=== PATIENT | female | born 1985 | race Caucasian/White ===

== ENCOUNTER 2016-09-19 10:51 | Observation (INO) ==
[2016-09-19] MEDS ORDERED: Naloxone 0.4 MG/ML INJ IM ONE ×2 (11:30→13:06)
--- NOTE | 2016-09-19 11:39 | Emergency Department Note ---
START Narrative - START START: I examined this patient and my medical decision-making was reviewed with the MANAGER UNIT/PA/Advanced Practice Nurse/Resident Physician. I agree with the documented findings, disposition and treatment plan as described except to the extent set forth below. The patient is somnolent but wakes easily and is breathing comfortably. Does know her name but does not answer other questions. I did speak with her boyfriend. The patient has no focal neurologic deficits on gross exam, no facial asymmetry, she is breathing comfortably, skin color is good and there is no diaphoresis. Test results are pending. Narcan 0.1 mg will be given. 1139 I did review the patient's EKG showed normal sinus rhythm with rate of 80 without acute ischemic changes, arrhythmia, QT prolongation or other significant abnormalities 1149 Chest x-ray is negative. I did reassess the patient again. She is infiltrated with assistance, she is much more done before. Will continue to be observed and likely discharged. Her altered consciousness is likely due to medications. Her prescription report will be checked 1219
--- NOTE | 2016-09-19 11:51 | Emergency Department Note ---
Disposition Clinical Impression: Hallucination Altered mental status Qualifiers: Altered mental status type: unspecified Qualified Code(s): R41.82 - Altered mental status, unspecified Disposition: Admitted As Inpatient Condition: Fair Referrals: Azar Lynch DO [Primary Care Provider] - Forms: ED Satisfaction Letter Time of Disposition: 15:49 Altered Mental Status HPI - General Chief Complaint: ED Altered Mental Status Stated Complaint: AMS x4 days Time Seen by Provider: 09/19/16 11:08 Source: patient, family Limitations: altered mental status - History of Present Illness HPI Narrative: Valeri is a 31-year-old female who presents with altered mental status for 4 days. Patient is brought in by her partner of 5 years. The partner states that today she drove his truck to his sister's house. He states that the patient does not have a license nor does she drive. Partner states that the patient has been "out of it" for the last 4 days. She is not know where she is. Patient is a former IV drug user who is currently using Suboxone 28 mg strips per day. She also reportedly uses Adderall which she obtains illegally. The patient takes gabapentin, ibuprofen, and Suboxone daily. The patient denies recently using IV drugs, methamphetamine, benzodiazepines, marijuana, alcohol. The patient and her partner recently moved into a new house about a month ago. Formerly, they lived with the partner's sister and brother. In the past month the patient has been cleaning their new house daily from approximately noon to 1 or 2 AM. However, for the last 4 days as become lethargic and disoriented. Today, the patient who does not drive to occur partner's truck and drove to her former house. She was found sitting in the yard by a resident of the house. Patient does admit that she has bipolar disorder. She admits to previous suicide attempt of cutting wrists. She denies suicidal thoughts at this time. She states that the voices she is hearing are not telling her to kill herself. - Related Data Allergies Allergy/AdvReac Type Severity Reaction Status Date / Time No Known Allergies Allergy Verified 09/19/16 11:34 Limitations: ROS unobtainable due to patients medical condition (ROS unobtainable due to patient's altered level of consciousness) Past Medical History - Past Medical History Medical history: Reports: other Psychiatric history: Reports: bipolar, prior suicide attempt - Social History Smoking Status: Unknown if ever smoked Alcohol use: Reports: unknown Drug use: Reports: unknown, opiates Physical Exam - General Limitations: altered mental status General appearance: alert, in no apparent distress - Head Head exam: atraumatic, normocephalic - Eye Eye exam: Present: normal appearance, PERRL, EOMI. Absent: scleral icterus, conjunctival injection - ENT ENT exam: normal exam - Neck Neck exam: Present: normal inspection, full ROM, trachea midline - Chest Chest inspection: Present: normal inspection, symmetric chest wall rise. Absent : tenderness - Respiratory Respiratory exam: Present: normal lung sounds bilaterally. Absent: respiratory distress, wheezes - Cardiovascular Cardiovascular exam: Present: regular rate, normal rhythm, +S1, +S2. Absent: systolic murmur, diastolic murmur - Abdominal Exam Abdominal exam: Present: soft, Non-Tender, normal bowel sounds. Absent: distention, guarding, rebound, rigidity - Expanded Lower Extremity Exam Hip/Pelvis exam: Present: normal inspection, full ROM - Back Exam Back exam: Present: normal inspection, full ROM - Neurological Exam Neurological exam: Present: alert, CN II-XII intact. Absent: oriented X3 ( Oriented to person only) - Psychiatric Psychiatric exam: Absent: homicidal ideation, suicidal ideation Course - Reevaluation(s) Reevaluation #1: Patient keeps repeating statements such as "I have had this gift for a long time ", "they are all trying to manipulate me". She does admit to auditory hallucinations. Patient states that she is hearing the voice of Claudia at this time (Claudia is her brother's boyfriend). Results of urine toxin screen, ethanol, salicylates, and acetaminophen levels. Given these findings, we will consult psychiatry. Patient denies suicidal ideations. Denies that voices are telling her to kill herself. Time: 13:34 Reevaluation #2: Patient's CT head is negative for any acute intracranial. I called [facility] and spoke to, who agreed to evaluate the patient in the ED. Patient will be admitted to [facility] for altered mental status. Time: 15:37 Vital Signs Temperature 98.3 F 09/19/16 10:55 Pulse Rate 78 09/19/16 10:55 Respiratory Rate 18 09/19/16 10:55 Blood Pressure 113/72 09/19/16 10:55 O2 Sat by Pulse Oximetry 97 09/19/16 10:55 Temperature 98.3 F 09/19/16 10:55 Pulse Rate 117 09/19/16 12:37 Respiratory Rate 16 09/19/16 12:37 Blood Pressure 140/94 09/19/16 12:37 O2 Sat by Pulse Oximetry 99 09/19/16 12:37 Oxygen Delivery Oxygen Delivery Room Air Altered Mental Status - [facility] Narrative Medical decision making narrative: Patient is a 31-year-old female who presented with 4 day history of altered mental status. Patient is awake alert and oriented to herself only. Patient is responding to questions with nonsensical answers. We have ordered Urine toxin screen, ethanol level, salicylates, and acetaminophen levels. These are pending at this time. - Differential Diagnosis Likely: altered mental status - Lab Data Lab results reviewed: Yes I reviewed the patient's lab results. Result diagrams: 09/19/16 11:32 Lab Results 09/19/16 09/19/16 09/19/16 Range/Units 11:32 11:32 11:55 Sodium 140 (136-145) mEq/L Potassium 3.5 (3.5-4.5) mEq/L Chloride 110 H (98-109) mEq/L Carbon Dioxide 23 (19-29) mEq/L BUN 10 (7-20) mg/dL Creatinine 0.71 (0.57-1.11) mg/dL Est GFR ( Amer) > 60 (> 60) Est GFR (Non-Af Amer) > 60 (> 60) BUN/Creatinine Ratio 14 (6-26) Glucose 101 H (70-99) mg/dL Calculated Osmolality 289 (280-300) Calcium 8.7 (8.6-10.8) mg/dL Total Bilirubin 0.7 (0.2-1.2) mg/dL Direct Bilirubin 0.3 (0.0-0.5) mg/dL Indirect Bilirubin 0.4 (0.0-1.2) mg/dL AST 15 (5-34) Units/L ALT 12 (0-55) Units/L Alkaline Phosphatase 45 (38-126) Units/L Serum Total Protein 7.0 (6.0-8.3) g/dL Albumin 4.1 (3.5-5.0) g/dL Globulin 2.9 (2.4-3.5) g/dL Albumin/Globulin Ratio 1.4 (1.1-2.2) TSH 0.275 L (0.350-4.840) mcIU/mL Free T4 0.80 (0.70-1.48) ng/dl Free T3 2.27 (1.71-3.71) pg/mL Urine Color Yellow (Yellow) Urine Clarity Cloudy A (Clear) Urine pH 6.0 (5.0-8.0) pH Units Ur Specific [place] 1.026 H (1.010-1.025) Urine Protein Negative (Neg-Trace) mg/dL Urine Glucose (UA) Normal (Normal) mg/dL Urine Ketones Negative (Negative) mg/dL Urine Blood Large H (Negative) Urine Nitrite Negative (Negative) Urine Bilirubin Negative (Negative) Urine Urobilinogen Normal (Normal) mg/dL Ur Leukocyte Esterase Negative (Negative) Urine Microscopic RBC 5-15 H (0-3) per hpf Urine Microscopic WBC 3-5 H (0-3) per hpf Ur Squamous Epith Cells Many H (None-Few) per lpf Urine Bacteria Few (None-Few) per hpf Hyaline Casts None Seen (None-Few) per lpf Ur Culture Indicated? NO (NO) Salicylates < 5.0 L (15-30) mg/dL Urine Opiates Screen (Rxpade=477) ng/mL Acetaminophen < 1.0 L (10-30) mcg/mL Ur Barbiturates Screen (Rwjttq=269) ng/mL Ur Phencyclidine Scrn (Cutoff=25) ng/mL Ur Amphetamines Screen (Mkutrc=1353) ng/mL U Benzodiazepines Scrn (Fnlaln=068) ng/mL Urine Cocaine Screen (Cutoff= 300) ng/mL U Marijuana (THC) Screen (Cutoff = 50) ng/mL Ethyl Alcohol < 10 (0-10) mg/dL 09/19/16 Range/Units 11:55 Sodium (136-145) mEq/L Potassium (3.5-4.5) mEq/L Chloride (98-109) mEq/L Carbon Dioxide (19-29) mEq/L BUN (7-20) mg/dL Creatinine (0.57-1.11) mg/dL Est GFR ( Amer) (> 60) Est GFR (Non-Af Amer) (> 60) BUN/Creatinine Ratio (6-26) Glucose (70-99) mg/dL Calculated Osmolality (280-300) Calcium (8.6-10.8) mg/dL Total Bilirubin (0.2-1.2) mg/dL Direct Bilirubin (0.0-0.5) mg/dL Indirect Bilirubin (0.0-1.2) mg/dL AST (5-34) Units/L ALT (0-55) Units/L Alkaline Phosphatase (38-126) Units/L Serum Total Protein (6.0-8.3) g/dL Albumin (3.5-5.0) g/dL Globulin (2.4-3.5) g/dL Albumin/Globulin Ratio (1.1-2.2) TSH (0.350-4.840) mcIU/mL Free T4 (0.70-1.48) ng/dl Free T3 (1.71-3.71) pg/mL Urine Color (Yellow) Urine Clarity (Clear) Urine pH (5.0-8.0) pH Units Ur Specific [place] (1.010-1.025) Urine Protein (Neg-Trace) mg/dL Urine Glucose (UA) (Normal) mg/dL Urine Ketones (Negative) mg/dL Urine Blood (Negative) Urine Nitrite (Negative) Urine Bilirubin (Negative) Urine Urobilinogen (Normal) mg/dL Ur Leukocyte Esterase (Negative) Urine Microscopic RBC (0-3) per hpf Urine Microscopic WBC (0-3) per hpf Ur Squamous Epith Cells (None-Few) per lpf Urine Bacteria (None-Few) per hpf Hyaline Casts (None-Few) per lpf Ur Culture Indicated? (NO) Salicylates (15-30) mg/dL Urine Opiates Screen Negative (Ncjmih=668) ng/mL Acetaminophen (10-30) mcg/mL Ur Barbiturates Screen Negative (Kdxbtm=231) ng/mL Ur Phencyclidine Scrn Negative (Cutoff=25) ng/mL Ur Amphetamines Screen Negative (Pdndmq=1088) ng/mL U Benzodiazepines Scrn Negative (Mymtxr=591) ng/mL Urine Cocaine Screen Negative (Cutoff= 300) ng/mL U Marijuana (THC) Screen Negative (Cutoff = 50) ng/mL Ethyl Alcohol (0-10) mg/dL - Radiology Data Radiology results reviewed: Yes I reviewed the patient's radiology results. Chest X-Ray 09/19/16 11:13 IMPRESSION: No acute cardiopulmonary disease D/ / Gabriel Krause MD / Gabriel Krause MD Interpreting Provider: Gabriel Krause MD Head CT 09/19/16 13:24 IMPRESSION: No acute intracranial abnormality. D/ / Sawyer Lewis MD / Sawyer Lewis MD Interpreting Provider: Sawyer Lewis MD - EKG Data EKG attestation: Yes I reviewed and interpreted this EKG. EKG results narrative: EKG NSR with rate at 80bpm. No ST segment changes. TPA Checklist - LKW: 3-4.5 hrs Add. Contraindications Patient/family understanding: The patient/family members have been counseled and understood the risk, benefit , and alternatives of treatment.
[2016-09-19 11:55] LABS: Acetaminophen < 1.0 mcg/mL (10-30); Alanine Aminotransferase 12 Units/L (0-55); Albumin 4.1 g/dL (3.5-5.0); Albumin/Globulin Ratio 1.4 (1.1-2.2); Alkaline Phosphatase 45 Units/L (38-126); Aspartate Amino Transferase 15 Units/L (5-34); BUN/Creatinine Ratio 14 (6-26); Bilirubin,Direct 0.3 mg/dL (0.0-0.5); Bilirubin,Indirect 0.4 mg/dL (0.0-1.2); Bilirubin,Total 0.7 mg/dL (0.2-1.2); Blood Urea Nitrogen 10 mg/dL (7-20); Calcium 8.7 mg/dL (8.6-10.8); Carbon Dioxide 23 mEq/L (19-29); Chloride 110 mEq/L (98-109); Globulin 2.9 g/dL (2.4-3.5); Glucose 101 mg/dL (70-99); Osmolality,Calculated 289 (280-300); Potassium 3.5 mEq/L (3.5-4.5); Sodium 140 mEq/L (136-145); eGFR For African Americans > 60 (> 60); eGFR For Non-African Americans > 60 (> 60)
[2016-09-19 11:56] LABS: Ethanol < 10 mg/dL (0-10); Salicylate < 5.0 mg/dL (15-30)
[2016-09-19 12:09] LABS: Bilirubin,Urine Negative (Negative); Blood,Urine Large (Negative); Clarity,Urine Cloudy (Clear); Color,Urine Yellow (Yellow); Glucose,Urine (UA) Normal (Normal); Ketones,Urine Negative (Negative); Leukocyte Esterase,Urine Negative (Negative); Nitrite,Urine Negative (Negative); Protein,Urine Negative (Neg-Trace); Specific Gravity,Urine 1.026 (1.010-1.025); Urobilinogen,Urine Normal (Normal)
[2016-09-19 12:11] LABS: Bacteria,Urine Few per hpf (None-Few); Hyaline Casts,Urine None Seen per lpf (None-Few); Squamous Epithelial Cell,Urine Many per lpf (None-Few)
[2016-09-19 12:15] LABS: Amphetamine Screen,Urine Negative ng/mL (Cutoff=1000); Barbiturate Screen,Urine Negative ng/mL (Cutoff=200); Benzodiazepines Screen,Urine Negative ng/mL (Cutoff=200); Cannabinoid Screen,Urine Negative ng/mL (Cutoff = 50); Cocaine Screen,Urine Negative ng/mL (Cutoff= 300); Opiate Screen,Urine Negative ng/mL (Cutoff=300); Phencyclidine Screen,Urine Negative ng/mL (Cutoff=25)
[2016-09-19 14:05] LABS: Thyroid Stimulating Hormone 0.275 mcIU/mL (0.350-4.840)
[2016-09-19 15:41] LABS: Triiodothyronine (T3) Free 2.27 pg/mL (1.71-3.71)
[2016-09-19 19:44] LABS: Basophils # 0.1 K/mcL (0.0-0.2); Basophils % 0.6 %; Eosinophils # 0.2 K/mcL (0.0-0.6); Eosinophils % 1.9 %; Hematocrit 40.4 % (35.3-44.9); Hemoglobin 13.4 g/dL (11.5-15.4); Immature Granulocytes % 0.1 % (0-4); Lymphocytes # 2.3 K/mcL (0.6-4.6); Mean Corpuscular HGB Conc 33.2 g/dL (31.6-35.5); Mean Corpuscular Hemoglobin 30.3 pg (28.0-33.3); Mean Corpuscular Volume 91.4 fL (83.0-100.0); Mean Platelet Volume 13.2 fL (9.4-12.4); Monocytes # 0.6 K/mcL (0.0-1.3); Neutrophils # 6.2 K/mcL (1.6-8.9); Platelet Count 193 K/mcL (140-400); Red Blood Count 4.42 M/mcL (3.82-4.97); Red Cell Distribution Width 12.6 % (11.5-14.5); Segmented Neutrophils % 66.4 %
[2016-09-19] MEDS ORDERED: Naloxone 0.4 MG/ML INJ IVP PRN (20:38)
[2016-09-19] MEDS ORDERED: *HR* Morphine 2 MG/ML SYRINGE IVP PRN (20:38)
[2016-09-19] MEDS ORDERED: Acetaminophen 325 MG TABLET PO PRN (20:38)
[2016-09-19] MEDS ORDERED: Ibuprofen 400 MG TABLET PO PRN (20:38)
[2016-09-19] MEDS ORDERED: Ibuprofen 800 MG TABLET PO PRN (20:42)
[2016-09-19] MEDS ORDERED: 0.9 % Sodium Chloride 1,000 ML IVC SCH (20:45)
[2016-09-19] MEDS ORDERED: diazePAM 10 MG TABLET PO SCH (21:00)
--- NOTE | 2016-09-19 21:25 | Electrocardiograph Report ---
[facility] Test Date: 2016-09-19 Pat Name: Sarah Garcia Department: 105 Room: 3B31 Gender: F Wing Commander: AM : 1985 Requested By: Silvio Guerra Order Number: [id number] Reading MD: Martin Estrada MD Measurements Intervals [place] Rate: 80 P: 61 IL: 155 QRS: 57 QRSD: 72 T: 33 QT: 393 QTc: 429 Interpretive Statements SINUS RHYTHM Electronically Signed On 09-19-2016 21:23:25 EDT by Martin Estrada MD
[2016-09-19] MEDS: Gabapentin 400 MG CAPSULE PO SCH (21:35)
[2016-09-20] MEDS ORDERED: Melatonin 3 MG TABLET PO ONE (00:31)
--- NOTE | 2016-09-20 00:58 | Internal Med History&Physical ---
Date of Encounter: 09/20/16 Time of Encounter: 21:00 Assessment and Plan (1) DVT prophylaxis Current visit: Yes Status: Acute Lovenox subcutaneously (2) Altered mental status Current visit: Yes Status: Acute Patient has multiple psych issue. Drug screen in emergency room negative. Consider psychiatry etiology. Mental status has improved when I see her. - She has anxiety, will give diazepam 10mg po bid. - Continue her home medication for pain. - Closely monitor patient. Place sitter. - May reconsult psychiatry in AM. Qualifiers: Altered mental status type: delirium Qualified Code(s): R41.0 - Disorientation, unspecified (3) Hallucination Current visit: Yes Status: Acute We will closely monitor patient and consult psychiatry in a.m. Internal Medicine - H&P: HPI Chief complaint: Confusion Admitted From: Home Plans for Post Hospital Care: Home History of present illness: Ms. Garcia is a 31 year old female with history of IV drug use, bipolar disorder , PTSD, present to ER for strange behavior and confusion. When I saw patient in the emergency room, she is awake alert, oriented 3. However, patient does not want to talk much, and keep complaining pain. Some history obtained from her partner, who is in the room at that time. Patient was found confused and strange behavior for 4-5 days. Patient complains of hearing some sound and see colorful lights. 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 Patient denies fever, has mild nausea, but no vomiting. She has abdominal pain but it is chronic for many years. She has no urinary symptoms. Patient denies suicide or homicide idea. In emergency room, psychiatry consult was called by ER physician and saw patient, but no note left. Patient will admitted to medical floor for further observation. Past Med Surg Social Fam HX - Past Medical History Medical history: other Psychiatric history: bipolar, prior suicide attempt - Social History Smoking Status: Unknown if ever smoked Packs per day: 1 Smokeless Tobacco Status: No Alcohol use: unknown Drug use: unknown, opiates - Family History Paternal Grandmother Hx Family Cardiac Disorders: Yes ([place]) Hx Family Respiratory Disorders: No Hx Family Cancer: No Hx Family GI Disorders: No Hx Family Genitourinary Disorders: No Hx Family Endocrine Disorder: No Hx Family Musculoskeletal Disorders: No Hx Family Neuromuscular Disorders: No Hx Family Neurologic Disorders: No Hx Family HEENT Disorders: No Hx Family Autoimmune Disorders: No Hx Family Reproductive Disorders: No Hx Family Psychosocial Disorders: No Hx Family Medical Disorders: No Internal Medicine - H&P: Meds Buprenorphine HCl/Naloxone HCl [Suboxone 8 mg-2 mg Sl Film] 1 each SL BID [History] Gabapentin [Neurontin] 800 mg PO TID 09/19/16 [History] Ibuprofen [Ibuprofen] 800 mg PO TID PRN 09/19/16 [History] Allergies No Known Allergies Allergy (Verified 09/19/16 11:34) All Systems PM: A 10-system review of systems was performed and is negative for pertinent findings except as documented above in the HPI. - Constitutional Vitals: Temp Pulse Resp BP Pulse Ox 97.5 F L 70 16 94/59 98 09/19/16 22:26 09/19/16 22:26 09/19/16 22:26 09/19/16 22:26 09/19/16 22:26 General appearance: Present: mild distress, A&O X 3, answers questions appropriately - Head Head exam: Present: atraumatic, normocephalic - Eye Eye exam: Present: PERRL, conjuntiva pink, sclera anicteric Pupils: Present: PERRL - Neck Neck exam general surgery: Present: supple, trachea midline. Absent: lymphadenopathy - Respiratory Respiratory exam: Present: CTAB. Absent: accessory muscle use, rales, rhonchi, wheezes - Cardiovascular Cardiovascular exam: Present: RRR, +S1, +S2. Absent: diastolic murmur, gallop, rubs, systolic murmur - GI/Abdominal GI/Abdominal exam: Present: normal bowel sounds, soft, tenderness (Tenderness all around the belly, without rebound or guarding.), no peritoneal signs. Absent: distended - Extremities Exam Extremities exam: Present: warm, radial pulses palpable and symetrical. Absent : calf tenderness, cyanotic, pedal edema - Neurological Exam Neurological exam: Present: CN II-XII intact, oriented X3, no focal deficits. Absent: pronater drift, facial droop, speech deficit - Skin Skin exam: Present: dry, intact Internal Med - H&P Results - Labs CBC & Chem 7: 09/19/16 11:32 09/19/16 11:32
[2016-09-20 05:21] LABS: Basophils # 0.1 K/mcL (0.0-0.2); Basophils % 0.7 %; Eosinophils # 0.1 K/mcL (0.0-0.6); Eosinophils % 1.5 %; Hematocrit 41.3 % (35.3-44.9); Hemoglobin 13.7 g/dL (11.5-15.4); Immature Granulocytes % 0.2 % (0-4); Lymphocytes % 34.4 %; Mean Corpuscular HGB Conc 33.2 g/dL (31.6-35.5); Mean Corpuscular Hemoglobin 29.8 pg (28.0-33.3); Mean Platelet Volume 12.3 fL (9.4-12.4); Monocytes # 0.8 K/mcL (0.0-1.3); Monocytes % 9.3 %; Neutrophils # 4.7 K/mcL (1.6-8.9); Platelet Count 181 K/mcL (140-400); Red Blood Count 4.59 M/mcL (3.82-4.97); Red Cell Distribution Width 12.2 % (11.5-14.5); Segmented Neutrophils % 53.9 %
[2016-09-20 05:31] LABS: BUN/Creatinine Ratio 17 (6-26); Blood Urea Nitrogen 13 mg/dL (7-20); Carbon Dioxide 24 mEq/L (19-29); Chloride 108 mEq/L (98-109); Glucose 93 mg/dL (70-99); Osmolality,Calculated 288 (280-300); Sodium 139 mEq/L (136-145); eGFR For African Americans > 60 (> 60); eGFR For Non-African Americans > 60 (> 60)
[2016-09-20 05:32] LABS: Magnesium 2.5 mg/dL (1.6-2.6)
[2016-09-20 05:33] LABS: Potassium 4.8 mEq/L (3.5-4.5)
[2016-09-20] MEDS ORDERED: *HR* Enoxaparin 40 MG/0.4 ML SYRINGE SQ SCH (06:00)
[2016-09-20] MEDS: Gabapentin 400 MG CAPSULE PO SCH (07:59)
[2016-09-20] MEDS ORDERED: Ondansetron 4 MG/2 ML VIAL ONE (08:40)
[2016-09-20] MEDS ORDERED: Ondansetron 4 MG/2 ML VIAL IVP PRN (08:43)
[2016-09-20 11:29] VITALS: BP 103/63
--- NOTE | 2016-09-20 14:44 | Discharge Summary ---
Date of Encounter: 09/20/16 Time of Encounter: 13:00 - Discharge Diagnosis (1) Altered mental status Priority: Primary Status: Resolved (2) Hallucination Priority: Primary Status: Resolved (3) DVT prophylaxis Priority: Primary Status: Acute Comments: Subcutaneous Lovenox while admitted (4) Other social stressor Priority: Primary Status: Acute - Discharge Medications Prescriptions: Ondansetron HCl 4 mg PO Q8H PRN #12 tablet PRN Reason: Nausea And Vomiting Home Medications: Buprenorphine HCl/Naloxone HCl [Suboxone 8 mg-2 mg Sl Film] 1 each SL BID [History] Gabapentin [Neurontin] 800 mg PO TID 09/19/16 [History] Ibuprofen 800 mg PO TID PRN 09/19/16 [History] Ondansetron HCl 4 mg PO Q8H PRN #12 tablet 09/20/16 [Rx] Allergies/Adverse Reactions: Allergies No Known Allergies Allergy (Verified 09/19/16 11:34) Date of admission: 09/19/16 20:09 Primary care physician: Azar Lynch Consults: 09/19/16 20:41 Consult to [facility] Director [CONS] Routine Reason for SW Consult: Complicated social issue, Hx of IVDU Discharging clinician: Briseida Gasca Anticipated date of discharge: 09/20/16 - Patient Status Disposition: Home, Self-Care Condition: Fair Functional capacity at discharge: independent ambulation Overall status at discharge: patient is back to baseline - Discharge Instructions Follow Up With: Azar Lynch DO [Primary Care Provider] - Additional Instructions: Follow-up with primary care provider within one to 2 weeks - Diet and Activity Activity: increase activity as tolerated Diet: regular diet Hospital course: Ms. Garcia is a 31 year old female with past medical history of IV drug abuse, bipolar disorder, PTSD, prior suicide attempt, tobacco abuse. Patient presented to the emergency room for chief complaint of altered mental status. Her live-in partner stated that the patient was more confused and had been exhibiting strange behavior for the past 4-5 days prior to presentation. Patient complained of hearing a sound in seeing colorful lights. She denied fever, vomiting. She did endorse mild nausea. Patient endorsed her chronic abdominal pain but denied any change. She denied urinary symptoms. She denied suicidal or homicidal ideation. Psychiatry was brought on board while in the emergency department and they did not recommend inpatient psychiatric care at that time. Patient was subsequently admitted to the hospitalist service for further evaluation and management. Chest x-ray negative. Head CT negative. Urinalysis negative. Tox screen negative. Patient was observed overnight and she was alert and oriented 3 and no longer had visual or auditory hallucinations. It appears as if the patient had experienced an acute psychotic break. She states that her children are in the custody of their father and she states that their father was incarcerated on drug charges last week. She states that she is "worrying herself sick" trying to find where her children are in trying to get custody of them. She has not been sleeping or eating very much. Again, her tox screen was negative and she denied any illicit drug use. She tolerated a regular diet while admitted. She denied suicidal or homicidal ideations. We are always report checked out. She states that she sees [facility] clinic regularly and regularly get psychiatric care there. She was also seen by pastoral care at her request. She states she felt safe in her current living arrangement. She was discharged home in stable condition with close outpatient follow-up recommended. She was also seen by manager social work to give her more resources and obtaining the location of her children. ITS Impressions Chest X-Ray 09/19/16 11:13 IMPRESSION: No acute cardiopulmonary disease D/ / Gabriel Krause MD / Gabriel Krause MD Interpreting Provider: Gabriel Krause MD Head CT 09/19/16 13:24 IMPRESSION: No acute intracranial abnormality. D/ / Sawyer Lewis MD / Sawyer Lewis MD Interpreting Provider: Sawyer Lewis MD - Time Spent with Patient Total time spent providing and/or coordinating discharge services: - Constitutional Vitals: Temp Pulse Resp BP Pulse Ox 98.4 F 80 18 103/63 98 09/20/16 11:25 09/20/16 11:25 09/20/16 11:25 09/20/16 11:25 09/20/16 11:25 General appearance: Present: cachectic, A&O X 3, pleasant, no acute distress, answers questions appropriately - Head Head exam: Present: atraumatic, normocephalic - Eye Eye exam: Present: PERRL, conjuntiva pink, sclera anicteric Pupils: Present: PERRL - Neck Neck exam general surgery: Present: supple, trachea midline. Absent: lymphadenopathy - Respiratory Respiratory exam: Present: CTAB. Absent: accessory muscle use, rales, respiratory distress, rhonchi, wheezes - Cardiovascular Cardiovascular exam: Present: RRR, +S1, +S2. Absent: diastolic murmur, gallop, rubs, systolic murmur - GI/Abdominal GI/Abdominal exam: Present: normal bowel sounds, soft, no peritoneal signs. Absent: distended, tenderness - Extremities Exam Extremities exam: Present: warm, radial pulses palpable and symetrical. Absent : calf tenderness, cyanotic, pedal edema - Neurological Exam Neurological exam: Present: alert, CN II-XII intact, normal gait, oriented X3, no focal deficits, strengths equal and symetr throughout. Absent: pronater drift, facial droop, speech deficit - Psychiatric Psychiatric exam: Present: anxious. Absent: suicidal ideation - Expanded Psychiatric Exam Focused psych exam: Present: psychomotor agitation, restlessness - Skin Skin exam: Present: dry, intact, pallor, warm
== END 2016-09-20 15:12 | disposition home or self-care (01) ==
LOC: EMEROO 10:51 → 3BNU 10:51
PROVIDERS: ADMIT Nurse Practitioner Family; ATTEND Nurse Practitioner Family

== ENCOUNTER 2016-10-03 16:12 | Inpatient (IN) ==
[2016-10-03] MEDS ORDERED: *HR* LORazepam 2 MG/ML VIAL IM PRN (18:41)
[2016-10-03] MEDS ORDERED: *HR* LORazepam 1 MG TABLET PO PRN (18:41)
[2016-10-03] MEDS ORDERED: Haloperidol Lactate 5 MG/ML VIAL IM PRN (18:41)
[2016-10-03] MEDS: OLANZapine 10 MG TAB.RAPDIS PO SCH (21:14)
[2016-10-03] MEDS: Gabapentin 400 MG CAPSULE PO SCH (21:14)
[2016-10-03] MEDS: traZODone 50 MG TABLET PO PRN (21:15)
[2016-10-03] MEDS: hydrOXYzine pamoate 25 MG CAPSULE PO PRN (21:15)
[2016-10-04] MEDS: Thiamine (B-1) 100 MG TABLET PO SCH (09:34)
[2016-10-04] MEDS: Gabapentin 400 MG CAPSULE PO SCH ×3 (09:34→21:54)
--- NOTE | 2016-10-04 11:15 | Psychiatry History & Physical ---
Date of Encounter: 10/04/16 Time of Encounter: 09:00 History of Present Illness Patient Stated Chief Complaint: Acute psychosis Medicare Admission Attestation: For traditional Medicare patients the provided hospital inpatient services are reasonable and necessary and in the case of services not specified as inpatient -only under 42 CFR 419.22 (n), that they are appropriately provided as inpatient services in accordance 42 CFR 412.3. For Critical Access Hospital the patient may reasonably be expected to be discharged or transferred to a hospital within 96 hours after admission to the Critical Access Hospital. Admitted From: Hospital to Hospital Transfer ([facility]) History of Present Illness: Ms. Garcia is a 31 year old female admitted from [facility] for evaluation of altered mental status, patient was reported to be wandering in the neighborhood and experiencing hallucinations and confused. Patient had no previous psychiatric admission to this unit but she was admitted to the hospital on 09/19/2008. She presented with history of IV drug abuse with bipolar disorder PTSD and history of suicide attempts. Patient was presenting with altered mental status workup was done and patient was discharged in a stable condition at that time. Patient was unable to give any history information answer questions and most of information were obtained from records sent in by the [facility] and [facility] records. Patient is known to have Suboxone treatment in addition to other medication but overall she is noncompliant with treatment or follow-up. Past Med Surg Social Fam HX - Past Psychiatric History Psychiatric history: Reports: no psych history Past psychiatric history details: No psychiatric records to review. Medications & Allergies Buprenorphine HCl/Naloxone HCl [Suboxone 8 mg-2 mg Sl Film] 1 film SL BID [History] Gabapentin [Neurontin] 800 mg PO TID 10/04/16 [History] Ibuprofen [Motrin] 800 mg PO Q8HR PRN 10/04/16 [History] Ondansetron HCl [Zofran] 4 mg PO Q8H PRN 10/04/16 [History] Allergies No Known Allergies Allergy (Verified 10/04/16 07:11) Review of Systems Psychiatric: Reports: auditory hallucinations, visual hallucinations, confusion Mental Status Exam Patient orientation: Yes Person, Yes Place Level of alertness: Sedated Patient appearance: Appropriate, Unkempt, Disheveled, Bizarre, Thin Behavior: cooperative, tearful, restless, uncooperative, fearful Psychomotor activity: Increased Eye contact: Diverts Contact Mood description: Anxious, Labile, Irritable Affect description: labile, dysphoric, inappropriate to situation, anxious Speech pattern: Slowed, Delayed, Disorganized, Limited, Garbled, Impoverished, Mumbled Speech volume: Normal Thought process: Loose Associations, Flight of Ideas, Thought Blocking, Disorganized Thought content: No Suicidal ideation, No Homicidal ideation, No Overt delusions Perceptual disturbances: Yes Reacting to internal stimuli, No Auditory hallucinations, No Visual hallucinations Attention span: Unable to Focus Memory description: Immediate Impaired, Recent Impaired, Remote Impaired Patient reliability: Not Reliable Historian Intelligence estimate: Average Judgment: Limited Insight: Partial Results - Vital Signs Vital signs: Temp Pulse Resp BP 97.6 F 78 16 98/63 10/04/16 09:00 10/04/16 09:00 10/04/16 09:00 10/04/16 09:00 Assessment and Plan (1) Acute psychosis Current visit: Yes Status: Acute Plan: Admit inpatient for safety and stabilization, Close observation, Suicide Precautions per unit protocol, Encourage participation in unit milieu, Group Therapy, Monitor sleep, Monitor appetite Additional Plan: We will observe the patient's and evaluate mental status, she will be kept on minimal medication.
[2016-10-04] MEDS: Nicotine 21 MG PATCH.TD24 TD SCH (17:54)
[2016-10-04] MEDS: Acetaminophen 325 MG TABLET PO PRN ×2 (18:09→22:56)
[2016-10-04] MEDS: OLANZapine 10 MG TAB.RAPDIS PO SCH (21:54)
[2016-10-04] MEDS: traZODone 50 MG TABLET PO PRN (21:54)
[2016-10-04] MEDS: hydrOXYzine pamoate 25 MG CAPSULE PO PRN (22:55)
[2016-10-05] MEDS: (Buprenorphine Hcl/Naloxone Hcl [Suboxone 8 Mg-2 Mg S) SL SCH ×3 (00:13→20:52)
[2016-10-05] MEDS: Nicotine 21 MG PATCH.TD24 TD SCH (08:58)
[2016-10-05] MEDS: Gabapentin 400 MG CAPSULE PO SCH ×3 (08:59→20:51)
[2016-10-05] MEDS: Thiamine (B-1) 100 MG TABLET PO SCH (08:59)
--- NOTE | 2016-10-05 12:44 | Psychiatry Progress Note ---
Date of Encounter: 10/05/16 Time of Encounter: 12:37 Subjective Interval history: Client seems to be doing better but she is still confused. Doesn't know what happened prior to her admission. Denies drug use. Tox screen not visible to this policy writer sales but client reports she was told it was negative. Denies AH at this time but reports she is afraid others want to take her life and she "hears" this. Thoughts are generally organized but she becomes digressive at times. Denies active SI at this time but feels like giving up. Reports she has a history of accidental and intentional drug overdoses. Feels used by men. Living with boyfriend and brother and reports this is not a safe housing situation. Claims there are drugs and guns in the home. Missing children. Does not know where they are and cannot contact them. Claims she signed a temporary custody order for their father's mother but not sure if her boys are still with this person or not. Labile. Easily brought to tears. Feels like she doesn't know what is going on. Prescribed Zyprexa at time of admission. Took this last night. Likely reason she is thinking clearer but client reports she did not like the medication. Endorses EPS type symptoms. Describes sensations that sound like akathesia. Will continue Zyprexa tonight but reduce dose. Will need social work involvement. Review of Systems Constitutional: Denies: fever, chills, weakness, weight change Eyes: Denies: eye pain, vision change Ears, Nose, Throat: Denies: ear pain, throat pain, dental pain, hearing loss, congestion Cardiovascular: Denies: chest pain, palpitations, dyspnea on exertion Respiratory: Denies: cough, dyspnea, wheezes Gastrointestinal: Reports: abdominal pain. Denies: nausea, vomiting, diarrhea, constipation Musculoskeletal: Denies: joint swelling, joint pain Neurological: Reports: confusion, memory loss. Denies: headache, weakness, numbness Psychiatric: Reports: auditory hallucinations, visual hallucinations, confusion Objective: Exam Patient orientation: Yes Person, Yes Time, Yes Place Level of alertness: Alert Patient appearance: Appropriate, Well Groomed Behavior: anxious, tearful, fearful Psychomotor activity: Normal Eye contact: Maintains Eye Contact Mood description: Depressed, Anxious Affect description: congruent with mood Speech pattern: Normal rate, Normal rhythm, Normal tone Speech volume: Normal Thought process: Tangential Thought content: No Suicidal ideation, No Homicidal ideation, Yes Paranoid delusion Perceptual disturbances: No Auditory hallucinations, No Visual hallucinations Judgment: Limited Insight: Minimal Results - Vital Signs Vital Signs: Temp Pulse Resp BP 98.2 F 98 16 93/57 10/05/16 09:00 10/05/16 09:00 10/05/16 09:00 10/05/16 09:00 Assessment and Plan (1) Acute psychosis Current visit: Yes Status: Acute Plan: Continue hospitalization, Close observation, Suicide Precautions per unit protocol, Encourage participation in unit milieu, Group Therapy, Monitor sleep, Monitor appetite Risks, benefits, side effects, alternatives discussed w/pt: Yes Patient agreeable to treatment: Yes Consult Discharge Plan - Plan Referrals: NO,PCP [Primary Care Provider] -
[2016-10-05] MEDS: hydrOXYzine pamoate 25 MG CAPSULE PO PRN (19:50)
[2016-10-05] MEDS: Acetaminophen 325 MG TABLET PO PRN (19:51)
[2016-10-05] MEDS ORDERED: OLANZapine 5 MG TAB.RAPDIS PO SCH (21:00)
[2016-10-05] MEDS: traZODone 50 MG TABLET PO PRN (22:54)
[2016-10-06] MEDS: Nicotine 21 MG PATCH.TD24 TD SCH (09:13)
[2016-10-06] MEDS: Thiamine (B-1) 100 MG TABLET PO SCH (09:15)
[2016-10-06] MEDS: (Buprenorphine Hcl/Naloxone Hcl [Suboxone 8 Mg-2 Mg S) SL SCH ×2 (09:17→21:02)
[2016-10-06] MEDS: Gabapentin 400 MG CAPSULE PO SCH ×3 (09:17→20:23)
[2016-10-06] MEDS ORDERED: Ondansetron ODT 4 MG TAB.RAPDIS SL PRN (09:27)
--- NOTE | 2016-10-06 09:48 | Psychiatry Progress Note ---
Date of Encounter: 10/06/16 Time of Encounter: 09:44 Subjective Interval history: Client remains tearful with some altered thought process. Will present well ( brighter mood, organized thoughts) but then she will say something bizarre. She seems to understand that what she is saying and thinking is not accurate and this upsets her. Definitely still having periods of confusion. Slightly less tearful and confused today but still needs more time. Denies SI but admits she is depressed. Suspect she is going through a psychotic depression. Does not want to take meds but agreed to try an antidepressant today. Will start Zoloft and increase Zyprexa. Did not sleep well last night. Has prns available. Review of Systems Constitutional: Reports: weakness Eyes: Denies: eye pain, vision change Ears, Nose, Throat: Denies: ear pain, throat pain, dental pain, hearing loss, congestion Cardiovascular: Denies: chest pain, palpitations, dyspnea on exertion Respiratory: Denies: cough, dyspnea, wheezes Gastrointestinal: Reports: nausea Musculoskeletal: Reports: myalgia Neurological: Reports: confusion, memory loss. Denies: headache, numbness Psychiatric: Reports: auditory hallucinations, visual hallucinations, confusion Objective: Exam Patient orientation: Yes Person, Yes Time, Yes Place Level of alertness: Alert Patient appearance: Appropriate, Well Groomed Behavior: tearful, fearful Psychomotor activity: Slowed Eye contact: Maintains Eye Contact Mood description: Depressed Affect description: tearful Speech pattern: Normal rate, Normal rhythm, Normal tone Speech volume: Normal Thought process: Thought Blocking Thought content: Yes Guilt Perceptual disturbances: Yes Auditory hallucinations Judgment: Limited Insight: Minimal Results - Vital Signs Vital Signs: Temp Pulse Resp BP 97.6 F 67 16 94/57 10/06/16 08:34 10/06/16 08:34 10/06/16 08:34 10/06/16 08:34 Assessment and Plan (1) Acute psychosis Current visit: Yes Status: Acute Plan: Continue hospitalization, Close observation, Suicide Precautions per unit protocol, Encourage participation in unit milieu, Group Therapy, Monitor sleep, Monitor appetite Risks, benefits, side effects, alternatives discussed w/pt: Yes Patient agreeable to treatment: Yes Consult Discharge Plan - Plan Referrals: NO,PCP [Primary Care Provider] -
[2016-10-06] MEDS: Mag Hydrox/Al Hydrox/Simeth 30 ML UDC PO PRN (15:57)
[2016-10-06] MEDS: OLANZapine 5 MG TAB.RAPDIS PO SCH (20:22)
[2016-10-06] MEDS: traZODone 50 MG TABLET PO PRN (23:57)
[2016-10-07] MEDS: Mag Hydrox/Al Hydrox/Simeth 30 ML UDC PO PRN ×2 (06:36→16:26)
[2016-10-07] MEDS: Thiamine (B-1) 100 MG TABLET PO SCH (10:08)
[2016-10-07] MEDS: Gabapentin 400 MG CAPSULE PO SCH ×3 (10:08→20:35)
[2016-10-07] MEDS: (Buprenorphine Hcl/Naloxone Hcl [Suboxone 8 Mg-2 Mg S) SL SCH ×2 (10:10→21:37)
[2016-10-07] MEDS: Nicotine 21 MG PATCH.TD24 TD SCH ×2 (10:14→12:24)
--- NOTE | 2016-10-07 12:57 | Psychiatry Progress Note ---
Date of Encounter: 10/07/16 Time of Encounter: 12:46 Subjective Interval history: Client looks a little better today. Still has periods of being confused but thoughts are becoming more organized. Still emotional but not nearly as tearful as yesterday. Improving but still may need some more time to clear. Will have a normal conversation and then start talking about something that does not make sense/is not reality based. Client seems to realize this as she will trail off and get a quizzical expression. Denies SI and has been consistent in denying SI. Insight developing but doesn't realize how bizarre her initial presentation was. Home life seems unsafe but she reports having friends she can stay with. Many watermelon inspector goals...future oriented. Psychosis still resolving. Review of Systems Constitutional: Denies: fever, chills, weakness, weight change Eyes: Denies: eye pain, vision change Ears, Nose, Throat: Denies: ear pain, throat pain, dental pain, hearing loss, congestion Cardiovascular: Denies: chest pain, palpitations, dyspnea on exertion Respiratory: Denies: cough, dyspnea, wheezes Gastrointestinal: Denies: abdominal pain, nausea, vomiting, diarrhea, constipation Musculoskeletal: Denies: joint swelling, joint pain Neurological: Denies: headache, weakness, numbness, memory loss Psychiatric: Reports: auditory hallucinations, visual hallucinations, confusion Objective: Exam Patient orientation: Yes Person, Yes Time, Yes Place Level of alertness: Alert Patient appearance: Appropriate, Well Groomed Behavior: calm, cooperative Psychomotor activity: Slowed Eye contact: Maintains Eye Contact Mood description: Depressed Affect description: full range Speech pattern: Normal rate, Normal rhythm, Normal tone Speech volume: Normal Thought process: Goal Oriented, Tangential Thought content: No Suicidal ideation, No Homicidal ideation, Yes Guilt Perceptual disturbances: Yes Auditory hallucinations Judgment: Fair Insight: Partial Results - Vital Signs Vital Signs: Temp Pulse Resp BP 97.6 F 84 16 99/59 10/07/16 08:33 10/07/16 08:33 10/07/16 08:33 10/07/16 08:33 Assessment and Plan (1) Acute psychosis Current visit: Yes Status: Acute Plan: Continue hospitalization, Close observation, Suicide Precautions per unit protocol, Encourage participation in unit milieu, Group Therapy, Monitor sleep, Monitor appetite Risks, benefits, side effects, alternatives discussed w/pt: Yes Patient agreeable to treatment: Yes Consult Discharge Plan - Plan Referrals: NO,PCP [Primary Care Provider] -
[2016-10-07] MEDS: hydrOXYzine pamoate 25 MG CAPSULE PO PRN (20:35)
[2016-10-07] MEDS: OLANZapine 5 MG TAB.RAPDIS PO SCH (20:35)
[2016-10-08] MEDS: Gabapentin 400 MG CAPSULE PO SCH ×3 (08:51→20:16)
[2016-10-08] MEDS: Thiamine (B-1) 100 MG TABLET PO SCH (08:51)
[2016-10-08] MEDS: (Buprenorphine Hcl/Naloxone Hcl [Suboxone 8 Mg-2 Mg S) SL SCH ×2 (08:52→20:15)
[2016-10-08] MEDS: Nicotine 21 MG PATCH.TD24 TD SCH (08:53)
--- NOTE | 2016-10-08 12:47 | Psychiatry Progress Note ---
Date of Encounter: 10/08/16 Time of Encounter: 12:41 Subjective Interval history: Not ready to go yet. Still psychotic. Paranoid and guarded with social worker health services. Unable to adequately discharge plan with her. viscose cellar worker spoke with boyfriend who reported prior to admission client was crawling down the street and approaching neighbors claiming she owed them money when she didn't. He reported client has been depressed before but never like this. He also confided that her biological father was bringing her crack cocaine and that the client was obtaining Adderall on top of it. Client reports she is taking the medication here. Some question of cheeking since she is not improving as quickly as one would think. Given Zydis but staff say it is not particularly quick to dissolve. Will monitor her closely and increase dose. According to staff last night client was confused, irritable, and appeared to be responding to IS. However, she did sleep. This morning she is less irritable but she is still confused and staff indicated she struggled to even fill out her menu card. Will need to probate if she does not sign in voluntarily as she is not well enough to leave. Review of Systems Constitutional: Denies: fever, chills, weakness, weight change Eyes: Denies: eye pain, vision change Ears, Nose, Throat: Denies: ear pain, throat pain, dental pain, hearing loss, congestion Cardiovascular: Denies: chest pain, palpitations, dyspnea on exertion Respiratory: Denies: cough, dyspnea, wheezes Gastrointestinal: Denies: abdominal pain, nausea, vomiting, diarrhea, constipation Musculoskeletal: Denies: joint swelling, joint pain Neurological: Reports: confusion, memory loss Psychiatric: Reports: auditory hallucinations, visual hallucinations, confusion Objective: Exam Patient orientation: Yes Person, Yes Time, Yes Place Level of alertness: Alert Patient appearance: Appropriate Behavior: calm, cooperative Psychomotor activity: Slowed Eye contact: Maintains Eye Contact Mood description: Depressed, Irritable Affect description: congruent with mood, tearful Speech pattern: Normal rate, Normal rhythm, Normal tone Speech volume: Normal Thought process: Tangential Thought content: No Suicidal ideation, No Homicidal ideation, Yes Paranoid delusion Perceptual disturbances: Yes Reacting to internal stimuli Judgment: Limited Insight: Minimal Results - Vital Signs Vital Signs: Temp Pulse Resp BP 98.6 F 78 16 94/60 10/08/16 08:51 10/08/16 08:51 10/08/16 08:51 10/08/16 08:51 Assessment and Plan (1) Acute psychosis Current visit: Yes Status: Acute Plan: Continue hospitalization, Close observation, Suicide Precautions per unit protocol, Encourage participation in unit milieu, Group Therapy, Monitor sleep, Monitor appetite Risks, benefits, side effects, alternatives discussed w/pt: Yes Patient agreeable to treatment: Yes Consult Discharge Plan - Plan Referrals: NO,PCP [Primary Care Provider] -
[2016-10-08] MEDS: Mag Hydrox/Al Hydrox/Simeth 30 ML UDC PO PRN (15:13)
[2016-10-08] MEDS: OLANZapine 10 MG TAB.RAPDIS PO SCH (20:16)
[2016-10-08] MEDS: hydrOXYzine pamoate 25 MG CAPSULE PO PRN (20:16)
[2016-10-09] MEDS: Thiamine (B-1) 100 MG TABLET PO SCH (08:58)
[2016-10-09] MEDS: Gabapentin 400 MG CAPSULE PO SCH ×3 (08:58→21:10)
[2016-10-09] MEDS: Nicotine 21 MG PATCH.TD24 TD SCH (08:58)
[2016-10-09] MEDS: (Buprenorphine Hcl/Naloxone Hcl [Suboxone 8 Mg-2 Mg S) SL SCH ×2 (09:34→21:11)
[2016-10-09] MEDS: MOM Conc 10 ML UD.LIQ PO PRN ×2 (11:10→21:10)
--- NOTE | 2016-10-09 12:21 | Psychiatry Progress Note ---
Date of Encounter: 10/09/16 Time of Encounter: 12:14 Subjective Interval history: Still disorganzied and psychotic. Unable to fill out menu request this morning. Staff had to do it for her. Mood seems brighter but her thoughts are still jumbled. Appears to respond to IS at times. No SI but she is definitely at risk given her degree of impairment. Unclear why she is not responding quicker to meds. Taking decent doses given her size and she does not have medication tolerances that staff are aware of. Some concern that she may have taken too many stimulating drugs and actually caused some brain damage. Tox screen prior to admission was negative but boyfriend confirmed that she was smoking crack and abusing Adderall. Still needs more time. Review of Systems Constitutional: Denies: fever, chills, weakness, weight change Eyes: Denies: eye pain, vision change Ears, Nose, Throat: Denies: ear pain, throat pain, dental pain, hearing loss, congestion Cardiovascular: Denies: chest pain, palpitations, dyspnea on exertion Respiratory: Denies: cough, dyspnea, wheezes Gastrointestinal: Denies: abdominal pain, nausea, vomiting, diarrhea, constipation Musculoskeletal: Denies: joint swelling, joint pain Neurological: Denies: headache, weakness, numbness, memory loss Psychiatric: Reports: auditory hallucinations, visual hallucinations, confusion Objective: Exam Patient orientation: Yes Person, Yes Time, Yes Place Level of alertness: Alert Patient appearance: Appropriate, Well Groomed Behavior: calm, cooperative Psychomotor activity: Slowed Eye contact: Maintains Eye Contact Mood description: Depressed Affect description: full range Speech pattern: Normal rate, Normal rhythm, Normal tone Speech volume: Soft/Quiet Thought process: Tangential Thought content: Yes Paranoid delusion Perceptual disturbances: Yes Reacting to internal stimuli Judgment: Limited Insight: Minimal Results - Vital Signs Vital Signs: Temp Pulse Resp BP 97.2 F L 74 16 103/65 10/09/16 08:59 10/09/16 08:59 10/09/16 08:59 10/09/16 08:59 Assessment and Plan (1) Acute psychosis Current visit: Yes Status: Acute Plan: Continue hospitalization, Close observation, Suicide Precautions per unit protocol, Encourage participation in unit milieu, Group Therapy, Monitor sleep, Monitor appetite Risks, benefits, side effects, alternatives discussed w/pt: Yes Patient agreeable to treatment: Yes Consult Discharge Plan - Plan Referrals: NO,PCP [Primary Care Provider] -
[2016-10-09] MEDS: traZODone 50 MG TABLET PO PRN (21:10)
[2016-10-09] MEDS: OLANZapine 10 MG TAB.RAPDIS PO SCH (21:10)
[2016-10-10] MEDS: Nicotine 21 MG PATCH.TD24 TD SCH (08:43)
[2016-10-10] MEDS: Gabapentin 400 MG CAPSULE PO SCH ×3 (08:44→20:44)
[2016-10-10] MEDS: Thiamine (B-1) 100 MG TABLET PO SCH (08:44)
[2016-10-10] MEDS: (Buprenorphine Hcl/Naloxone Hcl [Suboxone 8 Mg-2 Mg S) SL SCH ×2 (08:47→20:44)
[2016-10-10] MEDS: Acetaminophen 325 MG TABLET PO PRN (10:58)
--- NOTE | 2016-10-10 14:37 | Psychiatry Progress Note ---
Date of Encounter: 10/10/16 Time of Encounter: 14:29 Subjective Interval history: Looking better today. Still confused according to staff but she presented better to this sign writer hand. More affect. More animated. Speech was more fluid. Better able to participate in the back and forth of a conversation. No obvious responding to internal stimuli during interaction which is also an improvement. Sill hearing voices and sensing that someone is trying to take her identity. However, she seems less convinced about things that aren't real. Paranoid about the social worker psychiatric yesterday but able to talk to her today about discharge planning. Boyfriend visited last night and also reported he felt she looked much better. That's helpful information as client has been waxing and waning ( looking good one minute but completely confused the next). However, if improvement is being noted by multiple people at different times of the day she is making progress. She has consistently denied SI/HI. Since psychosis seems to finally be resolving can possibly look at discharge tomorrow or at least sometime over the weekend. Review of Systems Constitutional: Denies: fever, chills, weakness, weight change Eyes: Denies: eye pain, vision change Ears, Nose, Throat: Denies: ear pain, throat pain, dental pain, hearing loss, congestion Cardiovascular: Denies: chest pain, palpitations, dyspnea on exertion Respiratory: Denies: cough, dyspnea, wheezes Gastrointestinal: Denies: abdominal pain, nausea, vomiting, diarrhea, constipation Musculoskeletal: Denies: joint swelling, joint pain Neurological: Denies: headache, weakness, numbness, memory loss Psychiatric: Reports: auditory hallucinations, visual hallucinations, confusion Objective: Exam Patient orientation: Yes Person, Yes Time, Yes Place Level of alertness: Alert Patient appearance: Appropriate, Well Groomed Behavior: calm, cooperative Psychomotor activity: Normal Eye contact: Maintains Eye Contact Mood description: Euthymic/stable Affect description: full range Speech pattern: Normal rate, Normal rhythm, Normal tone Speech volume: Normal Thought process: Tangential Thought content: No Suicidal ideation, No Homicidal ideation, Yes Paranoid delusion Perceptual disturbances: No Reacting to internal stimuli, Yes Auditory hallucinations Judgment: Fair Insight: Partial Results - Vital Signs Vital Signs: Temp Pulse Resp BP 98.3 F 67 16 96/62 10/10/16 08:31 10/10/16 08:31 10/10/16 08:31 10/10/16 08:31 Assessment and Plan (1) Acute psychosis Current visit: Yes Status: Acute Plan: Continue hospitalization, Close observation, Suicide Precautions per unit protocol, Encourage participation in unit milieu, Group Therapy, Monitor sleep, Monitor appetite Risks, benefits, side effects, alternatives discussed w/pt: Yes Patient agreeable to treatment: Yes Consult Discharge Plan - Plan Referrals: NO,PCP [Primary Care Provider] -
[2016-10-10] MEDS: traZODone 50 MG TABLET PO PRN (20:44)
[2016-10-10] MEDS: OLANZapine 10 MG TAB.RAPDIS PO SCH (20:44)
[2016-10-11 08:45] VITALS: BP 103/62
[2016-10-11] MEDS: Nicotine 21 MG PATCH.TD24 TD SCH (09:00)
[2016-10-11] MEDS: Thiamine (B-1) 100 MG TABLET PO SCH (09:01)
[2016-10-11] MEDS: (Buprenorphine Hcl/Naloxone Hcl [Suboxone 8 Mg-2 Mg S) SL SCH (09:02)
[2016-10-11] MEDS: Gabapentin 400 MG CAPSULE PO SCH (09:02)
--- NOTE | 2016-10-11 10:20 | Discharge Summary ---
Date of Encounter: 10/11/16 Time of Encounter: 10:17 Diagnosis - Discharge Diagnosis (1) Acute psychosis Status: Acute Medications - Discharge Medications Prescriptions: OLANZapine [Zyprexa Zydis] 10 mg PO HS #30 tab.rapdis Sertraline [Zoloft] 100 mg PO DAILY #30 tablet Buprenorphine HCl/Naloxone HCl [Suboxone 8 mg-2 mg Sl Film] 1 film SL BID [History] Gabapentin [Neurontin] 800 mg PO TID 10/04/16 [History] Ibuprofen [Motrin] 800 mg PO Q8HR PRN 10/04/16 [History] Gabapentin [Neurontin] 400 mg PO TID capsule 10/11/16 [Rx] OLANZapine [Zyprexa Zydis] 10 mg PO HS #30 tab.rapdis 10/11/16 [Rx] Sertraline [Zoloft] 100 mg PO DAILY #30 tablet 10/11/16 [Rx] Allergies No Known Allergies Allergy (Verified 09/19/16 11:34) Provider Date of admission: 10/03/16 16:12 Primary care physician: PCP NO Consults: 10/05/16 10:11 Consult to Pastoral Services [CONS] Routine Comment: 10/07/16 23:57 Consult to Pastoral Services [CONS] Routine Comment: Discharging clinician: Geni Reynoso Assessment and Plan - Patient/Caregiver Discharge Instructions Activity: resume usual activities as tolerated Diet: regular diet - Follow up Plan Follow up with: Fred WHITT [place] [facility] [Outside] - 11/05/16 3:00 pm (The above appointment is with Dr. Santiago, psychiatrist, for outpatient psychiatric assessment and medication management services. This appointment is in the [place], [place] office, located at [address] Your case folder can arrange transportation to this appointment for you. Please arrive 30 minutes early for this appointment with Dr. Santiago to complete paperwork. Also, your case folder will contact you directly to schedule your intake appointment for counseling/case management services in the [place] office. ) Overall status at discharge: Stable Disposition: Home, Self-Care Hospital Course Hospital course: Ms. Garcia is a 31 year old female who was admitted secondary to an altered mental status. Diagnosed with a psychotic depression. Started on Zoloft and Zyprexa and these medications were titrated for clinical effect. It took a while for her symptoms to improve. Collateral information suggested she had been abusing crack cocaine and prescription stimulants prior to admission. Excessive drug use may have been a factor in her slower recovery. She never endorsed lethality and she was always cooperative on the unit. Most of the time she was just really confused. Had trouble doing simple tasks like filling out menus. Appeared to respond to internal stimuli at times. Guarded and vague with providers. Over time her psychosis improved. Likely not back to premorbid baseline at time of discharge but she was looking much better. No longer responding to IS. Brighter affect. More fluid conversation. Denying SI /HI. Returning to live with boyfriend. He was supportive through the process and reported he thought she was much improved at the time of discharge. - Time Spent with Patient Total time spent providing and/or coordinating discharge services: Quality - Multiple Antipsychotics Patient discharged on 2 or more antipsychotic medications: No Procedures - Procedures Procedures: Medication Management, Crisis Stabilization, Supportive Therapy, Group Therapy Mental Status Exam - Mental Status Exam Patient orientation: Yes Person, Yes Time, Yes Place Level of alertness: Alert Patient appearance: Appropriate, Well Groomed Behavior: calm, cooperative Psychomotor activity: Slowed Eye contact: Maintains Eye Contact Mood description: Euthymic/stable Affect description: full range Speech pattern: Normal rate, Normal rhythm, Normal tone Speech Volume: Normal Thought process: Goal Oriented Thought Content: No Suicidal ideation, No Homicidal ideation, No Overt delusions Perceptual Disturbances: Yes Auditory hallucinations, No Visual hallucinations Judgment: Fair Insight: Partial
== END 2016-10-11 12:37 | disposition home or self-care (01) | DRG 751 ==
LOC: SUATTDRO 16:12 → 1ANU 16:12 → MERGE 16:12
PROVIDERS: ADMIT Psychiatry & Neurology Psychiatry; ATTEND Psychiatry & Neurology Psychiatry

== ENCOUNTER 2016-11-06 10:42 | Inpatient (IN) ==
[2016-11-06] MEDS ORDERED: Ibuprofen 800 MG TABLET PO ONE (11:00)
--- NOTE | 2016-11-06 11:04 | Emergency Department Note ---
Disposition Clinical Impression: Auditory hallucinations, Hallucinations, visual Laceration of right foot Qualifiers: Encounter type: initial encounter Qualified Code(s): S91.311A - Laceration without foreign body, right foot, initial encounter Disposition: Admitted As Inpatient Condition: Undetermined Time of Disposition: 16:06 Lower Extremity Injury HPI - General Chief Complaint: ED Extremity Injury, Lower Stated Complaint: "infection in right foot" Time Seen by Provider: 11/06/16 10:56 Source: patient Mode of arrival: ambulatory Limitations: no limitations Nursing Notes Reviewed: Yes Vital Signs Reviewed: Yes - History of Present Illness HPI Narrative: 31-year-old female with history of previous substance abuse on Suboxone currently arrives [facility] emergency department after the patient stepped on a piece of glass or houseful sweeping roughly 24 hours ago. The patient states she has small laceration to her plantar aspect of her right foot. The patient states she is having difficulty in regulating due to pain. The patient is not taking any medication for this. She states that she has been walking barefoot around her house and discomfort and dirt. Her foot is visibly soiled with dirt. No active bleeding at this time. Laceration is superficial and is roughly 2.5 cm in length. Patient has no visible foreign body or palpable foreign body noted. Patient is full range of motion in her foot. Neurovascularly intact. Injury location: Right foot Onset (ago): day(s) Pain Severity: moderate Pain Scale: 3 Improves with: nothing Worsens with: nothing Associated symptoms: Reports: able to partially bear weight - Related Data Home Medications Medication Instructions Recorded Confirmed Buprenorphine HCl/Naloxone HCl 1 film SL BID 10/04/16 11/06/16 [Suboxone 8 mg-2 mg Sl Film] Thiamine (B-1) [Vitamin B-1] 100 mg PO DAILY 11/06/16 11/06/16 Previous Rx's Medication Instructions Recorded Gabapentin [Neurontin] 400 mg PO TID capsule 10/11/16 OLANZapine [Zyprexa Zydis] 10 mg PO HS #30 tab.rapdis 10/11/16 Sertraline [Zoloft] 100 mg PO DAILY #30 tablet 10/11/16 Allergies Allergy/AdvReac Type Severity Reaction Status Date / Time No Known Allergies Allergy Verified 11/06/16 10:52 All systems ED: reviewed and negative except as stated. Constitutional: Denies: fever, chills, weakness, weight change Cardiovascular: Denies: chest pain, palpitations, dyspnea on exertion, edema, syncope Respiratory: Denies: cough, dyspnea, wheezes, hemoptysis, stridor Gastrointestinal: Denies: abdominal pain, nausea, vomiting, diarrhea, constipation, hematemesis, melena, hematochezia Integumentary: Reports: other (laceration) Past Medical History - Past Medical History Attestation: Yes The following information was validated with the patient. 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 - Social History Smoking Status: Current every day smoker Smokeless Tobacco Status: No Alcohol use: Reports: unknown Drug use: Reports: opiates (On Suboxone therapy currently) Physical Exam - General Limitations: no limitations General appearance: alert, in no apparent distress - Head Head exam: atraumatic, normocephalic, normal inspection - Neck Neck exam: Present: normal inspection, full ROM, trachea midline - Chest Chest inspection: Present: normal inspection - Respiratory Respiratory exam: Absent: respiratory distress - Cardiovascular Cardiovascular exam: Present: regular rate - Extremities Exam Extremities exam: Present: normal inspection, full ROM. Absent: tenderness, pedal edema - Skin Skin exam: Present: other (Patient has a 2.5 cm superficial laceration to right plantar aspect of foot with bleeding controlled. Foot is visibly soiled with dirt. No surrounding erythema or streaking noted.) Course - Reevaluation(s) Reevaluation #1: While the patient was being discharged, the nurse began to notice that the patient was stating that she was experiencing auditory and visual hallucinations. When I went back into the patient's room she began stating that she has been expressing hallucinations over the past 2 weeks. She states that she is seeing cabins full of milka bears. She states that she is hearing voices that are telling her to do things. She denies any homicidal ideations but does admit that she is afraid that she will hurt herself to myself. She does not verbalize this to the nurse. The patient denies any previous history of this. She denies any alcohol use or drug abuse. The patient does state that she takes Suboxone for previous opiate abuse. She states she has been taking this for 5 years now. Patient denies any recent fevers, chills, difficulty breathing, chest pain, abdominal pain. The patient is otherwise resting comfortably in the room with stable and benign vital signs at this time. We will perform a workup for psychiatric clearance and then a psychiatry consult will be placed. Time: 12:33 Vital Signs Temperature 98.1 F 11/06/16 10:44 Pulse Rate 90 11/06/16 10:44 Respiratory Rate 18 11/06/16 10:44 Blood Pressure 100/65 11/06/16 10:44 O2 Sat by Pulse Oximetry 97 11/06/16 10:44 Temperature 98.1 F 11/06/16 10:44 Pulse Rate 67 11/06/16 15:44 Respiratory Rate 16 11/06/16 16:59 Blood Pressure 0/0 11/06/16 16:59 O2 Sat by Pulse Oximetry 98 11/06/16 15:44 Oxygen Delivery Oxygen Delivery Room Air Extremity Injury, Lower - MDM Narrative Medical decision making narrative: X-ray demonstrates no acute fracture or foreign body. We will cleanse the wound and discharge the patient at this time with strict instructions to utilize anabolic ointment and dressing changes. Instructions to keep wound dry as well. Patient to follow-up with primary care physician. Patient agrees to plan. Patient was evaluated by nurse prior to discharge and she began exhibiting auditory and visual hallucinations. At that time and the patient was evaluated by me and was determined that she was again experiencing hallucinations. The patient was evaluated for medical clearance with regards to psychiatric clearance. After the patient became medically clear, [facility] was consulted and evaluated the patient. The patient received a pink slip. The patient will be admitted to the psychiatric inpatient facility, [facility]. - Lab Data Lab results reviewed: Yes I reviewed the patient's lab results. Result diagrams: 11/06/16 12:52 11/06/16 12:52 Lab Results 11/06/16 11/06/16 11/06/16 Range/Units 12:23 12:23 12:52 WBC 6.0 (4.3-11.1) K/mcL RBC 4.49 (3.82-4.97) M/mcL Hgb 13.9 (11.5-15.4) g/dL Hct 39.8 (35.3-44.9) % MCV 88.6 (83.0-100.0) fL MCH 31.0 (28.0-33.3) pg MCHC 34.9 (31.6-35.5) g/dL RDW 12.8 (11.5-14.5) % Plt Count 190 (140-400) K/mcL MPV 11.1 (9.4-12.4) fL Immature Gran % 0.2 (0-4) % Seg Neutrophils % 63.7 % Lymphocytes % 25.5 % Monocytes % 8.3 % Eosinophils % 1.5 % Basophils % 0.8 % Neutrophils # 3.9 (1.6-8.9) K/mcL Lymphocytes # 1.5 (0.6-4.6) K/mcL Monocytes # 0.5 (0.0-1.3) K/mcL Eosinophils # 0.1 (0.0-0.6) K/mcL Basophils # 0.1 (0.0-0.2) K/mcL Sodium (136-145) mEq/L Potassium (3.5-4.5) mEq/L Chloride (98-109) mEq/L Carbon Dioxide (19-29) mEq/L BUN (7-20) mg/dL Creatinine (0.57-1.11) mg/dL Est GFR ( Amer) (> 60) Est GFR (Non-Af Amer) (> 60) BUN/Creatinine Ratio (6-26) Glucose (70-99) mg/dL Calculated Osmolality (280-300) Calcium (8.6-10.8) mg/dL TSH (0.350-4.840) mcIU/mL Serum , Qual (Negative) Urine Color Dark Yellow (Yellow) Urine Clarity Clear (Clear) Urine pH 6.0 (5.0-8.0) pH Units Ur Specific [place] > 1.030 H (1.010-1.025) Urine Protein 30 H (Neg-Trace) mg/dL Urine Glucose (UA) Normal (Normal) mg/dL Urine Ketones Trace H (Negative) mg/dL Urine Blood Large H (Negative) Urine Nitrite Negative (Negative) Urine Bilirubin Negative (Negative) Urine Urobilinogen Normal (Normal) mg/dL Ur Leukocyte Esterase Small H (Negative) Urine Microscopic RBC 5-15 H (0-3) per hpf Urine Microscopic WBC 5-15 H (0-3) per hpf Ur Squamous Epith Cells Many H (None-Few) per lpf Urine Bacteria None Seen (None-Few) per hpf Hyaline Casts None Seen (None-Few) per lpf Salicylates (15-30) mg/dL Urine Opiates Screen Negative (Ogubkl=818) ng/mL Acetaminophen (10-30) mcg/mL Ur Barbiturates Screen Negative (Ulqmos=702) ng/mL Ur Phencyclidine Scrn Negative (Cutoff=25) ng/mL Ur Amphetamines Screen Negative (Osseib=7806) ng/mL U Benzodiazepines Scrn Negative (Onvpmm=479) ng/mL Urine Cocaine Screen Positive H (Cutoff= 300) ng/mL U Marijuana (THC) Screen Negative (Cutoff = 50) ng/mL Ethyl Alcohol (0-10) mg/dL 11/06/16 11/06/16 Range/Units 12:52 12:52 WBC (4.3-11.1) K/mcL RBC (3.82-4.97) M/mcL Hgb (11.5-15.4) g/dL Hct (35.3-44.9) % MCV (83.0-100.0) fL MCH (28.0-33.3) pg MCHC (31.6-35.5) g/dL RDW (11.5-14.5) % Plt Count (140-400) K/mcL MPV (9.4-12.4) fL Immature Gran % (0-4) % Seg Neutrophils % % Lymphocytes % % Monocytes % % Eosinophils % % Basophils % % Neutrophils # (1.6-8.9) K/mcL Lymphocytes # (0.6-4.6) K/mcL Monocytes # (0.0-1.3) K/mcL Eosinophils # (0.0-0.6) K/mcL Basophils # (0.0-0.2) K/mcL Sodium 138 (136-145) mEq/L Potassium 4.1 (3.5-4.5) mEq/L Chloride 103 (98-109) mEq/L Carbon Dioxide 29 (19-29) mEq/L BUN 9 (7-20) mg/dL Creatinine 0.78 (0.57-1.11) mg/dL Est GFR ( Amer) > 60 (> 60) Est GFR (Non-Af Amer) > 60 (> 60) BUN/Creatinine Ratio 12 (6-26) Glucose 100 H (70-99) mg/dL Calculated Osmolality 285 (280-300) Calcium 10.0 (8.6-10.8) mg/dL TSH 0.524 (0.350-4.840) mcIU/mL Serum , Qual Negative (Negative) Urine Color (Yellow) Urine Clarity (Clear) Urine pH (5.0-8.0) pH Units Ur Specific [place] (1.010-1.025) Urine Protein (Neg-Trace) mg/dL Urine Glucose (UA) (Normal) mg/dL Urine Ketones (Negative) mg/dL Urine Blood (Negative) Urine Nitrite (Negative) Urine Bilirubin (Negative) Urine Urobilinogen (Normal) mg/dL Ur Leukocyte Esterase (Negative) Urine Microscopic RBC (0-3) per hpf Urine Microscopic WBC (0-3) per hpf Ur Squamous Epith Cells (None-Few) per lpf Urine Bacteria (None-Few) per hpf Hyaline Casts (None-Few) per lpf Salicylates < 5.0 L (15-30) mg/dL Urine Opiates Screen (Qjsgyd=875) ng/mL Acetaminophen < 1.0 L (10-30) mcg/mL Ur Barbiturates Screen (Uwxjot=220) ng/mL Ur Phencyclidine Scrn (Cutoff=25) ng/mL Ur Amphetamines Screen (Vogyqw=0503) ng/mL U Benzodiazepines Scrn (Aanqee=588) ng/mL Urine Cocaine Screen (Cutoff= 300) ng/mL U Marijuana (THC) Screen (Cutoff = 50) ng/mL Ethyl Alcohol < 10 (0-10) mg/dL - Radiology Data Radiology results reviewed: Yes I reviewed the patient's radiology results. Attestation Statement - Attestation Attestation: I examined this patient and my medical decision-making was reviewed with the Resident Physician. I agree with the documented findings, disposition and treatment plan as described except to the extent set forth below. 31-year-old female presents ED because of the wound to the bottom of her foot. 2 days ago she stepped on a piece of broken glass that came from a broken pitcher. Complains of a mild foreign body sensation in the right forefoot. No other injuries. She also mentions 2 weeks of auditory and visual hallucinations with intermittent suicidal ideations. She has a history of substance abuse and currently is being treated on Suboxone. No recent attempts are resolved. No fevers or chills. Female patient in no apparent distress. A little bit fidgety in the bed. Sensorium is otherwise normal. Cognition appears to be clear. Chest clear bilaterally. Abdomen soft and nontender. Plantar surface of her foot with superficial abrasion on the medial aspect of the foot with another small scratch on the plantar forefoot where she reports foreign body sensation. There was a very small sub-millimeter sliver of glass was removed with resolution of the foreign body feeling. She will further evaluation for her psychiatric complaints. 15:50 patient was evaluated by [facility] and they have decided to admit her for further monitoring and treatment.
[2016-11-06] MEDS ORDERED: Bacitracin OINT PKT TP STA (11:41)
[2016-11-06] MEDS ORDERED: Tdap (Boostrix) Vaccine 0.5 ML SYRINGE IM ONE (11:46)
[2016-11-06 13:08] LABS: Basophils # 0.1 K/mcL (0.0-0.2); Basophils % 0.8 %; Eosinophils # 0.1 K/mcL (0.0-0.6); Eosinophils % 1.5 %; Hematocrit 39.8 % (35.3-44.9); Hemoglobin 13.9 g/dL (11.5-15.4); Immature Granulocytes % 0.2 % (0-4); Lymphocytes # 1.5 K/mcL (0.6-4.6); Lymphocytes % 25.5 %; Mean Corpuscular HGB Conc 34.9 g/dL (31.6-35.5); Mean Corpuscular Volume 88.6 fL (83.0-100.0); Mean Platelet Volume 11.1 fL (9.4-12.4); Monocytes # 0.5 K/mcL (0.0-1.3); Monocytes % 8.3 %; Neutrophils # 3.9 K/mcL (1.6-8.9); Platelet Count 190 K/mcL (140-400); Red Blood Count 4.49 M/mcL (3.82-4.97); Red Cell Distribution Width 12.8 % (11.5-14.5); Segmented Neutrophils % 63.7 %
[2016-11-06 13:24] LABS: Bilirubin,Urine Negative (Negative); Blood,Urine Large (Negative); Color,Urine Dark Yellow (Yellow); Glucose,Urine (UA) Normal (Normal); Ketones,Urine Trace mg/dL (Negative); Leukocyte Esterase,Urine Small (Negative); Nitrite,Urine Negative (Negative); Protein,Urine 30 mg/dL (Neg-Trace); Specific Gravity,Urine > 1.030 (1.010-1.025); Urobilinogen,Urine Normal (Normal)
[2016-11-06 13:24] LABS: BUN/Creatinine Ratio 12 (6-26); Blood Urea Nitrogen 9 mg/dL (7-20); Carbon Dioxide 29 mEq/L (19-29); Chloride 103 mEq/L (98-109); Glucose 100 mg/dL (70-99); Osmolality,Calculated 285 (280-300); Potassium 4.1 mEq/L (3.5-4.5); Sodium 138 mEq/L (136-145); eGFR For African Americans > 60 (> 60); eGFR For Non-African Americans > 60 (> 60)
[2016-11-06 13:25] LABS: Acetaminophen < 1.0 mcg/mL (10-30); Ethanol < 10 mg/dL (0-10); Salicylate < 5.0 mg/dL (15-30)
[2016-11-06 13:26] LABS: Bacteria,Urine None Seen per hpf (None-Few); Clarity,Urine Clear (Clear); Hyaline Casts,Urine None Seen per lpf (None-Few); Squamous Epithelial Cell,Urine Many per lpf (None-Few)
[2016-11-06 13:31] LABS: Amphetamine Screen,Urine Negative ng/mL (Cutoff=1000); Barbiturate Screen,Urine Negative ng/mL (Cutoff=200); Benzodiazepines Screen,Urine Negative ng/mL (Cutoff=200); Cannabinoid Screen,Urine Negative ng/mL (Cutoff = 50); Cocaine Screen,Urine Positive ng/mL (Cutoff= 300); Opiate Screen,Urine Negative ng/mL (Cutoff=300); Phencyclidine Screen,Urine Negative ng/mL (Cutoff=25)
[2016-11-06 13:44] LABS: Thyroid Stimulating Hormone 0.524 mcIU/mL (0.350-4.840)
[2016-11-06] MEDS ORDERED: MOM Conc 10 ML UD.LIQ PO PRN (18:36)
[2016-11-06] MEDS ORDERED: *HR* LORazepam 1 MG TABLET PO PRN (18:36)
[2016-11-06] MEDS ORDERED: Haloperidol Lactate 5 MG/ML VIAL IM PRN (18:36)
[2016-11-06] MEDS ORDERED: *HR* LORazepam 2 MG/ML VIAL IM PRN (18:36)
[2016-11-06] MEDS ORDERED: Gabapentin 300 MG CAPSULE PO ONE (21:00)
[2016-11-06] MEDS: OLANZapine 10 MG TAB.RAPDIS PO SCH (21:53)
--- NOTE | 2016-11-07 11:43 | Psychiatry History & Physical ---
Date of Encounter: 11/07/16 Time of Encounter: 11:00 History of Present Illness Medicare Admission Attestation: For traditional Medicare patients the provided hospital inpatient services are reasonable and necessary and in the case of services not specified as inpatient -only under 42 CFR 419.22 (n), that they are appropriately provided as inpatient services in accordance 42 CFR 412.3. For [facility] the patient may reasonably be expected to be discharged or transferred to a hospital within 96 hours after admission to the Critical [facility]. Admitted From: Hospital to Hospital Transfer History of Present Illness: Ms. Garcia is a 31 year old female, single, unemployed, previously known to service discharged from the unit lass than 30day ago, with a h/o unspecified psychosis, Bipolar disorder, PTSD, multiple suicide attempts, IV drug use disorder, suboxone out patient treatment for opiate dependence, presented to the ER cc of patient stepped on a piece of glass or houseful sweeping roughly 24 hours ago. Patient endorsed AH and VH during assessment in the ED. She was transferred to the unit for stabilization. Patient appears extremely disorganized on the unit and reportedly defecated on the floor in the bathroom this morning. She was also noted multiple times responding to internal stimuli. Patient seen this morning. She endorsed intermittent non command AH and VH, appeared disorganized, intermittently laughing inappropriate to self and pre occupied with her inability to see her children. She admitted to not taking her medications for after her d/c and relapse and started using crack cocaine because "everyone wants to fail and do stuff to bring me down", Patient became tearful in the middle of her eval and mentioned she feels like something bad is going to happen to her. Patient responding well to Zyprexa at previous visit and denied any side effect with it. Past Med Surg Social Fam HX - Past Medical History Medical history: hepatitis, other - Past Psychiatric History Psychiatric history: Reports: bipolar, prior suicide attempt, previous psychiatric hospitalization, other - Past Surgical History Surgical History: non-contributory, - Social History Smoking Status: Current every day smoker Smokeless Tobacco Status: No Alcohol use: unknown Drug use: opiates - Family History Paternal Grandmother Hx Family Cardiac Disorders: Yes ([place]) Hx Family Respiratory Disorders: No Hx Family Cancer: No Hx Family GI Disorders: No Hx Family Endocrine Disorder: No Hx Family Neuromuscular Disorders: No Hx Family Neurologic Disorders: No Hx Family HEENT Disorders: No Hx Family Autoimmune Disorders: No Medications & Allergies Buprenorphine HCl/Naloxone HCl [Suboxone 8 mg-2 mg Sl Film] 1 film SL BID [History] Gabapentin [Neurontin] 400 mg PO TID capsule 10/11/16 [Rx] OLANZapine [Zyprexa Zydis] 10 mg PO HS #30 tab.rapdis 10/11/16 [Rx] Sertraline [Zoloft] 100 mg PO DAILY #30 tablet 10/11/16 [Rx] Thiamine (B-1) [Vitamin B-1] 100 mg PO DAILY 11/06/16 [History] Allergies No Known Allergies Allergy (Verified 11/06/16 10:52) Review of Systems Constitutional: Denies: fever, chills, weakness, weight change Eyes: Denies: eye pain, vision change Ears, Nose, Throat: Denies: ear pain, throat pain, dental pain, hearing loss, congestion Cardiovascular: Denies: chest pain, palpitations, dyspnea on exertion Respiratory: Denies: cough, dyspnea, wheezes Gastrointestinal: Denies: abdominal pain, nausea, vomiting, diarrhea, constipation Genitourinary male: Denies: urgency, dysuria, frequency, genital lesions Genitourinary female: Denies: urgency, dysuria, frequency, abnormal menses, dyspareunia Musculoskeletal: Denies: joint swelling, joint pain Integumentary: Denies: rash, lesions, pruritus Neurological: Denies: headache, weakness, numbness, memory loss Endocrine: Denies: fatigue, heat or cold intolerance Hematologic/Lymphatic: Denies: easy bruising, lymphadenopathy Allergic/Immunologic: Denies: urticaria, itchy eyes Mental Status Exam Patient orientation: Yes Person, Yes Place Level of alertness: Alert Patient appearance: Unkempt, Disheveled Behavior: calm, cooperative Psychomotor activity: Normal Eye contact: Maintains Eye Contact Mood description: Anxious, Labile Speech pattern: Normal rate, Normal rhythm, Normal tone Speech volume: Normal Thought process: Linear, Goal Oriented Thought content: No Suicidal ideation, No Homicidal ideation, No Overt delusions Perceptual disturbances: Yes Auditory hallucinations, Yes Visual hallucinations Attention span: Capable of Focused Attention Memory description: Grossly Intact Patient reliability: Reliable Historian Intelligence estimate: Average Judgment: Limited Insight: Partial Results - Vital Signs Vital signs: Temp Pulse Resp BP Pulse Ox 97.3 F L 73 16 87/51 98 11/07/16 09:00 11/07/16 09:00 11/07/16 09:00 11/07/16 09:00 11/06/16 15:44 - Labs Labs: Laboratory Last Values WBC 6.0 K/mcL (4.3-11.1) 11/06/16 12:52 RBC 4.49 M/mcL (3.82-4.97) 11/06/16 12:52 Hgb 13.9 g/dL (11.5-15.4) 11/06/16 12:52 Hct 39.8 % (35.3-44.9) 11/06/16 12:52 MCV 88.6 fL (83.0-100.0) 11/06/16 12:52 MCH 31.0 pg (28.0-33.3) 11/06/16 12:52 MCHC 34.9 g/dL (31.6-35.5) 11/06/16 12:52 RDW 12.8 % (11.5-14.5) 11/06/16 12:52 Plt Count 190 K/mcL (140-400) 11/06/16 12:52 MPV 11.1 fL (9.4-12.4) 11/06/16 12:52 Immature Gran % 0.2 % (0-4) 11/06/16 12:52 Seg Neutrophils % 63.7 % 11/06/16 12:52 Lymphocytes % 25.5 % 11/06/16 12:52 Monocytes % 8.3 % 11/06/16 12:52 Eosinophils % 1.5 % 11/06/16 12:52 Basophils % 0.8 % 11/06/16 12:52 Neutrophils # 3.9 K/mcL (1.6-8.9) 11/06/16 12:52 Lymphocytes # 1.5 K/mcL (0.6-4.6) 11/06/16 12:52 Monocytes # 0.5 K/mcL (0.0-1.3) 11/06/16 12:52 Eosinophils # 0.1 K/mcL (0.0-0.6) 11/06/16 12:52 Basophils # 0.1 K/mcL (0.0-0.2) 11/06/16 12:52 Sodium 138 mEq/L (136-145) 11/06/16 12:52 Potassium 4.1 mEq/L (3.5-4.5) 11/06/16 12:52 Chloride 103 mEq/L (98-109) 11/06/16 12:52 Carbon Dioxide 29 mEq/L (19-29) 11/06/16 12:52 BUN 9 mg/dL (7-20) 11/06/16 12:52 Creatinine 0.78 mg/dL (0.57-1.11) 11/06/16 12:52 Est GFR ( Amer) > 60 (> 60) 11/06/16 12:52 Est GFR (Non-Af Amer) > 60 (> 60) 11/06/16 12:52 BUN/Creatinine Ratio 12 (6-26) 11/06/16 12:52 Glucose 100 mg/dL (70-99) H 11/06/16 12:52 Calculated Osmolality 285 (280-300) 11/06/16 12:52 Calcium 10.0 mg/dL (8.6-10.8) 11/06/16 12:52 TSH 0.524 mcIU/mL (0.350-4.840) 11/06/16 12:52 Serum , Qual Negative (Negative) 11/06/16 12:52 Urine Color Dark Yellow (Yellow) 11/06/16 12:23 Urine Clarity Clear (Clear) 11/06/16 12:23 Urine pH 6.0 pH Units (5.0-8.0) 11/06/16 12:23 Ur Specific [place] > 1.030 (1.010-1.025) H 11/06/16 12:23 Urine Protein 30 mg/dL (Neg-Trace) H 11/06/16 12:23 Urine Glucose (UA) Normal mg/dL (Normal) 11/06/16 12:23 Urine Ketones Trace mg/dL (Negative) H 11/06/16 12:23 Urine Blood Large (Negative) H 11/06/16 12:23 Urine Nitrite Negative (Negative) 11/06/16 12:23 Urine Bilirubin Negative (Negative) 11/06/16 12:23 Urine Urobilinogen Normal mg/dL (Normal) 11/06/16 12:23 Ur Leukocyte Esterase Small (Negative) H 11/06/16 12:23 Urine Microscopic RBC 5-15 per hpf (0-3) H 11/06/16 12:23 Urine Microscopic WBC 5-15 per hpf (0-3) H 11/06/16 12:23 Ur Squamous Epith Cells Many per lpf (None-Few) H 11/06/16 12:23 Urine Bacteria None Seen per hpf (None-Few) 11/06/16 12:23 Hyaline Casts None Seen per lpf (None-Few) 11/06/16 12:23 Salicylates < 5.0 mg/dL (15-30) L 11/06/16 12:52 Urine Opiates Screen Negative ng/mL (Tqvlzc=554) 11/06/16 12:23 Acetaminophen < 1.0 mcg/mL (10-30) L 11/06/16 12:52 Ur Barbiturates Screen Negative ng/mL (Hyusuj=446) 11/06/16 12:23 Ur Phencyclidine Scrn Negative ng/mL (Cutoff=25) 11/06/16 12:23 Ur Amphetamines Screen Negative ng/mL (Iqnoke=5218) 11/06/16 12:23 U Benzodiazepines Scrn Negative ng/mL (Eskfqw=893) 11/06/16 12:23 Urine Cocaine Screen Positive ng/mL (Cutoff= 300) H 11/06/16 12:23 U Marijuana (THC) Screen Negative ng/mL (Cutoff = 50) 11/06/16 12:23 Ethyl Alcohol < 10 mg/dL (0-10) 11/06/16 12:52 Assessment and Plan (1) Unspecified psychosis Current visit: Yes Status: Acute Qualifiers: Qualified Code(s): F29 - Unspecified psychosis not due to a substance or known physiological condition (2) Auditory hallucinations Current visit: Yes Status: Acute (3) Acute psychosis Current visit: No Status: Acute (4) Substance abuse Current visit: Yes Status: Acute
[2016-11-07] MEDS: Ibuprofen 800 MG TABLET PO PRN (15:20)
[2016-11-07] MEDS: hydrOXYzine pamoate 25 MG CAPSULE PO PRN (15:21)
[2016-11-07] MEDS: OLANZapine 10 MG TAB.RAPDIS PO SCH (20:27)
--- NOTE | 2016-11-08 10:50 | Psychiatry Progress Note ---
Date of Encounter: 11/08/16 Time of Encounter: 10:45 Subjective Interval history: Patient seen this morning and evaluated on rounds by a multidisciplinary treatment team. She is showing minimal improvement in her symptoms. She remains confused, disorganized and unable to engage in a goal directed conversation. Patient denied auditory or visual hallucinations but observed to smile inappropriately to self most like responding to internal stimuli. She reportedly was seen by staff early this morning talking and petting her dresser. She slept through most of the night. Compliant with her medications and denied any noted side effects. Results - Vital Signs Vital Signs: Temp Pulse Resp BP Pulse Ox 97.8 F 84 14 94/62 98 11/08/16 09:00 11/08/16 09:00 11/08/16 09:00 11/08/16 09:00 11/06/16 15:44 Assessment and Plan (1) Unspecified psychosis Current visit: Yes Status: Acute Qualifiers: Qualified Code(s): F29 - Unspecified psychosis not due to a substance or known physiological condition (2) Auditory hallucinations Current visit: Yes Status: Acute (3) Acute psychosis Current visit: No Status: Acute (4) Substance abuse Current visit: Yes Status: Acute Consult Discharge Plan - Plan Referrals: NO,PCP [Primary Care Provider] -
[2016-11-08] MEDS: OLANZapine 10 MG TAB.RAPDIS PO SCH (21:19)
[2016-11-09] MEDS ORDERED: OLANZapine 10 MG TAB.RAPDIS PO SCH (12:06)
--- NOTE | 2016-11-09 12:10 | Psychiatry Progress Note ---
Date of Encounter: 11/09/16 Time of Encounter: 11:29 Subjective Interval history: Seen and interviewed. History and physical examination reviewed. Patient continued to remain disorganized little circumstantial and delusional. Patient reported that she believes people are giving her bad looks and angry and upset at her. She gets confused and could not recall and explain the circumstances leading to her hospitalization. She is still endorsing auditory hallucinations. Overall patient appears anxious nervous and fearful. I reassured the patient and encourage her to attend groups and participate in activities. Patient was also counseled regarding her drug use and his psychological and physiological impact and was encouraged to start working on a relapse prevention plan. Review of Systems Psychiatric: Reports: anxiety, auditory hallucinations, confusion Objective: Exam Patient orientation: Yes Person, Yes Time, Yes Place Level of alertness: Alert Patient appearance: Disheveled, Malodorous, Thin Behavior: anxious, suspicious, withdrawn Psychomotor activity: Slowed Eye contact: Maintains Eye Contact Mood description: Anxious Affect description: blunted, dysphoric Speech pattern: Normal rate, Normal rhythm, Normal tone Speech volume: Soft/Quiet Thought process: Circumstantial, Loose Associations, Thought Blocking, Slowed Thinking Thought content: Yes Paranoid delusion Perceptual disturbances: Yes Auditory hallucinations Judgment: Limited Insight: Minimal Results - Vital Signs Vital Signs: Temp Pulse Resp BP Pulse Ox 98.4 F 67 16 92/54 98 11/09/16 08:30 11/09/16 08:30 11/09/16 08:30 11/09/16 08:30 11/06/16 15:44 Assessment and Plan (1) Unspecified psychosis Current visit: Yes Status: Acute Plan: Continue hospitalization, Close observation, Suicide Precautions per unit protocol, Encourage participation in unit milieu, Group Therapy, Monitor sleep, Monitor appetite Additional Plan: We will increase Zyprexa to 15 mg at bedtime for her psychotic symptoms Qualifiers: Psychosis type: unspecified psychosis type Qualified Code(s): F29 - Unspecified psychosis not due to a substance or known physiological condition (2) Substance abuse Current visit: Yes Status: Acute Plan: Continue hospitalization, Close observation, Suicide Precautions per unit protocol, Encourage participation in unit milieu, Group Therapy, Monitor sleep Additional Plan: Counseling center regarding her drug use and his psychological and physiological impact and also discussed how to identify triggers and encouraged to work on relapse prevention plan Risks, benefits, side effects, alternatives discussed w/pt: Yes Patient agreeable to treatment: Yes Consult Discharge Plan - Plan Referrals: NO,PCP [Primary Care Provider] -
[2016-11-10] MEDS: Ibuprofen 800 MG TABLET PO PRN ×2 (02:48→21:46)
--- NOTE | 2016-11-10 13:05 | Psychiatry Progress Note ---
Date of Encounter: 11/10/16 Time of Encounter: 12:37 Subjective Interval history: Patient seen and interviewed. The patient continued to remain confused and bizarre. She is struggling to figure out what is real versus what is not real. Talking about reincarnation and believes that she is and is reincarnated Gets a little frustrated because of these confusing and scattered thoughts. At times smiles inappropriately. Withdrawn and isolated. Encouraged to attend groups and participate in activities.. Review of Systems Psychiatric: Reports: anxiety, auditory hallucinations, confusion Objective: Exam Patient orientation: Yes Person, Yes Time, Yes Place Level of alertness: Alert Patient appearance: Unkempt, Thin Behavior: anxious, guarded, suspicious, withdrawn Psychomotor activity: Slowed Eye contact: Maintains Eye Contact Mood description: Anxious Affect description: blunted, flat, dysphoric Speech pattern: Normal rate, Normal rhythm, Normal tone Speech volume: Soft/Quiet Thought process: Circumstantial, Loose Associations, Thought Blocking Thought content: Yes Overt delusions, Yes Ideas of reference, Yes Preoccupation Perceptual disturbances: Yes Reacting to internal stimuli Judgment: Limited Insight: Minimal Results - Vital Signs Vital Signs: Temp Pulse Resp BP Pulse Ox 97.5 F L 72 14 99/57 98 11/10/16 09:00 11/10/16 09:00 11/10/16 09:00 11/10/16 09:00 11/06/16 15:44 Assessment and Plan (1) Unspecified psychosis Current visit: Yes Status: Acute Plan: Continue hospitalization, Close observation, Suicide Precautions per unit protocol, Encourage participation in unit milieu, Group Therapy, Monitor sleep, Monitor appetite Additional Plan: We will increase Zyprexa to 20 mg at bedtime for her psychotic symptoms Qualifiers: Psychosis type: unspecified psychosis type Qualified Code(s): F29 - Unspecified psychosis not due to a substance or known physiological condition (2) Substance abuse Current visit: Yes Status: Acute Plan: Continue hospitalization, Close observation, Suicide Precautions per unit protocol, Encourage participation in unit milieu, Group Therapy, Monitor sleep, Monitor appetite Risks, benefits, side effects, alternatives discussed w/pt: Yes Patient agreeable to treatment: Yes Consult Discharge Plan - Plan Referrals: NO,PCP [Primary Care Provider] -
[2016-11-10] MEDS: hydrOXYzine pamoate 25 MG CAPSULE PO PRN (13:08)
[2016-11-10] MEDS: OLANZapine 10 MG TAB.RAPDIS PO SCH (21:43)
[2016-11-11] MEDS: hydrOXYzine pamoate 25 MG CAPSULE PO PRN (00:11)
--- NOTE | 2016-11-11 14:19 | Psychiatry Progress Note ---
Date of Encounter: 11/12/16 Time of Encounter: 14:00 Subjective Interval history: patient seen today and case discussed with multidisciplinary team . CC : i am not comfortable here i want to go , i love nature , there is too much history here.i still have infection on my foot. Subjective : She is white female who is still having psychosis, internal preoccupation , disorganized thought process and unable to keep conversation as she gets derailed, she has labile affect , tearful at times and then is smiling , patient is compliant with medications and denies any side effects. Review of Systems Psychiatric: Reports: anxiety, auditory hallucinations, confusion Objective: Exam Patient orientation: Yes Place Level of alertness: Alert Patient appearance: Average Behavior: cooperative, anxious Psychomotor activity: Increased Eye contact: Minimal Contact Mood description: Anxious, Labile Affect description: labile, tearful Speech pattern: Normal rate, Disorganized Speech volume: Soft/Quiet Thought process: Tangential, Disorganized Thought content: Yes Preoccupation, Yes Paranoid delusion Perceptual disturbances: Yes Auditory hallucinations, Yes Visual hallucinations Judgment: Poor Insight: None Results - Vital Signs Vital Signs: Temp Pulse Resp BP Pulse Ox 98 F 69 18 108/60 98 11/11/16 08:51 11/11/16 08:51 11/11/16 08:51 11/11/16 08:51 11/06/16 15:44 Assessment and Plan (1) Bipolar 1 disorder Current visit: Yes Status: Acute Risks, benefits, side effects, alternatives discussed w/pt: Yes Patient agreeable to treatment: Yes Consult Discharge Plan - Plan Referrals: NO,PCP [Primary Care Provider] -
[2016-11-11] MEDS: Ibuprofen 400 MG TABLET PO PRN (16:24)
[2016-11-11] MEDS: OLANZapine 10 MG TAB.RAPDIS PO SCH (21:23)
--- NOTE | 2016-11-12 10:23 | Psychiatry Progress Note ---
Date of Encounter: 11/12/16 Time of Encounter: 10:15 Subjective Interval history: Patient seen today , case discussed with team and as per staff last night very preoccupied not interacting. In session today states feels little better, slept little better, but still has some disorganization , and circumstantial tought process, positive aud. hallucinations. no si/hi. she stated praying will help me heal , talked about compliance that needs to also take medicine, has poor insight. she is agreeing to go to outpatient for rehab. denies side effects, her foot is healed and patient still needs close monitoring for her psychosis. Review of Systems Psychiatric: Reports: anxiety, auditory hallucinations, confusion Results - Vital Signs Vital Signs: Temp Pulse Resp BP Pulse Ox 97.8 F 114 16 109/66 98 11/12/16 09:00 11/12/16 09:00 11/12/16 09:00 11/12/16 09:00 11/06/16 15:44 Assessment and Plan (1) Bipolar 1 disorder Current visit: Yes Status: Acute Plan: Continue hospitalization Risks, benefits, side effects, alternatives discussed w/pt: Yes Patient agreeable to treatment: Yes (2) Unspecified psychosis Current visit: Yes Status: Acute Risks, benefits, side effects, alternatives discussed w/pt: Yes Patient agreeable to treatment: Yes Qualifiers: Psychosis type: unspecified psychosis type Qualified Code(s): F29 - Unspecified psychosis not due to a substance or known physiological condition (3) Post traumatic stress disorder (PTSD) Current visit: Yes Status: Chronic Plan: Continue hospitalization Risks, benefits, side effects, alternatives discussed w/pt: Yes Patient agreeable to treatment: Yes (4) Opiate dependence Current visit: Yes Status: Chronic Plan: Encourage participation in unit milieu Risks, benefits, side effects, alternatives discussed w/pt: Yes Patient agreeable to treatment: Yes Qualifiers: Substance use status: in remission Qualified Code(s): F11.21 - Opioid dependence, in remission (5) Cocaine abuse Current visit: Yes Status: Acute Plan: Encourage participation in unit milieu Risks, benefits, side effects, alternatives discussed w/pt: Yes Patient agreeable to treatment: Yes Consult Discharge Plan - Plan Referrals: NO,PCP [Primary Care Provider] -
[2016-11-12] MEDS: Ibuprofen 800 MG TABLET PO PRN (18:43)
[2016-11-12] MEDS: OLANZapine 10 MG TAB.RAPDIS PO SCH (20:27)
[2016-11-12] MEDS: hydrOXYzine pamoate 25 MG CAPSULE PO PRN (22:40)
[2016-11-13] MEDS: Ibuprofen 800 MG TABLET PO PRN ×2 (09:13→16:57)
--- NOTE | 2016-11-13 10:01 | Psychiatry Progress Note ---
Date of Encounter: 11/13/16 Time of Encounter: 10:00 Subjective Interval history: Patient seen today states doing better day by day , still has difficulty focusing and is easily distracted, mind racing and at times disorganized, i like to enjoy life , go camping with my kids , [her kids are not with her , the paternal grand parents have custody ] i think i am still withdrawing , i have lost track of everything , still paranoid and some auditory hallucination they are trying to teach me, will not let me know what , i want to go and pay child support. her thoughts are still disorganized. will add depakote 250 mg bid as still has racing thoughts and psychosis. r/o Schizoaffective disorder , as having thought insertion and ideas of reference. Review of Systems Psychiatric: Reports: depression, anxiety, auditory hallucinations, confusion Objective: Exam Patient orientation: Yes Time, Yes Place Level of alertness: Alert Patient appearance: Appropriate Behavior: cooperative, talkative, withdrawn Psychomotor activity: Normal Eye contact: Maintains Eye Contact Mood description: Anxious Affect description: constricted Speech pattern: Disorganized Speech volume: Normal Thought process: Circumstantial, Disorganized Thought content: Yes Paranoid delusion, Yes Thought insertion Perceptual disturbances: Yes Auditory hallucinations Judgment: Limited Insight: Minimal Results - Vital Signs Vital Signs: Temp Pulse Resp BP Pulse Ox 98 F 87 16 96/59 98 11/13/16 09:00 11/13/16 09:00 11/13/16 09:00 11/13/16 09:00 11/06/16 15:44 Assessment and Plan (1) Bipolar 1 disorder Current visit: Yes Status: Acute Risks, benefits, side effects, alternatives discussed w/pt: Yes Patient agreeable to treatment: Yes Consult Discharge Plan - Plan Referrals: NO,PCP [Primary Care Provider] -
[2016-11-13] MEDS: hydrOXYzine pamoate 25 MG CAPSULE PO PRN ×2 (16:56→22:50)
[2016-11-13] MEDS: Divalproex (12 HR) 250 MG TABLET PO SCH (20:19)
[2016-11-13] MEDS: OLANZapine 10 MG TAB.RAPDIS PO SCH (20:19)
[2016-11-13] MEDS: traZODone 50 MG TABLET PO PRN (23:43)
[2016-11-14] MEDS: Ibuprofen 800 MG TABLET PO PRN ×2 (01:02→11:10)
[2016-11-14] MEDS: Mag Hydrox/Al Hydrox/Simeth 30 ML UDC PO PRN (03:01)
[2016-11-14] MEDS: Divalproex (12 HR) 250 MG TABLET PO SCH (08:56)
--- NOTE | 2016-11-14 10:57 | Psychiatry Progress Note ---
Date of Encounter: 11/14/16 Time of Encounter: 10:35 Subjective Interval history: Patient seen today states i am not so well, i feel like going thru withdrawl from suboxone. c/o body ache, muscle cramps and has been on suboxone for 4 yrs off and on. feels people pointing at her and making fun of her. she is still paranoid but denies aud. hallucination today. no stomach cramps and no diarrhea , her vitals are stable. i am not accomplishing anything here, i need to go out and see my kids. i was here for my foot she is feeling like conspiracy going on,people pointing at her and making fun of her. no insight . will dc depakote as feels new medicine causing it . she is restless at present. start neurontin 100 mg tid Review of Systems Psychiatric: Reports: depression, anxiety, abnormal sleep pattern, confusion, difficulty concentrating Objective: Exam Patient orientation: Yes Time Level of alertness: Alert Patient appearance: Appropriate Behavior: nervous, anxious, distractible Psychomotor activity: Increased Eye contact: Minimal Contact Mood description: Anxious Affect description: congruent with mood Speech pattern: Slowed Speech volume: Soft/Quiet Thought process: Loose Associations Thought content: Yes Preoccupation, Yes Paranoid delusion Judgment: Poor Insight: Minimal Results - Vital Signs Vital Signs: Temp Pulse Resp BP Pulse Ox 97.6 F 83 16 93/63 98 11/14/16 08:44 11/14/16 08:44 11/14/16 08:44 11/14/16 08:44 11/06/16 15:44 Assessment and Plan (1) Bipolar 1 disorder Current visit: Yes Status: Acute Risks, benefits, side effects, alternatives discussed w/pt: Yes Patient agreeable to treatment: Yes Consult Discharge Plan - Plan Referrals: NO,PCP [Primary Care Provider] -
[2016-11-14] MEDS ORDERED: *HR* LORazepam 1 MG TABLET PO ONE (11:03)
[2016-11-14] MEDS: Gabapentin 100 MG CAPSULE PO SCH ×2 (15:02→20:26)
[2016-11-14] MEDS: OLANZapine 10 MG TAB.RAPDIS PO SCH (20:26)
[2016-11-15] MEDS: Ibuprofen 800 MG TABLET PO PRN ×2 (08:47→20:43)
[2016-11-15] MEDS: Gabapentin 100 MG CAPSULE PO SCH ×3 (08:48→20:44)
--- NOTE | 2016-11-15 09:21 | Psychiatry Progress Note ---
Date of Encounter: 11/15/16 Time of Encounter: 08:35 Subjective Interval history: Pt. seen today , had probate yesterday , case d/w treatment team, patient refused to take olanzapine feels it is causing her pain , even though on it for long time, educated that depakote is stopped that could have caused stomach cramps and now on Gabapentin patient still no insight and poor judgement. she is having disorganized thought process. she is sleeping better, she is pleasant , soft spoken but derails after few minutes and talking about having her roots set in. Review of Systems Psychiatric: Reports: anxiety, abnormal sleep pattern, confusion, difficulty concentrating Objective: Exam Patient orientation: Yes Place Level of alertness: Alert Patient appearance: Appropriate Behavior: guarded Psychomotor activity: Slowed Eye contact: Minimal Contact Mood description: Labile Affect description: incongruent with mood Speech pattern: Slowed Speech volume: Soft/Quiet Thought process: Loose Associations, Disorganized Thought content: Yes Preoccupation, Yes Paranoid delusion Judgment: Poor Insight: None Results - Vital Signs Vital Signs: Temp Pulse Resp BP Pulse Ox 98.1 F 90 18 103/65 98 11/15/16 08:05 11/15/16 08:05 11/15/16 08:05 11/15/16 08:05 11/06/16 15:44 Assessment and Plan (1) Bipolar 1 disorder Current visit: Yes Status: Acute Risks, benefits, side effects, alternatives discussed w/pt: Yes Patient agreeable to treatment: Yes (2) Unspecified psychosis Current visit: Yes Status: Acute Risks, benefits, side effects, alternatives discussed w/pt: Yes Patient agreeable to treatment: Yes Qualifiers: Psychosis type: unspecified psychosis type Qualified Code(s): F29 - Unspecified psychosis not due to a substance or known physiological condition (3) Substance abuse Current visit: Yes Status: Acute Risks, benefits, side effects, alternatives discussed w/pt: Yes Patient agreeable to treatment: Yes Consult Discharge Plan - Plan Referrals: NO,PCP [Primary Care Provider] -
[2016-11-15] MEDS: Mag Hydrox/Al Hydrox/Simeth 30 ML UDC PO PRN ×2 (10:01→22:16)
[2016-11-15] MEDS: traZODone 50 MG TABLET PO PRN (20:44)
[2016-11-15] MEDS: OLANZapine 10 MG TAB.RAPDIS PO SCH (20:44)
[2016-11-15] MEDS: hydrOXYzine pamoate 25 MG CAPSULE PO PRN (22:16)
[2016-11-16] MEDS: hydrOXYzine pamoate 25 MG CAPSULE PO PRN (01:38)
[2016-11-16] MEDS: Ibuprofen 800 MG TABLET PO PRN ×2 (04:43→18:45)
[2016-11-16] MEDS: Gabapentin 100 MG CAPSULE PO SCH (09:03)
--- NOTE | 2016-11-16 10:56 | Psychiatry Progress Note ---
Date of Encounter: 11/16/16 Time of Encounter: 10:30 Subjective Interval history: Patient seen today , case d/w staff , she has been refusing zydis as she feels it is causing her pain all over her body and cramps in legs and needs prn and was given multiple prn last night and didnot sleep well. she is c/o acid reflux and showed me her right foot it is painful to walk , will have it evaluated , she is still preocupied with her roots and going out and trying to be good just to be out. her thought process remains same, minimal change in her insight. admits to psychosis. she wants to have her neurontin increased as it helped her in past. will dc olanzapine as refusing sec. to side effects. will add invega 3 mg with cogentin and plan to change to invega sustenna for compliance and stability. pt agreed with plan. Review of Systems Psychiatric: Reports: anxiety, abnormal sleep pattern, confusion, difficulty concentrating Objective: Exam Patient orientation: Yes Time Level of alertness: Alert Patient appearance: Appropriate Behavior: anxious Psychomotor activity: Normal Eye contact: Maintains Eye Contact Mood description: Anxious Affect description: congruent with mood Speech pattern: Inappropriate to situation Speech volume: Normal Thought process: Loose Associations, Tangential Thought content: Yes Paranoid delusion Judgment: Limited Insight: Minimal Results - Vital Signs Vital Signs: Temp Pulse Resp BP Pulse Ox 97.8 F 83 16 97/60 98 11/16/16 09:00 11/16/16 09:00 11/16/16 09:00 11/16/16 09:00 11/06/16 15:44 Assessment and Plan (1) Bipolar 1 disorder Current visit: Yes Status: Acute Risks, benefits, side effects, alternatives discussed w/pt: Yes Patient agreeable to treatment: Yes (2) Unspecified psychosis Current visit: Yes Status: Acute Risks, benefits, side effects, alternatives discussed w/pt: Yes Patient agreeable to treatment: Yes Qualifiers: Psychosis type: unspecified psychosis type Qualified Code(s): F29 - Unspecified psychosis not due to a substance or known physiological condition (3) Substance abuse Current visit: Yes Status: Acute Risks, benefits, side effects, alternatives discussed w/pt: Yes Patient agreeable to treatment: Yes Consult Discharge Plan - Plan Referrals: NONE,PCP [Primary Care Provider] -
[2016-11-16] MEDS: Ibuprofen 400 MG TABLET PO PRN (12:17)
[2016-11-16] MEDS: Mag Hydrox/Al Hydrox/Simeth 30 ML UDC PO PRN (12:44)
[2016-11-16] MEDS: Gabapentin 300 MG CAPSULE PO SCH (20:30)
[2016-11-16] MEDS: traZODone 50 MG TABLET PO PRN (22:08)
[2016-11-17] MEDS: Ibuprofen 400 MG TABLET PO PRN ×3 (00:01→23:57)
[2016-11-17] MEDS: Mag Hydrox/Al Hydrox/Simeth 30 ML UDC PO PRN (03:31)
[2016-11-17] MEDS: Ibuprofen 800 MG TABLET PO PRN ×2 (09:00→18:09)
--- NOTE | 2016-11-17 11:00 | Psychiatry Progress Note ---
Date of Encounter: 11/17/16 Time of Encounter: 10:30 Subjective Interval history: Patient seen today , case d/w staff . c/o pain of her Right foot , i examined and have consulted . she states i am getting better and i am doing for myself and my kids, she didnot c/o of any cramps or side effects since olanzapine dc. she denies any side effects from invega , she has been distracted easily, she has been compliant with meds. she wants to be started on ADD meds as she has been on them before and has helped in past. she was educated about her illness. she doesnot feel needs suboxone as has been without it and is denying cravings, she denies suicidal ideation, she is excited as her children will be here to visit her. Review of Systems Psychiatric: Reports: anxiety, abnormal sleep pattern, difficulty concentrating Objective: Exam Patient orientation: Yes Person, Yes Time, Yes Place Level of alertness: Alert Patient appearance: Appropriate, Well Groomed Behavior: cooperative, talkative Psychomotor activity: Normal Eye contact: Maintains Eye Contact Mood description: Anxious Affect description: congruent with mood Speech pattern: Excessive Speech volume: Normal Thought process: Circumstantial Thought content: Yes Paranoid delusion Judgment: Limited Insight: None Results - Vital Signs Vital Signs: Temp Pulse Resp BP Pulse Ox 98.0 F 74 16 100/64 98 11/17/16 09:00 11/17/16 09:00 11/17/16 09:00 11/17/16 09:00 11/06/16 15:44 Assessment and Plan (1) Bipolar 1 disorder Current visit: Yes Status: Acute Risks, benefits, side effects, alternatives discussed w/pt: Yes Patient agreeable to treatment: Yes (2) Unspecified psychosis Current visit: Yes Status: Acute Risks, benefits, side effects, alternatives discussed w/pt: Yes Patient agreeable to treatment: Yes Qualifiers: Psychosis type: unspecified psychosis type Qualified Code(s): F29 - Unspecified psychosis not due to a substance or known physiological condition (3) Substance abuse Current visit: Yes Status: Acute Risks, benefits, side effects, alternatives discussed w/pt: Yes Patient agreeable to treatment: Yes Consult Discharge Plan - Plan Referrals: NONE,PCP [Primary Care Provider] -
--- NOTE | 2016-11-17 16:07 | Internal Medicine Consult Note ---
<Paulette Johnston - Last Filed: 11/17/16 16:17> Date of Encounter: 11/17/16 Time of Encounter: 16:01 - Assessment and Plan (1) Foot abscess, right Current Visit: Yes Status: Acute Assessment and plan: 1 patient initially presented with a laceration to her right foot at that time x -ray was obtained which showed no foreign body. She was admitted to [facility] due to auditory and visual hallucinations. During her stay she complaining of pain in right foot appear she has a possible abscess questionable foreign body on the inner base of her right foot. We will obtain a x-ray rule out possible foreign body 2 we will initiate on Keflex 3 we will obtain CBC monitor white count 4 we will consult podiatry for I&D of wound (2) Bipolar 1 disorder Current Visit: No Status: Chronic Assessment and plan: 1 patient has history of bipolar disorder presently inpatient [facility].- Continue current treatment plan per psychiatry (3) Post traumatic stress disorder (PTSD) Current Visit: No Status: Chronic Assessment and plan: 1 patient's inpatient [facility] -continue current treatment plan per psychiatry (4) Opiate dependence Current Visit: No Status: Chronic Assessment and plan: 1 patient has a history of opiate abuse. We will avoid prescribing opiates- continue with current treatment plan per psychiatry Qualifiers: Substance use status: in remission Qualified Code(s): F11.21 - Opioid dependence, in remission Internal Medicine - CN: HPI - Data of Consult Patient: new to practice Consult date: 11/17/16 Requesting Physician: Cordell Gonzalez MD - Consult Narrative Reason for consult: abcess to R foot History of present illness: Ms. Garcia is a 31 year old female past medical history of bipolar PTSD IV drug abuse psychoses. Information obtained from medical records due to patient's mental state. According medical records patient presented to the ER on the of this month after stepping on a piece of glass and cutting her right foot. Apparently during evaluation patient was experiencing visual and auditory hallucinations. X-ray of foot was obtained which did not show any foreign body at that time. She was evaluated by psychiatry and was admitted to [facility] unit for further treatment and evaluation. It appears that since admission patient has been experiencing pain in her right foot and is having difficulty ambulating. It has become red and swollen tenderness touch there appears to be a small abscess approximate size of a pea on the inner base of her right foot. Hospitalist services-consulted concerning foot abscess. Presently the patient appears to be in no respiratory distress she does complain of right foot pain and anxiety at this time. Right foot is red and swollen abscess to right inner base of foot appears to have some possible pus. It is tender to touch. Pulses are present extremities pink and warm. Lung sounds are clear heart sounds are regular S1 and S2 with no rubs, gallops murmurs noted. She is hemodynamically stable at this time. Dr. Zaldivar was present during evaluation. Past Med Surg Social Fam HX - Past Medical History Medical history: hepatitis, other Psychiatric history: bipolar, prior suicide attempt, previous psychiatric hospitalization, other - Past Surgical History Surgical History: non-contributory, - Social History Smoking Status: Current every day smoker Smokeless Tobacco Status: No Alcohol use: unknown Drug use: opiates - Family History Paternal Grandmother Hx Family Cardiac Disorders: Yes ([place]) Hx Family Respiratory Disorders: No Hx Family Cancer: No Hx Family GI Disorders: No Hx Family Endocrine Disorder: No Hx Family Neuromuscular Disorders: No Hx Family Neurologic Disorders: No Hx Family HEENT Disorders: No Hx Family Autoimmune Disorders: No ROS unobtainable: due to mental status Internal Medicine - CN: Meds Buprenorphine HCl/Naloxone HCl [Suboxone 8 mg-2 mg Sl Film] 1 film SL BID [History] Gabapentin [Neurontin] 400 mg PO TID capsule 10/11/16 [Rx] OLANZapine [Zyprexa Zydis] 10 mg PO HS #30 tab.rapdis 10/11/16 [Rx] Sertraline [Zoloft] 100 mg PO DAILY #30 tablet 10/11/16 [Rx] Thiamine (B-1) [Vitamin B-1] 100 mg PO DAILY 11/06/16 [History] Allergies No Known Allergies Allergy (Verified 11/06/16 10:52) Internal Medicine - CN: Exam - Constitutional Vitals: Temp Pulse Resp BP Pulse Ox 98.0 F 74 16 100/64 98 11/17/16 09:00 11/17/16 09:00 11/17/16 09:00 11/17/16 09:00 11/06/16 15:44 General appearance IM: Present: A&O X 3 - Head Head exam: Present: atraumatic, normocephalic - Eye Eye exam: Present: EOMI, PERRL - Respiratory Respiratory exam: Present: CTAB - Cardiovascular Cardiovascular exam IM: Present: RRR, +S1, +S2 - GI/Abdominal GI/Abdominal exam IM: Present: normal bowel sounds, soft - Expanded Lower Extremities Exam Foot/Toe exam: Present: abrasion, erythema, swelling, tenderness - Neurological Exam Neurological exam: Present: oriented X3 - Expanded Neurological Exam Coma Scale Eye Opening: Spontaneous Coma Scale Motor Response: Obeys Commands Coma Scale Verbal Response: Oriented Coma Scale Total: 15 - Psychiatric Psychiatric exam: Present: anxious - Expanded Skin Exam Type of lesion: Present: abscess - Other Additional findings: Abscess noted to enter base of right foot Internal Medicine - CN: Reslt - Labs CBC & Chem 7: 11/06/16 12:52 11/06/16 12:52 Consult Discharge Plan - Plan Referrals: NONE,PCP [Primary Care Provider] - <Naldo Zaldivar - Last Filed: 11/17/16 17:23> Date of Encounter: 11/17/16 Internal Medicine - CN: HPI - Data of Consult Requesting Physician: Cordell Gonzalez MD Internal Medicine - CN: Exam - Constitutional Vitals: Temp Pulse Resp BP Pulse Ox 98.0 F 74 16 100/64 98 11/17/16 09:00 11/17/16 09:00 11/17/16 09:00 11/17/16 09:00 11/06/16 15:44 Internal Medicine - CN: Reslt - Labs CBC & Chem 7: 11/17/16 16:28 11/06/16 12:52 Labs: Short CBC 11/17/16 Range/Units 16:28 WBC 7.3 (4.3-11.1) K/mcL Hgb 12.8 (11.5-15.4) g/dL Hct 38.4 (35.3-44.9) % Plt Count 209 (140-400) K/mcL Neutrophils # 4.1 (1.6-8.9) K/mcL - Attending Attestation I have personally performed a face to face evaluation on this patient and I discussed the assessment and plan with the nurse practitioner. I have reviewed and agree with the documented care plan. History and Exam by me shows: Ms. Garcia is a 31 year old female past medical history of bipolar PTSD IV drug abuse psychoses. Information obtained from medical records due to patient's mental state. According medical records patient presented to the ER on the of this month after stepping on a piece of glass and cutting her right foot. Initial X-ray of foot was obtained which did not show any foreign body at that time. She was admitted to [facility]A unit for further treatment for her acute psychosis. It appears that since admission patient has been experiencing pain in her right foot and is having difficulty ambulating. It has become red and swollen tenderness touch there appears to be a small abscess approximate size of a pea on the inner base of her right foot. Hospitalist services-consulted concerning foot abscess. Gen: A, A, O x 3 Heart: S1 S2 +, RRR No murmurs Ext: a small 0.5 cm size loculated pus filled cyst noticed over Rt foot plantar region medially. a/p 1. Foreign body insertion 2. Rt foot abscess Does need I & D for this small abscess will repeat another X ray Will check CBC Will consult Central Supply Technician Supervisor for possible I & D Will start her on empirical abx Keflex 500mg PO TID
[2016-11-17 16:47] LABS: Basophils # 0.1 K/mcL (0.0-0.2); Basophils % 0.7 %; Eosinophils # 0.1 K/mcL (0.0-0.6); Eosinophils % 1.9 %; Hematocrit 38.4 % (35.3-44.9); Hemoglobin 12.8 g/dL (11.5-15.4); Immature Granulocytes % 0.7 % (0-4); Lymphocytes # 2.4 K/mcL (0.6-4.6); Lymphocytes % 32.6 %; Mean Corpuscular HGB Conc 33.3 g/dL (31.6-35.5); Mean Corpuscular Hemoglobin 29.8 pg (28.0-33.3); Mean Corpuscular Volume 89.5 fL (83.0-100.0); Mean Platelet Volume 10.8 fL (9.4-12.4); Monocytes # 0.6 K/mcL (0.0-1.3); Monocytes % 8.1 %; Neutrophils # 4.1 K/mcL (1.6-8.9); Platelet Count 209 K/mcL (140-400); Red Blood Count 4.29 M/mcL (3.82-4.97); Red Cell Distribution Width 12.5 % (11.5-14.5)
[2016-11-17] MEDS: Gabapentin 300 MG CAPSULE PO SCH (20:30)
[2016-11-17] MEDS: cephALEXin 500 MG CAPSULE PO SCH (20:30)
[2016-11-17] MEDS: traZODone 50 MG TABLET PO PRN (20:31)
[2016-11-17] MEDS: hydrOXYzine pamoate 25 MG CAPSULE PO PRN (20:31)
--- NOTE | 2016-11-17 21:13 | Podiatry Consult Note ---
Date of Encounter: 11/17/16 Time of Encounter: 21:10 Assessment and Plan (1) Foreign body in foot Current visit: Yes Status: Acute The patient gave verbal consent and at this time the decision was made to drain the side as it was filled with purulence. The 15 blade scalpel was utilized to shave the superficial skin off the lesion on the plantar aspect of the right foot. After the superficial skin was shaved off some purulent drainage was expressed out of the site. A small piece of glass was noted to be removed from the site. Additional purulence was expressed and the site was left open and then dressed with a dry sterile dressing. The patient will minimize weightbearing and we may consider deeper exploration utilizing lidocaine depending on how the site looks tomorrow. The patient relates that she would like it inspected more thoroughly and is concerned that there is additional glass. As with any foreign body the patient was instructed that there may be other foreign bodies besides the ones removed. Without confirmation of removal on x-ray due to the inability to visualize it and the fact that it is not radiopaque we cannot confirm that all of the fragments were removed today. We will further explore the wound tomorrow depending on how it looks. The patient will be started on prophylactic antibiotics although it seems as though this is a well localized abscess and relatively walled off not resulting in significant cellulitis. Qualifiers: Encounter type: initial encounter Laterality: right Qualified Code(s): S90.851A - Superficial foreign body, right foot, initial encounter History of Present Illness Chief complaint: Right foot foreign body HPI: Ms. Garcia is a 31 year old female who relates that she stepped on glass recently and after a few days noticed significant pain and swelling in her foot. The patient is concerned that there may still be glass in her foot. Patient relates that she cannot walk on it due to pain. Past Med Surg Social Fam HX - Past Medical History Medical history: hepatitis, other Psychiatric history: bipolar, prior suicide attempt, previous psychiatric hospitalization, other - Past Surgical History Surgical History: non-contributory, - Social History Smoking Status: Current every day smoker Smokeless Tobacco Status: No Alcohol use: unknown Drug use: opiates - Family History Paternal Grandmother Hx Family Cardiac Disorders: Yes ([place]) Hx Family Respiratory Disorders: No Hx Family Cancer: No Hx Family GI Disorders: No Hx Family Endocrine Disorder: No Hx Family Neuromuscular Disorders: No Hx Family Neurologic Disorders: No Hx Family HEENT Disorders: No Hx Family Autoimmune Disorders: No Medications and Allergies Buprenorphine HCl/Naloxone HCl [Suboxone 8 mg-2 mg Sl Film] 1 film SL BID [History] Gabapentin [Neurontin] 400 mg PO TID capsule 10/11/16 [Rx] OLANZapine [Zyprexa Zydis] 10 mg PO HS #30 tab.rapdis 10/11/16 [Rx] Sertraline [Zoloft] 100 mg PO DAILY #30 tablet 10/11/16 [Rx] Thiamine (B-1) [Vitamin B-1] 100 mg PO DAILY 11/06/16 [History] Allergies No Known Allergies Allergy (Verified 11/06/16 10:52) All Systems Reviewed: A 10-system review of systems was performed and is negative for pertinent findings except as documented above in the HPI. Physical Exam - Constitutional Vitals: Temp Pulse Resp BP Pulse Ox 97.6 F 99 16 97/63 98 11/17/16 19:58 11/17/16 19:58 11/17/16 19:58 11/17/16 19:58 11/06/16 15:44 Exam: Pedal pulses palpable. Capillary fill time intact to digits 1 through 5 bilaterally. There are no open lesions, abrasions, or ulcerations. There is a small raised lesion which appears to be filled with purulence. Its on the plantar aspect of the foot near the fourth metatarsal head and measures approximately 1 cm in diameter. After sharp debridement of the surface skin there is noted to be purulent drainage and a small piece of glass was palpable with the small scalpel used to debride the site. Sensation is grossly intact to bilateral lower extremities with no deficits. Patient is able to dorsiflex and plantarflex foot without pain. Has pain with palpation to the raised lesion on the plantar aspect of the right foot. Results - Labs Result Diagrams: 11/17/16 16:28 11/06/16 12:52 Labs: Abnormal lab results Glucose 100 mg/dL (70-99) H 11/06/16 12:52 Ur Specific [place] > 1.030 (1.010-1.025) H 11/06/16 12:23 Urine Protein 30 mg/dL (Neg-Trace) H 11/06/16 12:23 Urine Ketones Trace mg/dL (Negative) H 11/06/16 12:23 Urine Blood Large (Negative) H 11/06/16 12:23 Ur Leukocyte Esterase Small (Negative) H 11/06/16 12:23 Urine Microscopic RBC 5-15 per hpf (0-3) H 11/06/16 12:23 Urine Microscopic WBC 5-15 per hpf (0-3) H 11/06/16 12:23 Ur Squamous Epith Cells Many per lpf (None-Few) H 11/06/16 12:23 Salicylates < 5.0 mg/dL (15-30) L 11/06/16 12:52 Acetaminophen < 1.0 mcg/mL (10-30) L 11/06/16 12:52 Urine Cocaine Screen Positive ng/mL (Cutoff= 300) H 11/06/16 12:23 H & H 11/17/16 Range/Units 16:28 Hgb 12.8 (11.5-15.4) g/dL Hct 38.4 (35.3-44.9) % All other labs normal. Consult Discharge Plan - Plan Referrals: NONE,PCP [Primary Care Provider] -
[2016-11-18] MEDS: cephALEXin 500 MG CAPSULE PO SCH (08:12)
[2016-11-18] MEDS: Ibuprofen 400 MG TABLET PO PRN (08:12)
[2016-11-18 10:32] VITALS: BP 103/64
--- NOTE | 2016-11-18 13:13 | Discharge Summary ---
Date of Encounter: 11/18/16 Time of Encounter: 09:40 Diagnosis - Discharge Diagnosis (1) Bipolar 1 disorder Priority: Primary Status: Chronic (2) Opiate dependence Priority: Secondary Status: Chronic Qualifiers: Substance use status: uncomplicated Qualified Code(s): F11.20 - Opioid dependence, uncomplicated Medications - Discharge Medications Prescriptions: cephALEXin [Keflex] 500 mg PO BID #18 Gabapentin [Neurontin] 600 mg PO HS #60 hydrOXYzine pamoate [HydrOXYzine Pamoate] 25 mg PO TID PRN #90 PRN Reason: Anxiety Paliperidone [Invega] 3 mg PO HS #30 Sertraline [Zoloft] 100 mg PO DAILY #30 tab traZODone [TraZODone] 50 mg PO HS PRN #30 tab PRN Reason: Insomnia Buprenorphine HCl/Naloxone HCl [Suboxone 8 mg-2 mg Sl Film] 1 film SL BID [History] Thiamine (B-1) [Vitamin B-1] 100 mg PO DAILY 11/06/16 [History] Gabapentin [Neurontin] 600 mg PO HS #60 11/18/16 [Rx] Paliperidone [Invega] 3 mg PO HS #30 11/18/16 [Rx] Sertraline [Zoloft] 100 mg PO DAILY #30 tab 11/18/16 [Rx] cephALEXin [Keflex] 500 mg PO BID #18 11/18/16 [Rx] hydrOXYzine pamoate [HydrOXYzine Pamoate] 25 mg PO TID PRN #90 11/18/16 [Rx] traZODone [TraZODone] 50 mg PO HS PRN #30 tab 11/18/16 [Rx] Allergies No Known Allergies Allergy (Verified 11/06/16 10:52) Results Procedures and tests throughout hospitalization: Completed Lab Orders Category Date Time Status CBC [Complete Blood Count] [HEME] Routine Lab 11/17/16 16:28 Completed Completed Imaging Orders Category Date Time Status XR foot 3V RT [XR] Routine Exams 11/17/16 15:50 Completed - Impressions Impressions Foot X-Ray 11/17/16 15:50 IMPRESSION: No acute findings. D/ / Lea Devlin MD / Lea Devlin MD Interpreting Provider: Lea Devlin MD Provider Date of admission: 11/06/16 16:28 Primary care physician: PCP NONE Consults: 11/16/16 14:44 Consult to Hospitalist [CONS] Stat Consulting Provider: Hospitalist Mary Ann Reason for Consult: Lump on bottom of right foot. Painful to walk Call Completed: No 11/17/16 08:27 Consult to Pastoral Services [CONS] Routine Comment: 11/17/16 16:00 Consult to Podiatry [CONS] Routine Consulting Provider: [facility] Reason for Consult: abcess to R foot Time Notified: 16:00 Call Completed: Yes Discharging clinician: Morena Colvin Assessment and Plan - Patient/Caregiver Discharge Instructions Activity: resume usual activities as tolerated Diet: regular diet - Follow up Plan Follow up with: Joanne Dorsey [Other] - 11/19/16 10:30 am (Patient is scheduled to see Dr. Dutton on 11/19/2016 at 10:30am.) [facility] [Outside] (The above appointment is with for a Vivitrol assessment. Please arrive 15 minutes early for your new patient appointment, and bring the following items with you: insurance card (if you do not have insurance bring proof of income to apply for the sliding fee scale), photo ID, and any medication you take in the original bottles. If you are unable to bring these items, your appointment will be rescheduled. If you are unable to keep this appointment, 24 hour business notice of cancellation is expected. If you miss your new patient appointment, you cannot be re-scheduled in this practice for 3 months. This practice does not prescribe narcotics or see [facility] benefit recipients. ) [facility] [place] [facility] [Outside] (The above appointment is with Farzana Galindo for counseling. You will see Dr. Santiago, for outpatient psychiatric assessment and medication management services, on 11/28/2016 at 10:00am. This appointment is in the [place], [place] office, located at [address]. Your business case analyst can arrange transportation to this appointment for you if needed. Please arrive 30 minutes early to complete paperwork. Please bring your photo ID and medication list. This is the first available appointment. You may contact the office regularly to check for cancellations that may allow you to be seen sooner. ) Overall status at discharge: Stable Disposition: Home, Self-Care Hospital Course Hospital course: Ms. Garcia is a 31 year old female with a history of chronic pain, bipolar disorder, opiate dependence. She presented to the hospital with unspecified psychosis and a history of IV drug abuse. She also appeared to be responding to internal stimuli and was very disorganized on arrival to the hospital. Patient was admitted to [facility] for psychiatric utilization. She was incorporated into the therapeutic milieu and offered group and individual as well as recreational therapy. She was placed on suicide precautions and close observation. She was started in Invega and zoloft and tolerated this medications well. Throughout the course of the hospital stay the patient's thought process became more organized. Patient admitted to using cocaine as well as opiates. She states that she had been on Suboxone in the past. She discussed other outpatient treatments for substance abuse. Patient was somewhat med seeking requesting medications for ADHD as well as pain pills. Educated patient on the importance of abstinence to help with mental health issues. At the time of discharge patient was organized. She denied suicidal or homicidal ideation, intent, or plan. No evidence of paranoia. Patient denied any auditory or visual hallucinations and did not appear to be responding to internal stimuli. She was tolerating meds well and willing to continue to take them until her follow-up appointment. She will return home with her boyfriend and maybe stay with her father. She does have an appointment for Suboxone treatment as an outpatient. She will be discharged in stable condition. - Time Spent with Patient Total time spent providing and/or coordinating discharge services: Greater than 30 minutes Quality - Multiple Antipsychotics Patient discharged on 2 or more antipsychotic medications: No Procedures - Procedures Procedures: Medication Management, Crisis Stabilization, Supportive Therapy, Group Therapy, Psychoeducational Therapy Mental Status Exam - Mental Status Exam Patient orientation: Yes Person, Yes Time, Yes Place Level of alertness: Alert Patient appearance: Appropriate, Well Groomed Behavior: calm, cooperative Psychomotor activity: Normal Eye contact: Maintains Eye Contact Mood description: Euthymic/stable Affect description: congruent with mood, full range Speech pattern: Normal rate, Normal rhythm, Normal tone Speech Volume: Normal Thought process: Linear, Goal Oriented Thought Content: No Suicidal ideation, No Homicidal ideation, No Overt delusions Perceptual Disturbances: No Auditory hallucinations, No Visual hallucinations Judgment: Limited Insight: Partial
[2016-11-18] MEDS: Mag Hydrox/Al Hydrox/Simeth 30 ML UDC PO PRN (13:59)
== END 2016-11-18 14:35 | disposition home or self-care (01) | DRG 753 ==
LOC: EMEROO 10:42 → SUATTDRO 16:28 → 1ANU 16:28
PROVIDERS: ADMIT Psychiatry & Neurology Psychiatry; ATTEND Psychiatry & Neurology Psychiatry

== ENCOUNTER 2016-11-28 13:29 | Inpatient (IN) ==
--- NOTE | 2016-11-28 14:19 | Emergency Department Note ---
Disposition Clinical Impression: Substance abuse Unspecified psychosis Qualifiers: Psychosis type: unspecified psychosis type Qualified Code(s): F29 - Unspecified psychosis not due to a substance or known physiological condition Disposition: Admitted As Inpatient Condition: Fair Reasons to Return/Additional Instructions: Return to the emergency Department with any other complaints. General Adult HPI - General Chief complaint: ED General Medical Stated complaint: sent for detox Source: patient Limitations: no limitations Nursing Notes Reviewed: Yes Vital Signs Reviewed: Yes - History of Present Illness HPI Narrative: 31-year-old female presents to the emergency department with chief complaint of wanting detox. She apparently was sent in from her Suboxone clinic because she tested positive for multiple drugs and a drug screen. She was refused Suboxone. And was sent here instead. Patient admits to using opiates as well as cocaine. She denies specific symptoms at this time. Also no fevers or chills. She denies being . 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 Radiation: non-radiation Pain Scale: 0 Improves with: nothing Worsens with: nothing Associated symptoms: Reports: denies other symptoms - Related Data Home Medications Medication Instructions Recorded Confirmed Buprenorphine HCl/Naloxone HCl 1 film SL BID 10/04/16 11/06/16 [Suboxone 8 mg-2 mg Sl Film] Thiamine (B-1) [Vitamin B-1] 100 mg PO DAILY 11/06/16 11/06/16 Previous Rx's Medication Instructions Recorded Gabapentin [Neurontin] 600 mg PO HS #60 11/18/16 Paliperidone [Invega] 3 mg PO HS #30 11/18/16 Sertraline [Zoloft] 100 mg PO DAILY #30 tab 11/18/16 cephALEXin [Keflex] 500 mg PO BID #18 11/18/16 hydrOXYzine pamoate [HydrOXYzine 25 mg PO TID PRN #90 11/18/16 Pamoate] traZODone [TraZODone] 50 mg PO HS PRN #30 tab 11/18/16 Allergies Allergy/AdvReac Type Severity Reaction Status Date / Time No Known Allergies Allergy Verified 11/06/16 10:52 All systems ED: reviewed and negative except as stated. Constitutional: Reports: as per HPI Eyes: Reports: as per HPI Past Medical History - Past Medical History Attestation: Yes The following information was validated with the patient. Medical history: Reports: hepatitis, other Surgical history: Reports: non-contributory, Psychiatric history: Reports: bipolar, prior suicide attempt, previous psychiatric hospitalization, other ETL DEVELOPER history: Reports: no ETL DEVELOPER history - Social History Smoking Status: Current every day smoker Smokeless Tobacco Status: No Alcohol use: Reports: unknown Drug use: Reports: opiates Physical Exam - General Limitations: no limitations General appearance: alert, anxious - Head Head exam: atraumatic - Eye Eye exam: Present: normal appearance - ENT ENT exam: normal exam - Neck Neck exam: Present: normal inspection - Chest Chest inspection: Present: normal inspection - Respiratory Respiratory exam: Present: normal lung sounds bilaterally - Cardiovascular Cardiovascular exam: Present: regular rate - Abdominal Exam Abdominal exam: Present: soft, Non-Tender - Extremities Exam Extremities exam: Present: normal inspection - Back Exam Back exam: Present: normal inspection - Neurological Exam Neurological exam: Present: alert, oriented X3 - Psychiatric Psychiatric exam: Present: normal affect, normal mood - Skin Skin exam: Present: warm, dry, intact Course Vital Signs Temperature 98.2 F 11/28/16 13:38 Pulse Rate 101 11/28/16 13:38 Respiratory Rate 16 11/28/16 13:38 Blood Pressure 104/68 11/28/16 13:38 O2 Sat by Pulse Oximetry 98 11/28/16 13:38 Temperature 98.2 F 11/28/16 13:38 Pulse Rate 84 11/28/16 15:59 Respiratory Rate 16 11/28/16 15:59 Blood Pressure 106/70 11/28/16 15:59 O2 Sat by Pulse Oximetry 98 11/28/16 15:59 Oxygen Delivery Oxygen Delivery Room Air Medical Decision Making - MDM Narrative Medical decision making narrative: We will do usual psych labs. We will contact social work to help provide resources. We will also based on their recommendation discussed with 1 A if needed. Anticipate being able to disposition the patient for appropriate care. Discussed case with social work, states that because this patient is somewhat noncompliant with her psychiatric medications and has had psychiatric admission the past she is suggesting we have her evaluated by 18. Once labs are done we will call them for formal evaluation. I discussed this case with psychiatry who came and did a bedside evaluation. We also had social work come and evaluate the patient. The consensus was the patient required hospitalization for the following reasons 1 she has been noncompliant with his psychiatric medications, and 2 she has been very aggressively taking illegal substances which could harm herself. Patient apparently has been admitted one a before and they have had significant difficulty getting her to be compliant with medications. I was requested by them to do an involuntary hold which I agreed to. Hemodynamically and otherwise patient was stable. We will admit to psychiatry for further evaluation and treatment. - Lab Data Result diagrams: 11/28/16 14:16 11/28/16 14:16 Lab Results 11/28/16 11/28/16 11/28/16 Range/Units 14:16 14:16 14:35 WBC 6.3 (4.3-11.1) K/mcL RBC 5.25 H (3.82-4.97) M/mcL Hgb 15.7 H (11.5-15.4) g/dL Hct 46.8 H (35.3-44.9) % MCV 89.1 (83.0-100.0) fL MCH 29.9 (28.0-33.3) pg MCHC 33.5 (31.6-35.5) g/dL RDW 12.5 (11.5-14.5) % Plt Count 294 (140-400) K/mcL MPV 10.1 (9.4-12.4) fL Immature Gran % 0.3 (0-4) % Seg Neutrophils % 64.7 % Lymphocytes % 26.1 % Monocytes % 7.3 % Eosinophils % 1.1 % Basophils % 0.5 % Neutrophils # 4.1 (1.6-8.9) K/mcL Lymphocytes # 1.7 (0.6-4.6) K/mcL Monocytes # 0.5 (0.0-1.3) K/mcL Eosinophils # 0.1 (0.0-0.6) K/mcL Basophils # 0.0 (0.0-0.2) K/mcL Sodium 140 (136-145) mEq/L Potassium 4.6 H (3.5-4.5) mEq/L Chloride 102 (98-109) mEq/L Carbon Dioxide 27 (19-29) mEq/L BUN 15 (7-20) mg/dL Creatinine 1.07 (0.57-1.11) mg/dL Est GFR ( Amer) > 60 (> 60) Est GFR (Non-Af Amer) 60 (> 60) BUN/Creatinine Ratio 14 (6-26) Glucose 92 (70-99) mg/dL Calculated Osmolality 290 (280-300) Calcium 10.6 (8.6-10.8) mg/dL Urine Color Dark Yellow (Yellow) Urine Clarity Cloudy A (Clear) Urine pH 7.0 (5.0-8.0) pH Units Ur Specific [place] 1.029 H (1.010-1.025) Urine Protein Trace (Neg-Trace) mg/dL Urine Glucose (UA) Normal (Normal) mg/dL Urine Ketones Trace H (Negative) mg/dL Urine Blood Negative (Negative) Urine Nitrite Negative (Negative) Urine Bilirubin Small H (Negative) Urine Urobilinogen Normal (Normal) mg/dL Ur Leukocyte Esterase Negative (Negative) Urine Microscopic RBC 0-3 (0-3) per hpf Urine Microscopic WBC 3-5 H (0-3) per hpf Ur Squamous Epith Cells Many H (None-Few) per lpf Urine Bacteria Few (None-Few) per hpf Hyaline Casts None Seen (None-Few) per lpf Urine Test (Negative) Salicylates < 5.0 L (15-30) mg/dL Urine Opiates Screen (Llruyw=586) ng/mL Acetaminophen < 1.0 L (10-30) mcg/mL Ur Barbiturates Screen (Tbacfy=951) ng/mL Ur Phencyclidine Scrn (Cutoff=25) ng/mL Ur Amphetamines Screen (Fooyij=1389) ng/mL U Benzodiazepines Scrn (Iiwptd=795) ng/mL Urine Cocaine Screen (Cutoff= 300) ng/mL U Marijuana (THC) Screen (Cutoff = 50) ng/mL Ethyl Alcohol < 10 (0-10) mg/dL 11/28/16 11/28/16 Range/Units 14:35 14:35 WBC (4.3-11.1) K/mcL RBC (3.82-4.97) M/mcL Hgb (11.5-15.4) g/dL Hct (35.3-44.9) % MCV (83.0-100.0) fL MCH (28.0-33.3) pg MCHC (31.6-35.5) g/dL RDW (11.5-14.5) % Plt Count (140-400) K/mcL MPV (9.4-12.4) fL Immature Gran % (0-4) % Seg Neutrophils % % Lymphocytes % % Monocytes % % Eosinophils % % Basophils % % Neutrophils # (1.6-8.9) K/mcL Lymphocytes # (0.6-4.6) K/mcL Monocytes # (0.0-1.3) K/mcL Eosinophils # (0.0-0.6) K/mcL Basophils # (0.0-0.2) K/mcL Sodium (136-145) mEq/L Potassium (3.5-4.5) mEq/L Chloride (98-109) mEq/L Carbon Dioxide (19-29) mEq/L BUN (7-20) mg/dL Creatinine (0.57-1.11) mg/dL Est GFR ( Amer) (> 60) Est GFR (Non-Af Amer) (> 60) BUN/Creatinine Ratio (6-26) Glucose (70-99) mg/dL Calculated Osmolality (280-300) Calcium (8.6-10.8) mg/dL Urine Color (Yellow) Urine Clarity (Clear) Urine pH (5.0-8.0) pH Units Ur Specific [place] (1.010-1.025) Urine Protein (Neg-Trace) mg/dL Urine Glucose (UA) (Normal) mg/dL Urine Ketones (Negative) mg/dL Urine Blood (Negative) Urine Nitrite (Negative) Urine Bilirubin (Negative) Urine Urobilinogen (Normal) mg/dL Ur Leukocyte Esterase (Negative) Urine Microscopic RBC (0-3) per hpf Urine Microscopic WBC (0-3) per hpf Ur Squamous Epith Cells (None-Few) per lpf Urine Bacteria (None-Few) per hpf Hyaline Casts (None-Few) per lpf Urine Test Negative (Negative) Salicylates (15-30) mg/dL Urine Opiates Screen Negative (Hbosna=935) ng/mL Acetaminophen (10-30) mcg/mL Ur Barbiturates Screen Negative (Rzvaon=817) ng/mL Ur Phencyclidine Scrn Negative (Cutoff=25) ng/mL Ur Amphetamines Screen Positive H (Ulqlyg=0249) ng/mL U Benzodiazepines Scrn Negative (Rnzwsr=810) ng/mL Urine Cocaine Screen Positive H (Cutoff= 300) ng/mL U Marijuana (THC) Screen Negative (Cutoff = 50) ng/mL Ethyl Alcohol (0-10) mg/dL
[2016-11-28 14:26] LABS: Basophils % 0.5 %; Eosinophils # 0.1 K/mcL (0.0-0.6); Eosinophils % 1.1 %; Hematocrit 46.8 % (35.3-44.9); Hemoglobin 15.7 g/dL (11.5-15.4); Immature Granulocytes % 0.3 % (0-4); Lymphocytes # 1.7 K/mcL (0.6-4.6); Lymphocytes % 26.1 %; Mean Corpuscular HGB Conc 33.5 g/dL (31.6-35.5); Mean Corpuscular Hemoglobin 29.9 pg (28.0-33.3); Mean Corpuscular Volume 89.1 fL (83.0-100.0); Mean Platelet Volume 10.1 fL (9.4-12.4); Monocytes # 0.5 K/mcL (0.0-1.3); Monocytes % 7.3 %; Neutrophils # 4.1 K/mcL (1.6-8.9); Platelet Count 294 K/mcL (140-400); Red Blood Count 5.25 M/mcL (3.82-4.97); Red Cell Distribution Width 12.5 % (11.5-14.5); Segmented Neutrophils % 64.7 %
[2016-11-28 14:40] LABS: BUN/Creatinine Ratio 14 (6-26); Blood Urea Nitrogen 15 mg/dL (7-20); Calcium 10.6 mg/dL (8.6-10.8); Carbon Dioxide 27 mEq/L (19-29); Chloride 102 mEq/L (98-109); Glucose 92 mg/dL (70-99); Osmolality,Calculated 290 (280-300); Potassium 4.6 mEq/L (3.5-4.5); Sodium 140 mEq/L (136-145); eGFR For African Americans > 60 (> 60); eGFR For Non-African Americans 60 (> 60)
[2016-11-28 14:41] LABS: Acetaminophen < 1.0 mcg/mL (10-30); Ethanol < 10 mg/dL (0-10); Salicylate < 5.0 mg/dL (15-30)
[2016-11-28 14:48] LABS: Bilirubin,Urine Small (Negative); Blood,Urine Negative (Negative); Clarity,Urine Cloudy (Clear); Color,Urine Dark Yellow (Yellow); Glucose,Urine (UA) Normal (Normal); Ketones,Urine Trace mg/dL (Negative); Leukocyte Esterase,Urine Negative (Negative); Nitrite,Urine Negative (Negative); Protein,Urine Trace mg/dL (Neg-Trace); Specific Gravity,Urine 1.029 (1.010-1.025); Urobilinogen,Urine Normal (Normal)
[2016-11-28 14:51] LABS: Amphetamine Screen,Urine Positive ng/mL (Cutoff=1000); Bacteria,Urine Few per hpf (None-Few); Barbiturate Screen,Urine Negative ng/mL (Cutoff=200); Benzodiazepines Screen,Urine Negative ng/mL (Cutoff=200); Cannabinoid Screen,Urine Negative ng/mL (Cutoff = 50); Cocaine Screen,Urine Positive ng/mL (Cutoff= 300); Hyaline Casts,Urine None Seen per lpf (None-Few); Opiate Screen,Urine Negative ng/mL (Cutoff=300); Phencyclidine Screen,Urine Negative ng/mL (Cutoff=25); Squamous Epithelial Cell,Urine Many per lpf (None-Few)
[2016-11-28 15:06] LABS: RBC,Urine 0-3 per hpf (0-3)
[2016-11-28] MEDS ORDERED: *HR* LORazepam 1 MG TABLET PO PRN (18:45)
[2016-11-28] MEDS ORDERED: MOM Conc 10 ML UD.LIQ PO PRN (18:45)
[2016-11-28] MEDS ORDERED: Haloperidol Lactate 5 MG/ML VIAL IM PRN (18:45)
[2016-11-28] MEDS ORDERED: *HR* LORazepam 2 MG/ML VIAL IM PRN (18:45)
[2016-11-28] MEDS ORDERED: traZODone 50 MG TABLET PO PRN (18:50)
[2016-11-28] MEDS: Ibuprofen 400 MG TABLET PO PRN (20:25)
[2016-11-28] MEDS: Gabapentin 300 MG CAPSULE PO SCH (20:25)
[2016-11-29] MEDS: Ibuprofen 400 MG TABLET PO PRN ×2 (02:27→20:44)
[2016-11-29] MEDS: Mag Hydrox/Al Hydrox/Simeth 30 ML UDC PO PRN (13:16)
[2016-11-29] MEDS ORDERED: Fluconazole 100 MG TABLET PO ONE (13:45)
--- NOTE | 2016-11-29 14:39 | Psychiatry History & Physical ---
Date of Encounter: 11/29/16 Time of Encounter: 13:25 History of Present Illness Patient Stated Chief Complaint: i am fine , i just want to go home , i just want treatment for yeast infect Medicare Admission Attestation: For traditional Medicare patients the provided hospital inpatient services are reasonable and necessary and in the case of services not specified as inpatient -only under 42 CFR 419.22 (n), that they are appropriately provided as inpatient services in accordance 42 CFR 412.3. For Critical [facility] the patient may reasonably be expected to be discharged or transferred to a hospital within 96 hours after admission to the Critical Access Hospital. History of Present Illness: Ms. Garcia is a 31 year old female who is well known to this facility she is readmitted this time in less than 30 days , she was sent by [facility] because she tested positive for opiates and amphetamines and came here stating that she wants to be detoxed Patient has history of bipolar disorder with psychosis ,PTSD, substance abuse, iv sustance use , noncompliance and suicidal ideation and attempts. Patient had not been taking her psychiatric medications and only taking Suboxone as per her she does not like medications and she does not feel she has to take them , she has poor insight at present she feels that she has yeast infection and she needs to address that and be treated and discharged. Patient stated sometimes I feel like someone is touching me ,someone is watching me and somebody is wanting me or wishing for me to relapse she is very poor historian at this time and confused and tangential she also is suffering from auditory and visual hallucination she is laughing inappropriately is very labile This morning she refused to take her medications she is pacing in around and is elevated and preoccupied upon discharge. Her tox screen tested positive for multiple substances. as per her she is off suboxone for 5 days and does not want to continue. Past Med Surg Social Fam HX - Past Medical History Source: patient, old records reviewed Medical history: hepatitis, other - Past Psychiatric History Psychiatric history: Reports: anxiety, bipolar, PTSD, prior suicide attempt, previous psychiatric hospitalization Family psychiatric history: Yes Family History of Suicide: Unknown - Past Surgical History Surgical History: non-contributory, - Social History Smoking Status: Current every day smoker Smokeless Tobacco Status: No Alcohol use: unknown Drug use: opiates Occupational status: unemployed Current living situation: Home Activity Level: Independent ambulation Recent Out of Country Travel Within the Last 8 Weeks: No Exposure or Possible Exposure to Illness During Travel: No - Family History Paternal Grandmother History Unknown: Yes Hx Family Cardiac Disorders: Yes (NE) Hx Family Respiratory Disorders: No Hx Family Cancer: No Hx Family GI Disorders: No Hx Family Endocrine Disorder: No Hx Family Neuromuscular Disorders: No Hx Family Neurologic Disorders: No Hx Family HEENT Disorders: No Hx Family Autoimmune Disorders: No Medications & Allergies Buprenorphine HCl/Naloxone HCl [Suboxone 8 mg-2 mg Sl Film] 1 film SL BID [History] Thiamine (B-1) [Vitamin B-1] 100 mg PO DAILY 11/06/16 [History] Gabapentin [Neurontin] 600 mg PO HS #60 11/18/16 [Rx] Paliperidone [Invega] 3 mg PO HS #30 11/18/16 [Rx] Sertraline [Zoloft] 100 mg PO DAILY #30 tab 11/18/16 [Rx] hydrOXYzine pamoate [HydrOXYzine Pamoate] 25 mg PO TID PRN #90 11/18/16 [Rx] traZODone [TraZODone] 50 mg PO HS PRN #30 tab 11/18/16 [Rx] Allergies No Known Allergies Allergy (Verified 11/06/16 10:52) Review of Systems Constitutional: Denies: fever, chills, weakness, weight change Eyes: Denies: eye pain, vision change Ears, Nose, Throat: Denies: ear pain, throat pain, dental pain, hearing loss, congestion Cardiovascular: Denies: chest pain, palpitations, dyspnea on exertion Respiratory: Denies: cough, dyspnea, wheezes Gastrointestinal: Denies: abdominal pain, nausea, vomiting, diarrhea, constipation Genitourinary male: Denies: urgency, dysuria, frequency, genital lesions Genitourinary female: Denies: urgency, dysuria, frequency, abnormal menses, dyspareunia Musculoskeletal: Denies: joint swelling, joint pain Integumentary: Denies: rash, lesions, pruritus Neurological: Denies: headache, weakness, numbness, memory loss Psychiatric: Reports: anxiety, auditory hallucinations, visual hallucinations, difficulty concentrating, irritability, mood swings Endocrine: Denies: fatigue, heat or cold intolerance Hematologic/Lymphatic: Denies: easy bruising, lymphadenopathy Allergic/Immunologic: Denies: urticaria, itchy eyes Mental Status Exam Patient orientation: Yes Person, Yes Time, Yes Place Level of alertness: Alert Patient appearance: Unkempt Behavior: distractible, talkative Psychomotor activity: Increased Eye contact: Minimal Contact Mood description: Elevated, Labile Affect description: labile, euphoric Speech pattern: Rambling, Excessive Speech volume: Normal Thought process: Circumstantial, Tangential, Disorganized, Racing Thought content: Yes Grandiose delusion Perceptual disturbances: Yes Auditory hallucinations, Yes Visual hallucinations Attention span: Unable to Focus, Unable to Sustain Attention Memory description: Immediate Intact, Recent Impaired Patient reliability: Questionable Historian Intelligence estimate: Average Judgment: Poor Insight: None Exam - HEENT Head exam IM: Present: atraumatic (pt was aso examined in ER), normal inspection , normocephalic ENT exam IM: Present: normal exam - Neurological Neurological exam IM: Present: alert, CN II-XII intact, normal gait, oriented X3 - Skin Skin exam IM: Present: dry Results - Vital Signs Vital signs: Temp Pulse Resp BP Pulse Ox 98.2 F 83 16 112/59 98 11/29/16 09:00 11/29/16 09:00 11/29/16 09:00 11/29/16 09:00 11/28/16 15:59 - Labs Labs: Laboratory Last Values WBC 6.3 K/mcL (4.3-11.1) 11/28/16 14:16 RBC 5.25 M/mcL (3.82-4.97) H 11/28/16 14:16 Hgb 15.7 g/dL (11.5-15.4) H 11/28/16 14:16 Hct 46.8 % (35.3-44.9) H 11/28/16 14:16 MCV 89.1 fL (83.0-100.0) 11/28/16 14:16 MCH 29.9 pg (28.0-33.3) 11/28/16 14:16 MCHC 33.5 g/dL (31.6-35.5) 11/28/16 14:16 RDW 12.5 % (11.5-14.5) 11/28/16 14:16 Plt Count 294 K/mcL (140-400) 11/28/16 14:16 MPV 10.1 fL (9.4-12.4) 11/28/16 14:16 Immature Gran % 0.3 % (0-4) 11/28/16 14:16 Seg Neutrophils % 64.7 % 11/28/16 14:16 Lymphocytes % 26.1 % 11/28/16 14:16 Monocytes % 7.3 % 11/28/16 14:16 Eosinophils % 1.1 % 11/28/16 14:16 Basophils % 0.5 % 11/28/16 14:16 Neutrophils # 4.1 K/mcL (1.6-8.9) 11/28/16 14:16 Lymphocytes # 1.7 K/mcL (0.6-4.6) 11/28/16 14:16 Monocytes # 0.5 K/mcL (0.0-1.3) 11/28/16 14:16 Eosinophils # 0.1 K/mcL (0.0-0.6) 11/28/16 14:16 Basophils # 0.0 K/mcL (0.0-0.2) 11/28/16 14:16 Sodium 140 mEq/L (136-145) 11/28/16 14:16 Potassium 4.6 mEq/L (3.5-4.5) H 11/28/16 14:16 Chloride 102 mEq/L (98-109) 11/28/16 14:16 Carbon Dioxide 27 mEq/L (19-29) 11/28/16 14:16 BUN 15 mg/dL (7-20) 11/28/16 14:16 Creatinine 1.07 mg/dL (0.57-1.11) 11/28/16 14:16 Est GFR ( Amer) > 60 (> 60) 11/28/16 14:16 Est GFR (Non-Af Amer) 60 (> 60) 11/28/16 14:16 BUN/Creatinine Ratio 14 (6-26) 11/28/16 14:16 Glucose 92 mg/dL (70-99) 11/28/16 14:16 Calculated Osmolality 290 (280-300) 11/28/16 14:16 Calcium 10.6 mg/dL (8.6-10.8) 11/28/16 14:16 Urine Color Dark Yellow (Yellow) 11/28/16 14:35 Urine Clarity Cloudy (Clear) A 11/28/16 14:35 Urine pH 7.0 pH Units (5.0-8.0) 11/28/16 14:35 Ur Specific Foster 1.029 (1.010-1.025) H 11/28/16 14:35 Urine Protein Trace mg/dL (Neg-Trace) 11/28/16 14:35 Urine Glucose (UA) Normal mg/dL (Normal) 11/28/16 14:35 Urine Ketones Trace mg/dL (Negative) H 11/28/16 14:35 Urine Blood Negative (Negative) 11/28/16 14:35 Urine Nitrite Negative (Negative) 11/28/16 14:35 Urine Bilirubin Small (Negative) H 11/28/16 14:35 Urine Urobilinogen Normal mg/dL (Normal) 11/28/16 14:35 Ur Leukocyte Esterase Negative (Negative) 11/28/16 14:35 Urine Microscopic RBC 0-3 per hpf (0-3) 11/28/16 14:35 Urine Microscopic WBC 3-5 per hpf (0-3) H 11/28/16 14:35 Ur Squamous Epith Cells Many per lpf (None-Few) H 11/28/16 14:35 Urine Bacteria Few per hpf (None-Few) 11/28/16 14:35 Hyaline Casts None Seen per lpf (None-Few) 11/28/16 14:35 Urine Test Negative (Negative) 11/28/16 14:35 Salicylates < 5.0 mg/dL (15-30) L 11/28/16 14:16 Urine Opiates Screen Negative ng/mL (Pjclgn=260) 11/28/16 14:35 Acetaminophen < 1.0 mcg/mL (10-30) L 11/28/16 14:16 Ur Barbiturates Screen Negative ng/mL (Asghyx=916) 11/28/16 14:35 Ur Phencyclidine Scrn Negative ng/mL (Cutoff=25) 11/28/16 14:35 Ur Amphetamines Screen Positive ng/mL (Kvnigu=6429) H 11/28/16 14:35 U Benzodiazepines Scrn Negative ng/mL (Frggpd=765) 11/28/16 14:35 Urine Cocaine Screen Positive ng/mL (Cutoff= 300) H 11/28/16 14:35 U Marijuana (THC) Screen Negative ng/mL (Cutoff = 50) 11/28/16 14:35 Ethyl Alcohol < 10 mg/dL (0-10) 11/28/16 14:16 Assessment and Plan (1) Bipolar affective disorder, manic, severe, with psychotic behavior Current visit: Yes Status: Acute Plan: Admit inpatient for safety and stabilization, Close observation, Suicide Precautions per unit protocol, Encourage participation in unit milieu, Group Therapy, Monitor sleep, Monitor appetite, Family/Supportive other meeting Risks, benefits, side effects, alternatives discussed w/pt: Yes Patient agreeable to treatment: Yes Plans for Post Hospital Care: Transfer In Rehab [facility] (2) PTSD (post-traumatic stress disorder) Current visit: Yes Status: Acute Plan: Admit inpatient for safety and stabilization, Close observation, Suicide Precautions per unit protocol, Encourage participation in unit milieu, Group Therapy, Monitor sleep, Monitor appetite, Family/Supportive other meeting Risks, benefits, side effects, alternatives discussed w/pt: Yes Patient agreeable to treatment: Yes Plans for Post Hospital Care: Transfer In Rehab [facility] (3) Opiate dependence Current visit: No Status: Chronic Plan: Admit inpatient for safety and stabilization, Suicide Precautions per unit protocol, Group Therapy, Monitor sleep, Family/Supportive other meeting Risks, benefits, side effects, alternatives discussed w/pt: Yes Patient agreeable to treatment: Yes Plans for Post Hospital Care: Transfer In Rehab [facility] Qualifiers: Substance use status: uncomplicated Qualified Code(s): F11.20 - Opioid dependence, uncomplicated (4) Cocaine abuse Current visit: No Status: Chronic Plan: Admit inpatient for safety and stabilization, Suicide Precautions per unit protocol, Group Therapy, Monitor sleep, Family/Supportive other meeting Risks, benefits, side effects, alternatives discussed w/pt: Yes Patient agreeable to treatment: Yes Plans for Post Hospital Care: Transfer In Rehab [facility]
[2016-11-29] MEDS: Gabapentin 300 MG CAPSULE PO SCH (20:44)
[2016-11-29] MEDS: hydrOXYzine pamoate 25 MG CAPSULE PO PRN (20:47)
[2016-11-29] MEDS: traZODone 50 MG TABLET PO PRN (20:47)
[2016-11-29] MEDS ORDERED: *HR* LORazepam 1 MG TABLET PO ONE (22:50)
--- NOTE | 2016-11-30 11:22 | Psychiatry Progress Note ---
Date of Encounter: 11/30/16 Time of Encounter: 11:15 Subjective Interval history: Patient seen today , has been refusing meds at times, poor insight. she is complaining of being tired and fatigued , educated has been using amphetamine and cocaine. she has been non compliant with meds , she has stable vitals at present. still remains same. Review of Systems Psychiatric: Reports: anxiety, auditory hallucinations, visual hallucinations, difficulty concentrating, irritability, mood swings Objective: Exam Patient orientation: Yes Person, Yes Time, Yes Place Level of alertness: Sedated Patient appearance: Appropriate Behavior: anxious Psychomotor activity: Normal Eye contact: Maintains Eye Contact Mood description: Anxious Affect description: labile Speech volume: Normal Thought process: Circumstantial Thought content: Yes Preoccupation Perceptual disturbances: Yes Auditory hallucinations, Yes Visual hallucinations Judgment: Limited Insight: None Results - Vital Signs Vital Signs: Temp Pulse Resp BP Pulse Ox 98 F 107 14 98/67 98 11/30/16 08:41 11/30/16 08:41 11/30/16 08:41 11/30/16 08:41 11/28/16 15:59 Assessment and Plan (1) Bipolar affective disorder, manic, severe, with psychotic behavior Current visit: Yes Status: Acute Risks, benefits, side effects, alternatives discussed w/pt: Yes Patient agreeable to treatment: Yes (2) PTSD (post-traumatic stress disorder) Current visit: Yes Status: Acute Risks, benefits, side effects, alternatives discussed w/pt: Yes Patient agreeable to treatment: Yes (3) Opiate dependence Current visit: No Status: Chronic Risks, benefits, side effects, alternatives discussed w/pt: Yes Patient agreeable to treatment: Yes Qualifiers: Substance use status: uncomplicated Qualified Code(s): F11.20 - Opioid dependence, uncomplicated (4) Cocaine abuse Current visit: No Status: Chronic Risks, benefits, side effects, alternatives discussed w/pt: Yes Patient agreeable to treatment: Yes Consult Discharge Plan - Plan Referrals: NONE,PCP [Primary Care Provider] -
[2016-11-30] MEDS: Ibuprofen 400 MG TABLET PO PRN ×2 (12:35→20:15)
[2016-11-30] MEDS: hydrOXYzine pamoate 25 MG CAPSULE PO PRN ×2 (14:21→20:18)
[2016-11-30] MEDS: Gabapentin 300 MG CAPSULE PO SCH (20:16)
[2016-11-30] MEDS: traZODone 50 MG TABLET PO PRN (20:17)
--- NOTE | 2016-12-01 11:14 | Psychiatry Progress Note ---
Date of Encounter: 12/01/16 Time of Encounter: 11:00 Subjective Interval history: Patient seen , case d/w staff. I am trying to survive. as per staff had taken her medications yesterday and has slept thru the night. she tried to refuse medications this morning but then took it. she has been labile, crying a lot then fine and elevated, i feel like no energy in my body. i need something for it. denies side effects. Review of Systems Psychiatric: Reports: anxiety, auditory hallucinations, visual hallucinations, difficulty concentrating, irritability, mood swings Objective: Exam Patient orientation: Yes Person, Yes Time, Yes Place Level of alertness: Alert Patient appearance: Appropriate Behavior: talkative Psychomotor activity: Normal Eye contact: Maintains Eye Contact Mood description: Labile Affect description: constricted Speech pattern: Excessive Speech volume: Normal Thought process: Circumstantial, Tangential Thought content: Yes Preoccupation Perceptual disturbances: Yes Auditory hallucinations, Yes Visual hallucinations Judgment: Limited Insight: Minimal Results - Vital Signs Vital Signs: Temp Pulse Resp BP Pulse Ox 98.1 F 111 14 102/62 98 12/01/16 09:00 12/01/16 09:00 12/01/16 09:00 12/01/16 09:00 11/28/16 15:59 Assessment and Plan (1) Bipolar affective disorder, manic, severe, with psychotic behavior Current visit: Yes Status: Acute Risks, benefits, side effects, alternatives discussed w/pt: Yes Patient agreeable to treatment: Yes (2) PTSD (post-traumatic stress disorder) Current visit: Yes Status: Acute Risks, benefits, side effects, alternatives discussed w/pt: Yes Patient agreeable to treatment: Yes (3) Opiate dependence Current visit: No Status: Chronic Risks, benefits, side effects, alternatives discussed w/pt: Yes Patient agreeable to treatment: Yes Qualifiers: Substance use status: uncomplicated Qualified Code(s): F11.20 - Opioid dependence, uncomplicated (4) Cocaine abuse Current visit: No Status: Chronic Risks, benefits, side effects, alternatives discussed w/pt: Yes Patient agreeable to treatment: Yes Consult Discharge Plan - Plan Referrals: NONE,PCP [Primary Care Provider] -
[2016-12-01] MEDS: Ibuprofen 400 MG TABLET PO PRN (12:13)
[2016-12-01] MEDS: hydrOXYzine pamoate 25 MG CAPSULE PO PRN (15:35)
[2016-12-01] MEDS: traZODone 50 MG TABLET PO PRN (21:05)
[2016-12-01] MEDS: Gabapentin 300 MG CAPSULE PO SCH (21:05)
--- NOTE | 2016-12-02 10:30 | Psychiatry Progress Note ---
Date of Encounter: 12/02/16 Time of Encounter: 10:22 Subjective Interval history: PATIENT SEEN today , case d/w staff and treatment team ,patient has been labile , has been laughing in appropiately on unit , and then crying spells. She feels not so up and down , energy has been less and she relapsed the day she was discharged on cociane and amphetamines. she has plan to go to more meetings when out, she has poor insight and her judgement is limited. she is talking to herself while in session. she has not been to any inpatient rehab as per her. she does not support herself, states i have hope on other people and i have medical card. remains internally preoccupied and is responding to internal stimuli. will decrease gabapentin and dc it slowly and add lithium , will get tsh and test. Review of Systems Psychiatric: Reports: anxiety, auditory hallucinations, visual hallucinations, difficulty concentrating, irritability, mood swings Objective: Exam Patient orientation: Yes Person, Yes Time, Yes Place Level of alertness: Alert Patient appearance: Average Behavior: cooperative, anxious Psychomotor activity: Normal Eye contact: Maintains Eye Contact Mood description: Elevated Affect description: labile Speech pattern: Delayed Speech volume: Normal Thought process: Circumstantial Thought content: Yes Grandiose delusion Perceptual disturbances: Yes Reacting to internal stimuli Judgment: Limited Insight: None Results - Vital Signs Vital Signs: Temp Pulse Resp BP Pulse Ox 98.1 F 96 16 111/68 98 12/02/16 09:00 12/02/16 09:00 12/02/16 09:00 12/02/16 09:00 11/28/16 15:59 Assessment and Plan (1) Bipolar affective disorder, manic, severe, with psychotic behavior Current visit: Yes Status: Acute Risks, benefits, side effects, alternatives discussed w/pt: Yes Patient agreeable to treatment: Yes (2) PTSD (post-traumatic stress disorder) Current visit: Yes Status: Acute Risks, benefits, side effects, alternatives discussed w/pt: Yes Patient agreeable to treatment: Yes (3) Opiate dependence Current visit: No Status: Chronic Risks, benefits, side effects, alternatives discussed w/pt: Yes Patient agreeable to treatment: Yes Qualifiers: Substance use status: uncomplicated Qualified Code(s): F11.20 - Opioid dependence, uncomplicated (4) Cocaine abuse Current visit: No Status: Chronic Risks, benefits, side effects, alternatives discussed w/pt: Yes Patient agreeable to treatment: Yes Consult Discharge Plan - Plan Referrals: NONE,PCP [Primary Care Provider] -
[2016-12-02] MEDS: Lithium Carbonate 300 MG CAPSULE PO SCH (20:51)
[2016-12-02] MEDS: traZODone 50 MG TABLET PO PRN (20:51)
[2016-12-02] MEDS ORDERED: Gabapentin 300 MG CAPSULE PO SCH (21:00)
[2016-12-03] MEDS: Ibuprofen 400 MG TABLET PO PRN ×2 (08:55→19:46)
--- NOTE | 2016-12-03 13:14 | Psychiatry Progress Note ---
Date of Encounter: 12/03/16 Time of Encounter: 13:00 Subjective Interval history: Patient seen today case d/w team , patient refused to sign voluntarily , she has no insight, she is laughing inappropiately. internally preoccupied, has taken meds off and on , will refuse then will be educated and takes them. she is still internally preoccupied and labile. circumstantial and preoccupied with still withdrawing . decreasing gabapentin and started lithium. tsh is low, not . she wants ativan for her tiredness. plan to send her to inpatient rehab once stable . will add baclofen 5 mg tid for her muscle ache she is c/o and will help her anxiety also. Review of Systems Psychiatric: Reports: anxiety, auditory hallucinations, visual hallucinations, difficulty concentrating, irritability, mood swings Objective: Exam Patient orientation: Yes Person, Yes Time, Yes Place Level of alertness: Alert Patient appearance: Average Behavior: cooperative, talkative Psychomotor activity: Normal Eye contact: Minimal Contact Mood description: Anxious Affect description: constricted Speech pattern: Excessive Speech volume: Normal Thought process: Circumstantial Thought content: Yes Preoccupation, Yes Paranoid delusion Perceptual disturbances: Yes Reacting to internal stimuli Judgment: Limited Insight: None Results - Vital Signs Vital Signs: Temp Pulse Resp BP Pulse Ox 98.3 F 101 16 112/67 98 12/03/16 09:00 12/03/16 09:00 12/03/16 09:00 12/03/16 09:00 11/28/16 15:59 - Labs Labs: Laboratory Results - last 24 hr 12/02/16 11:31 TSH 0.497 Assessment and Plan (1) Bipolar affective disorder, manic, severe, with psychotic behavior Current visit: Yes Status: Acute Risks, benefits, side effects, alternatives discussed w/pt: Yes Patient agreeable to treatment: Yes (2) PTSD (post-traumatic stress disorder) Current visit: Yes Status: Acute Risks, benefits, side effects, alternatives discussed w/pt: Yes Patient agreeable to treatment: Yes (3) Opiate dependence Current visit: No Status: Chronic Risks, benefits, side effects, alternatives discussed w/pt: Yes Patient agreeable to treatment: Yes Qualifiers: Substance use status: uncomplicated Qualified Code(s): F11.20 - Opioid dependence, uncomplicated (4) Cocaine abuse Current visit: No Status: Chronic Risks, benefits, side effects, alternatives discussed w/pt: Yes Patient agreeable to treatment: Yes Consult Discharge Plan - Plan Referrals: NONE,PCP [Primary Care Provider] -
[2016-12-03] MEDS: Baclofen 10 MG TABLET PO SCH ×2 (15:34→21:21)
[2016-12-03] MEDS: Lithium Carbonate 300 MG CAPSULE PO SCH (21:20)
[2016-12-03] MEDS: traZODone 50 MG TABLET PO PRN (21:20)
[2016-12-03] MEDS: hydrOXYzine pamoate 25 MG CAPSULE PO PRN (21:22)
[2016-12-04] MEDS: Ibuprofen 400 MG TABLET PO PRN ×3 (08:01→21:13)
[2016-12-04] MEDS: Mag Hydrox/Al Hydrox/Simeth 30 ML UDC PO PRN (08:01)
[2016-12-04] MEDS: Baclofen 10 MG TABLET PO SCH ×3 (09:14→20:39)
--- NOTE | 2016-12-04 12:28 | Psychiatry Progress Note ---
Date of Encounter: 12/04/16 Time of Encounter: 12:00 Subjective Interval history: Patient seen today case d/w staff. I am whithering away , she is c/o tirednedd , she slept well last night , vitals stable, she states i want to find out my vivitrol.shot , was prescribed and i want to know if i can take it. she has never tried naltrexone pills , will start naltrexone po first. she is feeling depressed lately , not manic since on lithium , she is able to hold conversation ,still internally preoccupied. she denies side effects. Review of Systems Psychiatric: Reports: depression, anxiety, auditory hallucinations, visual hallucinations, difficulty concentrating, mood swings Objective: Exam Patient orientation: Yes Person, Yes Time, Yes Place Level of alertness: Alert Patient appearance: Appropriate Behavior: withdrawn Psychomotor activity: Slowed Eye contact: Maintains Eye Contact Mood description: Depressed, Anxious Affect description: dysphoric Speech pattern: Slowed Speech volume: Soft/Quiet Thought process: Slowed Thinking Thought content: Yes Paranoid delusion Perceptual disturbances: Yes Reacting to internal stimuli Judgment: Poor Insight: None Results - Vital Signs Vital Signs: Temp Pulse Resp BP Pulse Ox 98.3 F 96 16 102/67 98 12/03/16 20:43 12/03/16 20:43 12/03/16 20:43 12/03/16 20:43 11/28/16 15:59 Assessment and Plan (1) Bipolar affective disorder, manic, severe, with psychotic behavior Current visit: Yes Status: Acute Risks, benefits, side effects, alternatives discussed w/pt: Yes Patient agreeable to treatment: Yes (2) PTSD (post-traumatic stress disorder) Current visit: Yes Status: Acute Risks, benefits, side effects, alternatives discussed w/pt: Yes Patient agreeable to treatment: Yes (3) Opiate dependence Current visit: No Status: Chronic Risks, benefits, side effects, alternatives discussed w/pt: Yes Patient agreeable to treatment: Yes Qualifiers: Substance use status: uncomplicated Qualified Code(s): F11.20 - Opioid dependence, uncomplicated (4) Cocaine abuse Current visit: No Status: Chronic Risks, benefits, side effects, alternatives discussed w/pt: Yes Patient agreeable to treatment: Yes Consult Discharge Plan - Plan Referrals: NONE,PCP [Primary Care Provider] -
[2016-12-04] MEDS: hydrOXYzine pamoate 25 MG CAPSULE PO PRN ×2 (20:39→23:48)
[2016-12-04] MEDS: traZODone 50 MG TABLET PO PRN (20:39)
[2016-12-04] MEDS: Lithium Carbonate 300 MG CAPSULE PO SCH (20:39)
[2016-12-05] MEDS: Baclofen 10 MG TABLET PO SCH ×3 (09:32→20:40)
[2016-12-05] MEDS: Ibuprofen 400 MG TABLET PO PRN ×3 (09:34→21:19)
--- NOTE | 2016-12-05 12:52 | Psychiatry Progress Note ---
Date of Encounter: 12/05/16 Time of Encounter: 12:45 Subjective Interval history: Patient was seen today , case d/w treatment team . patient c/o i am having withdrawl , she is not in any distress, vitals stable, no diarrhea , no stomach cramps, she is mostly c/o body aches and tired educated it can be after using amphetamines and if you do not take it you fell tired , lethargic . i feel like depress and i did best on Methadone, she states i do not like suboxone , talked to her about naltrexone, she is having significant cravings and dreams about it. i want jump right up and not take medicine. she is distracted, depressed , labile affect and circumstantial thought process. i need to get better today and leave, its in face i can tell by the pupils what they are on ,i do not want to be kept here longer, i saw something i am not supposed to see like i saw black shadow, i am scared to tell bc i will be here for longer , I get messages like radio and tv and about future. its scary i do not want to tell more. Review of Systems Psychiatric: Reports: depression, anxiety, auditory hallucinations, visual hallucinations, difficulty concentrating, mood swings Objective: Exam Patient orientation: Yes Person, Yes Time, Yes Place Level of alertness: Alert Patient appearance: Appropriate Behavior: anxious, distractible, talkative Psychomotor activity: Normal Eye contact: Maintains Eye Contact Mood description: Anxious, Labile Affect description: labile Speech pattern: Excessive Speech volume: Normal Thought process: Circumstantial, Tangential Thought content: Yes Paranoid delusion, Yes Grandiose delusion Perceptual disturbances: Yes Auditory hallucinations, Yes Visual hallucinations Judgment: Poor Insight: Minimal Results - Vital Signs Vital Signs: Temp Pulse Resp BP Pulse Ox 97.9 F 103 16 103/64 98 12/05/16 09:00 12/05/16 09:00 12/05/16 09:00 12/05/16 09:00 11/28/16 15:59 Assessment and Plan (1) Bipolar affective disorder, manic, severe, with psychotic behavior Current visit: Yes Status: Acute Risks, benefits, side effects, alternatives discussed w/pt: Yes Patient agreeable to treatment: Yes (2) PTSD (post-traumatic stress disorder) Current visit: Yes Status: Acute Risks, benefits, side effects, alternatives discussed w/pt: Yes Patient agreeable to treatment: Yes (3) Opiate dependence Current visit: No Status: Chronic Risks, benefits, side effects, alternatives discussed w/pt: Yes Patient agreeable to treatment: Yes Qualifiers: Substance use status: uncomplicated Qualified Code(s): F11.20 - Opioid dependence, uncomplicated (4) Cocaine abuse Current visit: No Status: Chronic Risks, benefits, side effects, alternatives discussed w/pt: Yes Patient agreeable to treatment: Yes Consult Discharge Plan - Plan Referrals: NONE,PCP [Primary Care Provider] -
[2016-12-05] MEDS: Lithium Carbonate 300 MG CAPSULE PO SCH (20:38)
[2016-12-05] MEDS: hydrOXYzine pamoate 25 MG CAPSULE PO PRN ×2 (20:38→23:48)
[2016-12-05] MEDS: traZODone 50 MG TABLET PO PRN (20:38)
[2016-12-06] MEDS: traZODone 50 MG TABLET PO PRN ×2 (01:29→20:03)
[2016-12-06] MEDS: Ibuprofen 400 MG TABLET PO PRN ×2 (03:43→09:50)
[2016-12-06] MEDS: Mag Hydrox/Al Hydrox/Simeth 30 ML UDC PO PRN (05:21)
[2016-12-06] MEDS: hydrOXYzine pamoate 25 MG CAPSULE PO PRN (05:21)
[2016-12-06] MEDS: Baclofen 10 MG TABLET PO SCH ×3 (08:55→20:02)
[2016-12-06] MEDS: Lithium Carbonate 300 MG CAPSULE PO SCH ×2 (09:48→20:03)
--- NOTE | 2016-12-06 13:19 | Psychiatry Progress Note ---
Date of Encounter: 12/06/16 Time of Encounter: 13:00 Subjective Interval history: Patient seen today case d/w treatment team and as per team she is remaining same , slow improvement. she has circumstantial thought process and is c/o increase cravings and anxious , she also is c/o body aches , she remains delusional and a/v hallucinations like black shadow, recieving messages. denies side effects but c/o RLs. WILL ADD BENZTROPINE WITH INVEGA. SHE is willing to try Naltrexone as wants to get vivitrol . side effects exp to her , informed consent obtained. Review of Systems Psychiatric: Reports: depression, anxiety, auditory hallucinations, visual hallucinations, difficulty concentrating, mood swings Objective: Exam Patient orientation: Yes Person, Yes Time, Yes Place Level of alertness: Alert Patient appearance: Appropriate Behavior: cooperative, anxious Psychomotor activity: Normal Eye contact: Maintains Eye Contact Mood description: Anxious Affect description: congruent with mood Speech pattern: Excessive Speech volume: Normal Thought process: Circumstantial Thought content: Yes Preoccupation, Yes Grandiose delusion Perceptual disturbances: Yes Auditory hallucinations, Yes Visual hallucinations Judgment: Limited Insight: Minimal Results - Vital Signs Vital Signs: Temp Pulse Resp BP Pulse Ox 98.5 F 99 16 104/67 98 12/06/16 09:00 12/06/16 09:00 12/06/16 09:00 12/06/16 09:00 11/28/16 15:59 Assessment and Plan (1) Bipolar affective disorder, manic, severe, with psychotic behavior Current visit: Yes Status: Acute Risks, benefits, side effects, alternatives discussed w/pt: Yes Patient agreeable to treatment: Yes (2) PTSD (post-traumatic stress disorder) Current visit: Yes Status: Acute Risks, benefits, side effects, alternatives discussed w/pt: Yes Patient agreeable to treatment: Yes (3) Opiate dependence Current visit: No Status: Chronic Risks, benefits, side effects, alternatives discussed w/pt: Yes Patient agreeable to treatment: Yes Qualifiers: Substance use status: uncomplicated Qualified Code(s): F11.20 - Opioid dependence, uncomplicated (4) Cocaine abuse Current visit: No Status: Chronic Risks, benefits, side effects, alternatives discussed w/pt: Yes Patient agreeable to treatment: Yes Consult Discharge Plan - Plan Referrals: NONE,PCP [Primary Care Provider] -
[2016-12-06] MEDS: Nicotine 2 MG GUM BC PRN (20:03)
[2016-12-06] MEDS: Patient Taking Own Medication 1 EACH PO SCH (20:09)
[2016-12-07] MEDS: Ibuprofen 400 MG TABLET PO PRN (06:35)
[2016-12-07] MEDS: Baclofen 10 MG TABLET PO SCH ×3 (08:52→21:08)
[2016-12-07] MEDS: Lithium Carbonate 300 MG CAPSULE PO SCH (08:53)
[2016-12-07] MEDS ORDERED: (Naltrexone Hcl [Revia] 50 MG) PO SCH (09:00)
--- NOTE | 2016-12-07 11:06 | Psychiatry Progress Note ---
Date of Encounter: 12/07/16 Time of Encounter: 10:10 Subjective Interval history: Patient seen and interviewed. History and physical examination reviewed. Patient is reporting of doing better. She is refusing to take lithium because of side effects. She would like to continue Invega. She is denying any overt psychotic symptoms. She is denying any suicidal homicidal ideations. Patient is homeless and we are awaiting placement for the patient. Patient has been attending groups and participating in activities. I encouraged the patient to start working on a safety plan and a relapse prevention plan Review of Systems Psychiatric: Reports: depression, anxiety, difficulty concentrating, mood swings Objective: Exam Patient orientation: Yes Person, Yes Time, Yes Place Level of alertness: Alert Patient appearance: Appropriate, Well Groomed Behavior: calm, cooperative Psychomotor activity: Normal Eye contact: Maintains Eye Contact Mood description: Anxious Affect description: congruent with mood Speech pattern: Normal rate, Normal rhythm, Normal tone Speech volume: Normal Thought process: Linear, Goal Oriented Thought content: No Suicidal ideation, No Homicidal ideation, No Overt delusions Perceptual disturbances: No Auditory hallucinations, No Visual hallucinations Judgment: Fair Insight: Partial Results - Vital Signs Vital Signs: Temp Pulse Resp BP Pulse Ox 98.2 F 79 16 110/66 98 12/07/16 09:00 12/07/16 09:00 12/07/16 09:00 12/07/16 09:00 11/28/16 15:59 Assessment and Plan (1) Bipolar affective disorder, manic, severe, with psychotic behavior Current visit: Yes Status: Acute Plan: Continue hospitalization, Close observation, Suicide Precautions per unit protocol, Encourage participation in unit milieu, Group Therapy, Monitor sleep, Monitor appetite Risks, benefits, side effects, alternatives discussed w/pt: Yes Patient agreeable to treatment: Yes (2) Post traumatic stress disorder (PTSD) Current visit: No Status: Chronic Plan: Continue hospitalization, Close observation, Suicide Precautions per unit protocol, Encourage participation in unit milieu, Group Therapy, Monitor sleep, Monitor appetite Risks, benefits, side effects, alternatives discussed w/pt: Yes Patient agreeable to treatment: Yes (3) Opiate dependence Current visit: No Status: Chronic Plan: Continue hospitalization, Close observation, Suicide Precautions per unit protocol, Encourage participation in unit milieu, Group Therapy, Monitor sleep, Monitor appetite Risks, benefits, side effects, alternatives discussed w/pt: Yes Patient agreeable to treatment: Yes Qualifiers: Substance use status: uncomplicated Qualified Code(s): F11.20 - Opioid dependence, uncomplicated (4) Cocaine abuse Current visit: No Status: Chronic Plan: Continue hospitalization, Close observation, Suicide Precautions per unit protocol, Encourage participation in unit milieu, Group Therapy, Monitor sleep, Monitor appetite Risks, benefits, side effects, alternatives discussed w/pt: Yes Patient agreeable to treatment: Yes Consult Discharge Plan - Plan Referrals: NONE,PCP [Primary Care Provider] -
[2016-12-07] MEDS: Patient Taking Own Medication 1 EACH PO SCH (21:08)
[2016-12-07] MEDS: traZODone 50 MG TABLET PO PRN (21:08)
[2016-12-07] MEDS: Nicotine 2 MG GUM BC PRN (21:10)
[2016-12-08] MEDS: Mag Hydrox/Al Hydrox/Simeth 30 ML UDC PO PRN (01:04)
[2016-12-08] MEDS: Baclofen 10 MG TABLET PO SCH ×3 (08:54→20:25)
[2016-12-08] MEDS: Ibuprofen 400 MG TABLET PO PRN ×2 (08:55→17:25)
--- NOTE | 2016-12-08 10:37 | Psychiatry Progress Note ---
Date of Encounter: 12/08/16 Time of Encounter: 10:20 Subjective Interval history: Patient seen and interviewed. Doing okay. Appears labile tearful and dysphoric. . Tolerating medications fairly well. Endorsing some mood swings and irritability. Denying any suicidal homicidal ideations and no overt psychotic symptoms. Encouraged to attend groups and work on a safety plan. Review of Systems Psychiatric: Reports: depression, anxiety, difficulty concentrating, mood swings Objective: Exam Patient orientation: Yes Person, Yes Time, Yes Place Level of alertness: Alert Patient appearance: Appropriate, Well Groomed Behavior: anxious, tearful, distractible Psychomotor activity: Normal Eye contact: Maintains Eye Contact Mood description: Depressed, Anxious Affect description: labile, tearful Speech pattern: Normal rate, Normal rhythm, Normal tone Speech volume: Normal Thought process: Linear, Goal Oriented Thought content: No Suicidal ideation, No Homicidal ideation, No Overt delusions Perceptual disturbances: No Auditory hallucinations, No Visual hallucinations Judgment: Fair Insight: Partial Results - Vital Signs Vital Signs: Temp Pulse Resp BP Pulse Ox 98.3 F 70 16 106/63 98 12/08/16 09:00 12/08/16 09:00 12/08/16 09:00 12/08/16 09:00 11/28/16 15:59 Assessment and Plan (1) Bipolar affective disorder, manic, severe, with psychotic behavior Current visit: Yes Status: Acute Plan: Continue hospitalization, Close observation, Suicide Precautions per unit protocol, Encourage participation in unit milieu, Monitor sleep, Monitor appetite Additional Plan: We will increase Invega to 3 mg twice a day Risks, benefits, side effects, alternatives discussed w/pt: Yes Patient agreeable to treatment: Yes (2) Post traumatic stress disorder (PTSD) Current visit: No Status: Chronic Risks, benefits, side effects, alternatives discussed w/pt: Yes Patient agreeable to treatment: Yes (3) Opiate dependence Current visit: No Status: Chronic Risks, benefits, side effects, alternatives discussed w/pt: Yes Patient agreeable to treatment: Yes Qualifiers: Substance use status: uncomplicated Qualified Code(s): F11.20 - Opioid dependence, uncomplicated (4) Cocaine abuse Current visit: No Status: Chronic Risks, benefits, side effects, alternatives discussed w/pt: Yes Patient agreeable to treatment: Yes Consult Discharge Plan - Plan Referrals: NONE,PCP [Primary Care Provider] -
[2016-12-08] MEDS: traZODone 50 MG TABLET PO PRN (20:25)
[2016-12-08] MEDS: Patient Taking Own Medication 1 EACH PO SCH (20:47)
[2016-12-09] MEDS: Baclofen 10 MG TABLET PO SCH ×3 (10:08→20:19)
--- NOTE | 2016-12-09 10:44 | Psychiatry Progress Note ---
Date of Encounter: 12/09/16 Time of Encounter: 10:42 Subjective Interval history: Patient is seen for follow-up and case discussed with treatment team. Staff report she is showing some improvement but unable to focus and having difficulty with planning discharge. decontamination worker is trying to complete discharge plans including mental health's needs and substance abuse. She is cooperative and pleasant, speech is repetitive and circumstantial and superficial. Review of Systems Psychiatric: Reports: depression, anxiety, difficulty concentrating, mood swings Objective: Exam Patient orientation: Yes Person, Yes Time, Yes Place Level of alertness: Alert Patient appearance: Appropriate, Well Groomed Behavior: calm, cooperative, anxious, distractible Psychomotor activity: Normal Eye contact: Maintains Eye Contact Mood description: Euthymic/stable, Anxious Affect description: congruent with mood, full range Speech pattern: Normal rate, Normal rhythm, Normal tone, Repetitive Speech volume: Normal Thought process: Goal Oriented, Circumstantial Thought content: No Suicidal ideation, No Homicidal ideation, No Overt delusions Perceptual disturbances: No Auditory hallucinations, No Visual hallucinations Judgment: Fair Insight: Partial Results - Vital Signs Vital Signs: Temp Pulse Resp BP Pulse Ox 98.6 F 77 16 108/60 98 12/09/16 09:00 12/09/16 09:00 12/09/16 09:00 12/09/16 09:00 11/28/16 15:59 Assessment and Plan (1) Bipolar 1 disorder, mixed, severe Current visit: Yes Status: Acute Plan: Continue hospitalization, Close observation, Suicide Precautions per unit protocol, Encourage participation in unit milieu, Group Therapy, Monitor sleep, Monitor appetite Risks, benefits, side effects, alternatives discussed w/pt: Yes Patient agreeable to treatment: Yes (2) PTSD (post-traumatic stress disorder) Current visit: Yes Status: Acute Plan: Continue hospitalization, Close observation, Suicide Precautions per unit protocol, Encourage participation in unit milieu, Group Therapy, Monitor sleep, Monitor appetite Risks, benefits, side effects, alternatives discussed w/pt: Yes Patient agreeable to treatment: Yes Consult Discharge Plan - Plan Referrals: NONE,PCP [Primary Care Provider] -
[2016-12-09] MEDS: Naltrexone Hcl [Revia] 50 MG PO SCH (11:46)
[2016-12-09] MEDS: traZODone 50 MG TABLET PO PRN (20:19)
[2016-12-10] MEDS: Baclofen 10 MG TABLET PO SCH ×3 (09:12→20:30)
[2016-12-10] MEDS: Naltrexone Hcl [Revia] 50 MG PO SCH (09:14)
[2016-12-10 10:46] LABS: Hemoglobin A1C 4.9 %
--- NOTE | 2016-12-10 15:08 | Psychiatry Progress Note ---
Date of Encounter: 12/10/16 Time of Encounter: 15:05 Subjective Interval history: Patient is here for follow-up. She continued to be anxious about discharge. She is showing less confusion and her mood and affect are bright and pleasant but superficial. Discharge planning has been ongoing to accomplish serial discharge for the patient and making sure she will be connected to outpatient mental health's service. She is compliant with his medication and denies any problem with sleep and participates in some activities. She is not sedated or agitated. Review of Systems Psychiatric: Reports: depression, anxiety, difficulty concentrating, mood swings Objective: Exam Patient orientation: Yes Person, Yes Time, Yes Place Level of alertness: Alert Patient appearance: Appropriate, Well Groomed Behavior: calm, cooperative, anxious Psychomotor activity: Normal Eye contact: Maintains Eye Contact Mood description: Euthymic/stable Affect description: congruent with mood, full range Speech pattern: Normal rate, Normal rhythm, Normal tone, Disorganized Speech volume: Normal Thought process: Linear, Goal Oriented, Circumstantial, Tangential Thought content: No Suicidal ideation, No Homicidal ideation, No Overt delusions Perceptual disturbances: No Auditory hallucinations, No Visual hallucinations Judgment: Fair Insight: Partial Results - Vital Signs Vital Signs: Temp Pulse Resp BP Pulse Ox 98.3 F 96 14 90/56 98 12/10/16 09:00 12/10/16 09:00 12/10/16 09:00 12/10/16 09:00 11/28/16 15:59 - Labs Labs: Laboratory Results - last 24 hr 12/10/16 07:29 Est Mean Plasma Glucose 94 Hemoglobin A1c 4.9 Assessment and Plan (1) Bipolar 1 disorder, mixed, severe Current visit: Yes Status: Acute Plan: Continue hospitalization, Close observation, Suicide Precautions per unit protocol, Encourage participation in unit milieu, Group Therapy, Monitor sleep, Monitor appetite Risks, benefits, side effects, alternatives discussed w/pt: Yes Patient agreeable to treatment: Yes (2) PTSD (post-traumatic stress disorder) Current visit: Yes Status: Acute Plan: Continue hospitalization, Close observation, Suicide Precautions per unit protocol, Encourage participation in unit milieu, Group Therapy, Monitor sleep, Monitor appetite Risks, benefits, side effects, alternatives discussed w/pt: Yes Patient agreeable to treatment: Yes Consult Discharge Plan - Plan Referrals: NONE,PCP [Primary Care Provider] -
[2016-12-10] MEDS: traZODone 50 MG TABLET PO PRN (20:29)
[2016-12-10] MEDS: Ibuprofen 400 MG TABLET PO PRN (20:30)
[2016-12-11] MEDS: Naltrexone Hcl [Revia] 50 MG PO SCH (08:21)
[2016-12-11] MEDS: Baclofen 10 MG TABLET PO SCH ×3 (08:24→20:38)
--- NOTE | 2016-12-11 14:11 | Psychiatry Progress Note ---
Date of Encounter: 12/11/16 Time of Encounter: 13:30 Subjective Interval history: She has several follow-up. She is improving, her speech is more organized and logical, at times she becomes confused and circumstantial especially with dates and names. She reports good sleep and appetite, she is compliant with medication. Her discharge plans are ongoing for placement at [facility]. Review of Systems Psychiatric: Reports: depression, anxiety, confusion, difficulty concentrating, mood swings Objective: Exam Patient orientation: Yes Person, Yes Time, Yes Place Level of alertness: Alert Patient appearance: Appropriate, Well Groomed Behavior: calm, cooperative Psychomotor activity: Normal Eye contact: Maintains Eye Contact Mood description: Euthymic/stable Affect description: congruent with mood, full range Speech pattern: Normal rate, Normal rhythm, Normal tone, Clear Speech volume: Normal Thought process: Linear, Goal Oriented, Circumstantial Thought content: No Suicidal ideation, No Homicidal ideation, No Overt delusions Perceptual disturbances: No Auditory hallucinations, No Visual hallucinations Judgment: Fair Insight: Partial Results - Vital Signs Vital Signs: Temp Pulse Resp BP Pulse Ox 97.9 F 105 16 96/61 98 12/11/16 09:00 12/11/16 09:00 12/11/16 09:00 12/11/16 09:00 11/28/16 15:59 Assessment and Plan (1) Bipolar 1 disorder, mixed, severe Current visit: Yes Status: Acute Risks, benefits, side effects, alternatives discussed w/pt: Yes Patient agreeable to treatment: Yes (2) PTSD (post-traumatic stress disorder) Current visit: Yes Status: Acute Risks, benefits, side effects, alternatives discussed w/pt: Yes Patient agreeable to treatment: Yes Consult Discharge Plan - Plan Referrals: [facility] [Outside] (You are going into residential substance abuse treatment at [facility] on discharge from the hospital. While there, clinic staff will open a case for you to become a client, and you will be seen daily by the clinic counselors and case investigator, both individually and in group. Your mental health treatment needs will be addressed concurrently. You will also be scheduled to see the psychiatric provider for outpatient psychiatric assessment, evaluation of need for medication assisted treatment, and medication management. )
[2016-12-11] MEDS: Ibuprofen 400 MG TABLET PO PRN ×2 (15:59→20:38)
[2016-12-11] MEDS: traZODone 50 MG TABLET PO PRN (20:38)
[2016-12-12] MEDS: Baclofen 10 MG TABLET PO SCH ×3 (08:51→20:53)
[2016-12-12] MEDS: Naltrexone Hcl [Revia] 50 MG PO SCH (08:51)
[2016-12-12] MEDS: Ibuprofen 400 MG TABLET PO PRN ×2 (14:50→20:52)
--- NOTE | 2016-12-12 15:40 | Psychiatry Progress Note ---
Date of Encounter: 12/12/16 Time of Encounter: 15:15 Subjective Interval history: Patient is seen for follow-up. She is more organized and less confused. She denies any problem with sleep or appetite. She is compliant with medication and denies any side effects. She denied any hallucination or suicidal thoughts. workers compensation specialist is confirming her discharge plans for tomorrow patient is excited about discharge. I discussed with the patient the importance of compliance with medication appointment and I am not using any drugs in order to improve her concentration and memory. She is showing some insights and motivation to follow plans for sobriety and treatment. Review of Systems Psychiatric: Reports: depression, anxiety, confusion, difficulty concentrating, mood swings Objective: Exam Patient orientation: Yes Person, Yes Time, Yes Place Level of alertness: Alert Patient appearance: Appropriate, Well Groomed Behavior: calm, cooperative Psychomotor activity: Normal Eye contact: Maintains Eye Contact Mood description: Euthymic/stable Affect description: congruent with mood, full range Speech pattern: Normal rate, Normal rhythm, Normal tone Speech volume: Normal Thought process: Linear, Goal Oriented, Circumstantial, [place] Thought content: No Suicidal ideation, No Homicidal ideation, No Overt delusions Perceptual disturbances: No Auditory hallucinations, No Visual hallucinations Judgment: Fair Insight: Partial Results - Vital Signs Vital Signs: Temp Pulse Resp BP Pulse Ox 97.8 F 91 16 95/59 98 12/12/16 08:48 12/12/16 08:50 12/12/16 08:50 12/12/16 08:50 11/28/16 15:59 Assessment and Plan (1) Bipolar 1 disorder, mixed, severe Current visit: Yes Status: Acute Plan: Continue hospitalization, Close observation, Suicide Precautions per unit protocol, Encourage participation in unit milieu, Group Therapy, Monitor sleep, Monitor appetite Risks, benefits, side effects, alternatives discussed w/pt: Yes Patient agreeable to treatment: Yes (2) PTSD (post-traumatic stress disorder) Current visit: Yes Status: Acute Plan: Continue hospitalization, Close observation, Suicide Precautions per unit protocol, Encourage participation in unit milieu, Group Therapy, Monitor sleep, Monitor appetite Risks, benefits, side effects, alternatives discussed w/pt: Yes Patient agreeable to treatment: Yes Consult Discharge Plan - Plan Referrals: [facility] [Outside] (You are going into residential substance abuse treatment at [facility] on discharge from the hospital. While there, clinic staff will open a case for you to become a client, and you will be seen daily by the clinic counselors and nurse outreach case manager, both individually and in group. Your mental health treatment needs will be addressed concurrently. You will also be scheduled to see the psychiatric provider for outpatient psychiatric assessment, evaluation of need for medication assisted treatment, and medication management. )
[2016-12-12] MEDS: traZODone 50 MG TABLET PO PRN (20:52)
[2016-12-13] MEDS: Baclofen 10 MG TABLET PO SCH (08:18)
[2016-12-13] MEDS: Naltrexone Hcl [Revia] 50 MG PO SCH (08:19)
[2016-12-13 09:09] VITALS: BP 92/47
--- NOTE | 2016-12-13 09:51 | Discharge Summary ---
Date of Encounter: 12/13/16 Time of Encounter: 09:49 Diagnosis - Discharge Diagnosis (1) Bipolar 1 disorder, mixed, severe Status: Acute (2) PTSD (post-traumatic stress disorder) Status: Acute Medications - Discharge Medications Prescriptions: Baclofen [Lioresal] 10 mg PO TID #90 tab Benztropine [Cogentin] 1 mg PO HS #30 tab Gabapentin [Neurontin] 600 mg PO HS #60 hydrOXYzine pamoate [HydrOXYzine Pamoate] 25 mg PO TID PRN #90 PRN Reason: Anxiety Paliperidone [Invega] 3 mg PO BID #60 Sertraline [Zoloft] 100 mg PO DAILY #30 tab Thiamine (B-1) [Vitamin B-1] 100 mg PO DAILY #30 traZODone [TraZODone] 50 mg PO HS PRN #30 tab PRN Reason: Insomnia Buprenorphine HCl/Naloxone HCl [Suboxone 8 mg-2 mg Sl Film] 1 film SL BID [History] Naltrexone HCl [Revia] 50 mg PO DAILY 12/06/16 [History] Baclofen [Lioresal] 10 mg PO TID #90 tab 12/13/16 [Rx] Benztropine [Cogentin] 1 mg PO HS #30 tab 12/13/16 [Rx] Gabapentin [Neurontin] 600 mg PO HS #60 12/13/16 [Rx] Paliperidone [Invega] 3 mg PO BID #60 12/13/16 [Rx] Sertraline [Zoloft] 100 mg PO DAILY #30 tab 12/13/16 [Rx] Thiamine (B-1) [Vitamin B-1] 100 mg PO DAILY #30 12/13/16 [Rx] hydrOXYzine pamoate [HydrOXYzine Pamoate] 25 mg PO TID PRN #90 12/13/16 [Rx] traZODone [TraZODone] 50 mg PO HS PRN #30 tab 12/13/16 [Rx] 3 Allergy/AdvReac Type Severity Reaction Status Date / Time No Known Allergies Allergy Verified 11/06/16 10:52 Results Procedures and tests throughout hospitalization: Completed Lab Orders Category Date Time Status A1C [Hgb A1C] Routine Lab 12/10/16 07:29 Completed [place] Stat Lab 12/02/16 11:31 Completed Serum Test [HCG,Routine Test] Stat Lab 12/02/16 11:31 Completed Thyroid Stimulating Hormone Stat Lab 12/02/16 11:31 Completed Provider Date of admission: 11/28/16 17:03 Primary care physician: PCP NONE Consults: 11/29/16 13:46 Consult to Hospitalist [CONS] Routine Consulting Provider: Vince Lopez Reason for Consult: Patient complaining of symptoms of a yeast infection Time Notified: 13:49 Call Completed: Yes Discharging clinician: Jonh Dougherty Assessment and Plan - Patient/Caregiver Discharge Instructions Activity: resume usual activities as tolerated Diet: regular diet - Follow up Plan Follow up with: [facility] [Outside] (You are going into residential substance abuse treatment at [facility] on discharge from the hospital. While there, clinic staff will open a case for you to become a client, and you will be seen daily by the clinic counselors and senior case manager, both individually and in group. Your mental health treatment needs will be addressed concurrently. You will also be scheduled to see the psychiatric provider for outpatient psychiatric assessment, evaluation of need for medication assisted treatment, and medication management. ) Functional capacity at discharge: independent ambulation Overall status at discharge: Stable Disposition: Home, Self-Care Hospital Course Hospital course: Ms. Garcia is a 31 year old female admitted from [facility] for noncompliance with her drug treatment and excessive patient of her bipolar disorder and PTSD. For details admission please see H&P On the unit patient was treated for withdrawal from opiates and placed on baclofen in addition to her other medications patient responded gradually and slowly to treatment she was reported to have poor concentration and lack of focusing and disorganized speech also she was having problem with housing and placements and discharge planning was very challenging to place her in an appropriate facility that will serve her needs for chemical dependency treatment and mental health's. during her hospitalization patient was compliant with medication and participated in activities and a limited capacity. Discharge patient was displaying improvements in her mood and sleep and appetite and she was denying any withdrawal symptoms her speech was more organized and logical and she was anxious to be discharged and be placed in the [facility] clinic. Patient denied any hallucination or suicidal ideation and she was medically stable on discharge. Follow-up plans were completed by social work. - Time Spent with Patient Total time spent providing and/or coordinating discharge services: Less than 30 minutes Quality - Multiple Antipsychotics Patient discharged on 2 or more antipsychotic medications: No Procedures - Procedures Procedures: Medication Management, Crisis Stabilization, Supportive Therapy, Group Therapy, Psychoeducational Therapy Mental Status Exam - Mental Status Exam Patient orientation: Yes Person, Yes Time, Yes Place Level of alertness: Alert Patient appearance: Appropriate, Well Groomed Behavior: calm, cooperative Psychomotor activity: Normal Eye contact: Maintains Eye Contact Mood description: Euthymic/stable Affect description: congruent with mood, full range Speech pattern: Normal rate, Normal rhythm, Normal tone Speech Volume: Normal Thought process: Linear, Goal Oriented Thought Content: No Suicidal ideation, No Homicidal ideation, No Overt delusions Perceptual Disturbances: No Auditory hallucinations, No Visual hallucinations Judgment: Limited Insight: Partial
== END 2016-12-13 11:40 | disposition home or self-care (01) | DRG 753 ==
LOC: EMEROO 13:29 → SUATTDRO 17:03 → 1ANU 17:03
PROVIDERS: ADMIT Psychiatry & Neurology Psychiatry; ATTEND Psychiatry & Neurology Psychiatry

== ENCOUNTER 2017-01-25 02:46 | Inpatient (IN) ==
--- NOTE | 2017-01-25 02:58 | Emergency Department Note ---
Disposition Clinical Impression: Polysubstance abuse Disposition: Still a Patient Condition: Fair Referrals: NONE,PCP [Primary Care Provider] - Forms: ED Satisfaction Letter Time of Disposition: 06:37 General Adult HPI - General Chief complaint: ED Overdose Stated complaint: Snorted white substance, might Time Seen by Provider: 01/25/17 02:54 Source: patient Mode of arrival: EMS Limitations: no limitations Nursing Notes Reviewed: Yes Vital Signs Reviewed: Yes - History of Present Illness HPI Narrative: Patient ate ED via EMS stating she feels funny. Patient states she was hanging out in a house tonight that she did not know where she was. States she started some white powder. She smokes crack. Afterwards she felt funny. She drank some soda and it poured out of her body. Patient states she is here because she is afraid for her life. No chest pain or trouble breathing. Patient also admits that she recently started shooting IV drugs again. - Related Data Home Medications Medication Instructions Recorded Confirmed Buprenorphine HCl/Naloxone HCl 1 film SL BID 10/04/16 11/28/16 [Suboxone 8 mg-2 mg Sl Film] Naltrexone HCl [Revia] 50 mg PO DAILY 12/06/16 12/06/16 Previous Rx's Medication Instructions Recorded Baclofen [Lioresal] 10 mg PO TID #90 tab 12/13/16 Benztropine [Cogentin] 1 mg PO HS #30 tab 12/13/16 Gabapentin [Neurontin] 600 mg PO HS #60 12/13/16 Paliperidone [Invega] 3 mg PO BID #60 12/13/16 Sertraline [Zoloft] 100 mg PO DAILY #30 tab 12/13/16 Thiamine (B-1) [Vitamin B-1] 100 mg PO DAILY #30 12/13/16 Amoxicillin 875 mg PO BID #20 tablet 12/20/16 Fluticasone Propionate Nasal 1 spray NS DAILY #1 bottle 12/20/16 [Flonase] GuaiFENesin ER [Mucinex] 1,200 mg PO BID #20 tbbp.12hr 12/20/16 methylPREDNISolone [Medrol] 4 mg PO TAPER #21 tablet 12/20/16 Allergies Allergy/AdvReac Type Severity Reaction Status Date / Time trazodone AdvReac See Verified 12/20/16 11:43 Comments All systems ED: reviewed and negative except as stated. Constitutional: Denies: fever Cardiovascular: Denies: chest pain Respiratory: Denies: dyspnea Gastrointestinal: Denies: abdominal pain Past Medical History - Past Medical History Attestation: Yes The following information was validated with the patient. Source: patient Medical history: Reports: no medical history Surgical history: Reports: non-contributory, Psychiatric history: Reports: anxiety, bipolar, PTSD, prior suicide attempt, previous psychiatric hospitalization FIELD SERVICE TECHNICIAN history: Reports: no FIELD SERVICE TECHNICIAN history - Social History Smoking Status: Current every day smoker Smokeless Tobacco Status: No Alcohol use: Reports: none Drug use: Reports: opiates Physical Exam Patient awake and alert. Clear speech. Ecchymotic areas to the right antecubital fossa. No erythema. - General Limitations: other (Drug impaired) - Head Head exam: atraumatic, normocephalic - Eye Eye exam: Present: normal appearance, PERRL - ENT ENT exam: normal exam, normal oropharynx - Neck Neck exam: Present: normal inspection - Chest Chest inspection: Present: normal inspection - Respiratory Respiratory exam: Present: normal lung sounds bilaterally. Absent: respiratory distress - Cardiovascular Cardiovascular exam: Present: regular rate, normal rhythm, normal heart sounds - Abdominal Exam Abdominal exam: Present: soft, Non-Tender - Neurological Exam Neurological exam: Present: alert, oriented X3 - Psychiatric Psychiatric exam: Present: normal affect - Skin Skin exam: Present: warm, dry Course Course Narrative: Patient is in no distress. She is likely expensive side effects of the unknown drugs that she uses. We will check an EKG and observe. - Reevaluation(s) Reevaluation #1: 1A called. No staff to complete evaluation until day shift. Time: 05:53 Vital Signs Temperature 97.4 F L 01/25/17 02:54 Pulse Rate 97 01/25/17 02:54 Respiratory Rate 18 01/25/17 02:54 Blood Pressure 100/83 01/25/17 02:54 O2 Sat by Pulse Oximetry 97 01/25/17 02:54 Temperature 97.4 F L 01/25/17 02:54 Pulse Rate 88 01/25/17 04:15 Respiratory Rate 16 01/25/17 04:15 Blood Pressure 104/73 01/25/17 04:15 O2 Sat by Pulse Oximetry 97 01/25/17 04:15 Oxygen Delivery Oxygen Delivery Room Air Medical Decision Making - MDM Narrative Medical decision making narrative: Still awaiting psych evaluation. Signed out to Dr. Mack at 0700. - Lab Data Lab results reviewed: Yes I reviewed the patient's lab results. Result diagrams: 01/25/17 03:39 01/25/17 03:39 Lab Results 01/25/17 01/25/17 01/25/17 Range/Units 03:29 03:29 03:29 WBC (4.3-11.1) K/mcL RBC (3.82-4.97) M/mcL Hgb (11.5-15.4) g/dL Hct (35.3-44.9) % MCV (83.0-100.0) fL MCH (28.0-33.3) pg MCHC (31.6-35.5) g/dL RDW (11.5-14.5) % Plt Count (140-400) K/mcL MPV (9.4-12.4) fL Immature Gran % (0-4) % Seg Neutrophils % % Lymphocytes % % Monocytes % % Eosinophils % % Basophils % % Neutrophils # (1.6-8.9) K/mcL Lymphocytes # (0.6-4.6) K/mcL Monocytes # (0.0-1.3) K/mcL Eosinophils # (0.0-0.6) K/mcL Basophils # (0.0-0.2) K/mcL Sodium (136-145) mEq/L Potassium (3.5-4.5) mEq/L Chloride (98-109) mEq/L Carbon Dioxide (19-29) mEq/L BUN (7-20) mg/dL Creatinine (0.57-1.11) mg/dL Est GFR ( Amer) (> 60) Est GFR (Non-Af Amer) (> 60) BUN/Creatinine Ratio (6-26) Glucose (70-99) mg/dL Calculated Osmolality (280-300) Calcium (8.6-10.8) mg/dL Urine Color Dark Yellow (Yellow) Urine Clarity Turbid A (Clear) Urine pH 6.0 (5.0-8.0) pH Units Ur Specific [place] > 1.030 H (1.010-1.025) Urine Protein 30 H (Neg-Trace) mg/dL Urine Glucose (UA) Normal (Normal) mg/dL Urine Ketones Negative (Negative) mg/dL Urine Blood Moderate H (Negative) Urine Nitrite Negative (Negative) Urine Bilirubin Small H (Negative) Urine Urobilinogen Normal (Normal) mg/dL Ur Leukocyte Esterase Small H (Negative) Urine Microscopic RBC 3-5 H (0-3) per hpf Urine Microscopic WBC 50-100 H (0-3) per hpf Ur Squamous Epith Cells Many H (None-Few) per lpf Urine Bacteria None Seen (None-Few) per hpf Hyaline Casts None Seen (None-Few) per lpf Urine Mucus Many H (Few) Urine Test Negative (Negative) Salicylates (15-30) mg/dL Urine Opiates Screen Negative (Tcetzp=825) ng/mL Acetaminophen (10-30) mcg/mL Ur Barbiturates Screen Negative (Zxtque=992) ng/mL Ur Phencyclidine Scrn Negative (Cutoff=25) ng/mL Ur Amphetamines Screen Positive H (Lgafgj=1512) ng/mL U Benzodiazepines Scrn Positive H (Zdpkel=694) ng/mL Urine Cocaine Screen Positive H (Cutoff= 300) ng/mL U Marijuana (THC) Screen Positive H (Cutoff = 50) ng/mL Ethyl Alcohol (0-10) mg/dL 01/25/17 01/25/17 Range/Units 03:39 03:39 WBC 9.3 (4.3-11.1) K/mcL RBC 5.09 H (3.82-4.97) M/mcL Hgb 15.7 H (11.5-15.4) g/dL Hct 44.9 (35.3-44.9) % MCV 88.2 (83.0-100.0) fL MCH 30.8 (28.0-33.3) pg MCHC 35.0 (31.6-35.5) g/dL RDW 12.4 (11.5-14.5) % Plt Count 258 (140-400) K/mcL MPV 10.5 (9.4-12.4) fL Immature Gran % 0.2 (0-4) % Seg Neutrophils % 46.9 % Lymphocytes % 42.5 % Monocytes % 8.8 % Eosinophils % 1.0 % Basophils % 0.6 % Neutrophils # 4.4 (1.6-8.9) K/mcL Lymphocytes # 4.0 (0.6-4.6) K/mcL Monocytes # 0.8 (0.0-1.3) K/mcL Eosinophils # 0.1 (0.0-0.6) K/mcL Basophils # 0.1 (0.0-0.2) K/mcL Sodium 139 (136-145) mEq/L Potassium 4.2 (3.5-4.5) mEq/L Chloride 104 (98-109) mEq/L Carbon Dioxide 24 (19-29) mEq/L BUN 20 (7-20) mg/dL Creatinine 0.94 (0.57-1.11) mg/dL Est GFR ( Amer) > 60 (> 60) Est GFR (Non-Af Amer) > 60 (> 60) BUN/Creatinine Ratio 21 (6-26) Glucose 79 (70-99) mg/dL Calculated Osmolality 290 (280-300) Calcium 10.1 (8.6-10.8) mg/dL Urine Color (Yellow) Urine Clarity (Clear) Urine pH (5.0-8.0) pH Units Ur Specific [place] (1.010-1.025) Urine Protein (Neg-Trace) mg/dL Urine Glucose (UA) (Normal) mg/dL Urine Ketones (Negative) mg/dL Urine Blood (Negative) Urine Nitrite (Negative) Urine Bilirubin (Negative) Urine Urobilinogen (Normal) mg/dL Ur Leukocyte Esterase (Negative) Urine Microscopic RBC (0-3) per hpf Urine Microscopic WBC (0-3) per hpf Ur Squamous Epith Cells (None-Few) per lpf Urine Bacteria (None-Few) per hpf Hyaline Casts (None-Few) per lpf Urine Mucus (Few) Urine Test (Negative) Salicylates < 5.0 L (15-30) mg/dL Urine Opiates Screen (Idojom=245) ng/mL Acetaminophen 3.0 L (10-30) mcg/mL Ur Barbiturates Screen (Wtitay=275) ng/mL Ur Phencyclidine Scrn (Cutoff=25) ng/mL Ur Amphetamines Screen (Tkizid=4343) ng/mL U Benzodiazepines Scrn (Aqdnlg=324) ng/mL Urine Cocaine Screen (Cutoff= 300) ng/mL U Marijuana (THC) Screen (Cutoff = 50) ng/mL Ethyl Alcohol < 10 (0-10) mg/dL - Radiology Data Radiology results reviewed: Yes I reviewed the patient's radiology results. - EKG Data EKG #1 EKG attestation: Yes I reviewed and interpreted this EKG. EKG results narrative: Normal sinus at [address] segment changes. Unchanged from prior EKG in September. Normal QRS. Normal axis. Normal QT QTC.
[2017-01-25 03:43] LABS: Bilirubin,Urine Small (Negative); Blood,Urine Moderate (Negative); Clarity,Urine Turbid (Clear); Color,Urine Dark Yellow (Yellow); Glucose,Urine (UA) Normal (Normal); Ketones,Urine Negative (Negative); Leukocyte Esterase,Urine Small (Negative); Nitrite,Urine Negative (Negative); Protein,Urine 30 mg/dL (Neg-Trace); Specific Gravity,Urine > 1.030 (1.010-1.025); Urobilinogen,Urine Normal (Normal)
[2017-01-25 03:44] LABS: Amphetamine Screen,Urine Positive ng/mL (Cutoff=1000); Barbiturate Screen,Urine Negative ng/mL (Cutoff=200); Benzodiazepines Screen,Urine Positive ng/mL (Cutoff=200); Cannabinoid Screen,Urine Positive ng/mL (Cutoff = 50); Cocaine Screen,Urine Positive ng/mL (Cutoff= 300); Opiate Screen,Urine Negative ng/mL (Cutoff=300); Phencyclidine Screen,Urine Negative ng/mL (Cutoff=25)
[2017-01-25 03:45] LABS: Bacteria,Urine None Seen per hpf (None-Few); Squamous Epithelial Cell,Urine Many per lpf (None-Few); WBC,Urine 50-100 per hpf (0-3)
[2017-01-25 03:46] LABS: Basophils # 0.1 K/mcL (0.0-0.2); Basophils % 0.6 %; Eosinophils # 0.1 K/mcL (0.0-0.6); Hematocrit 44.9 % (35.3-44.9); Hemoglobin 15.7 g/dL (11.5-15.4); Immature Granulocytes % 0.2 % (0-4); Lymphocytes % 42.5 %; Mean Corpuscular Hemoglobin 30.8 pg (28.0-33.3); Mean Corpuscular Volume 88.2 fL (83.0-100.0); Mean Platelet Volume 10.5 fL (9.4-12.4); Monocytes # 0.8 K/mcL (0.0-1.3); Monocytes % 8.8 %; Neutrophils # 4.4 K/mcL (1.6-8.9); Platelet Count 258 K/mcL (140-400); Red Blood Count 5.09 M/mcL (3.82-4.97); Red Cell Distribution Width 12.4 % (11.5-14.5); Segmented Neutrophils % 46.9 %
[2017-01-25 03:58] LABS: Mucus,Urine Many (Few)
[2017-01-25 03:59] LABS: Hyaline Casts,Urine None Seen per lpf (None-Few)
[2017-01-25 04:02] LABS: BUN/Creatinine Ratio 21 (6-26); Blood Urea Nitrogen 20 mg/dL (7-20); Calcium 10.1 mg/dL (8.6-10.8); Carbon Dioxide 24 mEq/L (19-29); Chloride 104 mEq/L (98-109); Glucose 79 mg/dL (70-99); Osmolality,Calculated 290 (280-300); Sodium 139 mEq/L (136-145); eGFR For African Americans > 60 (> 60); eGFR For Non-African Americans > 60 (> 60)
[2017-01-25 04:04] LABS: Ethanol < 10 mg/dL (0-10); Salicylate < 5.0 mg/dL (15-30)
[2017-01-25 04:05] LABS: Potassium 4.2 mEq/L (3.5-4.5)
--- NOTE | 2017-01-25 07:54 | Emergency Department Note ---
Disposition Clinical Impression: Polysubstance abuse Disposition: Still a Patient Condition: Fair Referrals: NONE,PCP [Primary Care Provider] - Forms: ED Satisfaction Letter General Adult HPI - General Chief complaint: ED Overdose Stated complaint: Snorted white substance, SI Time Seen by Provider: 01/25/17 02:54 Source: patient Mode of arrival: EMS Limitations: other (Drug impaired) - History of Present Illness Pain Scale: 0 - Related Data Home Medications Medication Instructions Recorded Confirmed Buprenorphine HCl/Naloxone HCl 1 film SL BID 10/04/16 11/28/16 [Suboxone 8 mg-2 mg Sl Film] Naltrexone HCl [Revia] 50 mg PO DAILY 12/06/16 12/06/16 Previous Rx's Medication Instructions Recorded Baclofen [Lioresal] 10 mg PO TID #90 tab 12/13/16 Benztropine [Cogentin] 1 mg PO HS #30 tab 12/13/16 Gabapentin [Neurontin] 600 mg PO HS #60 12/13/16 Paliperidone [Invega] 3 mg PO BID #60 12/13/16 Sertraline [Zoloft] 100 mg PO DAILY #30 tab 12/13/16 Thiamine (B-1) [Vitamin B-1] 100 mg PO DAILY #30 12/13/16 Amoxicillin 875 mg PO BID #20 tablet 12/20/16 Fluticasone Propionate Nasal 1 spray NS DAILY #1 bottle 12/20/16 [Flonase] GuaiFENesin ER [Mucinex] 1,200 mg PO BID #20 tbbp.12hr 12/20/16 methylPREDNISolone [Medrol] 4 mg PO TAPER #21 tablet 12/20/16 Allergies Allergy/AdvReac Type Severity Reaction Status Date / Time trazodone AdvReac See Verified 12/20/16 11:43 Comments Constitutional: Denies: fever Cardiovascular: Denies: chest pain Respiratory: Denies: dyspnea Gastrointestinal: Denies: abdominal pain Past Medical History - Past Medical History Medical history: Reports: no medical history Surgical history: Reports: non-contributory, Psychiatric history: Reports: anxiety, bipolar, PTSD, prior suicide attempt, previous psychiatric hospitalization SITE DIRECTOR history: Reports: no SITE DIRECTOR history - Social History Smoking Status: Current every day smoker Smokeless Tobacco Status: No Alcohol use: Reports: none Drug use: Reports: opiates Physical Exam - General Limitations: other (Drug impaired) General appearance: alert Course - Reevaluation(s) Reevaluation #1: 31-year-old who was initially seen by night court magistrate. Please see their documentation for initial management. Patient apparently was snorting white powder and is recently started using IV drugs again. Now is complaining of suicidal ideation. Patient was pink slipped by night court magistrate. Time: 07:53 Reevaluation #2: Patient was evaluated by psychiatry she currently denies suicidal ideation. I talked to her she does deny suicidal ideation. He is still somewhat disoriented. She does have a number of drugs and her drug screen. Time: 14:25 Vital Signs Temperature 97.4 F L 01/25/17 02:54 Pulse Rate 97 01/25/17 02:54 Respiratory Rate 18 01/25/17 02:54 Blood Pressure 100/83 01/25/17 02:54 O2 Sat by Pulse Oximetry 97 01/25/17 02:54 Temperature 97.4 F L 01/25/17 02:54 Pulse Rate 77 01/25/17 09:45 Respiratory Rate 12 01/25/17 09:45 Blood Pressure 83/60 01/25/17 09:45 O2 Sat by Pulse Oximetry 88 01/25/17 09:45 Oxygen Delivery Oxygen Delivery Room Air Medical Decision Making - Lab Data Result diagrams: 01/25/17 03:39 01/25/17 03:39 Lab Results 01/25/17 01/25/17 01/25/17 Range/Units 03:29 03:29 03:29 WBC (4.3-11.1) K/mcL RBC (3.82-4.97) M/mcL Hgb (11.5-15.4) g/dL Hct (35.3-44.9) % MCV (83.0-100.0) fL MCH (28.0-33.3) pg MCHC (31.6-35.5) g/dL RDW (11.5-14.5) % Plt Count (140-400) K/mcL MPV (9.4-12.4) fL Immature Gran % (0-4) % Seg Neutrophils % % Lymphocytes % % Monocytes % % Eosinophils % % Basophils % % Neutrophils # (1.6-8.9) K/mcL Lymphocytes # (0.6-4.6) K/mcL Monocytes # (0.0-1.3) K/mcL Eosinophils # (0.0-0.6) K/mcL Basophils # (0.0-0.2) K/mcL Sodium (136-145) mEq/L Potassium (3.5-4.5) mEq/L Chloride (98-109) mEq/L Carbon Dioxide (19-29) mEq/L BUN (7-20) mg/dL Creatinine (0.57-1.11) mg/dL Est GFR ( Amer) (> 60) Est GFR (Non-Af Amer) (> 60) BUN/Creatinine Ratio (6-26) Glucose (70-99) mg/dL Calculated Osmolality (280-300) Calcium (8.6-10.8) mg/dL Urine Color Dark Yellow (Yellow) Urine Clarity Turbid A (Clear) Urine pH 6.0 (5.0-8.0) pH Units Ur Specific [place] > 1.030 H (1.010-1.025) Urine Protein 30 H (Neg-Trace) mg/dL Urine Glucose (UA) Normal (Normal) mg/dL Urine Ketones Negative (Negative) mg/dL Urine Blood Moderate H (Negative) Urine Nitrite Negative (Negative) Urine Bilirubin Small H (Negative) Urine Urobilinogen Normal (Normal) mg/dL Ur Leukocyte Esterase Small H (Negative) Urine Microscopic RBC 3-5 H (0-3) per hpf Urine Microscopic WBC 50-100 H (0-3) per hpf Ur Squamous Epith Cells Many H (None-Few) per lpf Urine Bacteria None Seen (None-Few) per hpf Hyaline Casts None Seen (None-Few) per lpf Urine Mucus Many H (Few) Urine Test Negative (Negative) Salicylates (15-30) mg/dL Urine Opiates Screen Negative (Sylpbr=965) ng/mL Acetaminophen (10-30) mcg/mL Ur Barbiturates Screen Negative (Fguoin=834) ng/mL Ur Phencyclidine Scrn Negative (Cutoff=25) ng/mL Ur Amphetamines Screen Positive H (Fdtebt=8162) ng/mL U Benzodiazepines Scrn Positive H (Zxykyl=845) ng/mL Urine Cocaine Screen Positive H (Cutoff= 300) ng/mL U Marijuana (THC) Screen Positive H (Cutoff = 50) ng/mL Ethyl Alcohol (0-10) mg/dL 01/25/17 01/25/17 Range/Units 03:39 03:39 WBC 9.3 (4.3-11.1) K/mcL RBC 5.09 H (3.82-4.97) M/mcL Hgb 15.7 H (11.5-15.4) g/dL Hct 44.9 (35.3-44.9) % MCV 88.2 (83.0-100.0) fL MCH 30.8 (28.0-33.3) pg MCHC 35.0 (31.6-35.5) g/dL RDW 12.4 (11.5-14.5) % Plt Count 258 (140-400) K/mcL MPV 10.5 (9.4-12.4) fL Immature Gran % 0.2 (0-4) % Seg Neutrophils % 46.9 % Lymphocytes % 42.5 % Monocytes % 8.8 % Eosinophils % 1.0 % Basophils % 0.6 % Neutrophils # 4.4 (1.6-8.9) K/mcL Lymphocytes # 4.0 (0.6-4.6) K/mcL Monocytes # 0.8 (0.0-1.3) K/mcL Eosinophils # 0.1 (0.0-0.6) K/mcL Basophils # 0.1 (0.0-0.2) K/mcL Sodium 139 (136-145) mEq/L Potassium 4.2 (3.5-4.5) mEq/L Chloride 104 (98-109) mEq/L Carbon Dioxide 24 (19-29) mEq/L BUN 20 (7-20) mg/dL Creatinine 0.94 (0.57-1.11) mg/dL Est GFR ( Amer) > 60 (> 60) Est GFR (Non-Af Amer) > 60 (> 60) BUN/Creatinine Ratio 21 (6-26) Glucose 79 (70-99) mg/dL Calculated Osmolality 290 (280-300) Calcium 10.1 (8.6-10.8) mg/dL Urine Color (Yellow) Urine Clarity (Clear) Urine pH (5.0-8.0) pH Units Ur Specific [place] (1.010-1.025) Urine Protein (Neg-Trace) mg/dL Urine Glucose (UA) (Normal) mg/dL Urine Ketones (Negative) mg/dL Urine Blood (Negative) Urine Nitrite (Negative) Urine Bilirubin (Negative) Urine Urobilinogen (Normal) mg/dL Ur Leukocyte Esterase (Negative) Urine Microscopic RBC (0-3) per hpf Urine Microscopic WBC (0-3) per hpf Ur Squamous Epith Cells (None-Few) per lpf Urine Bacteria (None-Few) per hpf Hyaline Casts (None-Few) per lpf Urine Mucus (Few) Urine Test (Negative) Salicylates < 5.0 L (15-30) mg/dL Urine Opiates Screen (Dywnnh=564) ng/mL Acetaminophen 3.0 L (10-30) mcg/mL Ur Barbiturates Screen (Hapvup=210) ng/mL Ur Phencyclidine Scrn (Cutoff=25) ng/mL Ur Amphetamines Screen (Unghva=0300) ng/mL U Benzodiazepines Scrn (Fzawbb=701) ng/mL Urine Cocaine Screen (Cutoff= 300) ng/mL U Marijuana (THC) Screen (Cutoff = 50) ng/mL Ethyl Alcohol < 10 (0-10) mg/dL
[2017-01-25] MEDS ORDERED: 0.9 % Sodium Chloride 1,000 ML IVC ONE (14:34)
--- NOTE | 2017-01-25 16:45 | Emergency Department Note ---
Disposition Clinical Impression: Polysubstance abuse UTI (urinary tract infection) Qualifiers: Urinary tract infection type: acute cystitis Hematuria presence: without hematuria Qualified Code(s): N30.00 - Acute cystitis without hematuria Disposition: Admitted As Inpatient Condition: Fair Referrals: NONE,PCP [Primary Care Provider] - Forms: ED Satisfaction Letter Time of Disposition: 16:44 General Adult HPI - General Chief complaint: ED Overdose Stated complaint: Snorted white substance, SI Time Seen by Provider: 01/25/17 02:54 Source: patient Mode of arrival: EMS Limitations: other (Drug impaired) - History of Present Illness Pain Scale: 0 - Related Data Home Medications Medication Instructions Recorded Confirmed Buprenorphine HCl/Naloxone HCl 1 film SL BID 10/04/16 11/28/16 [Suboxone 8 mg-2 mg Sl Film] Naltrexone HCl [Revia] 50 mg PO DAILY 12/06/16 12/06/16 Previous Rx's Medication Instructions Recorded Baclofen [Lioresal] 10 mg PO TID #90 tab 12/13/16 Benztropine [Cogentin] 1 mg PO HS #30 tab 12/13/16 Gabapentin [Neurontin] 600 mg PO HS #60 12/13/16 Paliperidone [Invega] 3 mg PO BID #60 12/13/16 Sertraline [Zoloft] 100 mg PO DAILY #30 tab 12/13/16 Thiamine (B-1) [Vitamin B-1] 100 mg PO DAILY #30 12/13/16 Amoxicillin 875 mg PO BID #20 tablet 12/20/16 Fluticasone Propionate Nasal 1 spray NS DAILY #1 bottle 12/20/16 [Flonase] GuaiFENesin ER [Mucinex] 1,200 mg PO BID #20 tbbp.12hr 12/20/16 methylPREDNISolone [Medrol] 4 mg PO TAPER #21 tablet 12/20/16 Allergies Allergy/AdvReac Type Severity Reaction Status Date / Time trazodone AdvReac See Verified 12/20/16 11:43 Comments Constitutional: Denies: fever Cardiovascular: Denies: chest pain Respiratory: Denies: dyspnea Gastrointestinal: Denies: abdominal pain Past Medical History - Past Medical History Medical history: Reports: no medical history Surgical history: Reports: non-contributory, Psychiatric history: Reports: anxiety, bipolar, PTSD, prior suicide attempt, previous psychiatric hospitalization [employer] SUR[employer] history: Reports: no [employer] DI[employer]CTION[employer] SURVEYOR history - Social History Smoking Status: Current every day smoker Smokeless Tobacco Status: No Alcohol use: Reports: none Drug use: Reports: opiates Physical Exam - General Limitations: other (Drug impaired) General appearance: alert Course - Reevaluation(s) Reevaluation #1: Please see makeshift dictation for initial presentation. Patient was seen by psychiatry who felt she was not a suicidal risk. She has persistent somnolence that she will wake up and answer questions but she is very somnolent patient does not have a ride home. We will admit the patient for observation. Time: 16:43 Vital Signs Temperature 97.4 F L 01/25/17 02:54 Pulse Rate 97 01/25/17 02:54 Respiratory Rate 18 01/25/17 02:54 Blood Pressure 100/83 01/25/17 02:54 O2 Sat by Pulse Oximetry 97 01/25/17 02:54 Temperature 97.4 F L 01/25/17 02:54 Pulse Rate 88 01/25/17 15:05 Respiratory Rate 16 01/25/17 15:05 Blood Pressure 97/56 01/25/17 15:05 O2 Sat by Pulse Oximetry 99 01/25/17 15:05 Oxygen Delivery Oxygen Delivery Room Air Medical Decision Making - Lab Data Result diagrams: 01/25/17 03:39 01/25/17 03:39 Lab Results 01/25/17 01/25/17 01/25/17 Range/Units 03:29 03:29 03:29 WBC (4.3-11.1) K/mcL RBC (3.82-4.97) M/mcL Hgb (11.5-15.4) g/dL Hct (35.3-44.9) % MCV (83.0-100.0) fL MCH (28.0-33.3) pg MCHC (31.6-35.5) g/dL RDW (11.5-14.5) % Plt Count (140-400) K/mcL MPV (9.4-12.4) fL Immature Gran % (0-4) % Seg Neutrophils % % Lymphocytes % % Monocytes % % Eosinophils % % Basophils % % Neutrophils # (1.6-8.9) K/mcL Lymphocytes # (0.6-4.6) K/mcL Monocytes # (0.0-1.3) K/mcL Eosinophils # (0.0-0.6) K/mcL Basophils # (0.0-0.2) K/mcL Sodium (136-145) mEq/L Potassium (3.5-4.5) mEq/L Chloride (98-109) mEq/L Carbon Dioxide (19-29) mEq/L BUN (7-20) mg/dL Creatinine (0.57-1.11) mg/dL Est GFR ( Amer) (> 60) Est GFR (Non-Af Amer) (> 60) BUN/Creatinine Ratio (6-26) Glucose (70-99) mg/dL Calculated Osmolality (280-300) Calcium (8.6-10.8) mg/dL Urine Color Dark Yellow (Yellow) Urine Clarity Turbid A (Clear) Urine pH 6.0 (5.0-8.0) pH Units Ur Specific [place] > 1.030 H (1.010-1.025) Urine Protein 30 H (Neg-Trace) mg/dL Urine Glucose (UA) Normal (Normal) mg/dL Urine Ketones Negative (Negative) mg/dL Urine Blood Moderate H (Negative) Urine Nitrite Negative (Negative) Urine Bilirubin Small H (Negative) Urine Urobilinogen Normal (Normal) mg/dL Ur Leukocyte Esterase Small H (Negative) Urine Microscopic RBC 3-5 H (0-3) per hpf Urine Microscopic WBC 50-100 H (0-3) per hpf Ur Squamous Epith Cells Many H (None-Few) per lpf Urine Bacteria None Seen (None-Few) per hpf Hyaline Casts None Seen (None-Few) per lpf Urine Mucus Many H (Few) Urine Test Negative (Negative) Salicylates (15-30) mg/dL Urine Opiates Screen Negative (Apbequ=679) ng/mL Acetaminophen (10-30) mcg/mL Ur Barbiturates Screen Negative (Ytppqw=178) ng/mL Ur Phencyclidine Scrn Negative (Cutoff=25) ng/mL Ur Amphetamines Screen Positive H (Wldzes=8059) ng/mL U Benzodiazepines Scrn Positive H (Aiilxd=061) ng/mL Urine Cocaine Screen Positive H (Cutoff= 300) ng/mL U Marijuana (THC) Screen Positive H (Cutoff = 50) ng/mL Ethyl Alcohol (0-10) mg/dL 01/25/17 01/25/17 Range/Units 03:39 03:39 WBC 9.3 (4.3-11.1) K/mcL RBC 5.09 H (3.82-4.97) M/mcL Hgb 15.7 H (11.5-15.4) g/dL Hct 44.9 (35.3-44.9) % MCV 88.2 (83.0-100.0) fL MCH 30.8 (28.0-33.3) pg MCHC 35.0 (31.6-35.5) g/dL RDW 12.4 (11.5-14.5) % Plt Count 258 (140-400) K/mcL MPV 10.5 (9.4-12.4) fL Immature Gran % 0.2 (0-4) % Seg Neutrophils % 46.9 % Lymphocytes % 42.5 % Monocytes % 8.8 % Eosinophils % 1.0 % Basophils % 0.6 % Neutrophils # 4.4 (1.6-8.9) K/mcL Lymphocytes # 4.0 (0.6-4.6) K/mcL Monocytes # 0.8 (0.0-1.3) K/mcL Eosinophils # 0.1 (0.0-0.6) K/mcL Basophils # 0.1 (0.0-0.2) K/mcL Sodium 139 (136-145) mEq/L Potassium 4.2 (3.5-4.5) mEq/L Chloride 104 (98-109) mEq/L Carbon Dioxide 24 (19-29) mEq/L BUN 20 (7-20) mg/dL Creatinine 0.94 (0.57-1.11) mg/dL Est GFR ( Amer) > 60 (> 60) Est GFR (Non-Af Amer) > 60 (> 60) BUN/Creatinine Ratio 21 (6-26) Glucose 79 (70-99) mg/dL Calculated Osmolality 290 (280-300) Calcium 10.1 (8.6-10.8) mg/dL Urine Color (Yellow) Urine Clarity (Clear) Urine pH (5.0-8.0) pH Units Ur Specific [place] (1.010-1.025) Urine Protein (Neg-Trace) mg/dL Urine Glucose (UA) (Normal) mg/dL Urine Ketones (Negative) mg/dL Urine Blood (Negative) Urine Nitrite (Negative) Urine Bilirubin (Negative) Urine Urobilinogen (Normal) mg/dL Ur Leukocyte Esterase (Negative) Urine Microscopic RBC (0-3) per hpf Urine Microscopic WBC (0-3) per hpf Ur Squamous Epith Cells (None-Few) per lpf Urine Bacteria (None-Few) per hpf Hyaline Casts (None-Few) per lpf Urine Mucus (Few) Urine Test (Negative) Salicylates < 5.0 L (15-30) mg/dL Urine Opiates Screen (Ympjeq=094) ng/mL Acetaminophen 3.0 L (10-30) mcg/mL Ur Barbiturates Screen (Xbfnwd=451) ng/mL Ur Phencyclidine Scrn (Cutoff=25) ng/mL Ur Amphetamines Screen (Woltgi=9730) ng/mL U Benzodiazepines Scrn (Tydeyj=228) ng/mL Urine Cocaine Screen (Cutoff= 300) ng/mL U Marijuana (THC) Screen (Cutoff = 50) ng/mL Ethyl Alcohol < 10 (0-10) mg/dL
[2017-01-25] MEDS ORDERED: Naloxone 0.4 MG/ML INJ IVP PRN (19:34)
[2017-01-25] MEDS ORDERED: 0.9 % Sodium Chloride 1,000 ML IVC SCH (19:45)
--- NOTE | 2017-01-25 19:56 | Internal Med History&Physical ---
<Geni Sotelo M - Last Filed: 01/25/17 20:50> Date of Encounter: 01/25/17 Time of Encounter: 19:45 Assessment and Plan (1) Polysubstance abuse Current visit: Yes Status: Acute Patient presented to the ED after snorting a white substance and fearing for her life. Urine drug screen positive or amphetamines, benzos, cocaine and THC. Her somnolence persists. We will recheck urine drug screen. Hydrate with D5 0.45NS at 125mL/hr. Social work consulted. (2) UTI (urinary tract infection) Current visit: Yes Status: Acute Patient's UA was suspicious for possible infection. Ceftriaxone IVPB daily. Qualifiers: Urinary tract infection type: acute cystitis Hematuria presence: without hematuria Qualified Code(s): N30.00 - Acute cystitis without hematuria (3) Bipolar 1 disorder Current visit: Yes Status: Chronic Patient with bipolar disorder and previous hospitalizations for psychosis and suicidal ideation. She did reportedly express suicidal ideation in ED at one point. She is not currently taking any of her previously prescribed medications. suicide precautions with sitter. Will consult Psychiatry. (4) Altered mental status Current visit: Yes Status: Resolved Patient's somnolence persists despite long observation in ED. Likely secondary to her polysubstance abuse given UDS positive for amphetamines, benzos, cocaine and THC. 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 CT head stat D5 0.45NS at 125mL/hr. Qualifiers: Altered mental status type: somnolence Qualified Code(s): R40.0 - Somnolence (5) DVT prophylaxis Current visit: Yes Status: Acute anti-embolic stockings Internal Medicine - H&P: HPI Chief complaint: somnolence Admitted From: Emergency Dept Plans for Post Hospital Care: Home History of present illness: Ms. Garcia is a 31 year old female with history of anxiety, bipolar disorder, and polysubstance abuse presented to the ED last night after taking unknown substance and fearing for her life. Per ED reports, patient reported snorting a white substance. Patient somnolent on my exam an unable to complete a review of systems. Evaluation in the ED included EKG which showed normal sinus rhythm with no significant changes from previous. Urine drug screen was positive for amphetamines, Benzos, cocaine and THC. UA was suspicious for possible infection. During her time in the ED she did express suicidal ideation and was evaluated by [facility], but was found not to be suicidal during their evaluation. Patient's somnolence persisted and it was determined she should be admitted for further observation. On exam, patient is somnolent, arousable, but falls asleep quickly. Heart has regular rate and rhythm, lungs are clear bilaterally , abdomen is soft, nontender. No peripheral edema. Past Med Surg Social Fam HX - Past Medical History Medical history: cancer Psychiatric history: anxiety, bipolar, PTSD, prior suicide attempt, previous psychiatric hospitalization - Past Surgical History Surgical History: non-contributory, - Social History Smoking Status: Current every day smoker Smokeless Tobacco Status: No Alcohol use: none Drug use: cocaine, opiates, marijuana, methamphetamine, IV Drug Use - Family History Paternal Grandmother Hx Family Cardiac Disorders: Yes ([place]) Hx Family Respiratory Disorders: No Hx Family Cancer: No Hx Family GI Disorders: No Hx Family Endocrine Disorder: No Hx Family Neuromuscular Disorders: No Hx Family Neurologic Disorders: No Hx Family HEENT Disorders: No Hx Family Autoimmune Disorders: No Internal Medicine - H&P: Meds No Known Home Drugs 01/25/17 [History] 3 Allergy/AdvReac Type Severity Reaction Status Date / Time trazodone AdvReac See Verified 12/20/16 11:43 Comments ROS unobtainable: due to mental status All Systems PM: A 10-system review of systems was performed and is negative for pertinent findings except as documented above in the HPI. - Constitutional Vitals: Temp Pulse Resp BP Pulse Ox 97.5 F L 79 20 96/63 100 01/25/17 17:41 01/25/17 17:41 01/25/17 17:41 01/25/17 17:41 01/25/17 17:41 General appearance: Present: A&O X 1. Absent: answers questions appropriately Exam: somnolent - Head Head exam: Present: atraumatic, normocephalic - Eye Eye exam: Present: PERRL, conjuntiva pink, sclera anicteric Pupils: Present: PERRL - Neck Neck exam general surgery: Present: supple, trachea midline. Absent: lymphadenopathy - Respiratory Respiratory exam: Present: CTAB. Absent: accessory muscle use, rales, rhonchi, wheezes - Cardiovascular Cardiovascular exam: Present: RRR, +S1, +S2. Absent: diastolic murmur, gallop, rubs, systolic murmur - GI/Abdominal GI/Abdominal exam: Present: normal bowel sounds, soft, no peritoneal signs. Absent: distended, tenderness - Extremities Exam Extremities exam: Present: warm, radial pulses palpable and symmetrical. Absent : calf tenderness, cyanotic, pedal edema - Neurological Exam Neurological exam: Present: CN II-XII intact, oriented X3, no focal deficits. Absent: pronater drift, facial droop, speech deficit - Skin Skin exam: Present: dry, intact Internal Med - H&P Results - Labs CBC & Chem 7: 01/25/17 03:39 01/25/17 03:39 Labs: All Lab Results (24 Hours) 01/25/17 01/25/17 01/25/17 Range/Units 03:29 03:29 03:29 WBC (4.3-11.1) K/mcL RBC (3.82-4.97) M/mcL Hgb (11.5-15.4) g/dL Hct (35.3-44.9) % MCV (83.0-100.0) fL MCH (28.0-33.3) pg MCHC (31.6-35.5) g/dL RDW (11.5-14.5) % Plt Count (140-400) K/mcL MPV (9.4-12.4) fL Immature Gran % (0-4) % Seg Neutrophils % % Lymphocytes % % Monocytes % % Eosinophils % % Basophils % % Neutrophils # (1.6-8.9) K/mcL Lymphocytes # (0.6-4.6) K/mcL Monocytes # (0.0-1.3) K/mcL Eosinophils # (0.0-0.6) K/mcL Basophils # (0.0-0.2) K/mcL Sodium (136-145) mEq/L Potassium (3.5-4.5) mEq/L Chloride (98-109) mEq/L Carbon Dioxide (19-29) mEq/L BUN (7-20) mg/dL Creatinine (0.57-1.11) mg/dL Est GFR ( Amer) (> 60) Est GFR (Non-Af Amer) (> 60) BUN/Creatinine Ratio (6-26) Glucose (70-99) mg/dL Calculated Osmolality (280-300) Calcium (8.6-10.8) mg/dL Urine Color Dark Yellow (Yellow) Urine Clarity Turbid A (Clear) Urine pH 6.0 (5.0-8.0) pH Units Ur Specific [place] > 1.030 H (1.010-1.025) Urine Protein 30 H (Neg-Trace) mg/dL Urine Glucose (UA) Normal (Normal) mg/dL Urine Ketones Negative (Negative) mg/dL Urine Blood Moderate H (Negative) Urine Nitrite Negative (Negative) Urine Bilirubin Small H (Negative) Urine Urobilinogen Normal (Normal) mg/dL Ur Leukocyte Esterase Small H (Negative) Urine Microscopic RBC 3-5 H (0-3) per hpf Urine Microscopic WBC 50-100 H (0-3) per hpf Ur Squamous Epith Cells Many H (None-Few) per lpf Urine Bacteria None Seen (None-Few) per hpf Hyaline Casts None Seen (None-Few) per lpf Urine Mucus Many H (Few) Urine Test Negative (Negative) Salicylates (15-30) mg/dL Urine Opiates Screen Negative (Smpmtr=125) ng/mL Acetaminophen (10-30) mcg/mL Ur Barbiturates Screen Negative (Zfbfpe=474) ng/mL Ur Phencyclidine Scrn Negative (Cutoff=25) ng/mL Ur Amphetamines Screen Positive H (Gyytbf=8612) ng/mL U Benzodiazepines Scrn Positive H (Mlsxvu=394) ng/mL Urine Cocaine Screen Positive H (Cutoff= 300) ng/mL U Marijuana (THC) Screen Positive H (Cutoff = 50) ng/mL Ethyl Alcohol (0-10) mg/dL 01/25/17 01/25/17 Range/Units 03:39 03:39 WBC 9.3 (4.3-11.1) K/mcL RBC 5.09 H (3.82-4.97) M/mcL Hgb 15.7 H (11.5-15.4) g/dL Hct 44.9 (35.3-44.9) % MCV 88.2 (83.0-100.0) fL MCH 30.8 (28.0-33.3) pg MCHC 35.0 (31.6-35.5) g/dL RDW 12.4 (11.5-14.5) % Plt Count 258 (140-400) K/mcL MPV 10.5 (9.4-12.4) fL Immature Gran % 0.2 (0-4) % Seg Neutrophils % 46.9 % Lymphocytes % 42.5 % Monocytes % 8.8 % Eosinophils % 1.0 % Basophils % 0.6 % Neutrophils # 4.4 (1.6-8.9) K/mcL Lymphocytes # 4.0 (0.6-4.6) K/mcL Monocytes # 0.8 (0.0-1.3) K/mcL Eosinophils # 0.1 (0.0-0.6) K/mcL Basophils # 0.1 (0.0-0.2) K/mcL Sodium 139 (136-145) mEq/L Potassium 4.2 (3.5-4.5) mEq/L Chloride 104 (98-109) mEq/L Carbon Dioxide 24 (19-29) mEq/L BUN 20 (7-20) mg/dL Creatinine 0.94 (0.57-1.11) mg/dL Est GFR ( Amer) > 60 (> 60) Est GFR (Non-Af Amer) > 60 (> 60) BUN/Creatinine Ratio 21 (6-26) Glucose 79 (70-99) mg/dL Calculated Osmolality 290 (280-300) Calcium 10.1 (8.6-10.8) mg/dL Urine Color (Yellow) Urine Clarity (Clear) Urine pH (5.0-8.0) pH Units Ur Specific [place] (1.010-1.025) Urine Protein (Neg-Trace) mg/dL Urine Glucose (UA) (Normal) mg/dL Urine Ketones (Negative) mg/dL Urine Blood (Negative) Urine Nitrite (Negative) Urine Bilirubin (Negative) Urine Urobilinogen (Normal) mg/dL Ur Leukocyte Esterase (Negative) Urine Microscopic RBC (0-3) per hpf Urine Microscopic WBC (0-3) per hpf Ur Squamous Epith Cells (None-Few) per lpf Urine Bacteria (None-Few) per hpf Hyaline Casts (None-Few) per lpf Urine Mucus (Few) Urine Test (Negative) Salicylates < 5.0 L (15-30) mg/dL Urine Opiates Screen (Yvlmot=599) ng/mL Acetaminophen 3.0 L (10-30) mcg/mL Ur Barbiturates Screen (Rhgktz=111) ng/mL Ur Phencyclidine Scrn (Cutoff=25) ng/mL Ur Amphetamines Screen (Hmvsyb=5259) ng/mL U Benzodiazepines Scrn (Vglhxb=056) ng/mL Urine Cocaine Screen (Cutoff= 300) ng/mL U Marijuana (THC) Screen (Cutoff = 50) ng/mL Ethyl Alcohol < 10 (0-10) mg/dL <Aston Hughes - Last Filed: 01/25/17 22:52> Date of Encounter: 01/25/17 Time of Encounter: 19:55 ROS unobtainable: due to mental status - Constitutional Vitals: Temp Pulse Resp BP Pulse Ox 97.6 F 68 14 97/63 97 01/25/17 19:50 01/25/17 19:50 01/25/17 19:50 01/25/17 19:50 01/25/17 19:50 Exam: Patient somnolent; easily arousable, but she drifts off to sleep right away. Unable to sit up without me and nursing supporting her. - Head Head exam: Present: atraumatic, normal inspection - Expanded Head Exam Head exam expanded: Absent: abrasion, contusion, general tenderness, hematoma, laceration - Eye Eye exam: Present: EOMI, PERRL. Absent: scleral icterus Pupils: Present: normal accommodation - ENT ENT exam: Present: mucous membranes dry, normal exam - Neck Neck exam general surgery: Present: full ROM, supple. Absent: tenderness - Respiratory Respiratory exam: Present: CTAB. Absent: rales, rhonchi, wheezes - Cardiovascular Cardiovascular exam: Present: RRR, +S1, +S2. Absent: diastolic murmur, systolic murmur - GI/Abdominal GI/Abdominal exam: Present: soft. Absent: tenderness - Back Exam Back exam: Absent: CVA tenderness (L), CVA tenderness (R) - Neurological Exam Additional comments: Somnolent; responds to verbal and painful stimuli appropriately. No focal deficits appreciated. Internal Med - H&P Results - Labs CBC & Chem 7: 01/25/17 03:39 01/25/17 03:39 Labs: Cardiac Enzymes 01/25/17 Range/Units 20:19 Troponin I 0.00 (0-0.03) ng/mL - EKG Data -: EKG Interpreted by Myself - EKG Data EKG comments: 01/25/17 22:46 NSR; no acute changes - Impressions ITS Impressions Head CT 01/25/17 20:11 IMPRESSION: No acute intracranial abnormality. D/ / Zev Bridges MD / Zev Bridges MD Interpreting Provider: Zev Bridges MD - Attending Attestation I discussed the patient [place], PMH, ROS, lab data, and exam findings with Geni Sotelo CNP. I then saw and examined patient independently as well. Because she has had prolonged somnolence in the ER, I requested Geni obtain a Head CT to rule out any intracranial process. We are unable to obtain much history and unsure if she had any type of head trauma. On exam, I do not appreciate any sign of head trauma or injury. Nonetheless, we ordered head CT, which was negative. We will observe her closely and request a sitter as well. Other than my comments above and noted exam findings, I agree with Geni's assessment and plan.
[2017-01-25] MEDS: D5% in 0.45% NACL 1,000 ML IVC SCH (21:02)
[2017-01-26 03:26] LABS: Amphetamine Screen,Urine Positive ng/mL (Cutoff=1000); Barbiturate Screen,Urine Negative ng/mL (Cutoff=200); Benzodiazepines Screen,Urine Positive ng/mL (Cutoff=200); Cannabinoid Screen,Urine Positive ng/mL (Cutoff = 50); Cocaine Screen,Urine Positive ng/mL (Cutoff= 300); Opiate Screen,Urine Negative ng/mL (Cutoff=300); Phencyclidine Screen,Urine Negative ng/mL (Cutoff=25)
[2017-01-26] MEDS: D5% in 0.45% NACL 1,000 ML IVC SCH (05:05)
[2017-01-26 06:23] LABS: Basophils % 0.4 %; Eosinophils # 0.1 K/mcL (0.0-0.6); Eosinophils % 1.8 %; Hematocrit 36.3 % (35.3-44.9); Immature Granulocytes % 0.4 % (0-4); Lymphocytes # 3.5 K/mcL (0.6-4.6); Lymphocytes % 46.9 %; Mean Corpuscular HGB Conc 33.3 g/dL (31.6-35.5); Mean Corpuscular Hemoglobin 29.7 pg (28.0-33.3); Mean Platelet Volume 11.6 fL (9.4-12.4); Monocytes # 0.5 K/mcL (0.0-1.3); Monocytes % 7.2 %; Neutrophils # 3.2 K/mcL (1.6-8.9); Platelet Count 215 K/mcL (140-400); Red Blood Count 4.08 M/mcL (3.82-4.97); Red Cell Distribution Width 12.7 % (11.5-14.5); Segmented Neutrophils % 43.3 %
[2017-01-26 06:24] LABS: Hemoglobin 12.1 g/dL (11.5-15.4)
[2017-01-26 06:33] LABS: BUN/Creatinine Ratio 18 (6-26); Blood Urea Nitrogen 14 mg/dL (7-20); Calcium 8.3 mg/dL (8.6-10.8); Carbon Dioxide 25 mEq/L (19-29); Chloride 108 mEq/L (98-109); Glucose 110 mg/dL (70-99); Osmolality,Calculated 289 (280-300); Potassium 3.1 mEq/L (3.5-4.5); Sodium 139 mEq/L (136-145); eGFR For African Americans > 60 (> 60); eGFR For Non-African Americans > 60 (> 60)
[2017-01-26] MEDS ORDERED: Potassium Chloride Elixir 20 MEQ/15 ML UDC PO ONE (08:03)
[2017-01-26 09:12] LABS: Magnesium 1.8 mg/dL (1.6-2.6)
[2017-01-26] MEDS: 0.9 % Sodium Chloride 1,000 ML IVC SCH (09:15)
--- NOTE | 2017-01-26 12:02 | Internal Med Progress Note ---
Date of Encounter: 01/26/17 Time of Encounter: 11:40 - Assessment and plan (1) Drug overdose Current Visit: Yes Status: Acute Assessment and plan: Patient reportedly used multiple illicit drugs and presented with anxiety. Urine drug screen positive for cocaine, amphetamines, Marijuana, benzodiazepines ; serum alcohol level negative. Noted to be somnolent at this time. Continue IV hydration and supportive care. patient reported suicidal ideation in the ER; will continue precautions 1:1 for now; reevaluation when more alert; Qualifiers: Encounter type: subsequent encounter Injury intent: accidental or unintentional Qualified Code(s): T50.901D - Poisoning by unspecified drugs, medicaments and biological substances, accidental (unintentional), subsequent encounter (2) Substance abuse Current Visit: Yes Status: Chronic Assessment and plan: associate director career services consult for safe discharge and substance abuse; (3) Bipolar 1 disorder Current Visit: Yes Status: Chronic Assessment and plan: Psychiatry on board; will reevaluate when patient is more alert and able to provide history. (4) Post traumatic stress disorder (PTSD) Current Visit: Yes Status: Chronic (5) UTI (urinary tract infection) Current Visit: Yes Status: Acute Assessment and plan: UA suggestive of infection; continue IV Rocephin and f/up urine culture. Qualifiers: Urinary tract infection type: acute cystitis Hematuria presence: without hematuria Qualified Code(s): N30.00 - Acute cystitis without hematuria - Subjective Interval history: Very drowsy but able to wake up enough to answer questions; reports doing "all kinds of bad drugs" at home yesterday; lives alone and is unemployed, cannot give further details of her reason for presenting to ER; no family at bedside. - Constitutional Vitals: Temp Pulse Resp BP Pulse Ox 98.0 F 76 14 94/58 97 01/26/17 08:13 01/26/17 08:13 01/26/17 08:13 01/26/17 08:13 01/26/17 08:13 General appearance: Present: A&O X 2, answers questions appropriately - Respiratory Respiratory exam: Present: CTAB. Absent: accessory muscle use, rales, rhonchi, wheezes - Cardiovascular Cardiovascular exam: Present: RRR, +S1, +S2. Absent: diastolic murmur, gallop, rubs, systolic murmur - GI/Abdominal GI/Abdominal exam: Present: normal bowel sounds, soft, no peritoneal signs. Absent: distended, tenderness - Extremities Exam Extremities exam: Present: full ROM, warm, radial pulses palpable and symmetrical. Absent: calf tenderness, cyanotic, pedal edema - Neurological Exam Neurological exam: Present: CN II-XII intact, oriented X3 (very somonolent), no focal deficits. Absent: pronater drift, facial droop, speech deficit Internal Medicine: Result - Labs CBC & Chem 7: 01/26/17 04:51 01/26/17 04:51 Labs: Short CBC 01/26/17 Range/Units 04:51 WBC 7.4 (4.3-11.1) K/mcL Hgb 12.1 D (11.5-15.4) g/dL Hct 36.3 (35.3-44.9) % Plt Count 215 (140-400) K/mcL Neutrophils # 3.2 (1.6-8.9) K/mcL BMP 01/26/17 04:51 Sodium 139 Potassium 3.1 L D Chloride 108 Carbon Dioxide 25 BUN 14 Creatinine 0.78 Glucose 110 H Calcium 8.3 L D Cardiac Enzymes 01/25/17 Range/Units 20:19 Troponin I 0.00 (0-0.03) ng/mL - Impressions Impressions Head CT 01/25/17 20:11 IMPRESSION: No acute intracranial abnormality. D/ / Zev Bridges MD / Zev Bridges MD Interpreting Provider: Zev Bridges MD Consult Discharge Plan - Plan Referrals: NONE,PCP [Primary Care Provider] -
--- NOTE | 2017-01-26 13:51 | Consult Note ---
Date of Encounter: 01/26/17 Time of Encounter: 12:02 Assessment & Recommendation (1) Polysubstance abuse Current visit: Yes Status: Acute Assessment & Recommendation: patient tox. screen shows multiple drugs. (2) Bipolar affective disorder, manic, severe, with psychotic behavior Current visit: No Status: Acute Assessment & Recommendation: she has history of bipolar at present unable to evaluate her secondary to sedation. (3) PTSD (post-traumatic stress disorder) Current visit: No Status: Acute History of Present Illness Requesting Physician: Radha Burger MD Reason for consult: bipolar disorder, PTSDwith poly sustance abuse and expression of suicide id History of present illness: Ms. Garcia is a 31 year old female was consulted today . she is known to A1 she has h/o bipolar , psychosis,poly substance and non compliance. at present unable to get any history as very sedated and opens her eyes but goes back to sleep and drowsy , stated i am very tired , said did not use any drugs. she at present can not be evaluated and will follow up once not sedated and able to give history. CC: Radha Burger MD Past Med Surg Social Fam HX - Past Medical History Medical history: cancer - Past Psychiatric History Psychiatric history: Reports: bipolar, depression, PTSD, previous psychiatric hospitalization Family psychiatric history: Unknown Family History of Suicide: Unknown - Past Surgical History Surgical History: non-contributory, - Social History Smoking Status: Current every day smoker Smokeless Tobacco Status: No Alcohol use: none Drug use: cocaine, opiates, marijuana, methamphetamine, IV Drug Use - Family History Paternal Grandmother Hx Family Cardiac Disorders: Yes ([place]) Hx Family Respiratory Disorders: No Hx Family Cancer: No Hx Family GI Disorders: No Hx Family Endocrine Disorder: No Hx Family Neuromuscular Disorders: No Hx Family Neurologic Disorders: No Hx Family HEENT Disorders: No Hx Family Autoimmune Disorders: No Medications & Allergies No Known Home Drugs 01/25/17 [History] 3 Allergy/AdvReac Type Severity Reaction Status Date / Time trazodone AdvReac See Verified 12/20/16 11:43 Comments Mental Status Exam Patient orientation: Yes Person Level of alertness: Sedated (unable to do MSE at present because of extreme sedation ) Results - Vital Signs Vital signs: Temp Pulse Resp BP Pulse Ox 98.0 F 76 14 94/58 97 01/26/17 08:13 01/26/17 08:13 01/26/17 08:13 01/26/17 08:13 01/26/17 08:13 - Drug Levels and Toxicology Drug Levels and Toxicology: Drug Levels and Toxicity 01/26/17 03:04 Urine Opiates Screen Negative Ur Barbiturates Screen Negative Ur Phencyclidine Scrn Negative Ur Amphetamines Screen Positive H U Benzodiazepines Scrn Positive H Urine Cocaine Screen Positive H U Marijuana (THC) Screen Positive H - Labs Labs: Laboratory Last Values WBC 7.4 K/mcL (4.3-11.1) 01/26/17 04:51 RBC 4.08 M/mcL (3.82-4.97) 01/26/17 04:51 Hgb 12.1 g/dL (11.5-15.4) D 01/26/17 04:51 Hct 36.3 % (35.3-44.9) 01/26/17 04:51 MCV 89.0 fL (83.0-100.0) 01/26/17 04:51 MCH 29.7 pg (28.0-33.3) 01/26/17 04:51 MCHC 33.3 g/dL (31.6-35.5) 01/26/17 04:51 RDW 12.7 % (11.5-14.5) 01/26/17 04:51 Plt Count 215 K/mcL (140-400) 01/26/17 04:51 MPV 11.6 fL (9.4-12.4) 01/26/17 04:51 Immature Gran % 0.4 % (0-4) 01/26/17 04:51 Seg Neutrophils % 43.3 % 01/26/17 04:51 Lymphocytes % 46.9 % 01/26/17 04:51 Monocytes % 7.2 % 01/26/17 04:51 Eosinophils % 1.8 % 01/26/17 04:51 Basophils % 0.4 % 01/26/17 04:51 Neutrophils # 3.2 K/mcL (1.6-8.9) 01/26/17 04:51 Lymphocytes # 3.5 K/mcL (0.6-4.6) 01/26/17 04:51 Monocytes # 0.5 K/mcL (0.0-1.3) 01/26/17 04:51 Eosinophils # 0.1 K/mcL (0.0-0.6) 01/26/17 04:51 Basophils # 0.0 K/mcL (0.0-0.2) 01/26/17 04:51 Sodium 139 mEq/L (136-145) 01/26/17 04:51 Potassium 3.1 mEq/L (3.5-4.5) L D 01/26/17 04:51 Chloride 108 mEq/L (98-109) 01/26/17 04:51 Carbon Dioxide 25 mEq/L (19-29) 01/26/17 04:51 BUN 14 mg/dL (7-20) 01/26/17 04:51 Creatinine 0.78 mg/dL (0.57-1.11) 01/26/17 04:51 Est GFR ( Amer) > 60 (> 60) 01/26/17 04:51 Est GFR (Non-Af Amer) > 60 (> 60) 01/26/17 04:51 BUN/Creatinine Ratio 18 (6-26) 01/26/17 04:51 Glucose 110 mg/dL (70-99) H 01/26/17 04:51 Calculated Osmolality 289 (280-300) 01/26/17 04:51 Calcium 8.3 mg/dL (8.6-10.8) L D 01/26/17 04:51 Magnesium 1.8 mg/dL (1.6-2.6) 01/26/17 04:51 Troponin I 0.00 ng/mL (0-0.03) 01/25/17 20:19 Urine Color Dark Yellow (Yellow) 01/25/17 03:29 Urine Clarity Turbid (Clear) A 01/25/17 03:29 Urine pH 6.0 pH Units (5.0-8.0) 01/25/17 03:29 Ur Specific [place] > 1.030 (1.010-1.025) H 01/25/17 03:29 Urine Protein 30 mg/dL (Neg-Trace) H 01/25/17 03:29 Urine Glucose (UA) Normal mg/dL (Normal) 01/25/17 03:29 Urine Ketones Negative mg/dL (Negative) 01/25/17 03:29 Urine Blood Moderate (Negative) H 01/25/17 03:29 Urine Nitrite Negative (Negative) 01/25/17 03:29 Urine Bilirubin Small (Negative) H 01/25/17 03:29 Urine Urobilinogen Normal mg/dL (Normal) 01/25/17 03:29 Ur Leukocyte Esterase Small (Negative) H 01/25/17 03:29 Urine Microscopic RBC 3-5 per hpf (0-3) H 01/25/17 03:29 Urine Microscopic WBC 50-100 per hpf (0-3) H 01/25/17 03:29 Ur Squamous Epith Cells Many per lpf (None-Few) H 01/25/17 03:29 Urine Bacteria None Seen per hpf (None-Few) 01/25/17 03:29 Hyaline Casts None Seen per lpf (None-Few) 01/25/17 03:29 Urine Mucus Many (Few) H 01/25/17 03:29 Urine Test Negative (Negative) 01/25/17 03:29 Salicylates < 5.0 mg/dL (15-30) L 01/25/17 03:39 Urine Opiates Screen Negative ng/mL (Fotjlm=916) 01/26/17 03:04 Acetaminophen 3.0 mcg/mL (10-30) L 01/25/17 03:39 Ur Barbiturates Screen Negative ng/mL (Xffgxw=081) 01/26/17 03:04 Ur Phencyclidine Scrn Negative ng/mL (Cutoff=25) 01/26/17 03:04 Ur Amphetamines Screen Positive ng/mL (Xbnely=2174) H 01/26/17 03:04 U Benzodiazepines Scrn Positive ng/mL (Rgguto=795) H 01/26/17 03:04 Urine Cocaine Screen Positive ng/mL (Cutoff= 300) H 01/26/17 03:04 U Marijuana (THC) Screen Positive ng/mL (Cutoff = 50) H 01/26/17 03:04 Ethyl Alcohol < 10 mg/dL (0-10) 01/25/17 03:39 - Impressions Impressions Head CT 01/25/17 20:11 IMPRESSION: No acute intracranial abnormality. D/ / Zev Bridges MD / Zev Bridges MD Interpreting Provider: Zev Bridges MD Consult Discharge Plan - Plan Referrals: NONE,PCP [Primary Care Provider] -
[2017-01-27] MEDS: 0.9 % Sodium Chloride 1,000 ML IVC SCH ×3 (00:49→11:11)
[2017-01-27 03:52] LABS: Basophils % 0.4 %; Eosinophils # 0.1 K/mcL (0.0-0.6); Eosinophils % 1.7 %; Hematocrit 34.3 % (35.3-44.9); Hemoglobin 11.5 g/dL (11.5-15.4); Immature Granulocytes % 0.1 % (0-4); Immature Platelets 7.3 % (1.1-6.1); Lymphocytes # 3.5 K/mcL (0.6-4.6); Lymphocytes % 49.9 %; Mean Corpuscular HGB Conc 33.5 g/dL (31.6-35.5); Mean Corpuscular Hemoglobin 29.9 pg (28.0-33.3); Mean Corpuscular Volume 89.3 fL (83.0-100.0); Mean Platelet Volume 11.5 fL (9.4-12.4); Monocytes # 0.5 K/mcL (0.0-1.3); Neutrophils # 2.8 K/mcL (1.6-8.9); Platelet Count 191 K/mcL (140-400); Red Blood Count 3.84 M/mcL (3.82-4.97); Red Cell Distribution Width 12.7 % (11.5-14.5); Segmented Neutrophils % 40.9 %
[2017-01-27 04:05] LABS: BUN/Creatinine Ratio 12 (6-26); Blood Urea Nitrogen 9 mg/dL (7-20); Calcium 8.3 mg/dL (8.6-10.8); Carbon Dioxide 22 mEq/L (19-29); Chloride 112 mEq/L (98-109); Glucose 103 mg/dL (70-99); Osmolality,Calculated 291 (280-300); Potassium 4.1 mEq/L (3.5-4.5); Sodium 141 mEq/L (136-145); eGFR For African Americans > 60 (> 60); eGFR For Non-African Americans > 60 (> 60)
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
[2017-01-27] MEDS: Acetaminophen 325 MG TABLET PO PRN ×2 (15:02→21:23)
[2017-01-28] MEDS ORDERED: *HR* Morphine 2 MG/ML SYRINGE IVP PRN (02:07)
[2017-01-28] MEDS: Acetaminophen 325 MG TABLET PO PRN ×2 (09:47→18:36)
[2017-01-28 10:06] LABS: BUN/Creatinine Ratio 12 (6-26); Blood Urea Nitrogen 9 mg/dL (7-20); Calcium 8.8 mg/dL (8.6-10.8); Carbon Dioxide 29 mEq/L (19-29); Chloride 107 mEq/L (98-109); Glucose 85 mg/dL (70-99); Osmolality,Calculated 290 (280-300); Potassium 3.7 mEq/L (3.5-4.5); Sodium 141 mEq/L (136-145); eGFR For African Americans > 60 (> 60); eGFR For Non-African Americans > 60 (> 60)
[2017-01-28 10:09] LABS: Basophils % 0.6 %; Eosinophils # 0.1 K/mcL (0.0-0.6); Eosinophils % 1.6 %; Hematocrit 34.7 % (35.3-44.9); Hemoglobin 11.9 g/dL (11.5-15.4); Immature Granulocytes % 0.3 % (0-4); Lymphocytes # 3.7 K/mcL (0.6-4.6); Lymphocytes % 53.8 %; Mean Corpuscular HGB Conc 34.3 g/dL (31.6-35.5); Mean Corpuscular Hemoglobin 30.7 pg (28.0-33.3); Mean Corpuscular Volume 89.4 fL (83.0-100.0); Mean Platelet Volume 11.7 fL (9.4-12.4); Monocytes # 0.6 K/mcL (0.0-1.3); Monocytes % 8.2 %; Neutrophils # 2.4 K/mcL (1.6-8.9); Platelet Count 184 K/mcL (140-400); Red Blood Count 3.88 M/mcL (3.82-4.97); Red Cell Distribution Width 12.5 % (11.5-14.5); Segmented Neutrophils % 35.5 %
--- NOTE | 2017-01-28 17:28 | Internal Med Progress Note ---
Date of Encounter: 01/28/17 Time of Encounter: 11:00 - Assessment and plan (1) Drug overdose Current Visit: Yes Status: Acute Assessment and plan: -Urine drug screen positive for cocaine, amphetamines, Marijuana, benzodiazepines; serum alcohol level negative. -Psychiatry recommendations for inpatient residential treatment setting as she has a significant history of failed compliance with outpatient recommendations. Further recommendations to not restart psych meds at this time as she remains very sedated Qualifiers: Encounter type: subsequent encounter Injury intent: undetermined intent Qualified Code(s): T50.904D - Poisoning by unspecified drugs, medicaments and biological substances, undetermined, subsequent encounter (2) Polysubstance abuse Current Visit: Yes Status: Acute Assessment and plan: As above (3) Bipolar affective disorder, manic, severe, with psychotic behavior Current Visit: No Status: Acute Assessment and plan: -Psychiatry following with recommendations as above. - Subjective Interval history: Patient was drowsy this morning with slow cognition. - Constitutional Vitals: Temp Pulse Resp BP Pulse Ox 97.7 F 56 16 89/53 96 01/28/17 15:47 01/28/17 15:47 01/28/17 15:47 01/28/17 15:47 01/28/17 15:47 General appearance: Present: A&O X 2 (poor memory, some confusion), answers questions appropriately - Respiratory Respiratory exam: Present: CTAB. Absent: accessory muscle use, rales, rhonchi, wheezes - Cardiovascular Cardiovascular exam: Present: RRR, +S1, +S2. Absent: diastolic murmur, gallop, rubs, systolic murmur Internal Medicine: Result - Labs CBC & Chem 7: 01/28/17 09:41 01/28/17 09:41 Labs: Short CBC 01/28/17 Range/Units 09:41 WBC 6.9 (4.3-11.1) K/mcL Hgb 11.9 (11.5-15.4) g/dL Hct 34.7 L (35.3-44.9) % Plt Count 184 (140-400) K/mcL Neutrophils # 2.4 (1.6-8.9) K/mcL BMP 01/28/17 09:41 Sodium 141 Potassium 3.7 Chloride 107 Carbon Dioxide 29 BUN 9 Creatinine 0.75 Glucose 85 Calcium 8.8 - VTE Documentation of Mechanical Device: Graduated compression elastic hosiery Consult Discharge Plan - Plan Referrals: NONE,PCP [Primary Care Provider] -
[2017-01-28] MEDS: *HR* OxyCODONE/APAP 5/325 TABLET PO PRN (23:17)
[2017-01-29] MEDS: Acetaminophen 325 MG TABLET PO PRN ×2 (09:45→18:56)
--- NOTE | 2017-01-29 10:47 | Electrocardiograph Report ---
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
[2017-01-29] MEDS: *HR* OxyCODONE/APAP 5/325 TABLET PO PRN ×2 (14:17→22:23)
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
[2017-01-30] MEDS: Acetaminophen 325 MG TABLET PO PRN ×2 (05:01→09:05)
[2017-01-30 07:47] VITALS: BP 112/61
[2017-01-30] MEDS ORDERED: FLUARIX QUAD 2017-18 36MOS UP/PF 0.5 ML SYRINGE IM ONE (09:33)
== END 2017-01-30 10:38 | disposition home or self-care (01) | DRG 812 ==
LOC: EMEROO 02:46 → 3BNU 02:46 → SUATTDRO 16:55 → 3BNU 17:17 → SUATTDRO 01-27 14:43
PROVIDERS: ADMIT Hospitalist; ATTEND Hospitalist

== ENCOUNTER 2017-02-02 09:09 | Inpatient (IN) ==
[2017-02-02 10:23] LABS: Basophils # 0.1 K/mcL (0.0-0.2); Basophils % 0.6 %; Eosinophils # 0.1 K/mcL (0.0-0.6); Eosinophils % 0.5 %; Hemoglobin 16.2 g/dL (11.5-15.4); Immature Granulocytes % 0.5 % (0-4); Lymphocytes # 4.5 K/mcL (0.6-4.6); Lymphocytes % 40.6 %; Mean Corpuscular HGB Conc 35.2 g/dL (31.6-35.5); Mean Corpuscular Hemoglobin 30.9 pg (28.0-33.3); Mean Corpuscular Volume 87.6 fL (83.0-100.0); Mean Platelet Volume 10.8 fL (9.4-12.4); Monocytes # 1.2 K/mcL (0.0-1.3); Monocytes % 10.7 %; Neutrophils # 5.2 K/mcL (1.6-8.9); Platelet Count 310 K/mcL (140-400); Red Blood Count 5.25 M/mcL (3.82-4.97); Red Cell Distribution Width 12.8 % (11.5-14.5); Segmented Neutrophils % 47.1 %
[2017-02-02 10:35] LABS: BUN/Creatinine Ratio 19 (6-26); Blood Urea Nitrogen 28 mg/dL (7-20); Calcium 10.7 mg/dL (8.6-10.8); Carbon Dioxide 23 mEq/L (19-29); Chloride 103 mEq/L (98-109); Glucose 127 mg/dL (70-99); Osmolality,Calculated 297 (280-300); Potassium 3.6 mEq/L (3.5-4.5); Sodium 140 mEq/L (136-145); eGFR For African Americans 51 (> 60); eGFR For Non-African Americans 42 (> 60)
[2017-02-02 10:36] LABS: Ethanol < 10 mg/dL (0-10); Salicylate < 5.0 mg/dL (15-30)
[2017-02-02 11:37] LABS: Bilirubin,Urine Negative (Negative); Blood,Urine Moderate (Negative); Color,Urine Dark Yellow (Yellow); Glucose,Urine (UA) Normal (Normal); Ketones,Urine Negative (Negative); Leukocyte Esterase,Urine Negative (Negative); Nitrite,Urine Negative (Negative); Protein,Urine 100 mg/dL (Neg-Trace); Specific Gravity,Urine > 1.030 (1.010-1.025); Urobilinogen,Urine Normal (Normal)
[2017-02-02 11:39] LABS: Hyaline Casts,Urine Moderate per lpf (None-Few); Squamous Epithelial Cell,Urine Many per lpf (None-Few); WBC,Urine 15-30 per hpf (0-3)
[2017-02-02 11:40] LABS: Clarity,Urine Clear (Clear)
[2017-02-02 11:43] LABS: Amphetamine Screen,Urine Positive ng/mL (Cutoff=1000); Barbiturate Screen,Urine Negative ng/mL (Cutoff=200); Benzodiazepines Screen,Urine Negative ng/mL (Cutoff=200); Cannabinoid Screen,Urine Positive ng/mL (Cutoff = 50); Cocaine Screen,Urine Negative ng/mL (Cutoff= 300); Opiate Screen,Urine Negative ng/mL (Cutoff=300); Phencyclidine Screen,Urine Negative ng/mL (Cutoff=25)
[2017-02-02 11:46] LABS: Mucus,Urine Moderate (Few)
[2017-02-02 11:47] LABS: Amorphous Sediment,Urine Few (Few); Bacteria,Urine Few per hpf (None-Few)
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
[2017-02-02] MEDS ORDERED: Mag Hydrox/Al Hydrox/Simeth 30 ML UDC PO PRN (18:41)
[2017-02-02] MEDS ORDERED: Haloperidol Lactate 5 MG/ML VIAL IM PRN (18:53)
[2017-02-02] MEDS ORDERED: *HR* LORazepam 2 MG/ML VIAL IM PRN (18:58)
[2017-02-02] MEDS ORDERED: *HR* LORazepam 1 MG TABLET PO PRN (18:58)
[2017-02-02 19:58] LABS: Acetaminophen < 1.0 mcg/mL (10-30)
[2017-02-02] MEDS ORDERED: MOM Conc 10 ML UD.LIQ PO PRN (21:00)
[2017-02-02] MEDS ORDERED: traZODone 50 MG TABLET PO PRN (21:00)
--- NOTE | 2017-02-03 13:45 | Psychiatry History & Physical ---
Date of Encounter: 02/03/17 Time of Encounter: 12:20 History of Present Illness Patient Stated Chief Complaint: "I don't know." Medicare Admission Attestation: For traditional Medicare patients the provided hospital inpatient services are reasonable and necessary and in the case of services not specified as inpatient -only under 42 CFR 419.22 (n), that they are appropriately provided as inpatient services in accordance 42 CFR 412.3. For Critical Access Hospital the patient may reasonably be expected to be discharged or transferred to a hospital within 96 hours after admission to the Critical Access Hospital. Admitted From: Emergency Dept Plans for Post Hospital Care: Home History of Present Illness: Ms. Mack is a 31 year old female with a history of bipolar disorder, multiple psychiatric admissions, polysubstance abuse who presents to the hospital with increasing paranoia and bizarre behavior. Patient reports she does not know exactly what brought her to the hospital but states that she "freaked out" and that somehow she got transported to the hospital. She does admit to using drugs but otherwise is unable to communicate where she has been living for how she has been caring for herself recently. She reports that she does not remember her 3 previous psychiatric hospitalizations here in October, September and November. She was also admitted on the medical floor in January for an overdose attempt that was apparently related to recreational use of drugs rather than an intentional overdose. Patient's thought process is extremely disorganized. At multiple times during the interview she stops speaking and does appear to be responding to internal stimuli. Patient states that she does feel that things are flowing out of her body. She also feels that people are out to get her "efrain." When asked to explain this statement patient states "You just have to learn, know what I mean?" She denies auditory or visual hallucinations and is relatively guarded about questions relating to her mental health history. Past Med Surg Social Fam HX - Past Medical History Medical history: non-contributory - Past Psychiatric History Psychiatric history: Reports: bipolar, prior suicide attempt, previous psychiatric hospitalization, other Past psychiatric history details: History of multiple admissions. History of substance abuse. Family psychiatric history: Yes Family History of Suicide: Unknown - Past Surgical History Surgical History: non-contributory, - Social History Smoking Status: Current every day smoker Smokeless Tobacco Status: No Alcohol use: none Drug use: cocaine, opiates, marijuana, methamphetamine, IV Drug Use Occupational status: unemployed Current living situation: Homeless Activity Level: Independent ambulation - Family History Paternal Grandmother Hx Family Cardiac Disorders: Yes ([place]) Hx Family Respiratory Disorders: No Hx Family Cancer: No Hx Family GI Disorders: No Hx Family Endocrine Disorder: No Hx Family Neuromuscular Disorders: No Hx Family Neurologic Disorders: No Hx Family HEENT Disorders: No Hx Family Autoimmune Disorders: No Medications & Allergies RX: No Known Home Drugs 01/25/17 [History] 3 Allergy/AdvReac Type Severity Reaction Status Date / Time trazodone AdvReac See Verified 12/20/16 11:43 Comments Review of Systems ROS limited: due to patient condition Psychiatric: Reports: anxiety, abnormal sleep pattern, auditory hallucinations, visual hallucinations, confusion, memory loss, difficulty concentrating, irritability Mental Status Exam Patient orientation: Yes Person Level of alertness: Alert Behavior: restless, guarded, suspicious Psychomotor activity: Slowed Eye contact: Diverts Contact Mood description: Euthymic/stable Affect description: flat Speech pattern: Normal rate, Normal rhythm, Normal tone Speech volume: Normal Thought process: Disorganized Thought content: No Suicidal ideation, No Homicidal ideation, Yes Overt delusions, Yes Paranoid delusion Perceptual disturbances: Yes Reacting to internal stimuli, No Auditory hallucinations, No Visual hallucinations Attention span: Unable to Focus, Unable to Sustain Attention Memory description: Grossly Intact Patient reliability: Not Reliable Historian Intelligence estimate: Average Judgment: Poor Insight: None Exam - HEENT Head exam IM: Present: atraumatic - Neurological Neurological exam IM: Present: CN II-XII intact - Extremities Extremities exam IM: Present: full ROM - Skin Skin exam IM: Present: dry, warm Results - Vital Signs Vital signs: Temp Pulse Resp BP Pulse Ox 98.1 F 87 16 91/63 98 02/03/17 09:00 02/03/17 09:00 02/03/17 09:00 02/03/17 09:00 02/02/17 13:36 - Labs Labs: Laboratory Last Values WBC 11.1 K/mcL (4.3-11.1) D 02/02/17 09:35 RBC 5.25 M/mcL (3.82-4.97) H 02/02/17 09:35 Hgb 16.2 g/dL (11.5-15.4) H D 02/02/17 09:35 Hct 46.0 % (35.3-44.9) H 02/02/17 09:35 MCV 87.6 fL (83.0-100.0) 02/02/17 09:35 MCH 30.9 pg (28.0-33.3) 02/02/17 09:35 MCHC 35.2 g/dL (31.6-35.5) 02/02/17 09:35 RDW 12.8 % (11.5-14.5) 02/02/17 09:35 Plt Count 310 K/mcL (140-400) D 02/02/17 09:35 MPV 10.8 fL (9.4-12.4) 02/02/17 09:35 Immature Gran % 0.5 % (0-4) 02/02/17 09:35 Seg Neutrophils % 47.1 % 02/02/17 09:35 Lymphocytes % 40.6 % 02/02/17 09:35 Monocytes % 10.7 % 02/02/17 09:35 Eosinophils % 0.5 % 02/02/17 09:35 Basophils % 0.6 % 02/02/17 09:35 Neutrophils # 5.2 K/mcL (1.6-8.9) 02/02/17 09:35 Lymphocytes # 4.5 K/mcL (0.6-4.6) 02/02/17 09:35 Monocytes # 1.2 K/mcL (0.0-1.3) 02/02/17 09:35 Eosinophils # 0.1 K/mcL (0.0-0.6) 02/02/17 09:35 Basophils # 0.1 K/mcL (0.0-0.2) 02/02/17 09:35 Sodium 140 mEq/L (136-145) 02/02/17 09:35 Potassium 3.6 mEq/L (3.5-4.5) 02/02/17 09:35 Chloride 103 mEq/L (98-109) 02/02/17 09:35 Carbon Dioxide 23 mEq/L (19-29) 02/02/17 09:35 BUN 28 mg/dL (7-20) H 02/02/17 09:35 Creatinine 1.46 mg/dL (0.57-1.11) H 02/02/17 09:35 Est GFR ( Amer) 51 (> 60) L 02/02/17 09:35 Est GFR (Non-Af Amer) 42 (> 60) L 02/02/17 09:35 BUN/Creatinine Ratio 19 (6-26) 02/02/17 09:35 Glucose 127 mg/dL (70-99) H 02/02/17 09:35 Calculated Osmolality 297 (280-300) 02/02/17 09:35 Calcium 10.7 mg/dL (8.6-10.8) 02/02/17 09:35 Urine Color Dark Yellow (Yellow) 02/02/17 11:15 Urine Clarity Clear (Clear) 02/02/17 11:15 Urine pH 6.0 pH Units (5.0-8.0) 02/02/17 11:15 Ur Specific [place] > 1.030 (1.010-1.025) H 02/02/17 11:15 Urine Protein 100 mg/dL (Neg-Trace) H 02/02/17 11:15 Urine Glucose (UA) Normal mg/dL (Normal) 02/02/17 11:15 Urine Ketones Negative mg/dL (Negative) 02/02/17 11:15 Urine Blood Moderate (Negative) H 02/02/17 11:15 Urine Nitrite Negative (Negative) 02/02/17 11:15 Urine Bilirubin Negative (Negative) 02/02/17 11:15 Urine Urobilinogen Normal mg/dL (Normal) 02/02/17 11:15 Ur Leukocyte Esterase Negative (Negative) 02/02/17 11:15 Urine Microscopic RBC 3-5 per hpf (0-3) H 02/02/17 11:15 Urine Microscopic WBC 15-30 per hpf (0-3) H 02/02/17 11:15 Ur Squamous Epith Cells Many per lpf (None-Few) H 02/02/17 11:15 Amorphous Sediment Few (Few) 02/02/17 11:15 Urine Bacteria Few per hpf (None-Few) 02/02/17 11:15 Hyaline Casts Moderate per lpf (None-Few) H 02/02/17 11:15 Urine Mucus Moderate (Few) H 02/02/17 11:15 Salicylates < 5.0 mg/dL (15-30) L 02/02/17 09:35 Urine Opiates Screen Negative ng/mL (Kxmvmq=834) 02/02/17 11:15 Acetaminophen < 1.0 mcg/mL (10-30) L 02/02/17 09:35 Ur Barbiturates Screen Negative ng/mL (Zrxqnp=856) 02/02/17 11:15 Ur Phencyclidine Scrn Negative ng/mL (Cutoff=25) 02/02/17 11:15 Ur Amphetamines Screen Positive ng/mL (Agpopl=4144) H 02/02/17 11:15 U Benzodiazepines Scrn Negative ng/mL (Clhsvr=642) 02/02/17 11:15 Urine Cocaine Screen Negative ng/mL (Cutoff= 300) 02/02/17 11:15 U Marijuana (THC) Screen Positive ng/mL (Cutoff = 50) H 02/02/17 11:15 Ethyl Alcohol < 10 mg/dL (0-10) 02/02/17 09:35 Assessment and Plan (1) Bipolar 1 disorder, mixed, severe Current visit: No Status: Acute Plan: Admit inpatient for safety and stabilization, Close observation, Suicide Precautions per unit protocol, Encourage participation in unit milieu, Group Therapy, Monitor sleep, Monitor appetite Additional Plan: Admit to for psychiatric stabilization. Encourage participation in therapeutic milieu. Monitor sleep and appetite. Restart Invega. Risks, benefits, side effects, alternatives discussed w/pt: Yes Patient agreeable to treatment: Yes Plans for Post Hospital Care: Home Estimated Length of Stay (Days): 3 (2) Polysubstance abuse Current visit: No Status: Acute Plan: Admit inpatient for safety and stabilization, Close observation, Suicide Precautions per unit protocol, Encourage participation in unit milieu, Group Therapy, Monitor sleep, Monitor appetite Additional Plan: As patient improves, we will encourage patient to discontinue drug use because it exacerbates her mental health issues. Monitor for any withdrawal symptoms. Monitor vitals. Encourage outpatient substance abuse treatment. Risks, benefits, side effects, alternatives discussed w/pt: Yes Patient agreeable to treatment: Yes Plans for Post Hospital Care: Home
--- NOTE | 2017-02-04 08:51 | Psychiatry Progress Note ---
Date of Encounter: 02/04/17 Time of Encounter: 08:00 Subjective Interval history: Patient is seen today for follow-up of her psychosis and bipolar disorder. Patient reports that she did sleep some last night. Thought process remains very disorganized and patient has difficulty answering questions. Thought blocking noted during exam. Patient concerned about restarting Invega. She states that the psychiatric medications "make me worse." She feels that the medications "make me hurt." She is unable to give further descriptions and denies muscle tremors or muscle pain. She is willing to try Geodon. Encourage group attendance. Review of Systems Psychiatric: Reports: anxiety, abnormal sleep pattern, auditory hallucinations, visual hallucinations, confusion, memory loss, difficulty concentrating, irritability Objective: Exam Patient orientation: Yes Person, Yes Place Level of alertness: Alert Patient appearance: Unkempt Behavior: calm, guarded Psychomotor activity: Slowed Eye contact: Diverts Contact Mood description: Euthymic/stable Affect description: flat Speech pattern: Slowed Speech volume: Normal Thought process: Disorganized Thought content: No Suicidal ideation, No Homicidal ideation, Yes Paranoid delusion Perceptual disturbances: Yes Reacting to internal stimuli, No Auditory hallucinations, No Visual hallucinations Judgment: Poor Insight: None Results - Vital Signs Vital Signs: Temp Pulse Resp BP Pulse Ox 98.1 F 77 16 99/63 98 02/03/17 20:06 02/03/17 20:06 02/03/17 20:06 02/03/17 20:06 02/02/17 13:36 Assessment and Plan (1) Bipolar 1 disorder, mixed, severe Current visit: No Status: Acute Plan: Continue hospitalization, Close observation, Suicide Precautions per unit protocol, Encourage participation in unit milieu, Group Therapy, Monitor sleep, Monitor appetite Additional Plan: We will start Geodon 40 mg by mouth daily at bedtime. Patient declines start Invega. Continue to monitor behavior. Monitor for medication compliance. Risks, benefits, side effects, alternatives discussed w/pt: Yes Patient agreeable to treatment: Yes (2) Polysubstance abuse Current visit: No Status: Acute Risks, benefits, side effects, alternatives discussed w/pt: Yes Patient agreeable to treatment: Yes Consult Discharge Plan - Plan Referrals: NONE,PCP [Primary Care Provider] -
[2017-02-04] MEDS: Ziprasidone 20 MG CAPSULE PO SCH (21:15)
--- NOTE | 2017-02-05 10:39 | Psychiatry Progress Note ---
Date of Encounter: 02/05/17 Time of Encounter: 09:15 Subjective Interval history: Patient somewhat sleepy and not wanting to converse with this provider today. On the unit patient has been withdrawn most of the time but occasionally will sit with peers to watch TV. Staff have been witnessing her obviously responding to internal stimuli and laughing inappropriately. SHe was hesitant to take notes but apparently did not comply with treatment recommendations. She slept 6 hours last night. Review of Systems Psychiatric: Reports: anxiety, abnormal sleep pattern, auditory hallucinations, visual hallucinations, confusion, memory loss, difficulty concentrating, irritability Objective: Exam Patient orientation: Yes Person Level of alertness: Sedated Patient appearance: Unkempt, Disheveled Behavior: guarded, suspicious Psychomotor activity: Slowed Eye contact: Diverts Contact Mood description: Euthymic/stable Affect description: flat Speech pattern: Normal rhythm, Slowed, Delayed Speech volume: Normal Thought process: Disorganized Thought content: No Suicidal ideation, No Homicidal ideation, Yes Paranoid delusion Perceptual disturbances: Yes Reacting to internal stimuli, No Auditory hallucinations, No Visual hallucinations Judgment: Poor Insight: None Results - Vital Signs Vital Signs: Temp Pulse Resp BP Pulse Ox 97.4 F L 63 16 93/53 98 02/04/17 21:00 02/04/17 21:00 02/04/17 21:00 02/04/17 21:00 02/02/17 13:36 Assessment and Plan (1) Bipolar 1 disorder, mixed, severe Current visit: No Status: Acute Plan: Continue hospitalization, Close observation, Suicide Precautions per unit protocol, Encourage participation in unit milieu, Group Therapy, Monitor sleep, Monitor appetite Additional Plan: Continue Geodon 40 mg by mouth daily at bedtime. Continue to monitor behavior. Monitor for medication compliance. Probate paperwork filled out. Risks, benefits, side effects, alternatives discussed w/pt: Yes Patient agreeable to treatment: Yes (2) Polysubstance abuse Current visit: No Status: Acute Risks, benefits, side effects, alternatives discussed w/pt: Yes Patient agreeable to treatment: Yes Consult Discharge Plan - Plan Referrals: NONE,PCP [Primary Care Provider] -
[2017-02-05] MEDS: Ziprasidone 20 MG CAPSULE PO SCH (20:52)
[2017-02-05] MEDS: Ibuprofen 400 MG TABLET PO PRN (22:35)
--- NOTE | 2017-02-06 10:57 | Psychiatry Progress Note ---
Date of Encounter: 02/06/17 Time of Encounter: 10:45 Subjective Interval history: Patient seen today for follow-up. Slightly more organized today but still withdrawn to her room. She sleeps a lot during the day and then stays up later at night time. Patient does report that Geodon makes her sleepy. Still having some disorganization of thought but some improvement with her thought process. Has still been responding to internal stimuli at times. She is guarded with this provider. Review of Systems Psychiatric: Reports: anxiety, abnormal sleep pattern, auditory hallucinations, confusion, memory loss, difficulty concentrating, irritability Objective: Exam Patient orientation: Yes Person, Yes Place Level of alertness: Alert Patient appearance: Unkempt Behavior: guarded, suspicious Psychomotor activity: Slowed Eye contact: Minimal Contact Mood description: Euthymic/stable Affect description: flat Speech pattern: Slowed Speech volume: Soft/Quiet Thought process: Tangential, Flight of Ideas, [place] Thought content: No Suicidal ideation, No Homicidal ideation, Yes Paranoid delusion Perceptual disturbances: Yes Reacting to internal stimuli, No Auditory hallucinations, No Visual hallucinations Judgment: Limited Insight: Minimal Results - Vital Signs Vital Signs: Temp Pulse Resp BP Pulse Ox 98.4 F 91 18 117/72 98 02/05/17 20:48 02/05/17 20:48 02/05/17 20:48 02/05/17 20:48 02/02/17 13:36 Assessment and Plan (1) Bipolar 1 disorder, mixed, severe Current visit: No Status: Acute Plan: Continue hospitalization, Close observation, Suicide Precautions per unit protocol, Encourage participation in unit milieu, Group Therapy, Monitor sleep, Monitor appetite Additional Plan: We will adjust Geodon to 20 mg by mouth twice a day to try to decrease sedation potentially caused by meds. Also encourage appropriate sleep hygiene. Encourage group attendance. Risks, benefits, side effects, alternatives discussed w/pt: Yes Patient agreeable to treatment: Yes (2) Polysubstance abuse Current visit: No Status: Acute Risks, benefits, side effects, alternatives discussed w/pt: Yes Patient agreeable to treatment: Yes Consult Discharge Plan - Plan Referrals: NONE,PCP [Primary Care Provider] -
[2017-02-06] MEDS: Ibuprofen 400 MG TABLET PO PRN (17:08)
[2017-02-06] MEDS: Ziprasidone 20 MG CAPSULE PO SCH (20:26)
[2017-02-07] MEDS: hydrOXYzine pamoate 25 MG CAPSULE PO PRN ×2 (01:12→21:59)
--- NOTE | 2017-02-07 08:47 | Psychiatry Progress Note ---
Date of Encounter: 02/07/17 Time of Encounter: 09:10 Subjective Interval history: Patient is seen today for follow-up. She is out of her room more this morning. She states that she feels better today. Staff has been witnessing her continuing to respond to internal stimuli. She does report the medication makes her "hurts." However there is no evidence of side effects at this time and patient is not having any kind of muscle spasm or obvious dystonia. We will continue to monitor this. Patient reports that she did not sleep well last night. She denies SI or HI. Thought process is still very disorganized. Review of Systems Psychiatric: Reports: anxiety, abnormal sleep pattern, auditory hallucinations, confusion, memory loss, difficulty concentrating, irritability Objective: Exam Patient orientation: Yes Person, Yes Place Level of alertness: Alert Patient appearance: Unkempt Behavior: guarded Psychomotor activity: Slowed Eye contact: Fleeting Contact Mood description: Euthymic/stable Affect description: flat Speech pattern: Slowed Speech volume: Soft/Quiet Thought process: Disorganized Thought content: No Suicidal ideation, No Homicidal ideation Perceptual disturbances: Yes Reacting to internal stimuli, No Auditory hallucinations, No Visual hallucinations Judgment: Poor Insight: None Results - Vital Signs Vital Signs: Temp Pulse Resp BP Pulse Ox 98.2 F 77 14 98/51 98 02/06/17 19:57 02/06/17 20:23 02/06/17 19:57 02/06/17 20:23 02/02/17 13:36 Assessment and Plan (1) Bipolar 1 disorder, mixed, severe Current visit: No Status: Acute Plan: Continue hospitalization, Close observation, Suicide Precautions per unit protocol, Encourage participation in unit milieu, Group Therapy, Monitor sleep, Monitor appetite Additional Plan: Patient reports allergy to trazodone so this will be discontinued. We will increase Geodon night dose to help with further psychiatric symptoms and continue to monitor closely for side effects. Encourage patient to attend group and unit activities. Encourage patient to shower and attend to ADLs. Risks, benefits, side effects, alternatives discussed w/pt: Yes Patient agreeable to treatment: Yes (2) Polysubstance abuse Current visit: No Status: Acute Risks, benefits, side effects, alternatives discussed w/pt: Yes Patient agreeable to treatment: Yes Consult Discharge Plan - Plan Referrals: NONE,PCP [Primary Care Provider] -
[2017-02-07] MEDS: Ziprasidone 20 MG CAPSULE PO SCH ×2 (08:52→20:11)
[2017-02-07] MEDS: Ibuprofen 400 MG TABLET PO PRN ×2 (12:23→20:28)
[2017-02-08] MEDS: Ziprasidone 20 MG CAPSULE PO SCH ×2 (09:00→20:27)
[2017-02-08] MEDS: Ibuprofen 400 MG TABLET PO PRN ×3 (09:01→20:27)
--- NOTE | 2017-02-08 11:04 | Psychiatry Progress Note ---
Date of Encounter: 02/08/17 Time of Encounter: 10:36 Subjective Interval history: Patient seen and interviewed. History and physical examination is reviewed. Patient continued to make progress. Becoming more clear and coherent. ADLs are still poor. Patient is encouraged to shower and start taking care of herself. She is spending more time outside her room and is engaging with patients appropriately. I encouraged her to attend groups and participate in activities. Tolerating medication changes fairly well. Denies any psychotic symptoms. Denying any suicidal or homicidal ideation still endorsing some depression and hopelessness feelings. I encouraged her to work on a safety plan. Review of Systems Psychiatric: Reports: anxiety, abnormal sleep pattern, difficulty concentrating Objective: Exam Patient orientation: Yes Person, Yes Time, Yes Place Level of alertness: Alert Patient appearance: Unkempt, Disheveled Behavior: calm, cooperative Psychomotor activity: Slowed Eye contact: Maintains Eye Contact Mood description: Euthymic/stable Affect description: constricted, dysphoric Speech pattern: Normal rate, Normal rhythm, Normal tone Speech volume: Soft/Quiet Thought process: Linear, Goal Oriented Thought content: No Suicidal ideation, No Homicidal ideation, No Overt delusions Perceptual disturbances: No Auditory hallucinations, No Visual hallucinations Judgment: Limited Insight: Minimal Results - Vital Signs Vital Signs: Temp Pulse Resp BP Pulse Ox 97.2 F L 90 16 97/57 98 02/08/17 09:00 02/08/17 09:00 02/08/17 09:00 02/08/17 09:00 02/02/17 13:36 Assessment and Plan (1) Bipolar 1 disorder, mixed, severe Current visit: No Status: Acute Plan: Continue hospitalization, Close observation, Suicide Precautions per unit protocol, Encourage participation in unit milieu, Group Therapy, Monitor sleep, Monitor appetite Additional Plan: Continue with current regime of medications. Patient is awaiting placement. Hopefully patient will be returning back to [facility] around beginning of next week Risks, benefits, side effects, alternatives discussed w/pt: Yes Patient agreeable to treatment: Yes (2) Polysubstance abuse Current visit: No Status: Acute Plan: Continue hospitalization, Close observation, Suicide Precautions per unit protocol, Encourage participation in unit milieu, Group Therapy, Monitor sleep, Monitor appetite Risks, benefits, side effects, alternatives discussed w/pt: Yes Patient agreeable to treatment: Yes Consult Discharge Plan - Plan Referrals: NONE,PCP [Primary Care Provider] -
[2017-02-08] MEDS: hydrOXYzine pamoate 25 MG CAPSULE PO PRN (22:25)
[2017-02-09] MEDS: Ziprasidone 20 MG CAPSULE PO SCH ×2 (09:15→20:38)
[2017-02-09] MEDS: Ibuprofen 400 MG TABLET PO PRN ×2 (09:46→15:45)
--- NOTE | 2017-02-09 11:03 | Psychiatry Progress Note ---
Date of Encounter: 02/09/17 Time of Encounter: 10:47 Subjective Interval history: Patient seen and interviewed. Reporting doing fairly well patient has pretty much returned to her baseline level. Denies any suicidal or homicidal ideations. No overt psychotic or manic symptoms. Reporting of feeling restlessness and legs. Patient did benefit from Neurontin in the past for the similar complaints. She is requesting to be put back on Neurontin. Social and engaged. Overall stable. Awaiting placement. Review of Systems Psychiatric: Reports: anxiety, difficulty concentrating Objective: Exam Patient orientation: Yes Person, Yes Time, Yes Place Level of alertness: Alert Patient appearance: Appropriate, Well Groomed Behavior: nervous, anxious Psychomotor activity: Normal Eye contact: Maintains Eye Contact Mood description: Anxious Affect description: congruent with mood, constricted Speech pattern: Normal rate, Normal rhythm, Normal tone Speech volume: Normal Thought process: Linear, Goal Oriented Thought content: No Suicidal ideation, No Homicidal ideation, No Overt delusions Perceptual disturbances: No Auditory hallucinations, No Visual hallucinations Judgment: Fair Insight: Partial Results - Vital Signs Vital Signs: Temp Pulse Resp BP Pulse Ox 97.9 F 109 16 97/48 98 02/08/17 20:18 02/08/17 20:18 02/08/17 20:18 02/08/17 20:18 02/02/17 13:36 Assessment and Plan (1) Bipolar 1 disorder, mixed, severe Current visit: No Status: Acute Plan: Continue hospitalization, Close observation, Suicide Precautions per unit protocol, Encourage participation in unit milieu, Group Therapy, Monitor sleep, Monitor appetite Additional Plan: We will start Neurontin for restlessness and also for mood stabilization Risks, benefits, side effects, alternatives discussed w/pt: Yes Patient agreeable to treatment: Yes (2) Polysubstance abuse Current visit: No Status: Acute Risks, benefits, side effects, alternatives discussed w/pt: Yes Patient agreeable to treatment: Yes Consult Discharge Plan - Plan Referrals: NONE,PCP [Primary Care Provider] -
[2017-02-09] MEDS: Gabapentin 300 MG CAPSULE PO SCH ×2 (14:40→20:38)
[2017-02-09] MEDS: hydrOXYzine pamoate 25 MG CAPSULE PO PRN (22:08)
[2017-02-10] MEDS: Gabapentin 300 MG CAPSULE PO SCH ×3 (09:19→20:31)
[2017-02-10] MEDS: Ziprasidone 20 MG CAPSULE PO SCH ×2 (09:20→20:32)
[2017-02-10] MEDS: Ibuprofen 400 MG TABLET PO PRN ×3 (10:57→23:00)
--- NOTE | 2017-02-10 13:26 | Psychiatry Progress Note ---
Date of Encounter: 02/10/17 Time of Encounter: 13:00 Subjective Interval history: Patient seen for follow-up. Staff reports she is alert and compliant with his medication but still showing episodes of confusion and repeated speech. She asked me to prescribe baclofen that she was discharged on from previous admission and apparently she missed her outpatient appointment and could not get refills on medication. She denied any suicidal thoughts or hallucinations and poorly focused on her discharge plans. Speech is tangential and poorly organized. Discharge planning issues addressed by social work. Review of Systems Psychiatric: Reports: anxiety, difficulty concentrating Objective: Exam Patient orientation: Yes Person, Yes Time, Yes Place Level of alertness: Alert, Sedated Patient appearance: Appropriate, Well Groomed Behavior: calm, cooperative Psychomotor activity: Normal Eye contact: Maintains Eye Contact Mood description: Euthymic/stable Affect description: congruent with mood, euthymic Speech pattern: Normal rate, Normal rhythm, Normal tone, Disorganized, Repetitive Speech volume: Normal Thought process: Linear, Circumstantial, Tangential Thought content: No Suicidal ideation, No Homicidal ideation, No Overt delusions Perceptual disturbances: No Auditory hallucinations, No Visual hallucinations Judgment: Fair Insight: Partial Results - Vital Signs Vital Signs: Temp Pulse Resp BP Pulse Ox 97.6 F 72 16 91/56 98 02/10/17 09:00 02/10/17 09:00 02/10/17 09:00 02/10/17 09:00 02/02/17 13:36 Assessment and Plan (1) Bipolar 1 disorder, mixed, severe Current visit: No Status: Acute Plan: Continue hospitalization, Close observation, Suicide Precautions per unit protocol, Encourage participation in unit milieu, Group Therapy, Monitor sleep, Monitor appetite Additional Plan: Order baclofen 10 mg 3 times a day Risks, benefits, side effects, alternatives discussed w/pt: Yes Patient agreeable to treatment: Yes Consult Discharge Plan - Plan Referrals: NONE,PCP [Primary Care Provider] -
[2017-02-10] MEDS: Baclofen 10 MG TABLET PO SCH ×2 (14:03→20:31)
[2017-02-10] MEDS: hydrOXYzine pamoate 25 MG CAPSULE PO PRN (20:31)
[2017-02-11] MEDS: Ziprasidone 20 MG CAPSULE PO SCH ×2 (09:22→20:38)
[2017-02-11] MEDS: Gabapentin 300 MG CAPSULE PO SCH ×3 (09:22→20:38)
[2017-02-11] MEDS: Baclofen 10 MG TABLET PO SCH ×3 (09:22→20:38)
--- NOTE | 2017-02-11 11:06 | Psychiatry Progress Note ---
Date of Encounter: 02/11/17 Time of Encounter: 10:35 Subjective Interval history: Patient was seen for follow-up with the medical social worker and to discuss discharge plans. heating worker explained to patient that currently no defined placement is available for safe discharge. heating worker is working on contacting individuals who can support patient after discharge. Patient was lethargic and sleepy and unable to understand discharge planning options and follow-up plans at this time despite repeated explanation. She is unable to decide where to go after discharge. She is improving but cognitively having difficulty understanding options and consequences. She was educated about compliance with medication and appointments and not using drugs to improve her ability to function. She is tolerating her medication and denies any side effects. Discharge planning will continue. Review of Systems Psychiatric: Reports: anxiety, difficulty concentrating Objective: Exam Patient orientation: Yes Person, Yes Time, Yes Place Level of alertness: Alert, Sedated Patient appearance: Appropriate, Unkempt Behavior: calm, cooperative, other (Lethargic) Psychomotor activity: Slowed Eye contact: Minimal Contact Mood description: Euthymic/stable Affect description: congruent with mood, blunted Speech pattern: Normal rate, Normal rhythm, Normal tone, Limited, Slurred Speech volume: Soft/Quiet Thought process: Linear, Circumstantial Thought content: No Suicidal ideation, No Homicidal ideation, No Overt delusions Perceptual disturbances: No Auditory hallucinations, No Visual hallucinations Judgment: Fair Insight: Partial Results - Vital Signs Vital Signs: Temp Pulse Resp BP Pulse Ox 97.9 F 94 14 93/63 98 02/11/17 09:00 02/11/17 09:00 02/11/17 09:00 02/11/17 09:00 02/02/17 13:36 Assessment and Plan (1) Bipolar 1 disorder, mixed, severe Current visit: No Status: Acute Plan: Continue hospitalization, Close observation, Suicide Precautions per unit protocol, Encourage participation in unit milieu, Group Therapy, Monitor sleep, Monitor appetite Risks, benefits, side effects, alternatives discussed w/pt: Yes Patient agreeable to treatment: Yes Consult Discharge Plan - Plan [facility] 3:00 pm (The above appointment is with Baylee Edwards for mental health and substance abuse counseling services. You will also see Dr. Terrell for outpatient psychiatric assessment and medication management services on 03/21/2017 at 11:[address] Terrell's first available appointment. You may contact the office regularly to check for cancellations that may allow you to be seen sooner.) [facility] [place] [Outside] - 02/14/17 10:15 am (The above appointment is with Antonino Espinosa for Vivitrol assessmentd and treated as indicated as well. Please arrive 15 minutes early for your new patient appointment, and bring the following items with you: insurance card, photo ID, any medication you take in the original bottles. If you are unable to keep this appointment, 24 hour business notice of cancellation is expected. )
[2017-02-11] MEDS: Ibuprofen 400 MG TABLET PO PRN ×2 (12:43→18:47)
[2017-02-11] MEDS: hydrOXYzine pamoate 25 MG CAPSULE PO PRN (22:30)
[2017-02-12] MEDS: Ziprasidone 20 MG CAPSULE PO SCH ×2 (08:35→20:09)
[2017-02-12] MEDS: Gabapentin 300 MG CAPSULE PO SCH ×3 (08:35→20:10)
[2017-02-12] MEDS: Baclofen 10 MG TABLET PO SCH ×3 (08:35→20:10)
[2017-02-12] MEDS: Ibuprofen 400 MG TABLET PO PRN ×2 (12:12→18:51)
--- NOTE | 2017-02-12 16:22 | Psychiatry Progress Note ---
Date of Encounter: 02/12/17 Time of Encounter: 16:00 Subjective Interval history: Patient seen for follow-up with the sr. social media & mobile manager. plant care worker explained patient's options available for discharge and importance OF compliance with treatments and maintaining sobriety in order for her to have her life back. I assured patient importance of treatment and how drugs can affect someone's judgment and cognition. Patient tried to explain her history of substance abuse and family history , her speech was more logical and organized although she had difficulty with names and times and apologized for not being able to give the specifics information she is aware that she had a cognitive deficits resulting from using drugs but she is motivated to get the help and work on having independent life. She is showing more insight however her cognitive deficits are likely to persist and as discussed with the treatment team may need down the line to have guardianship. She is more alert and denied any problem with medication and discharge plans are ongoing. Review of Systems Psychiatric: Reports: anxiety, difficulty concentrating Objective: Exam Patient orientation: Yes Person, Yes Time, Yes Place Level of alertness: Alert Patient appearance: Appropriate, Well Groomed Behavior: calm, cooperative, talkative, withdrawn Psychomotor activity: Normal Eye contact: Maintains Eye Contact Mood description: Euthymic/stable, Depressed Affect description: congruent with mood, blunted Speech pattern: Normal rate, Normal rhythm, Normal tone, Impoverished Speech volume: Normal Thought process: Linear, Goal Oriented, Circumstantial, Tangential, Thought Blocking Thought content: No Suicidal ideation, No Homicidal ideation, No Overt delusions Perceptual disturbances: No Auditory hallucinations, No Visual hallucinations Judgment: Fair Insight: Partial Results - Vital Signs Vital Signs: Temp Pulse Resp BP Pulse Ox 97.4 F L 103 16 92/64 98 02/12/17 08:48 02/12/17 08:48 02/12/17 08:48 02/12/17 08:48 02/02/17 13:36 Assessment and Plan (1) Bipolar 1 disorder, mixed, severe Current visit: No Status: Acute Plan: Continue hospitalization, Close observation, Suicide Precautions per unit protocol, Encourage participation in unit milieu, Group Therapy, Monitor sleep, Monitor appetite Risks, benefits, side effects, alternatives discussed w/pt: Yes Patient agreeable to treatment: Yes Consult Discharge Plan - Plan Referrals: [facility] [Outside] - 02/13/17 3:00 pm (The above appointment is with Baylee Edwards for mental health and substance abuse counseling services. You will also see Dr. Terrell for outpatient psychiatric assessment and medication management services on 03/21/2017 at 11:[address] Terrell's first available appointment. You may contact the office regularly to check for cancellations that may allow you to be seen sooner.) [facility] [place] [Outside] - 02/14/17 10:15 am (The above appointment is with Antonino Espinosa for Vivitrol assessmentd and treated as indicated as well. Please arrive 15 minutes early for your new patient appointment, and bring the following items with you: insurance card, photo ID, any medication you take in the original bottles. If you are unable to keep this appointment, 24 hour business notice of cancellation is expected. )
[2017-02-12] MEDS: hydrOXYzine pamoate 25 MG CAPSULE PO PRN (21:55)
[2017-02-13] MEDS: Ziprasidone 20 MG CAPSULE PO SCH ×2 (08:05→21:18)
[2017-02-13] MEDS: Baclofen 10 MG TABLET PO SCH ×3 (08:05→21:19)
[2017-02-13] MEDS: Gabapentin 300 MG CAPSULE PO SCH ×3 (08:06→21:18)
--- NOTE | 2017-02-13 15:58 | Psychiatry Progress Note ---
Date of Encounter: 02/13/17 Time of Encounter: 15:30 Subjective Interval history: Patient is seen for follow-up. Today she had contact with 2 agencies regarding her discharge and placement. She is not able to explain to me what question or discussion she had with those agencies and she apologizes for being confused. Otherwise she is anxious to be discharged and bored about being in hospitals. She denied any problem with sleep, compliant with his medication, more alert and recall forward to be discharged. fountain worker is working on plans for discharge as early as tomorrow. Review of Systems Psychiatric: Reports: anxiety, difficulty concentrating Objective: Exam Patient orientation: Yes Person, Yes Time, Yes Place Level of alertness: Alert Patient appearance: Appropriate, Well Groomed Behavior: calm, cooperative Psychomotor activity: Normal Eye contact: Maintains Eye Contact Mood description: Euthymic/stable, Anxious Affect description: congruent with mood, constricted Speech pattern: Normal rate, Normal rhythm, Normal tone, Limited, Difficulty finding words Speech volume: Normal Thought process: Linear, Goal Oriented Thought content: No Suicidal ideation, No Homicidal ideation, No Overt delusions Perceptual disturbances: No Auditory hallucinations, No Visual hallucinations Judgment: Fair Insight: Partial Results - Vital Signs Vital Signs: Temp Pulse Resp BP Pulse Ox 98.6 F 49 16 100/50 98 02/13/17 09:00 02/13/17 09:00 02/13/17 09:00 02/13/17 09:00 02/02/17 13:36 Assessment and Plan (1) Bipolar 1 disorder, mixed, severe Current visit: No Status: Acute Plan: Continue hospitalization, Close observation, Suicide Precautions per unit protocol, Encourage participation in unit milieu, Group Therapy, Monitor sleep, Monitor appetite Risks, benefits, side effects, alternatives discussed w/pt: Yes Patient agreeable to treatment: Yes Consult Discharge Plan - Plan [facility] (The above appointment is with Balyee Edwards for mental health and substance abuse counseling services. You will also see Dr. Terrell for outpatient psychiatric assessment and medication management services on 03/21/2017 at 11:[address] Terrell's first available appointment. You may contact the office regularly to check for cancellations that may allow you to be seen sooner.) [facility] [place] [Outside] - 02/17/17 9:15 am (The above appointment is with Antonino Espinosa for Vivitrol assessment and treated as indicated as well. Please arrive 15 minutes early for your new patient appointment, and bring the following items with you: insurance card, photo ID, any medication you take in the original bottles. If you are unable to keep this appointment, 24 hour business notice of cancellation is expected. )
[2017-02-13] MEDS: Ibuprofen 400 MG TABLET PO PRN (21:18)
[2017-02-13] MEDS: hydrOXYzine pamoate 25 MG CAPSULE PO PRN (21:19)
--- NOTE | 2017-02-14 09:08 | Discharge Summary ---
Date of Encounter: 02/14/17 Time of Encounter: 09:02 Diagnosis - Discharge Diagnosis (1) Bipolar 1 disorder, mixed, severe Status: Acute (2) Polysubstance abuse Status: Acute Medications - Discharge Medications Prescriptions: Baclofen [Lioresal] 10 mg PO TID #90 tablet Gabapentin [Neurontin] 300 mg PO TID #90 capsule Ziprasidone [Geodon] 20 mg PO QAM #30 capsule Ziprasidone [Geodon] 40 mg PO HS #30 capsule Baclofen [Lioresal] 10 mg PO TID #90 tablet 02/14/17 [Rx] Gabapentin [Neurontin] 300 mg PO TID #90 capsule 02/14/17 [Rx] Ziprasidone [Geodon] 20 mg PO QAM #30 capsule 02/14/17 [Rx] Ziprasidone [Geodon] 40 mg PO HS #30 capsule 02/14/17 [Rx] 3 Allergy/AdvReac Type Severity Reaction Status Date / Time trazodone AdvReac See Verified 12/20/16 11:43 Comments Provider Date of admission: 02/02/17 13:53 Primary care physician: PCP NONE Discharging clinician: Jonh Dougherty Assessment and Plan - Patient/Caregiver Discharge Instructions Activity: resume usual activities as tolerated Diet: regular diet Additional Instructions: You are going to [place] [id number], for sober living and continuation of your [facility] and substance abuse treatment services. - Follow up Plan Follow up with: [facility] [Outside] - 03/21/17 11:30 am (The above appointment is with Dr. Terrell for outpatient psychiatric assessment and medication management services. This is Dr. Terrell's first available appointment. You may contact the office regularly to check for cancellations that may allow you to be seen sooner.) [facility] [Outside] - 02/17/17 9:15 am (The above appointment is with Antonino Espinosa for Vivitrol assessment and treated as indicated as well. Please arrive 15 minutes early for your new patient appointment, and bring the following items with you: insurance card, photo ID, any medication you take in the original bottles. If you are unable to keep this appointment, 24 hour business notice of cancellation is expected. ) Functional capacity at discharge: independent ambulation Overall status at discharge: Stable Disposition: Home, Self-Care Hospital Course Hospital course: Ms. Mack is a 31 year old female admitted for treatment of bipolar disorder and polysubstance abuse. for details of admission please see H&P On the units patient has not complicated and difficult course of hospitalization. Initially she was shown significant degree of confusion and delusions and problem was sleep. As she started on her medication she started improving and became more alert and organized she was sleeping longer hours later on this improved and she was more alert and active, she participated in some activities. It was noted that patient cognitive processing information is very poor and slow and this has been consistent from previous admissions and regarding this issue I would recommend exploring guardianship in the near future to help patient with decisions and as a safety plan. As discussed with treatment team also I would recommend assigning a payee if she collects benefits. Prior to discharge patient was medically stable, alert and oriented, denied any suicidal ideation, denied any hallucinations. Her speech is organized and logical and no delusional. She was educated about compliance with treatment and sobriety from drugs. Her insight is limited and she needs more community resources to support her. Discharge plans and placement were very challenging the social sciences instructor due to the patient's long history of noncompliance. - Time Spent with Patient Total time spent providing and/or coordinating discharge services: Less than 30 minutes Quality - Multiple Antipsychotics Patient discharged on 2 or more antipsychotic medications: No Procedures - Procedures Procedures: Medication Management, Crisis Stabilization, Supportive Therapy, Group Therapy, Psychoeducational Therapy Mental Status Exam - Mental Status Exam Patient orientation: Yes Person, Yes Time, Yes Place Level of alertness: Alert Patient appearance: Appropriate, Well Groomed Behavior: calm, cooperative Psychomotor activity: Normal Eye contact: Maintains Eye Contact Mood description: Euthymic/stable Affect description: congruent with mood, full range Speech pattern: Normal rate, Normal rhythm, Normal tone, Clear, Difficulty finding words Speech Volume: Normal Thought process: Linear, Goal Oriented Thought Content: No Suicidal ideation, No Homicidal ideation, No Overt delusions Perceptual Disturbances: No Auditory hallucinations, No Visual hallucinations Judgment: Limited Insight: Partial
[2017-02-14] MEDS: Gabapentin 300 MG CAPSULE PO SCH (09:17)
[2017-02-14] MEDS: Ziprasidone 20 MG CAPSULE PO SCH (09:17)
[2017-02-14] MEDS: Baclofen 10 MG TABLET PO SCH (09:18)
[2017-02-14 11:25] VITALS: BP 121/64
== END 2017-02-14 11:00 | disposition home or self-care (01) | DRG 753 ==
LOC: EMEROO 09:09 → 1ANU 13:53 → SUATTDRO 13:53 → 1ANU 14:17
PROVIDERS: ADMIT Psychiatry & Neurology Psychiatry; ATTEND Psychiatry & Neurology Psychiatry

== ENCOUNTER 2017-02-20 04:56 | Inpatient (IN) ==
--- NOTE | 2017-02-20 06:08 | Emergency Department Note ---
START Narrative - START START: I examined this patient and my medical decision-making was reviewed with the Resident Physician. I agree with the documented findings, disposition and treatment plan as described except to the extent set forth below. 31-year-old female presents to emergency room with psychosis. Patient was brought in via ambulance. Patient admits to using crystal meth earlier. Patient is unable to tell me where she [place] where she sat. Patient is seeing things in the room that are not there. She has a history of psychosis. We will do a psychiatric workup and consult with psych. She does not appear to be in any danger any harm at this point. She is in no distress. Patient seems very paranoid. She is hearing voices and seeing images in the room that are not there.
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
--- NOTE | 2017-02-20 07:14 | Emergency Department Note ---
START Narrative - START START: START: Patient received in sign out from the department emergency medicine attending Dr. Jensen at 0700. Where I assumed care of this patient along with senior emergency medicine resident Miguel Riggs. Patient was initially evaluated by Yovani Patterson please see copy of his notes for details of the H&P and ED evaluation. Patient is currently awaiting medical clearance and then [facility] evaluation for disposition. Disposition pending I examined this patient and my medical decision-making was reviewed with the emergency medicine resident. I agree with the documented findings, disposition and treatment plan as described except to the extent set forth below. Patient seen with emergency medicine resident Dr. Miguel Riggs, Please see a copy of his note for details of the H&P, ED evaluation, management and disposition. I have independently evaluated the patient and confirmed appropriate portions of the history and physical exam.
[2017-02-20 07:38] LABS: Basophils % 0.4 %; Eosinophils % 0.1 %; Hematocrit 35.8 % (35.3-44.9); Hemoglobin 12.4 g/dL (11.5-15.4); Immature Granulocytes % 0.3 % (0-4); Immature Platelets 5.1 % (1.1-6.1); Lymphocytes # 2.6 K/mcL (0.6-4.6); Mean Corpuscular HGB Conc 34.6 g/dL (31.6-35.5); Mean Corpuscular Hemoglobin 30.8 pg (28.0-33.3); Mean Corpuscular Volume 89.1 fL (83.0-100.0); Mean Platelet Volume 10.2 fL (9.4-12.4); Monocytes # 0.5 K/mcL (0.0-1.3); Monocytes % 6.3 %; Neutrophils # 4.8 K/mcL (1.6-8.9); Platelet Count 279 K/mcL (140-400); Red Blood Count 4.02 M/mcL (3.82-4.97); Red Cell Distribution Width 12.8 % (11.5-14.5); Segmented Neutrophils % 59.9 %
[2017-02-20] MEDS ORDERED: 0.9 % Sodium Chloride 1,000 ML IVC ONE (07:39)
[2017-02-20 07:53] LABS: Alanine Aminotransferase 14 Units/L (0-55); Albumin 4.3 g/dL (3.5-5.0); Albumin/Globulin Ratio 1.2 (1.1-2.2); Alkaline Phosphatase 51 Units/L (38-126); Aspartate Amino Transferase 15 Units/L (5-34); BUN/Creatinine Ratio 20 (6-26); Bilirubin,Direct 0.5 mg/dL (0.0-0.5); Bilirubin,Total 1.5 mg/dL (0.2-1.2); Blood Urea Nitrogen 17 mg/dL (7-20); Calcium 9.8 mg/dL (8.6-10.8); Carbon Dioxide 25 mEq/L (19-29); Chloride 107 mEq/L (98-109); Globulin 3.5 g/dL (2.4-3.5); Glucose 101 mg/dL (70-99); Osmolality,Calculated 296 (280-300); Potassium 3.6 mEq/L (3.5-4.5); Sodium 142 mEq/L (136-145); Total Protein 7.8 g/dL (6.0-8.3); eGFR For African Americans > 60 (> 60); eGFR For Non-African Americans > 60 (> 60)
[2017-02-20 07:54] LABS: Acetaminophen < 1.0 mcg/mL (10-30); Ethanol < 10 mg/dL (0-10); Salicylate < 5.0 mg/dL (15-30)
[2017-02-20 08:51] LABS: Bilirubin,Urine Small (Negative); Blood,Urine Negative (Negative); Color,Urine Dark Yellow (Yellow); Glucose,Urine (UA) Normal (Normal); Ketones,Urine Negative (Negative); Leukocyte Esterase,Urine Negative (Negative); Nitrite,Urine Negative (Negative); PH,Urine 6.5 pH Units (5.0-8.0); Protein,Urine Trace mg/dL (Neg-Trace); Specific Gravity,Urine > 1.030 (1.010-1.025); Urobilinogen,Urine Normal (Normal)
[2017-02-20 08:52] LABS: Amphetamine Screen,Urine Positive ng/mL (Cutoff=1000); Barbiturate Screen,Urine Negative ng/mL (Cutoff=200); Benzodiazepines Screen,Urine Negative ng/mL (Cutoff=200); Cannabinoid Screen,Urine Negative ng/mL (Cutoff = 50); Cocaine Screen,Urine Positive ng/mL (Cutoff= 300); Opiate Screen,Urine Negative ng/mL (Cutoff=300); Phencyclidine Screen,Urine Negative ng/mL (Cutoff=25)
[2017-02-20 08:54] LABS: Bacteria,Urine None Seen per hpf (None-Few); Hyaline Casts,Urine None Seen per lpf (None-Few); RBC,Urine 0-3 per hpf (0-3); Squamous Epithelial Cell,Urine Many per lpf (None-Few)
[2017-02-20 08:55] LABS: Clarity,Urine Slightly Hazy (Clear)
[2017-02-20] MEDS ORDERED: Haloperidol Lactate 5 MG/ML VIAL IM ONE (09:03)
[2017-02-20] MEDS ORDERED: *HR* LORazepam 2 MG/ML VIAL IM STA (09:04)
[2017-02-20] MEDS ORDERED: Nicotine 2 MG GUM BC PRN (20:59)
[2017-02-20] MEDS ORDERED: *HR* LORazepam 1 MG TABLET PO PRN (20:59)
[2017-02-20] MEDS ORDERED: traZODone 50 MG TABLET PO PRN (20:59)
[2017-02-20] MEDS ORDERED: Mag Hydrox/Al Hydrox/Simeth 30 ML UDC PO PRN (20:59)
[2017-02-20] MEDS ORDERED: *HR* LORazepam 2 MG/ML VIAL IM PRN (20:59)
[2017-02-20] MEDS ORDERED: MOM Conc 10 ML UD.LIQ PO PRN (20:59)
[2017-02-20] MEDS ORDERED: Haloperidol Lactate 5 MG/ML VIAL IM PRN (20:59)
[2017-02-20] MEDS: Ziprasidone 20 MG CAPSULE PO SCH (22:28)
[2017-02-20] MEDS: Baclofen 10 MG TABLET PO SCH (22:29)
[2017-02-20] MEDS: hydrOXYzine pamoate 25 MG CAPSULE PO PRN (22:32)
[2017-02-21] MEDS: Ziprasidone 20 MG CAPSULE PO SCH ×2 (08:50→20:41)
[2017-02-21] MEDS: Gabapentin 300 MG CAPSULE PO SCH ×3 (08:50→20:41)
[2017-02-21] MEDS: Baclofen 10 MG TABLET PO SCH ×3 (08:50→20:42)
--- NOTE | 2017-02-21 11:39 | Psychiatry History & Physical ---
Date of Encounter: 02/21/17 Time of Encounter: 11:33 History of Present Illness Patient Stated Chief Complaint: Hallucination and suicidal ideation Medicare Admission Attestation: For traditional Medicare patients the provided hospital inpatient services are reasonable and necessary and in the case of services not specified as inpatient -only under 42 CFR 419.22 (n), that they are appropriately provided as inpatient services in accordance 42 CFR 412.3. For [facility] the patient may reasonably be expected to be discharged or transferred to a hospital within 96 hours after admission to the [facility]. Admitted From: Emergency Dept History of Present Illness: Ms. Mack is a 31 year old female admitted from the emergency room for hallucination and suicidal ideation. Patient was recently discharged from this unit less than a week ago, apparently she did not stay at the facility and relapsed into using cocaine and amphetamine she lost her medication and was brought by EMS to the emergency room. Patient has diagnosis of bipolar disorder and substance abuse and had several admission in the last 6 months, and consistently did not comply with follow-up or medication. And she continue to abuse drugs including meth, cocaine, THC and others. She reports feeling hopeless and helpless. Past Med Surg Social Fam HX - Past Medical History Medical history: non-contributory - Past Psychiatric History Psychiatric history: Reports: bipolar, previous psychiatric hospitalization Past psychiatric history details: Discharge from 1 a on 02/14/2017. - Past Surgical History Surgical History: non-contributory, - Social History Smoking Status: Current every day smoker Smokeless Tobacco Status: No Alcohol use: none Drug use: cocaine, opiates, marijuana, methamphetamine, IV Drug Use - Family History Paternal Grandmother Hx Family Cardiac Disorders: Yes (MS) Hx Family Respiratory Disorders: No Hx Family Cancer: No Hx Family GI Disorders: No Hx Family Endocrine Disorder: No Hx Family Neuromuscular Disorders: No Hx Family Neurologic Disorders: No Hx Family HEENT Disorders: No Hx Family Autoimmune Disorders: No Medications & Allergies Baclofen [Lioresal] 10 mg PO TID #90 tablet 02/14/17 [Rx] Ziprasidone [Geodon] 20 mg PO QAM #30 capsule 02/14/17 [Rx] Ziprasidone [Geodon] 40 mg PO HS #30 capsule 02/14/17 [Rx] 3 Allergy/AdvReac Type Severity Reaction Status Date / Time trazodone AdvReac See Verified 12/20/16 11:43 Comments Review of Systems Psychiatric: Reports: suicidal ideation, auditory hallucinations, hopelessness Mental Status Exam Patient orientation: Yes Person, Yes Time, Yes Place Level of alertness: Alert, Sedated Patient appearance: Appropriate, Unkempt, Disheveled Behavior: calm, cooperative, withdrawn Psychomotor activity: Slowed Eye contact: Minimal Contact Mood description: Euthymic/stable, Depressed Affect description: congruent with mood, dysphoric Speech pattern: Normal rate, Normal rhythm, Normal tone, Slurred, Mumbled Speech volume: Normal Thought process: Linear, Goal Oriented Thought content: Yes Suicidal ideation, No Homicidal ideation, No Overt delusions Perceptual disturbances: Yes Auditory hallucinations, No Visual hallucinations Attention span: Capable of Focused Attention Memory description: Grossly Intact Patient reliability: Reliable Historian Intelligence estimate: Average Judgment: Limited Insight: Partial Results - Vital Signs Vital signs: Temp Pulse Resp BP Pulse Ox 97.5 F L 121 14 99/64 96 02/21/17 09:24 02/21/17 09:24 02/21/17 09:24 02/21/17 09:24 02/20/17 12:27 - Labs Labs: Laboratory Last Values WBC 7.9 K/mcL (4.3-11.1) 02/20/17 07:21 RBC 4.02 M/mcL (3.82-4.97) 02/20/17 07:21 Hgb 12.4 g/dL (11.5-15.4) 02/20/17 07:21 Hct 35.8 % (35.3-44.9) 02/20/17 07:21 MCV 89.1 fL (83.0-100.0) 02/20/17 07:21 MCH 30.8 pg (28.0-33.3) 02/20/17 07:21 MCHC 34.6 g/dL (31.6-35.5) 02/20/17 07:21 RDW 12.8 % (11.5-14.5) 02/20/17 07:21 Plt Count 279 K/mcL (140-400) 02/20/17 07:21 MPV 10.2 fL (9.4-12.4) 02/20/17 07:21 Immature Gran % 0.3 % (0-4) 02/20/17 07:21 Seg Neutrophils % 59.9 % 02/20/17 07:21 Lymphocytes % 33.0 % 02/20/17 07:21 Monocytes % 6.3 % 02/20/17 07:21 Eosinophils % 0.1 % 02/20/17 07:21 Basophils % 0.4 % 02/20/17 07:21 Neutrophils # 4.8 K/mcL (1.6-8.9) 02/20/17 07:21 Lymphocytes # 2.6 K/mcL (0.6-4.6) 02/20/17 07:21 Monocytes # 0.5 K/mcL (0.0-1.3) 02/20/17 07:21 Eosinophils # 0.0 K/mcL (0.0-0.6) 02/20/17 07:21 Basophils # 0.0 K/mcL (0.0-0.2) 02/20/17 07:21 Immature Plt Fraction 5.1 % (1.1-6.1) 02/20/17 07:21 Sodium 142 mEq/L (136-145) 02/20/17 07:21 Potassium 3.6 mEq/L (3.5-4.5) 02/20/17 07:21 Chloride 107 mEq/L (98-109) 02/20/17 07:21 Carbon Dioxide 25 mEq/L (19-29) 02/20/17 07:21 BUN 17 mg/dL (7-20) 02/20/17 07:21 Creatinine 0.83 mg/dL (0.57-1.11) 02/20/17 07:21 Est GFR ( Amer) > 60 (> 60) 02/20/17 07:21 Est GFR (Non-Af Amer) > 60 (> 60) 02/20/17 07:21 BUN/Creatinine Ratio 20 (6-26) 02/20/17 07:21 Glucose 101 mg/dL (70-99) H 02/20/17 07:21 Calculated Osmolality 296 (280-300) 02/20/17 07:21 Calcium 9.8 mg/dL (8.6-10.8) 02/20/17 07:21 Total Bilirubin 1.5 mg/dL (0.2-1.2) H 02/20/17 07:21 Direct Bilirubin 0.5 mg/dL (0.0-0.5) 02/20/17 07:21 Indirect Bilirubin 1.0 mg/dL (0.0-1.2) 02/20/17 07:21 AST 15 Units/L (5-34) 02/20/17 07:21 ALT 14 Units/L (0-55) 02/20/17 07:21 Alkaline Phosphatase 51 Units/L (38-126) 02/20/17 07:21 Serum Total Protein 7.8 g/dL (6.0-8.3) 02/20/17 07:21 Albumin 4.3 g/dL (3.5-5.0) 02/20/17 07:21 Globulin 3.5 g/dL (2.4-3.5) 02/20/17 07:21 Albumin/Globulin Ratio 1.2 (1.1-2.2) 02/20/17 07:21 Urine Color Dark Yellow (Yellow) 02/20/17 08:32 Urine Clarity Slightly Hazy (Clear) 02/20/17 08:32 Urine pH 6.5 pH Units (5.0-8.0) 02/20/17 08:32 Ur Specific [place] > 1.030 (1.010-1.025) H 02/20/17 08:32 Urine Protein Trace mg/dL (Neg-Trace) 02/20/17 08:32 Urine Glucose (UA) Normal mg/dL (Normal) 02/20/17 08:32 Urine Ketones Negative mg/dL (Negative) 02/20/17 08:32 Urine Blood Negative (Negative) 02/20/17 08:32 Urine Nitrite Negative (Negative) 02/20/17 08:32 Urine Bilirubin Small (Negative) H 02/20/17 08:32 Urine Urobilinogen Normal mg/dL (Normal) 02/20/17 08:32 Ur Leukocyte Esterase Negative (Negative) 02/20/17 08:32 Urine Microscopic RBC 0-3 per hpf (0-3) 02/20/17 08:32 Ur Squamous Epith Cells Many per lpf (None-Few) H 02/20/17 08:32 Urine Bacteria None Seen per hpf (None-Few) 02/20/17 08:32 Hyaline Casts None Seen per lpf (None-Few) 02/20/17 08:32 Salicylates < 5.0 mg/dL (15-30) L 02/20/17 07:21 Urine Opiates Screen Negative ng/mL (Huitvg=390) 02/20/17 08:34 Acetaminophen < 1.0 mcg/mL (10-30) L 02/20/17 07:21 Ur Barbiturates Screen Negative ng/mL (Jjvekp=116) 02/20/17 08:34 Ur Phencyclidine Scrn Negative ng/mL (Cutoff=25) 02/20/17 08:34 Ur Amphetamines Screen Positive ng/mL (Ezzvhj=7420) H 02/20/17 08:34 U Benzodiazepines Scrn Negative ng/mL (Ctyvpa=194) 02/20/17 08:34 Urine Cocaine Screen Positive ng/mL (Cutoff= 300) H 02/20/17 08:34 U Marijuana (THC) Screen Negative ng/mL (Cutoff = 50) 02/20/17 08:34 Ethyl Alcohol < 10 mg/dL (0-10) 02/20/17 07:21 Assessment and Plan (1) Bipolar 1 disorder, mixed, severe Current visit: No Status: Acute Plan: Admit inpatient for safety and stabilization, Close observation, Suicide Precautions per unit protocol, Encourage participation in unit milieu, Group Therapy, Monitor sleep, Monitor appetite Additional Plan: Will restart patient on medication and monitor her condition. Risks, benefits, side effects, alternatives discussed w/pt: Yes Patient agreeable to treatment: Yes
[2017-02-21] MEDS: Ibuprofen 400 MG TABLET PO PRN (20:41)
[2017-02-21] MEDS: hydrOXYzine pamoate 25 MG CAPSULE PO PRN (20:41)
[2017-02-22] MEDS: Gabapentin 300 MG CAPSULE PO SCH ×3 (08:58→20:15)
[2017-02-22] MEDS: Ziprasidone 20 MG CAPSULE PO SCH ×2 (08:58→20:15)
[2017-02-22] MEDS: Baclofen 10 MG TABLET PO SCH ×3 (08:59→20:15)
--- NOTE | 2017-02-22 15:41 | Psychiatry Progress Note ---
Date of Encounter: 02/22/17 Time of Encounter: 03:35 Subjective Interval history: Patient seen and interviewed. History and physical examination revealed. Patient is extremely withdrawn and tired and isolative. She continued to report some auditory hallucinations and at times appears very tangential and loose. Poor ADLs. Tolerating medications fairly well. Review of Systems Psychiatric: Reports: suicidal ideation, auditory hallucinations, hopelessness Objective: Exam Patient orientation: Yes Person, Yes Time, Yes Place Level of alertness: Sedated Patient appearance: Unkempt, Disheveled Behavior: withdrawn Psychomotor activity: Slowed Eye contact: Minimal Contact Mood description: Depressed Affect description: dysphoric Speech pattern: Slowed Speech volume: Soft/Quiet Thought process: Linear, Goal Oriented Thought content: No Suicidal ideation, No Homicidal ideation, No Overt delusions Perceptual disturbances: Yes Auditory hallucinations Judgment: Limited Insight: Minimal Results - Vital Signs Vital Signs: Temp Pulse Resp BP Pulse Ox 97.5 F L 94 16 91/59 96 02/22/17 09:00 02/22/17 09:00 02/22/17 09:00 02/22/17 09:00 02/20/17 12:27 Assessment and Plan (1) Bipolar 1 disorder Current visit: No Status: Chronic Plan: Continue hospitalization, Close observation, Suicide Precautions per unit protocol, Encourage participation in unit milieu, Group Therapy, Monitor sleep, Monitor appetite Risks, benefits, side effects, alternatives discussed w/pt: Yes Patient agreeable to treatment: Yes Consult Discharge Plan - Plan Referrals: NONE,PCP [Primary Care Provider] -
[2017-02-22] MEDS: Ibuprofen 400 MG TABLET PO PRN (19:01)
[2017-02-22] MEDS: hydrOXYzine pamoate 25 MG CAPSULE PO PRN (20:15)
[2017-02-23] MEDS: Baclofen 10 MG TABLET PO SCH ×3 (08:39→20:42)
[2017-02-23] MEDS: Gabapentin 300 MG CAPSULE PO SCH ×3 (08:40→20:42)
[2017-02-23] MEDS: Ziprasidone 20 MG CAPSULE PO SCH ×2 (08:40→20:43)
--- NOTE | 2017-02-23 12:42 | Psychiatry Progress Note ---
Date of Encounter: 02/23/17 Time of Encounter: 12:37 Subjective Interval history: Patient seen and interviewed. Noticing some improvement. Denies any suicidal or homicidal ideation. Patient is still withdrawn and isolated and depressed. Endorsing some hopeless feelings. Unable to verbalize a safety plan. I encouraged her to attend groups and start working on relapse prevention and safety plan. Patient seems to lack insight into her drug use and consequences related to it. Review of Systems Psychiatric: Reports: depression, hopelessness, irritability Objective: Exam Patient orientation: Yes Person, Yes Time, Yes Place Level of alertness: Sedated Patient appearance: Unkempt, Disheveled Behavior: withdrawn Psychomotor activity: Slowed Eye contact: Minimal Contact Mood description: Depressed, Anxious Affect description: flat, dysphoric Speech pattern: Slowed Speech volume: Soft/Quiet Thought process: Slowed Thinking Thought content: No Suicidal ideation, No Homicidal ideation, No Overt delusions Perceptual disturbances: No Auditory hallucinations, No Visual hallucinations Judgment: Limited Insight: Minimal Results - Vital Signs Vital Signs: Temp Pulse Resp BP Pulse Ox 98.3 F 91 16 100/67 96 02/23/17 09:00 02/23/17 09:00 02/23/17 09:00 02/23/17 09:00 02/20/17 12:27 Assessment and Plan (1) Bipolar 1 disorder Current visit: No Status: Chronic Plan: Continue hospitalization, Close observation, Suicide Precautions per unit protocol, Encourage participation in unit milieu, Group Therapy, Monitor sleep, Monitor appetite Risks, benefits, side effects, alternatives discussed w/pt: Yes Patient agreeable to treatment: Yes Consult Discharge Plan - Plan Referrals: NONE,PCP [Primary Care Provider] -
[2017-02-23] MEDS: Ibuprofen 400 MG TABLET PO PRN ×2 (13:14→21:09)
[2017-02-24] MEDS: Baclofen 10 MG TABLET PO SCH ×3 (08:32→20:41)
[2017-02-24] MEDS: Ziprasidone 20 MG CAPSULE PO SCH ×3 (08:32→20:42)
[2017-02-24] MEDS: Gabapentin 300 MG CAPSULE PO SCH ×3 (08:33→20:41)
--- NOTE | 2017-02-24 10:12 | Psychiatry Progress Note ---
Date of Encounter: 02/24/17 Time of Encounter: 10:07 Subjective Interval history: Client familiar to this news writer. Has been coming in and out of the hospital this year due to depression with psychosis secondary to drug use. Tested positive for cocaine and meth this admission. Very confused. Denies AH but responding to IS. Entered the room today saying "it's killing me" but not talking to this news writer. Claims she wants to go home but does not have a home at this point. Has been staying with people she uses drugs with. Repeatedly discharged to secure places but leaves immediately. Last time she was discharged to [facility] but left within an hour. toll test worker is looking into more [facility]terminator term[facility] facilities out of the area to try and give client time to stabilize. Currently prescribed Geodon. Will raise dose today. Client needs to sign in today or will be probated. Review of Systems Constitutional: Denies: fever, chills, weakness, weight change Eyes: Denies: eye pain, vision change Ears, Nose, Throat: Denies: ear pain, throat pain, dental pain, hearing loss, congestion Cardiovascular: Denies: chest pain, palpitations, dyspnea on exertion Respiratory: Denies: cough, dyspnea, wheezes Gastrointestinal: Denies: abdominal pain, nausea, vomiting, diarrhea, constipation Musculoskeletal: Denies: joint swelling, joint pain Neurological: Denies: headache, weakness, numbness, memory loss Psychiatric: Reports: depression, hopelessness, irritability Objective: Exam Patient orientation: Yes Person, Yes Place Level of alertness: Alert Patient appearance: Appropriate Behavior: calm, cooperative Psychomotor activity: Normal Eye contact: Maintains Eye Contact Mood description: Depressed Affect description: congruent with mood Speech pattern: Slowed Speech volume: Soft/Quiet Thought process: Thought Blocking, Evasive Thought content: No Suicidal ideation, No Homicidal ideation Perceptual disturbances: Yes Reacting to internal stimuli Judgment: Poor Insight: Minimal Results - Vital Signs Vital Signs: Temp Pulse Resp BP Pulse Ox 97.9 F 81 18 98/61 96 02/24/17 09:00 02/24/17 09:00 02/24/17 09:00 02/24/17 09:00 02/20/17 12:27 Assessment and Plan (1) Bipolar affective disorder, manic, severe, with psychotic behavior Current visit: No Status: Acute Plan: Continue hospitalization, Close observation, Suicide Precautions per unit protocol, Encourage participation in unit milieu, Group Therapy, Monitor sleep, Monitor appetite Risks, benefits, side effects, alternatives discussed w/pt: Yes Patient agreeable to treatment: Yes Consult Discharge Plan - Plan Referrals: NONE,PCP [Primary Care Provider] -
[2017-02-24] MEDS: Ibuprofen 400 MG TABLET PO PRN (13:04)
[2017-02-25] MEDS: Baclofen 10 MG TABLET PO SCH ×3 (08:58→20:17)
[2017-02-25] MEDS: Gabapentin 300 MG CAPSULE PO SCH ×2 (08:58→15:04)
[2017-02-25] MEDS: Ziprasidone 20 MG CAPSULE PO SCH ×2 (08:59→20:17)
[2017-02-25] MEDS: Ibuprofen 400 MG TABLET PO PRN ×2 (12:29→18:49)
--- NOTE | 2017-02-25 18:03 | Psychiatry Progress Note ---
Date of Encounter: 02/25/17 Time of Encounter: 18:00 Subjective Interval history: Client has been sleeping all day. Crashing from recreational drug use. Still psychotic but a little more organized today. Goal will be to get her into an AOD treatment facility that is out of the area so she can focus on recovery. Client ambivalent about whether she will go to a treatment center. Still needs to clear some before she can have relevant phone conversations with residential placement options. Daniel raised yesterday. Client asking for higher Neurontin dose today due to back pain. Due to sedation will only raise slightly. Review of Systems Constitutional: Denies: fever, chills, weakness, weight change Eyes: Denies: eye pain, vision change Ears, Nose, Throat: Denies: ear pain, throat pain, dental pain, hearing loss, congestion Cardiovascular: Denies: chest pain, palpitations, dyspnea on exertion Respiratory: Denies: cough, dyspnea, wheezes Gastrointestinal: Denies: abdominal pain, nausea, vomiting, diarrhea, constipation Musculoskeletal: Reports: back pain, myalgia. Denies: joint swelling, joint pain Neurological: Denies: headache, weakness, numbness, memory loss Psychiatric: Reports: depression, hopelessness, irritability Objective: Exam Patient orientation: Yes Person, Yes Time, Yes Place Level of alertness: Alert Patient appearance: Appropriate, Well Groomed Behavior: calm, cooperative Psychomotor activity: Normal Eye contact: Maintains Eye Contact Mood description: Depressed Affect description: congruent with mood Speech pattern: Slowed Speech volume: Soft/Quiet Thought process: Tangential Thought content: No Suicidal ideation, No Homicidal ideation, No Overt delusions Perceptual disturbances: Yes Reacting to internal stimuli Judgment: Limited Insight: Minimal Results - Vital Signs Vital Signs: Temp Pulse Resp BP Pulse Ox 97.3 F L 96 16 93/64 96 02/25/17 09:00 02/25/17 09:00 02/25/17 09:00 02/25/17 09:00 02/20/17 12:27 Assessment and Plan (1) Bipolar affective disorder, manic, severe, with psychotic behavior Current visit: No Status: Acute Plan: Continue hospitalization, Close observation, Suicide Precautions per unit protocol, Encourage participation in unit milieu, Group Therapy, Monitor sleep, Monitor appetite Risks, benefits, side effects, alternatives discussed w/pt: Yes Patient agreeable to treatment: Yes Consult Discharge Plan - Plan Referrals: NONE,PCP [Primary Care Provider] -
[2017-02-25] MEDS: Gabapentin 400 MG CAPSULE PO SCH (20:17)
[2017-02-26] MEDS: Baclofen 10 MG TABLET PO SCH ×3 (09:13→21:13)
[2017-02-26] MEDS: Ziprasidone 20 MG CAPSULE PO SCH ×2 (09:13→21:12)
[2017-02-26] MEDS: Gabapentin 400 MG CAPSULE PO SCH ×3 (09:13→21:12)
--- NOTE | 2017-02-26 11:56 | Psychiatry Progress Note ---
Date of Encounter: 02/26/17 Time of Encounter: 11:52 Subjective Interval history: Still very confused but definitely showing signs of improvement. Now at the point she might be able have relevant phone conversations. Plan is to have her work with [facility] on placement today. Client is now saying she wants to leave and that she can stay with friends. Easy to convince that doing this will only perpetuate the drug use and mental health spiral she is in. However, it won't take long for her to decide she wants to go back to that lifestyle. Staff are looking at respite/rehab places out of the area to try and offer her some protection but in the end she will need to make the decision. Pleasant and attending groups but still very tired from amphetamine crash and given her small size she is taking good/sedating doses of antipsychotics to try and treat her symptoms. Review of Systems Constitutional: Denies: fever, chills, weakness, weight change Eyes: Denies: eye pain, vision change Ears, Nose, Throat: Denies: ear pain, throat pain, dental pain, hearing loss, congestion Cardiovascular: Denies: chest pain, palpitations, dyspnea on exertion Respiratory: Denies: cough, dyspnea, wheezes Gastrointestinal: Denies: abdominal pain, nausea, vomiting, diarrhea, constipation Musculoskeletal: Denies: joint swelling, joint pain Neurological: Denies: headache, weakness, numbness, memory loss Psychiatric: Reports: depression, hopelessness, irritability Objective: Exam Patient orientation: Yes Person, Yes Place Level of alertness: Alert Patient appearance: Appropriate Behavior: calm, cooperative Psychomotor activity: Normal Eye contact: Maintains Eye Contact Mood description: Depressed Affect description: congruent with mood Speech pattern: Normal rate, Normal rhythm, Normal tone Speech volume: Soft/Quiet Thought process: Goal Oriented, Thought Blocking Thought content: No Suicidal ideation, No Homicidal ideation, No Overt delusions Perceptual disturbances: Yes Reacting to internal stimuli Judgment: Limited Insight: Minimal Results - Vital Signs Vital Signs: Temp Pulse Resp BP Pulse Ox 98 F 101 16 104/70 96 02/26/17 09:00 02/26/17 09:00 02/26/17 09:00 02/26/17 09:00 02/20/17 12:27 Assessment and Plan (1) Bipolar affective disorder, manic, severe, with psychotic behavior Current visit: No Status: Acute Plan: Continue hospitalization, Close observation, Suicide Precautions per unit protocol, Encourage participation in unit milieu, Group Therapy, Monitor sleep, Monitor appetite Risks, benefits, side effects, alternatives discussed w/pt: Yes Patient agreeable to treatment: Yes Consult Discharge Plan - Plan Referrals: NONE,PCP [Primary Care Provider] -
[2017-02-26] MEDS: Ibuprofen 400 MG TABLET PO PRN ×3 (12:23→21:13)
[2017-02-26] MEDS: hydrOXYzine pamoate 25 MG CAPSULE PO PRN (21:13)
[2017-02-27] MEDS: Ziprasidone 20 MG CAPSULE PO SCH ×2 (09:00→20:33)
[2017-02-27] MEDS: Baclofen 10 MG TABLET PO SCH ×3 (09:00→20:33)
[2017-02-27] MEDS: Gabapentin 400 MG CAPSULE PO SCH ×3 (09:00→20:33)
[2017-02-27] MEDS: Ibuprofen 400 MG TABLET PO PRN ×3 (09:42→20:33)
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
[2017-02-27] MEDS: hydrOXYzine pamoate 25 MG CAPSULE PO PRN (20:33)
[2017-02-28] MEDS: Ziprasidone 20 MG CAPSULE PO SCH ×2 (08:33→21:30)
[2017-02-28] MEDS: Baclofen 10 MG TABLET PO SCH ×3 (08:33→21:38)
[2017-02-28] MEDS: Gabapentin 400 MG CAPSULE PO SCH ×3 (08:33→21:37)
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
[2017-02-28] MEDS: Ibuprofen 400 MG TABLET PO PRN (14:50)
[2017-02-28] MEDS: Fluticasone Propionate Nasal 50 MCG/SPRAY BOTTLE NS SCH (15:13)
[2017-03-01] MEDS: Baclofen 10 MG TABLET PO SCH ×3 (08:56→21:15)
[2017-03-01] MEDS: Gabapentin 400 MG CAPSULE PO SCH ×3 (08:56→21:15)
[2017-03-01] MEDS: Ziprasidone 20 MG CAPSULE PO SCH ×2 (08:56→21:15)
[2017-03-01] MEDS ORDERED: Fluticasone Propionate Nasal 50 MCG/SPRAY BOTTLE NS SCH (09:00)
[2017-03-01] MEDS: Fluticasone Propionate Nasal 50 MCG/SPRAY BOTTLE NS SCH (09:16)
--- NOTE | 2017-03-01 09:30 | Psychiatry Progress Note ---
Date of Encounter: 03/01/17 Time of Encounter: 09:26 Subjective Interval history: Client reports her mood is better. "I wasn't even sure I needed my medications last night." Discussed how meds need to be taken daily even when feeling good in order to remain stable. This commercial underwriter likened treatment for mental health to treatment for HTN and DM. Meds only work if you stay on them. If you go off of an antihypertensive or insulin your blood pressure and blood sugar will just go up again. Same thing with Bipolar Disorder. If you stop treatment the mood symptoms will return. Continues to have some psychosis. Client unable to recognize thought disorder but staff say she reported seeing a ghost in the hallway last night and that she is intermittently bizarre. Overall pleasant and cooperative but no insight and terminologist prognosis poor. Staff expecting to know more about placement on Friday. Review of Systems Constitutional: Denies: fever, chills, weakness, weight change Eyes: Denies: eye pain, vision change Ears, Nose, Throat: Denies: ear pain, throat pain, dental pain, hearing loss, congestion Cardiovascular: Denies: chest pain, palpitations, dyspnea on exertion Respiratory: Denies: cough, dyspnea, wheezes Gastrointestinal: Denies: abdominal pain, nausea, vomiting, diarrhea, constipation Musculoskeletal: Reports: back pain, myalgia Neurological: Denies: headache, weakness, numbness, memory loss Psychiatric: Reports: depression, hopelessness, irritability Objective: Exam Patient orientation: Yes Person, Yes Time, Yes Place Level of alertness: Alert Patient appearance: Appropriate Behavior: calm, cooperative Psychomotor activity: Slowed Eye contact: Maintains Eye Contact Mood description: Depressed Affect description: congruent with mood Speech pattern: Normal rate, Normal rhythm, Normal tone Speech volume: Soft/Quiet Thought process: Thought Blocking Thought content: No Suicidal ideation, No Homicidal ideation, No Overt delusions Perceptual disturbances: Yes Reacting to internal stimuli Judgment: Limited Insight: Minimal Results - Vital Signs Vital Signs: Temp Pulse Resp BP Pulse Ox 98.3 F 83 16 103/57 96 02/28/17 20:21 02/28/17 20:21 02/28/17 20:21 02/28/17 20:21 02/20/17 12:27 Assessment and Plan (1) Bipolar affective disorder, manic, severe, with psychotic behavior Current visit: No Status: Acute Plan: Continue hospitalization, Close observation, Suicide Precautions per unit protocol, Encourage participation in unit milieu, Group Therapy, Monitor sleep, Monitor appetite Risks, benefits, side effects, alternatives discussed w/pt: Yes Patient agreeable to treatment: Yes Consult Discharge Plan - Plan Referrals: NONE,PCP [Primary Care Provider] -
[2017-03-01] MEDS: Ibuprofen 600 MG TABLET PO PRN ×3 (09:41→23:56)
--- NOTE | 2017-03-02 09:12 | Psychiatry Progress Note ---
Date of Encounter: 03/02/17 Time of Encounter: 09:08 Subjective Interval history: No real changes from yesterday. Psychosis still present but she is more functional. Able to organize and manipulate. She is trying to have visitors bring things to the unit (staff have stopped visitors this admission because they were sneaking things in like cigarettes and a tripe finisher). Sarah has been going from staff person to staff person trying to get the answers she wants and having visitors come even when she has been told "no." Seen responding to internal stimuli even though she denies hallucinations. Observed to be making gestures and asking others if they see the snow when there is none. Staff are hoping to finalize placement tomorrow. Review of Systems Constitutional: Denies: fever, chills, weakness, weight change Eyes: Denies: eye pain, vision change Ears, Nose, Throat: Denies: ear pain, throat pain, dental pain, hearing loss, congestion Cardiovascular: Denies: chest pain, palpitations, dyspnea on exertion Respiratory: Denies: cough, dyspnea, wheezes Gastrointestinal: Denies: abdominal pain, nausea, vomiting, diarrhea, constipation Musculoskeletal: Denies: joint swelling, joint pain Neurological: Denies: headache, weakness, numbness, memory loss Psychiatric: Reports: depression, hopelessness, irritability Objective: Exam Patient orientation: Yes Person, Yes Place Level of alertness: Alert Patient appearance: Appropriate Behavior: calm, cooperative Psychomotor activity: Normal Eye contact: Maintains Eye Contact Mood description: Depressed Affect description: congruent with mood Speech pattern: Normal rate, Normal rhythm, Normal tone Speech volume: Soft/Quiet Thought process: Thought Blocking Thought content: No Suicidal ideation, No Homicidal ideation, No Overt delusions Perceptual disturbances: Yes Reacting to internal stimuli Judgment: Limited Insight: Minimal Results - Vital Signs Vital Signs: Temp Pulse Resp BP Pulse Ox 98.3 F 84 16 92/57 96 03/01/17 20:25 03/01/17 20:25 03/01/17 20:25 03/01/17 20:25 02/20/17 12:27 Assessment and Plan (1) Bipolar affective disorder, manic, severe, with psychotic behavior Current visit: No Status: Acute Plan: Continue hospitalization, Close observation, Suicide Precautions per unit protocol, Encourage participation in unit milieu, Group Therapy, Monitor sleep, Monitor appetite Risks, benefits, side effects, alternatives discussed w/pt: Yes Patient agreeable to treatment: Yes Consult Discharge Plan - Plan Referrals: NONE,PCP [Primary Care Provider] -
[2017-03-02] MEDS: Gabapentin 400 MG CAPSULE PO SCH ×3 (09:34→21:41)
[2017-03-02] MEDS: Ziprasidone 20 MG CAPSULE PO SCH ×2 (09:34→20:45)
[2017-03-02] MEDS: Baclofen 10 MG TABLET PO SCH ×3 (09:34→20:44)
[2017-03-02] MEDS: Fluticasone Propionate Nasal 50 MCG/SPRAY BOTTLE NS SCH (09:37)
[2017-03-02] MEDS: Ibuprofen 600 MG TABLET PO PRN ×2 (12:43→19:17)
[2017-03-02] MEDS: hydrOXYzine pamoate 25 MG CAPSULE PO PRN (20:45)
[2017-03-03] MEDS: Gabapentin 400 MG CAPSULE PO SCH ×3 (08:31→18:02)
[2017-03-03] MEDS: Baclofen 10 MG TABLET PO SCH ×3 (08:31→18:02)
[2017-03-03] MEDS: Fluticasone Propionate Nasal 50 MCG/SPRAY BOTTLE NS SCH (08:31)
[2017-03-03] MEDS: Ziprasidone 20 MG CAPSULE PO SCH ×2 (08:32→18:02)
[2017-03-03 10:23] VITALS: BP 81/47
[2017-03-03] MEDS: Ibuprofen 600 MG TABLET PO PRN (14:08)
--- NOTE | 2017-03-03 14:33 | Psychiatry Progress Note ---
Date of Encounter: 03/03/17 Time of Encounter: 12:00 Subjective Interval history: Sarah is seen today for follow-up. She reports she is feeling better. We discussed the importance of taking medications as prescribed. She is initially hesitant but we discussed multiple hospitalizations and the reasons of these occurred. Encourage patient to discontinue drug use and we discussed the effects of illicit drugs, mental health. She does feel ready to leave. She is still occasionally responding to internal stimuli although she denies hallucinations area she is able to carry on an organized conversation and is linear in her thought process for the most part. She is anxious for a discharge plan. Review of Systems Psychiatric: Reports: depression, hopelessness, irritability Objective: Exam Patient orientation: Yes Person, Yes Time, Yes Place Level of alertness: Alert Patient appearance: Appropriate, Well Groomed Behavior: calm, cooperative Psychomotor activity: Normal Eye contact: Maintains Eye Contact Mood description: Euthymic/stable Affect description: blunted Speech pattern: Normal rate, Normal rhythm, Normal tone Speech volume: Normal Thought process: Intact, [place] Thought content: No Suicidal ideation, No Homicidal ideation Perceptual disturbances: Yes Reacting to internal stimuli, No Auditory hallucinations, No Visual hallucinations Judgment: Limited Insight: Partial Results - Vital Signs Vital Signs: Temp Pulse Resp BP Pulse Ox 98.1 F 91 18 81/47 96 03/03/17 09:00 03/03/17 09:00 03/03/17 09:00 03/03/17 09:00 02/20/17 12:27 Assessment and Plan (1) Bipolar 1 disorder Current visit: No Status: Chronic Plan: Close observation, Suicide Precautions per unit protocol, Monitor sleep, Monitor appetite Additional Plan: Patient is returning to her baseline. She does still have some obvious auditory hallucinations but is more organized in her thought process. Staff is coordinating with family for appropriate discharge planning. Family may be able to pick patient up later today and if so we will discharge today. Otherwise plan to discharge this week as appropriate disposition becomes available. Risks, benefits, side effects, alternatives discussed w/pt: Yes Patient agreeable to treatment: Yes (2) Substance abuse Current visit: No Status: Chronic Consult Discharge Plan - Plan Referrals: NONE,PCP [Primary Care Provider] -
--- NOTE | 2017-03-04 09:21 | Discharge Summary ---
Date of Encounter: 03/03/17 Time of Encounter: 13:00 Diagnosis - Discharge Diagnosis (1) Bipolar 1 disorder Priority: Primary Status: Chronic (2) Substance abuse Priority: Secondary Status: Chronic Medications - Discharge Medications Baclofen [Lioresal] 10 mg PO TID #90 tablet 02/14/17 [Rx] Ziprasidone [Geodon] 20 mg PO QAM #30 capsule 02/14/17 [Rx] Ziprasidone [Geodon] 40 mg PO HS #30 capsule 02/14/17 [Rx] 3 Allergy/AdvReac Type Severity Reaction Status Date / Time trazodone AdvReac See Verified 12/20/16 11:43 Comments Results Procedures and tests throughout hospitalization: Completed Lab Orders Category Date Time Status HCG,Beta,Quant.for Routine Lab 02/27/17 13:11 Completed Provider Date of admission: 02/20/17 12:41 Primary care physician: PCP NONE Discharging clinician: Morena Colvin Assessment and Plan - Patient/Caregiver Discharge Instructions Activity: resume usual activities as tolerated Diet: regular diet - Follow up Plan Follow up with: [facility] [Outside] (You may walk-in Friday-Friday, from 8:00am -3:30pm at [address] [place] [address]. Licensed clinicians assess mental health, substance use, and determine treatment needs and facilitate referrals to the most appropriate provider. ) Overall status at discharge: Stable Disposition: Home, Self-Care Hospital Course Hospital course: Ms. Mack is a 31 year old female with a history of bipolar disorder and substance abuse admitted with psychosis and manic symptoms. She was admitted to for psychiatric stabilization. Patient was incorporated into the therapeutic milieu and offer group and individual as well as recreational therapy. She was also offered psychoeducational materials and supportive therapy. She was placed on suicide precautions per unit protocol. Patient was titrated on Geodon for improvement in her auditory and visual hallucinations. Patient also has a comorbid substance abuse problem that is exacerbating her mental health. Patient was educated on the importance of discontinuing substances and their effect on her mood and her ability to function. Throughout the course of hospital stay the patient's mood improved. Also she began to interact more appropriately with peers and staff. Thought process also improved. At the time of discharge patient was able to verbalize understanding of medications and reasons for meds. She is willing to follow-up as an outpatient and denied suicidal or homicidal ideation or plan. She is discharged in stable condition. - Time Spent with Patient Total time spent providing and/or coordinating discharge services: Less than 30 minutes Quality - Multiple Antipsychotics Patient discharged on 2 or more antipsychotic medications: No Procedures - Procedures Procedures: Medication Management, Crisis Stabilization, Supportive Therapy, Group Therapy, Psychoeducational Therapy Mental Status Exam - Mental Status Exam Patient orientation: Yes Person, Yes Time, Yes Place Level of alertness: Alert Patient appearance: Appropriate, Well Groomed Behavior: calm, cooperative Psychomotor activity: Normal Eye contact: Maintains Eye Contact Mood description: Euthymic/stable Affect description: blunted Speech pattern: Normal rate, Normal rhythm, Normal tone Speech Volume: Normal Thought process: Intact, [place] Thought Content: No Suicidal ideation, No Homicidal ideation Perceptual Disturbances: Yes Reacting to internal stimuli (occsioanlly. ), No Auditory hallucinations, No Visual hallucinations Judgment: Limited Insight: Partial
== END 2017-03-03 18:20 | disposition home or self-care (01) | DRG 753 ==
LOC: EMEROO 04:56 → SUATTDRO 12:41 → 1ANU 12:41
PROVIDERS: ADMIT Psychiatry & Neurology Psychiatry; ATTEND Psychiatry & Neurology Psychiatry

== ENCOUNTER 2019-01-05 12:56 | Inpatient (IN) ==
[2019-01-05 13:43] LABS: Basophils % 0.4 %; Eosinophils # 0.1 K/mcL (0.0-0.6); Eosinophils % 1.1 %; Hematocrit 38.5 % (35.3-44.9); Immature Granulocytes % 0.2 % (0-4); Lymphocytes # 2.4 K/mcL (0.6-4.6); Lymphocytes % 30.4 %; Mean Corpuscular HGB Conc 33.8 g/dL (31.6-35.5); Mean Corpuscular Hemoglobin 30.7 pg (28.0-33.3); Mean Corpuscular Volume 90.8 fL (83.0-100.0); Mean Platelet Volume 9.7 fL (9.4-12.4); Monocytes # 0.7 K/mcL (0.0-1.3); Monocytes % 8.6 %; Neutrophils # 4.8 K/mcL (1.6-8.9); Platelet Count 249 K/mcL (140-400); Red Blood Count 4.24 M/mcL (3.82-4.97); Red Cell Distribution Width 12.9 % (11.5-14.5); Segmented Neutrophils % 59.3 %
[2019-01-05 14:02] LABS: Acetaminophen < 10 mcg/mL (10-20); BUN/Creatinine Ratio 19 (6-26); Blood Urea Nitrogen 12 mg/dL (6-20); Calcium 10.1 mg/dL (8.6-10.3); Carbon Dioxide 25 mEq/L (23-29); Chloride 104 mEq/L (98-107); Ethanol < 10 mg/dL (Less than 10); Glucose 99 mg/dL (70-105); Osmolality,Calculated 288 (280-300); Potassium 3.8 mEq/L (3.5-5.1); Salicylate < 2.5 mg/dL (15.0-30.0); Sodium 139 mEq/L (136-145); eGFR For African Americans > 60 (> 60); eGFR For Non-African Americans > 60 (> 60)
--- NOTE | 2019-01-05 14:07 | Emergency Department Note ---
Disposition Clinical Impression: Depression Disposition: Admitted As Inpatient Time of Disposition: 19:55 Psych HPI - General Chief Complaint: ED Psychiatric Symptoms Stated Complaint: 1A Time Seen by Provider: 01/05/19 13:05 Source: patient - History of Present Illness HPI Narrative: Patient is a 33-year-old female that presents to the emergency room apparently with a emotional issues. The patient apparently has been laughing inappropriately, crying at times. The patient apparently has had this before. She has been in numerous psychiatric institutions for long periods of time. She was just recently discharged from a psychiatric institution in [place] couple days ago. Patient at this point in time however is very reclusive with her history, she has a very flat affect, she cannot provide much history at all here in the emergency room. A friend was here to provide most of the history. The patient's friend states that several years ago she got a bad drug, ever since his bed drugs she has not been the same according to the friend. - Related Data Home Medications Medication Instructions Recorded Confirmed Benztropine Mesylate 0.5 mg PO BID 01/05/19 01/05/19 Buprenorphine HCl/Naloxone HCl 2 tab SL DAILY 01/05/19 01/05/19 [Buprenorphin-Naloxon 8-2 mg Sl] Gabapentin 600 mg PO TID 01/05/19 01/05/19 Mirtazapine [Remeron] 7.5 mg PO HS 01/05/19 01/05/19 OLANZapine [Zyprexa] 10 mg PO DAILY 01/05/19 01/05/19 Ziprasidone [Geodon] 20 mg PO BID 01/05/19 01/05/19 Ziprasidone [Geodon] 80 mg PO BID 01/05/19 01/05/19 Allergies Allergy/AdvReac Type Severity Reaction Status Date / Time trazodone AdvReac See Verified 03/26/17 09:34 Comments Review of Systems: As mentioned per history of present illness and as follows. Constitutional: Negative for chills or fever HENT: Negative for sore throat. Eyes: Negative for visual disturbance Respiratory: Negative for shortness of breath. Cardiovascular: Negative for palpitations. Gastrointestinal: Negative for abdominal pain Genitourinary: Negative for dysuria Musculoskeletal: Negative for back pain. Skin: Negative for rash. 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 HENT: Normocephalic, Atraumatic, Bilateral external ears normal, Oropharynx moist, No oral exudates, Nose normal. Neck- Normal range of motion, No tenderne ss, Supple. Eyes: PERRL, EOMI, Conjunctiva normal,. Cardiovascular: Regular rate and rhythm without clicks, rubs, gallops or murmurs. Respiratory: Normal breath sounds, No respiratory distress, No wheezing, rhonchi, or crackles. GI: Soft, nontender, no evidence of guarding or peritoneal signs. Bowel sounds are active. Musculoskeletal: Good range of motion in all major joints. No tenderness to palpation or major deformities noted. Equal strength in upper and lower extremities. Integument: Warm, Dry, No erythema, No rash. No edema. Neurologic: Alert, Normal sensory function, No focal deficits noted. CN II-XII grossly intact. Psychiatric: The patient has flat affect, the patient is very reclusive, she does not provide much history. - General Limitations: other General appearance: alert Course Vital Signs Temperature 97.9 F 01/05/19 13:17 Pulse Rate 92 01/05/19 13:17 Respiratory Rate 16 01/05/19 13:17 Blood Pressure 125/77 01/05/19 13:17 O2 Sat by Pulse Oximetry 97 01/05/19 13:17 Temperature 97.9 F 01/05/19 13:17 Pulse Rate 92 01/05/19 13:18 Respiratory Rate 16 01/05/19 13:18 Blood Pressure 125/77 01/05/19 13:18 O2 Sat by Pulse Oximetry 97 01/05/19 13:18 Oxygen Delivery Oxygen Delivery Room Air Psych - MDM Narrative Medical decision making narrative: Patient is medically clear from my standpoint. The case was discussed with psychiatry team. They have also evaluated the patient here in the emergency room. The patient is going to be admitted here to the psychiatric service. The patient will be admitted in stable condition. Final impression 1. Depression - Lab Data Result diagrams: 01/05/19 13:25 01/05/19 13:25 Lab Results 01/05/19 01/05/19 01/05/19 Range/Units 13:25 13:25 14:43 WBC 8.0 (4.3-11.1) K/mcL RBC 4.24 (3.82-4.97) M/mcL Hgb 13.0 (11.5-15.4) g/dL Hct 38.5 (35.3-44.9) % MCV 90.8 (83.0-100.0) fL MCH 30.7 (28.0-33.3) pg MCHC 33.8 (31.6-35.5) g/dL RDW 12.9 (11.5-14.5) % Plt Count 249 (140-400) K/mcL MPV 9.7 (9.4-12.4) fL Immature Gran % 0.2 (0-4) % Seg Neutrophils % 59.3 % Lymphocytes % 30.4 % Monocytes % 8.6 % Eosinophils % 1.1 % Basophils % 0.4 % Neutrophils # 4.8 (1.6-8.9) K/mcL Lymphocytes # 2.4 (0.6-4.6) K/mcL Monocytes # 0.7 (0.0-1.3) K/mcL Eosinophils # 0.1 (0.0-0.6) K/mcL Basophils # 0.0 (0.0-0.2) K/mcL Sodium 139 (136-145) mEq/L Potassium 3.8 (3.5-5.1) mEq/L Chloride 104 (98-107) mEq/L Carbon Dioxide 25 (23-29) mEq/L BUN 12 (6-20) mg/dL Creatinine 0.64 (0.60-1.20) mg/dL Est GFR ( Amer) > 60 (> 60) Est GFR (Non-Af Amer) > 60 (> 60) BUN/Creatinine Ratio 19 (6-26) Glucose 99 (70-105) mg/dL Calculated Osmolality 288 (280-300) Calcium 10.1 (8.6-10.3) mg/dL Urine Color Yellow (Yellow) Urine Clarity Clear (Clear) Urine pH 6.0 (5.0-8.0) pH Units Ur Specific [place] 1.020 (1.010-1.025) Urine Protein Negative (Neg-Trace) mg/dL Urine Glucose (UA) Normal (Normal) mg/dL Urine Ketones Negative (Negative) mg/dL Urine Blood Negative (Negative) Urine Nitrite Negative (Negative) Urine Bilirubin Negative (Negative) Urine Urobilinogen Normal (Normal) mg/dL Ur Leukocyte Esterase Negative (Negative) Urine Test (Negative) Salicylates < 2.5 L (15.0-30.0) mg/dL Urine Opiates Screen (Suwkmf=681) ng/mL Ur Buprenorphine Scrn (Cutoff=5) ng/mL Acetaminophen < 10 L (10-20) mcg/mL Ur Barbiturates Screen (Kxxcnb=866) ng/mL Ur Phencyclidine Scrn (Cutoff=25) ng/mL Ur Amphetamines Screen (Gejdyk=0609) ng/mL U Benzodiazepines Scrn (Scwowi=150) ng/mL Urine Cocaine Screen (Cutoff= 300) ng/mL U Marijuana (THC) Screen (Cutoff = 50) ng/mL Ur Drug Screen Interp Ethyl Alcohol < 10 (Less than 10) mg/dL 01/05/19 01/05/19 Range/Units 14:43 14:43 WBC (4.3-11.1) K/mcL RBC (3.82-4.97) M/mcL Hgb (11.5-15.4) g/dL Hct (35.3-44.9) % MCV (83.0-100.0) fL MCH (28.0-33.3) pg MCHC (31.6-35.5) g/dL RDW (11.5-14.5) % Plt Count (140-400) K/mcL MPV (9.4-12.4) fL Immature Gran % (0-4) % Seg Neutrophils % % Lymphocytes % % Monocytes % % Eosinophils % % Basophils % % Neutrophils # (1.6-8.9) K/mcL Lymphocytes # (0.6-4.6) K/mcL Monocytes # (0.0-1.3) K/mcL Eosinophils # (0.0-0.6) K/mcL Basophils # (0.0-0.2) K/mcL Sodium (136-145) mEq/L Potassium (3.5-5.1) mEq/L Chloride (98-107) mEq/L Carbon Dioxide (23-29) mEq/L BUN (6-20) mg/dL Creatinine (0.60-1.20) mg/dL Est GFR ( Amer) (> 60) Est GFR (Non-Af Amer) (> 60) BUN/Creatinine Ratio (6-26) Glucose (70-105) mg/dL Calculated Osmolality (280-300) Calcium (8.6-10.3) mg/dL Urine Color (Yellow) Urine Clarity (Clear) Urine pH (5.0-8.0) pH Units Ur Specific [place] (1.010-1.025) Urine Protein (Neg-Trace) mg/dL Urine Glucose (UA) (Normal) mg/dL Urine Ketones (Negative) mg/dL Urine Blood (Negative) Urine Nitrite (Negative) Urine Bilirubin (Negative) Urine Urobilinogen (Normal) mg/dL Ur Leukocyte Esterase (Negative) Urine Test Negative (Negative) Salicylates (15.0-30.0) mg/dL Urine Opiates Screen Negative (Eqavjb=738) ng/mL Ur Buprenorphine Scrn Positive H (Cutoff=5) ng/mL Acetaminophen (10-20) mcg/mL Ur Barbiturates Screen Negative (Gpxnki=734) ng/mL Ur Phencyclidine Scrn Negative (Cutoff=25) ng/mL Ur Amphetamines Screen Negative (Ifaozk=5109) ng/mL U Benzodiazepines Scrn Negative (Jsuary=065) ng/mL Urine Cocaine Screen Negative (Cutoff= 300) ng/mL U Marijuana (THC) Screen Negative (Cutoff = 50) ng/mL Ur Drug Screen Interp See Below Ethyl Alcohol (Less than 10) mg/dL Psychiatric Medical Clearance - Medical Clearance Checklist Medical History: No Social History Section defined Current Vitals: Last Vital Signs Temp 97.9 F 01/05/19 13:17 Pulse 92 01/05/19 13:18 Resp 16 01/05/19 13:18 BP 125/77 01/05/19 13:18 Pulse Ox 97 01/05/19 13:18 Psychiatric Lab Panel: Drug Levels and Toxicity 01/05/19 01/05/19 13:25 14:43 Urine Opiates Screen Negative Acetaminophen < 10 L Ur Barbiturates Screen Negative Ur Phencyclidine Scrn Negative Ur Amphetamines Screen Negative U Benzodiazepines Scrn Negative Urine Cocaine Screen Negative U Marijuana (THC) Screen Negative Ethyl Alcohol < 10 Abnormal Labs: Abnormal lab results Salicylates < 2.5 mg/dL (15.0-30.0) L 01/05/19 13:25 Ur Buprenorphine Scrn Positive ng/mL (Cutoff=5) H 01/05/19 14:43 Acetaminophen < 10 mcg/mL (10-20) L 01/05/19 13:25 Statement of Medical Clearance: I have evaluated the patient, reviewed diagnostic information, and certify that the patient's medical condition is sufficiently stable that transfer to the psychiatric unit does not pose a significant risk of deterioration.
[2019-01-05 15:00] LABS: Bilirubin,Urine Negative (Negative); Blood,Urine Negative (Negative); Clarity,Urine Clear (Clear); Color,Urine Yellow (Yellow); Glucose,Urine (UA) Normal (Normal); Ketones,Urine Negative (Negative); Leukocyte Esterase,Urine Negative (Negative); Nitrite,Urine Negative (Negative); Protein,Urine Negative (Neg-Trace); Urobilinogen,Urine Normal (Normal)
[2019-01-05 15:08] LABS: Amphetamine Screen,Urine Negative ng/mL (Cutoff=1000); Barbiturate Screen,Urine Negative ng/mL (Cutoff=200); Benzodiazepines Screen,Urine Negative ng/mL (Cutoff=200); Cannabinoid Screen,Urine Negative ng/mL (Cutoff = 50); Cocaine Screen,Urine Negative ng/mL (Cutoff= 300); Opiate Screen,Urine Negative ng/mL (Cutoff=300); Phencyclidine Screen,Urine Negative ng/mL (Cutoff=25)
[2019-01-05] MEDS ORDERED: MOM Conc 10 ML UD.LIQ PO PRN (17:45)
[2019-01-05] MEDS ORDERED: traZODone 50 MG TABLET PO PRN (17:45)
[2019-01-05] MEDS ORDERED: Haloperidol Lactate 5 MG/ML VIAL IM PRN (17:45)
[2019-01-05] MEDS ORDERED: *HR* LORazepam 2 MG/ML VIAL IM PRN (17:45)
[2019-01-05] MEDS ORDERED: Mag Hydrox/Al Hydrox/Simeth 30 ML UDC PO PRN (17:45)
[2019-01-05] MEDS ORDERED: Ibuprofen 400 MG TABLET PO PRN (17:45)
[2019-01-05] MEDS: hydrOXYzine pamoate 25 MG CAPSULE PO PRN (19:37)
[2019-01-05] MEDS: *HR* LORazepam 1 MG TABLET PO PRN (21:01)
--- NOTE | 2019-01-06 09:19 | Psychiatry History & Physical ---
Date of Encounter: 01/06/19 Time of Encounter: 09:17 History of Present Illness Patient Stated Chief Complaint: psychosis Medicare Admission Attestation: For traditional Medicare patients the provided hospital inpatient services are reasonable and necessary and in the case of services not specified as inpatient-only under 42 CFR 419.22 (n), that they are appropriately provided as inpatient services in accordance 42 CFR 412.3. For Critical Access Hospital the patient may reasonably be expected to be discharged or transferred to a hospital within 96 hours after admission to the Critical Access Hospital. Admitted From: Emergency Dept Plans for Post Hospital Care: Home History of Present Illness: Ms. Mack is a 33 year old female She reported that she has been having auditory hallucinations command at times though she could not say specifically what they have been commanding her to do. She also reports visual hallucinations of shadows and frightening figures. She is also been depressed and confused she was recently discharged from [facility] where they switched her onto G her Zyprexa. She said she has also been taking Cogentin and gabapentin as well as Suboxone prescribed by Kevyn. She was tearful last night in the emergency room and had significant thought blocking. This morning she is more alert. She is not tearful. She is able to answer questions. She does report hallucinations She said prior to moving she was on Geodon though she cannot recall the exact dose as well as another medication which she cannot recall the name of. Records state she has also been tried on Risperdal Trilafon and lithium in the past. She reports fluctuating mood with highs and lows as well as periods of irritability increased energy decreased concentration and states she has been not sleeping and required emergency medications last night to help her sleep. She reports suicidal ideations. No homicidal ideations no access to firearms. Past Med Surg Social Fam HX - Past Medical History Medical history: non-contributory - Past Psychiatric History Psychiatric history: Reports: bipolar, prior suicide attempt, schizophrenia, previous psychiatric hospitalization Past psychiatric history details: Patient has been on 1A previous in the past. She has been recently at [facility]. They switched her to Zyprexa. When she last visit that she was on Geodon. She is linked with [place]. She reports a history of suicide attempt in the past by slitting her wrists and overdose. Family psychiatric history: Yes Family Psychiatric History Details: Mother and father have depression. She reports substance use in the family. Family History of Suicide: None - Past Surgical History Surgical History: non-contributory, - Social History Smoking Status: Current every day smoker Smokeless Tobacco Status: No Alcohol use: none Drug use: cocaine, opiates, marijuana, methamphetamine, IV Drug Use, prescription drug abuse Occupational status: unemployed Current living situation: Home - Independent Activity Level: Independent ambulation Recent Out of Country Travel Within the Last 8 Weeks: No Exposure or Possible Exposure to Illness During Travel: No Additional social history: She reports that she lives with her friend Tevin. She has 2 children who are with her father. She is unemployed. - Family History Paternal Grandmother Adopted: Yes Name: Silvia Living Status: Hx Family Cardiac Disorders: Yes (OR) Hx Family Respiratory Disorders: No Hx Family Cancer: No Hx Family GI Disorders: No Hx Family Endocrine Disorder: No Hx Family Neuromuscular Disorders: No Hx Family Neurologic Disorders: No Hx Family HEENT Disorders: No Hx Family Autoimmune Disorders: No Medications & Allergies Benztropine Mesylate 0.5 mg PO BID 01/05/19 [History] Buprenorphine HCl/Naloxone HCl [Buprenorphin-Naloxon 8-2 mg Sl] 2 tab SL DAILY 01/05/19 [History] Gabapentin 600 mg PO TID 01/05/19 [History] Mirtazapine [Remeron] 7.5 mg PO HS 01/05/19 [History] OLANZapine [Zyprexa] 10 mg PO DAILY 01/05/19 [History] Ziprasidone [Geodon] 20 mg PO BID 01/05/19 [History] Ziprasidone [Geodon] 80 mg PO BID 01/05/19 [History] Allergy/AdvReac Type Severity Reaction Status Date / Time trazodone AdvReac See Verified 03/26/17 09:34 Comments Review of Systems Constitutional: Denies: fever Eyes: Denies: eye pain Ears, Nose, Throat: Denies: ear pain Cardiovascular: Denies: chest pain Respiratory: Denies: cough Gastrointestinal: Denies: abdominal pain Genitourinary female: Denies: urgency Musculoskeletal: Denies: back pain Integumentary: Denies: rash Neurological: Denies: headache Psychiatric: Reports: depression, suicidal ideation, auditory hallucinations, visual hallucinations, anhedonia, confusion Endocrine: Reports: fatigue Hematologic/Lymphatic: Denies: easy bleeding Allergic/Immunologic: Denies: facial swelling Exam - HEENT Head exam IM: Present: atraumatic Eye exam IM: Present: EOMI ENT exam IM: Present: mucous membranes moist - Neurological Neurological exam: Present: CN II-XII intact - Respiratory Respiratory exam IM: Absent: respiratory distress - GI/Abdominal GI/Abdominal exam IM: Present: no peritoneal signs - Extremities Extremities exam IM: Present: full ROM - Skin Skin exam IM: Present: dry - Constitutional Vitals: Temp Pulse Resp BP Pulse Ox 99.6 F 92 18 124/83 99 01/05/19 21:00 01/05/19 21:00 01/05/19 21:00 01/05/19 21:00 01/05/19 21:00 General appearance: age & developmentally appropriate, disheveled, thin - Musculoskeletal Gait: slow Station: stooped Strength & Tone: mild weakness - Psychiatric Patient Orientation: Yes Person, Yes Time, Yes Place Level of alertness: Sedated, Follows commands Psychomotor activity: Slowed Eye Contact: No Eye Contact Mood Description: Depressed Affect description: flat Speech Volume: Soft/Quiet Speech pattern: slowed, impoverished Language & Vocabulary: limited Thought Process: Tangential Thought Content: Yes Suicidal ideation, No Homicidal ideation, Yes Paranoid delusion Perceptual Disturbances: Yes Auditory hallucinations, Yes Visual hallucinations Attention Span Ability: Unable to Focus, Unable to Sustain Attention Memory Description: Immediate Impaired, Recent Impaired, Remote Impaired Patient Reliability: Questionable Historian Fund of knowledge: Yes average Intelligence Estimate: Average Judgment: Poor Insight: None Results - Drug Levels and Toxicology Drug Levels and Toxicology: Drug Levels and Toxicity 01/05/19 01/05/19 13:25 14:43 Urine Opiates Screen Negative Acetaminophen < 10 L Ur Barbiturates Screen Negative Ur Phencyclidine Scrn Negative Ur Amphetamines Screen Negative U Benzodiazepines Scrn Negative Urine Cocaine Screen Negative U Marijuana (THC) Screen Negative Ethyl Alcohol < 10 - Labs Labs: Laboratory Last Values WBC 8.0 K/mcL (4.3-11.1) 01/05/19 13:25 RBC 4.24 M/mcL (3.82-4.97) 01/05/19 13:25 Hgb 13.0 g/dL (11.5-15.4) 01/05/19 13:25 Hct 38.5 % (35.3-44.9) 01/05/19 13:25 MCV 90.8 fL (83.0-100.0) 01/05/19 13:25 MCH 30.7 pg (28.0-33.3) 01/05/19 13:25 MCHC 33.8 g/dL (31.6-35.5) 01/05/19 13:25 RDW 12.9 % (11.5-14.5) 01/05/19 13:25 Plt Count 249 K/mcL (140-400) 01/05/19 13:25 MPV 9.7 fL (9.4-12.4) 01/05/19 13:25 Immature Gran % 0.2 % (0-4) 01/05/19 13:25 Seg Neutrophils % 59.3 % 01/05/19 13:25 Lymphocytes % 30.4 % 01/05/19 13:25 Monocytes % 8.6 % 01/05/19 13:25 Eosinophils % 1.1 % 01/05/19 13:25 Basophils % 0.4 % 01/05/19 13:25 Neutrophils # 4.8 K/mcL (1.6-8.9) 01/05/19 13:25 Lymphocytes # 2.4 K/mcL (0.6-4.6) 01/05/19 13:25 Monocytes # 0.7 K/mcL (0.0-1.3) 01/05/19 13:25 Eosinophils # 0.1 K/mcL (0.0-0.6) 01/05/19 13:25 Basophils # 0.0 K/mcL (0.0-0.2) 01/05/19 13:25 Sodium 139 mEq/L (136-145) 01/05/19 13:25 Potassium 3.8 mEq/L (3.5-5.1) 01/05/19 13:25 Chloride 104 mEq/L (98-107) 01/05/19 13:25 Carbon Dioxide 25 mEq/L (23-29) 01/05/19 13:25 BUN 12 mg/dL (6-20) 01/05/19 13:25 Creatinine 0.64 mg/dL (0.60-1.20) 01/05/19 13:25 Est GFR ( Amer) > 60 (> 60) 01/05/19 13:25 Est GFR (Non-Af Amer) > 60 (> 60) 01/05/19 13:25 BUN/Creatinine Ratio 19 (6-26) 01/05/19 13:25 Glucose 99 mg/dL (70-105) 01/05/19 13:25 Calculated Osmolality 288 (280-300) 01/05/19 13:25 Calcium 10.1 mg/dL (8.6-10.3) 01/05/19 13:25 Urine Color Yellow (Yellow) 01/05/19 14:43 Urine Clarity Clear (Clear) 01/05/19 14:43 Urine pH 6.0 pH Units (5.0-8.0) 01/05/19 14:43 Ur Specific Eads 1.020 (1.010-1.025) 01/05/19 14:43 Urine Protein Negative mg/dL (Neg-Trace) 01/05/19 14:43 Urine Glucose (UA) Normal mg/dL (Normal) 01/05/19 14:43 Urine Ketones Negative mg/dL (Negative) 01/05/19 14:43 Urine Blood Negative (Negative) 01/05/19 14:43 Urine Nitrite Negative (Negative) 01/05/19 14:43 Urine Bilirubin Negative (Negative) 01/05/19 14:43 Urine Urobilinogen Normal mg/dL (Normal) 01/05/19 14:43 Ur Leukocyte Esterase Negative (Negative) 01/05/19 14:43 Urine Test Negative (Negative) 01/05/19 14:43 Salicylates < 2.5 mg/dL (15.0-30.0) L 01/05/19 13:25 Urine Opiates Screen Negative ng/mL (Jiocwe=139) 01/05/19 14:43 Ur Buprenorphine Scrn Positive ng/mL (Cutoff=5) H 01/05/19 14:43 Acetaminophen < 10 mcg/mL (10-20) L 01/05/19 13:25 Ur Barbiturates Screen Negative ng/mL (Fndpoc=592) 01/05/19 14:43 Ur Phencyclidine Scrn Negative ng/mL (Cutoff=25) 01/05/19 14:43 Ur Amphetamines Screen Negative ng/mL (Snjlja=9430) 01/05/19 14:43 U Benzodiazepines Scrn Negative ng/mL (Kokgor=933) 01/05/19 14:43 Urine Cocaine Screen Negative ng/mL (Cutoff= 300) 01/05/19 14:43 U Marijuana (THC) Screen Negative ng/mL (Cutoff = 50) 01/05/19 14:43 Ur Drug Screen Interp See Below 01/05/19 14:43 Ethyl Alcohol < 10 mg/dL (Less than 10) 01/05/19 13:25 Assessment and Plan (1) Bipolar 1 disorder, mixed, severe Current visit: No Status: Acute Plan: Admit inpatient for safety and stabilization, Close observation, Suicide Precautions per unit protocol, Encourage participation in unit milieu, Group Therapy, Monitor sleep, Monitor appetite Additional Plan: Patient is known to me in this facility. We will restart the Zyprexa she was getting after chiffon,. Will add an additional 5 mA in the morning. Continue the Cogentin and gabapentin. She can use her Suboxone if she has additional doses left at home to bring in. Encourage group therapy. Aims equals 0. We will check the patient and hemoglobin A1c. Risks, benefits, side effects, alternatives discussed w/pt: Yes Patient agreeable to treatment: Yes Plans for Post Hospital Care: Home Estimated Length of Stay (Days): 5
[2019-01-06 10:48] LABS: Estimated Average Glucose 105 mg/dl
[2019-01-06 11:13] LABS: Thyroid Stimulating Hormone 1.041 mcIU/mL (0.340-5.600)
[2019-01-06] MEDS: Gabapentin 300 MG CAPSULE PO SCH ×3 (11:38→21:50)
[2019-01-06] MEDS: OLANZapine 5 MG TAB.RAPDIS PO SCH ×2 (11:39→18:02)
[2019-01-06] MEDS: Mirtazapine 15 MG TABLET PO SCH (21:50)
--- NOTE | 2019-01-07 11:59 | Psychiatry Progress Note ---
Date of Encounter: 01/07/19 Time of Encounter: 11:54 Subjective Interval history: Client known to this comic book writer from past admissions. Psychotic with AH and thought blocking. Some depression but client denies SI, intent, or plan. Tox screen negative except for Suboxone. Client claims she was compliant with her mental health medications prior to admission. Yesterday her home dose of Zyprexa was increased. Client's blood pressure is quite low this morning-70s/40s. She is asymptomatic but morning meds have been held until she drinks enough fluids to increase her blood pressure. Has been living with the same gentleman for years and plans to return to his house at the time of discharge. Review of Systems Constitutional: Denies: fever, chills, weakness, weight change Eyes: Denies: eye pain, vision change Ears, Nose, Throat: Denies: ear pain, throat pain, dental pain, hearing loss, congestion Cardiovascular: Denies: chest pain, palpitations, dyspnea on exertion Respiratory: Denies: cough, dyspnea, wheezes Gastrointestinal: Denies: abdominal pain, nausea, vomiting, diarrhea, constipation Musculoskeletal: Denies: joint swelling, joint pain Neurological: Denies: headache, weakness, numbness, memory loss Psychiatric: Reports: depression, suicidal ideation, auditory hallucinations, visual hallucinations, anhedonia, confusion Results - Vital Signs Vital Signs: Temp Pulse Resp BP Pulse Ox 97.9 F 108 16 89/60 96 01/07/19 09:00 01/07/19 09:00 01/07/19 09:00 01/07/19 09:00 01/06/19 20:10 Assessment and Plan (1) Bipolar 1 disorder Current visit: No Status: Chronic Plan: Continue hospitalization, Close observation, Suicide Precautions per unit protocol, Encourage participation in unit milieu, Group Therapy, Monitor sleep, Monitor appetite Risks, benefits, side effects, alternatives discussed w/pt: Yes Patient agreeable to treatment: Yes Consult Discharge Plan - Plan Referrals: NONE,PCP [Primary Care Provider] - Psychiatry Exam - Constitutional Vitals: Temp Pulse Resp BP Pulse Ox 97.9 F 108 16 89/60 96 01/07/19 09:00 01/07/19 09:00 01/07/19 09:00 01/07/19 09:00 01/06/19 20:10 General appearance: age & developmentally appropriate, well-groomed, well- nourished - Musculoskeletal Gait: normal Station: relaxed Strength & Tone: normal for patient - Psychiatric Patient Orientation: Yes Person, Yes Time, Yes Place Level of alertness: Alert Behavior: calm, cooperative Psychomotor activity: Normal Eye Contact: Maintains Eye Contact Mood Description: Depressed Affect description: congruent with mood Speech Volume: Normal Speech pattern: normal rate, normal rhythm, normal tone, fluent, spontaneous Language & Vocabulary: consistent with education Thought Process: Thought Blocking Thought Content: No Suicidal ideation, No Homicidal ideation Perceptual Disturbances: Yes Auditory hallucinations, Yes Visual hallucinations Attention Span Ability: Capable of Focused Attention Memory Description: Grossly Intact Patient Reliability: Reliable Historian Fund of knowledge: Yes abstraction ability Intelligence Estimate: Average Judgment: Fair Insight: Partial
[2019-01-07] MEDS: Buprenorphine Hcl/Naloxone 8-2 MG SL SCH ×2 (12:00→14:43)
[2019-01-07] MEDS: OLANZapine 5 MG TAB.RAPDIS PO SCH ×2 (12:00→18:00)
[2019-01-07] MEDS: Gabapentin 300 MG CAPSULE PO SCH ×3 (12:00→20:30)
[2019-01-07] MEDS: hydrOXYzine pamoate 25 MG CAPSULE PO PRN (20:30)
[2019-01-07] MEDS: Mirtazapine 15 MG TABLET PO SCH (20:31)
--- NOTE | 2019-01-08 11:26 | Psychiatry Progress Note ---
Date of Encounter: 01/08/19 Time of Encounter: 11:21 Subjective Interval history: Client continues to present as very confused. She was oriented to person, place, and time today but admitted she felt really confused. When she first came in the room to speak with this adjusto writer operator she had a hard time getting her words out. She eventually said "I have a listening problem." When asked to explain this she was unable to. Answered most questions with "Um, um, um..." without ever really being able to formulate a coherent response. Sometimes her responses were lucid and given without delay but most of the time she evidenced a lot of thought blocking and an inability to formulate clear responses. Looked distressed today. Fell on the unit last night. No injuries. Blood pressure at that time was low but quite a bit better than yesterday morning. Encouraged to drink fluids today. Will be difficult to titrate meds any further if she is unable to bring her blood pressure up. Review of Systems Constitutional: Denies: fever, chills, weakness, weight change Eyes: Denies: eye pain, vision change Ears, Nose, Throat: Denies: ear pain, throat pain, dental pain, hearing loss, congestion Cardiovascular: Denies: chest pain, palpitations, dyspnea on exertion Respiratory: Denies: cough, dyspnea, wheezes Gastrointestinal: Denies: abdominal pain, nausea, vomiting, diarrhea, constipation Musculoskeletal: Denies: joint swelling, joint pain Neurological: Denies: headache, weakness, numbness, memory loss Psychiatric: Reports: depression, suicidal ideation, auditory hallucinations, visual hallucinations, anhedonia, confusion Results - Vital Signs Vital Signs: Temp Pulse Resp BP Pulse Ox 99.4 F 94 16 115/69 99 01/07/19 21:00 01/07/19 22:55 01/07/19 22:55 01/07/19 22:55 01/07/19 22:55 Assessment and Plan (1) Bipolar 1 disorder Current visit: No Status: Chronic Plan: Continue hospitalization, Close observation, Suicide Precautions per unit protocol, Encourage participation in unit milieu, Group Therapy, Monitor sleep, Monitor appetite Risks, benefits, side effects, alternatives discussed w/pt: Yes Patient agreeable to treatment: Yes Consult Discharge Plan - Plan Referrals: NONE,PCP [Primary Care Provider] - Psychiatry Exam - Constitutional Vitals: Temp Pulse Resp BP Pulse Ox 99.4 F 94 16 115/69 99 01/07/19 21:00 01/07/19 22:55 01/07/19 22:55 01/07/19 22:55 01/07/19 22:55 General appearance: age & developmentally appropriate, well-groomed, well- nourished - Musculoskeletal Gait: slow Station: relaxed Strength & Tone: normal for patient - Psychiatric Patient Orientation: Yes Person, Yes Time, Yes Place Level of alertness: Alert Behavior: anxious Psychomotor activity: Slowed Eye Contact: Maintains Eye Contact Mood Description: Depressed Affect description: congruent with mood Speech Volume: Soft/Quiet Speech pattern: limited Language & Vocabulary: consistent with education Thought Process: Thought Blocking Thought Content: No Suicidal ideation, No Homicidal ideation Perceptual Disturbances: Yes Auditory hallucinations Attention Span Ability: Capable of Focused Attention, Unable to Sustain Attention Memory Description: Grossly Intact Patient Reliability: Questionable Historian Fund of knowledge: Yes abstraction ability Intelligence Estimate: Average Judgment: Limited Insight: Partial
[2019-01-08] MEDS: Buprenorphine Hcl/Naloxone 8-2 MG SL SCH (11:40)
[2019-01-08] MEDS: OLANZapine 5 MG TAB.RAPDIS PO SCH ×2 (11:41→17:45)
[2019-01-08] MEDS: Gabapentin 300 MG CAPSULE PO SCH ×3 (11:47→21:16)
[2019-01-08] MEDS: Mirtazapine 15 MG TABLET PO SCH (21:16)
[2019-01-08] MEDS: hydrOXYzine pamoate 25 MG CAPSULE PO PRN (21:16)
--- NOTE | 2019-01-09 08:56 | Psychiatry Progress Note ---
Date of Encounter: 01/09/19 Time of Encounter: 08:49 Subjective Interval history: Looks a little better this morning. Still psychotic but likely has psychosis at baseline. Speech is more fluid. Less thought blocking. Answering questions with morejon sentences. Biggest challenge with her has been her blood pressure. She has been running so low her medications have not been titrated up any further. A couple of times her morning doses were held and she has had a couple of falls. She has been cooperative with eating and drinking fluids. Blood pressures have been coming up a little bit but will likely need to stay at the med doses she is at. Still very ill but looking a little better and is most likely near or at her baseline. She has lived with the same gentleman for years. Client states he is coming to see her this afternoon. If he feels comfortable having client home may be able to look at discharge as early as tomorrow. Client struggles with depression but has consistently denied SI/HI. Reports she is eating and sleeping well. Attempts to attend some groups but her psychosis limits her ability to fully participate. Review of Systems Constitutional: Denies: fever, chills, weakness, weight change Eyes: Denies: eye pain, vision change Ears, Nose, Throat: Denies: ear pain, throat pain, dental pain, hearing loss, congestion Cardiovascular: Denies: chest pain, palpitations, dyspnea on exertion Respiratory: Denies: cough, dyspnea, wheezes Gastrointestinal: Denies: abdominal pain, nausea, vomiting, diarrhea, constipation Musculoskeletal: Denies: joint swelling, joint pain Neurological: Denies: headache, weakness, numbness, memory loss Psychiatric: Reports: depression, suicidal ideation, auditory hallucinations, visual hallucinations, anhedonia, confusion Results - Vital Signs Vital Signs: Temp Pulse Resp BP Pulse Ox 98.4 F 84 12 91/63 96 01/08/19 21:00 01/08/19 21:00 01/08/19 21:00 01/08/19 21:00 01/08/19 21:00 Assessment and Plan (1) Bipolar 1 disorder Current visit: No Status: Chronic Plan: Continue hospitalization, Close observation, Suicide Precautions per unit protocol, Encourage participation in unit milieu, Group Therapy, Monitor sleep, Monitor appetite Risks, benefits, side effects, alternatives discussed w/pt: Yes Patient agreeable to treatment: Yes Consult Discharge Plan - Plan Referrals: NONE,PCP [Primary Care Provider] - Psychiatry Exam - Constitutional Vitals: Temp Pulse Resp BP Pulse Ox 98.4 F 84 12 91/63 96 01/08/19 21:00 01/08/19 21:00 01/08/19 21:00 01/08/19 21:00 01/08/19 21:00 General appearance: age & developmentally appropriate, well-groomed, well- nourished - Musculoskeletal Gait: slow Station: relaxed Strength & Tone: normal for patient - Psychiatric Patient Orientation: Yes Person, Yes Time, Yes Place Level of alertness: Alert Behavior: calm, cooperative Psychomotor activity: Slowed Eye Contact: Maintains Eye Contact Mood Description: Depressed Affect description: congruent with mood Speech Volume: Soft/Quiet Speech pattern: slowed Language & Vocabulary: consistent with education Thought Process: Thought Blocking Thought Content: No Suicidal ideation, No Homicidal ideation Perceptual Disturbances: Yes Auditory hallucinations, Yes Visual hallucinations Attention Span Ability: Capable of Focused Attention Memory Description: Grossly Intact Patient Reliability: Questionable Historian Fund of knowledge: Yes abstraction ability, Yes aware of current events Intelligence Estimate: Average Judgment: Limited Insight: Partial
[2019-01-09] MEDS: Gabapentin 300 MG CAPSULE PO SCH ×3 (09:33→21:03)
[2019-01-09] MEDS: OLANZapine 5 MG TAB.RAPDIS PO SCH ×3 (09:33→21:03)
[2019-01-09] MEDS: Buprenorphine Hcl/Naloxone 8-2 MG SL SCH (09:41)
[2019-01-09] MEDS ORDERED: OLANZapine 5 MG TAB.RAPDIS PO STA (14:28)
[2019-01-09] MEDS: hydrOXYzine pamoate 25 MG CAPSULE PO PRN (21:03)
[2019-01-09] MEDS: Mirtazapine 15 MG TABLET PO SCH (21:03)
[2019-01-10] MEDS: hydrOXYzine pamoate 25 MG CAPSULE PO PRN (00:50)
[2019-01-10] MEDS: *HR* LORazepam 1 MG TABLET PO PRN (02:38)
--- NOTE | 2019-01-10 11:48 | Psychiatry Progress Note ---
Date of Encounter: 01/10/19 Time of Encounter: 11:38 Subjective Interval history: Client had a really bad day yesterday. She looked better in the morning when speaking with this health science writer but she went downhill in the afternoon. Staff report she was tearful and admitting to hallucinations. She had trouble getting her words out. She kept trying to ask to use the phone and eventually just had to point at it to communicate what she wanted. When on the phone with "Tevin" her speech was more fluent. However, most of the rest of the day she really struggled to communicate. Staff report she was really confused as well. She came out of the shower naked two times. She had difficulty putting on her clothes and staff had to help her dress. At one point staff found her on all fours in her room with her head against the wall. Remains very ill. A lot of her presentation may be permanent due to her past drug use but would prefer to see some clinical improvement prior to discharging her. Her blood pressure continues to run low. Although client does not express that she is dizzy she has lowered herself to the floor multiple times and staff suspect she may be doing so because she is light headed. She is cooperative with eating and drinking fluids but she is still running low enough that medication adjustments are difficult. Client may benefit from an additional antidepressant as she clinically looks like she is having a psychotic depression. However, client received prns yesterday and is sleeping heavily at this time. Not awake enough to get her consent to start a new medication so will need to defer until tomorrow. Would prefer she consider discharge to a safer/more structured environment as well. Needs more stability than living with "Tevin" and a residential placement that can help with med compliance and provide ongoing treatment would be in her best interest. Review of Systems Constitutional: Denies: fever, chills, weakness, weight change Eyes: Denies: eye pain, vision change Ears, Nose, Throat: Denies: ear pain, throat pain, dental pain, hearing loss, congestion Cardiovascular: Denies: chest pain, palpitations, dyspnea on exertion Respiratory: Denies: cough, dyspnea, wheezes Gastrointestinal: Denies: abdominal pain, nausea, vomiting, diarrhea, constipation Musculoskeletal: Denies: joint swelling, joint pain Neurological: Denies: headache, weakness, numbness, memory loss Psychiatric: Reports: depression, suicidal ideation, auditory hallucinations, visual hallucinations, anhedonia, confusion Results - Vital Signs Vital Signs: Temp Pulse Resp BP Pulse Ox 99.2 F 81 18 124/78 100 01/09/19 20:26 01/09/19 20:26 01/09/19 20:26 01/09/19 20:01/09/19 20:26 Assessment and Plan (1) Bipolar 1 disorder Current visit: No Status: Chronic Plan: Continue hospitalization, Close observation, Suicide Precautions per unit protocol, Encourage participation in unit milieu, Group Therapy, Monitor sleep, Monitor appetite Risks, benefits, side effects, alternatives discussed w/pt: Yes Patient agreeable to treatment: Yes Consult Discharge Plan - Plan Referrals: NONE,PCP [Primary Care Provider] - Psychiatry Exam - Constitutional Vitals: Temp Pulse Resp BP Pulse Ox 99.2 F 81 18 124/78 100 01/09/19 20:26 01/09/19 20:26 01/09/19 20:01/09/19 20:01/09/19 20:26 General appearance: age & developmentally appropriate, well-groomed, well- nourished - Musculoskeletal Gait: slow Station: relaxed Strength & Tone: normal for patient - Psychiatric Patient Orientation: Yes Person, Yes Time, Yes Place Level of alertness: Alert Behavior: anxious Psychomotor activity: Slowed Eye Contact: Maintains Eye Contact Mood Description: Depressed Affect description: congruent with mood Speech Volume: Normal Speech pattern: limited Language & Vocabulary: consistent with education Thought Process: Thought Blocking Thought Content: No Suicidal ideation, No Homicidal ideation, No Overt delusions Perceptual Disturbances: Yes Reacting to internal stimuli, Yes Auditory hallucinations, Yes Visual hallucinations Attention Span Ability: Unable to Sustain Attention Memory Description: Immediate Intact, Recent Impaired, Remote Intact Patient Reliability: Questionable Historian Fund of knowledge: Yes abstraction ability, Yes aware of current events Intelligence Estimate: Average Judgment: Limited Insight: Partial
[2019-01-10] MEDS: OLANZapine 5 MG TAB.RAPDIS PO SCH ×2 (15:00→20:20)
[2019-01-10] MEDS: Gabapentin 300 MG CAPSULE PO SCH ×3 (15:00→20:20)
[2019-01-10] MEDS: Buprenorphine Hcl/Naloxone 8-2 MG SL SCH (15:00)
[2019-01-10] MEDS: Mirtazapine 15 MG TABLET PO SCH (20:20)
[2019-01-11] MEDS: OLANZapine 5 MG TAB.RAPDIS PO SCH ×2 (09:43→20:45)
[2019-01-11] MEDS: Gabapentin 300 MG CAPSULE PO SCH ×3 (09:43→20:43)
[2019-01-11] MEDS: Buprenorphine Hcl/Naloxone 8-2 MG SL SCH (09:44)
[2019-01-11] MEDS: hydrOXYzine pamoate 25 MG CAPSULE PO PRN (10:33)
--- NOTE | 2019-01-11 13:07 | Psychiatry Progress Note ---
Date of Encounter: 01/11/19 Time of Encounter: 12:59 Subjective Interval history: Ms. Mack was in her bedroom lying sideways and crying nonstop. I did ask her to come with me to the dining room to further discuss her mood. She remained tearful at one time stated needs caught in her life. Did not maintain eye contact continue to uncontrolled crying. When asked as to why she was crying what was upsetting her she just kept repeating "umm." Nursing report that yesterday she slept the entire day and was not able to take her medication did receive her nighttime medication. Staff also reported that she had episodes of confusion as she lay on the floor on all fours. She was also unable to write any further detail when questioned asked about her orientation she knew where she was at. She did apologize a few times and said "I am sorry I do not know what to say." For brief moment she did stop crying and I asked her if she would like to return to her room or go to the shelter she decided to go to the group room. Review of Systems ROS unobtainable: due to patient condition (Unable to obtain due to patient's mood) Psychiatric: Reports: depression, suicidal ideation, auditory hallucinations, confusion Results - Vital Signs Vital Signs: Temp Pulse Resp BP Pulse Ox 98.8 F 89 18 115/79 98 01/11/19 09:00 01/11/19 09:00 01/11/19 09:00 01/11/19 09:00 01/11/19 09:00 Assessment and Plan (1) Bipolar 1 disorder Current visit: No Status: Chronic Plan: Continue hospitalization, Close observation, Encourage participation in unit milieu, Monitor sleep, Monitor appetite Additional Plan: Continues to remain sick. Would benefit from addition of antidepressant as she is currently only on olanzapine and quetiapine. Would recommend continuing olanzapine stopping quetiapine adding necessary rise such as fluoxetine. Risks, benefits, side effects, alternatives discussed w/pt: Yes Patient agreeable to treatment: Yes Consult Discharge Plan - Plan Referrals: NONE,PCP [Primary Care Provider] - - Attending Attestation I examined this patient and my medical decision-making was reviewed with the Resident Physician. I agree with the documented findings, disposition and treatment plan as described except to the extent set forth below. When I met with the patient again, later, she did know she was at [facility] and it was December 2018. She did acknowledge still hearing things at times, but was starting to improve on medications. She was tearful intermittently and had a difficult time focusing. We did talk about her substance abuse and being on Suboxone previously. She talked about slipping up on meth recently, but still taking Suboxone. (It is not being prescribed here. She is going through some withdrawal at this time. She has prn's to utilize.) She told me she felt confused and did not know what to do or say. I encouraged her to continue taking her medications, to work with staff and eat and sleep as she could and hopefully she would be feeling better soon and start to clear further mentally. She acknowledged and went to the day room and had a cup of coffee. Patient has a very extensive history of substance abuse and issues with a safe living environment. Those issues are being addressed for her discharge planning. Psychiatry Exam - Constitutional Vitals: Temp Pulse Resp BP Pulse Ox 98.8 F 89 18 115/79 98 01/11/19 09:00 01/11/19 09:00 01/11/19 09:00 01/11/19 09:00 01/11/19 09:00 General appearance: unkempt, disheveled - Musculoskeletal Gait: slow Station: stooped Strength & Tone: normal for patient - Psychiatric Patient Orientation: Yes Person, No Time, Yes Circumstance (She knew he was in the hospital) Level of alertness: Alert Behavior: anxious, tearful Psychomotor activity: Slowed Eye Contact: Avoids Eye Contact Mood Description: Labile Affect description: tearful Speech Volume: Soft/Quiet Speech pattern: slowed, mumbled Language & Vocabulary: limited Thought Process: Slowed Thinking Thought Content: Yes Poverty of Content Perceptual Disturbances: Yes Reacting to internal stimuli Attention Span Ability: Unable to Focus Memory Description: Remote Impaired Patient Reliability: Not Reliable Historian Fund of knowledge: Yes below average Intelligence Estimate: Average Judgment: Limited Insight: Minimal
[2019-01-11] MEDS: Mirtazapine 15 MG TABLET PO SCH (20:46)
[2019-01-12] MEDS: OLANZapine 5 MG TAB.RAPDIS PO SCH (09:36)
[2019-01-12] MEDS: Gabapentin 300 MG CAPSULE PO SCH ×3 (09:36→21:06)
[2019-01-12] MEDS: Buprenorphine Hcl/Naloxone 8-2 MG SL SCH (09:40)
--- NOTE | 2019-01-12 10:21 | Psychiatry Progress Note ---
Date of Encounter: 01/12/19 Time of Encounter: 09:15 Subjective Interval history: Ms. Mack was in the hallway and asked if she minded moving to [facility] group room to talk. She came to the group room and was quite nervous and started crying. She kept saying she was upset "because I couldn't", when asked what she couldn't do she just kept saying "um". She then continued to cry. When asked if she is hearing any voices around her she stated "yes" and upon further questioning she states "they tell me to do stuff". She was unable to answer what stuff these auditory hallucinations tell her to do. When asked is she was feeling down she stated "I'm a mess up" and when asked if she ever wanted to hurt herself she stated "sometimes I want to hurt myself because I am a mess up". She denied wanting to harm anyone else. According to nursing staff patient ate the majority of her breakfast as well as drank coffee and orange juice. Review of Systems ROS unobtainable: due to patient condition Psychiatric: Reports: depression, suicidal ideation, auditory hallucinations, confusion Results - Vital Signs Vital Signs: Temp Pulse Resp BP Pulse Ox 98.1 F 92 16 92/61 95 01/12/19 09:00 01/12/19 09:00 01/12/19 09:00 01/12/19 09:00 01/12/19 09:00 Assessment and Plan (1) Bipolar 1 disorder Current visit: No Status: Chronic Plan: Continue hospitalization, Close observation, Encourage participation in unit milieu, Monitor sleep, Monitor appetite Additional Plan: Patient continues to be on zyprexa and quetiapine. Patient's continued nervousness/tearfulness could be continued withdrawl from her suboxone therapy which she has not been on for approximately 4 days. We will restart patient on subutex and see if her mentality is better while on subutex as long as blood pressure remains stable Risks, benefits, side effects, alternatives discussed w/pt: Yes (See attending attestation note for adjustment in medications) Patient agreeable to treatment: Yes Consult Discharge Plan - Plan Referrals: NONE,PCP [Primary Care Provider] - - Attending Attestation I examined this patient and my medical decision-making was reviewed with the Resident Physician. I agree with the documented findings, disposition and treatment plan as described except to the extent set forth below. When I went to talk to the patient, she was kneeling praying in her room. She was agreeable to talk. She is worried about her current situation and thoughts. She acknowledges she is hearing voices and I will increase her Zyprexa, 5 mg po qAM and10 mg po qHS to 10 mg po BID, slightly today targeting the psychosis. No active SI, no command hallucinations to hurt herself or anyone else. She is being started on low dose Subutex 4 mg po bid targeting her opiate withdrawal as her Suboxone 8mg/2mg ran out 3 days ago. Her blood pressure is more stabilized as she is now eating more and drinking more. She is talking in more in full sentences to me and is more coherent. She is tearful and nervous. I explained to her that she is getting better everyday and we would keep helping her to get more stabilized. She shook her head yes and said "thank you". She reports having been on Zoloft previously, but I am concerned about adjusting medications too much all at once. Would consider a possible decrease in her Gabapentin from 600 mg po TID to less with her being on Zyprexa now. (She may not need the Gabapentin at all. There is no documentation as to why she is even taking it so I'm assuming for nerve pain or mood.) Will continue to follow her stabilization and blood pressure on current med changes before making any further changes. Psychiatry Exam - Constitutional Vitals: Temp Pulse Resp BP Pulse Ox 98.1 F 92 16 92/61 95 01/12/19 09:00 01/12/19 09:00 01/12/19 09:00 01/12/19 09:00 01/12/19 09:00 General appearance: unkempt - Musculoskeletal Gait: slow, shuffling Station: stooped - Psychiatric Patient Orientation: Yes Person, Yes Place Level of alertness: Alert Behavior: nervous, anxious, tearful, restless Psychomotor activity: Slowed Eye Contact: Minimal Contact Mood Description: Labile Affect description: congruent with mood Speech Volume: Soft/Quiet Speech pattern: limited Language & Vocabulary: limited Thought Process: Thought Blocking Thought Content: Yes Poverty of Content Perceptual Disturbances: Yes Auditory hallucinations Attention Span Ability: Unable to Sustain Attention Memory Description: Remote Impaired Patient Reliability: Not Reliable Historian Fund of knowledge: Yes below average Intelligence Estimate: Average Judgment: Limited Insight: Minimal
[2019-01-12] MEDS: *HR* Buprenorphine HCl 2 MG SUBLINGUAL TABLET SL SCH ×2 (11:21→22:36)
[2019-01-12] MEDS: *HR* LORazepam 1 MG TABLET PO PRN (21:06)
[2019-01-12] MEDS: hydrOXYzine pamoate 25 MG CAPSULE PO PRN (21:07)
[2019-01-12] MEDS: OLANZapine 10 MG TAB.RAPDIS PO SCH (21:07)
[2019-01-12] MEDS: Mirtazapine 15 MG TABLET PO SCH (21:07)
[2019-01-13] MEDS: OLANZapine 10 MG TAB.RAPDIS PO SCH ×2 (11:23→21:26)
[2019-01-13] MEDS: Gabapentin 300 MG CAPSULE PO SCH ×3 (11:23→21:26)
[2019-01-13] MEDS: *HR* Buprenorphine HCl 2 MG SUBLINGUAL TABLET SL SCH ×2 (12:28→23:08)
--- NOTE | 2019-01-13 18:09 | Psychiatry Progress Note ---
Date of Encounter: 01/13/19 Time of Encounter: 16:40 Subjective Interval history: Patient tells me today "oh, I am just tired". She tells me that she is feeling better and was better able to function today than she has been the past week. No auditory or visual hallucinations. She reports she has decreased anxiety and denies any side effects of medications. Patient had been placed on a one-to-one last night after having been given PRN medications for agitation. The concern being placed on a one-to-one secondary to her historical low blood pressure medication and was used to monitor for falls precautions. Her blood pressure today has been normal and the one-to-one was DC. Patient has been on the unit today periodically, more active, more verbal, less agitated, improved cognition and verbalization skills. She denies any suicidal/homicidal ideation. She states that she is tired, but has gotten up to eat and shows better functional ability and is more verbally engaging and appropriate than she has been in the past week. Review of Systems Psychiatric: Reports: depression, suicidal ideation, auditory hallucinations, confusion Results - Vital Signs Vital Signs: Temp Pulse Resp BP Pulse Ox 99 F 98 20 105/71 95 01/13/19 09:00 01/13/19 09:00 01/13/19 09:00 01/13/19 09:00 01/13/19 09:00 Assessment and Plan (1) Bipolar 1 disorder Current visit: No Status: Chronic Plan: Continue hospitalization, Close observation, Suicide Precautions per unit protocol, Monitor sleep, Monitor appetite Risks, benefits, side effects, alternatives discussed w/pt: Yes (See attending attestation note for adjustment in medications) Patient agreeable to treatment: Yes Consult Discharge Plan - Plan Referrals: NONE,PCP [Primary Care Provider] - Psychiatry Exam - Constitutional Vitals: Temp Pulse Resp BP Pulse Ox 99 F 98 20 105/71 95 01/13/19 09:00 01/13/19 09:00 01/13/19 09:00 01/13/19 09:00 01/13/19 09:00 General appearance: age & developmentally appropriate - Musculoskeletal Gait: other (resting in bed) - Psychiatric Patient Orientation: Yes Person, Yes Time, Yes Place Level of alertness: Sedated (tired), Follows commands Behavior: cooperative Psychomotor activity: Normal Eye Contact: Fleeting Contact Mood Description: Depressed Affect description: congruent with mood, other (More engaging and interactive) Speech Volume: Soft/Quiet Speech pattern: normal rate, normal rhythm, normal tone, fluent (Improved) Language & Vocabulary: consistent with education Thought Process: Slowed Thinking Thought Content: Yes Suicidal ideation (denies) Attention Span Ability: Capable of Focused Attention Memory Description: Grossly Intact Patient Reliability: Questionable Historian Fund of knowledge: Yes average Intelligence Estimate: Average Judgment: Fair Insight: Partial
[2019-01-13] MEDS: Mirtazapine 15 MG TABLET PO SCH (21:26)
[2019-01-14] MEDS: OLANZapine 10 MG TAB.RAPDIS PO SCH ×2 (09:52→20:16)
[2019-01-14] MEDS: Gabapentin 300 MG CAPSULE PO SCH ×3 (09:52→20:16)
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
[2019-01-14] MEDS: *HR* Buprenorphine HCl 2 MG SUBLINGUAL TABLET SL SCH ×3 (11:39→20:16)
[2019-01-14] MEDS: Mirtazapine 15 MG TABLET PO SCH (20:16)
[2019-01-14] MEDS: lamoTRIgine 25 MG TABLET PO SCH (20:16)
--- NOTE | 2019-01-15 11:11 | Psychiatry Progress Note ---
Date of Encounter: 01/15/19 Time of Encounter: 09:50 Subjective Interval history: Patient still very psychotic and responding to internal stimuli. Tolerated the lamictal. No rash. Spending much of the time in her room. Doesn't go to groups. She has been sedated this morning with low blood pressure so we are holding medications until this improves. Review of Systems Psychiatric: Reports: suicidal ideation (denies today), auditory hallucinations (present), confusion (present) Results - Vital Signs Vital Signs: Temp Pulse Resp BP Pulse Ox 98.4 F 84 16 82/53 96 01/15/19 09:00 01/15/19 09:00 01/15/19 09:00 01/15/19 09:00 01/15/19 09:00 Assessment and Plan (1) Bipolar 1 disorder Current visit: No Status: Chronic Plan: Continue hospitalization, Close observation, Suicide Precautions per unit protocol, Encourage participation in unit milieu, Group Therapy, Monitor sleep, Monitor appetite Additional Plan: Tolerated Lamictal. Consider further increase in a few days. We will decrease her gabapentin to 300 3 times a day and she has been sedated. She tolerated going down on her Subutex to 4 bid. Will likely decrease this further to 2 twice a day tomorrow. Risks, benefits, side effects, alternatives discussed w/pt: Yes (See attending attestation note for adjustment in medications) Patient agreeable to treatment: Yes Consult Discharge Plan - Plan [facility] 3:00 pm (You have an appointment with Dr. Calderon for medication management 01/18/19. ) Psychiatry Exam - Constitutional Vitals: Temp Pulse Resp BP Pulse Ox 98.4 F 84 16 82/53 96 01/15/19 09:00 01/15/19 09:00 01/15/19 09:00 01/15/19 09:00 01/15/19 09:00 General appearance: disheveled, thin - Musculoskeletal Gait: slow Station: stooped Strength & Tone: mild weakness - Psychiatric Patient Orientation: Yes Person, Yes Time, Yes Place, Yes Circumstance Level of alertness: Sedated Behavior: guarded, suspicious Psychomotor activity: Slowed Eye Contact: Minimal Contact Mood Description: Depressed Patient description of mood: Sad Affect description: flat Speech Volume: Soft/Quiet Speech pattern: slowed Language & Vocabulary: limited Thought Process: Thought Blocking, Disorganized Thought Content: Yes Preoccupation Perceptual Disturbances: Yes Auditory hallucinations Attention Span Ability: Unable to Focus, Unable to Sustain Attention Memory Description: Immediate Impaired, Recent Impaired, Remote Impaired Patient Reliability: Questionable Historian Fund of knowledge: Yes average Intelligence Estimate: Average Judgment: Limited Insight: Minimal
[2019-01-15] MEDS: Gabapentin 300 MG CAPSULE PO SCH ×3 (11:57→21:29)
[2019-01-15] MEDS: OLANZapine 10 MG TAB.RAPDIS PO SCH ×2 (11:58→21:29)
[2019-01-15] MEDS: *HR* Buprenorphine HCl 2 MG SUBLINGUAL TABLET SL SCH (11:58)
[2019-01-15] MEDS: lamoTRIgine 25 MG TABLET PO SCH (21:29)
[2019-01-15] MEDS: Mirtazapine 15 MG TABLET PO SCH (21:29)
[2019-01-16] MEDS: Gabapentin 300 MG CAPSULE PO SCH ×3 (09:41→20:38)
[2019-01-16] MEDS: OLANZapine 10 MG TAB.RAPDIS PO SCH ×2 (09:41→20:38)
--- NOTE | 2019-01-16 11:26 | Psychiatry Progress Note ---
Date of Encounter: 01/16/19 Time of Encounter: 11:25 Subjective Interval history: Patient has been very sedated with a very low blood pressure. We have had to hold her medications a few times due to this. She continues to sleep much of the day. When she is up she appears confused and appears to be responding to internal stimuli. She is not caring for her ADLs and needs a lot of encouragement to eat and still only eats about 10% of her tray. She reports feeling as though she needs to be punished. And is having some suicidal thoughts. Review of Systems Psychiatric: Reports: suicidal ideation (denies today), auditory hallucinations (present), confusion (present), difficulty concentrating Results - Vital Signs Vital Signs: Temp Pulse Resp BP Pulse Ox 97.1 F L 96 14 99/66 97 01/16/19 09:00 01/16/19 09:00 01/16/19 09:00 01/16/19 09:00 01/16/19 09:00 Assessment and Plan (1) Bipolar 1 disorder Current visit: No Status: Chronic Plan: Continue hospitalization, Close observation, Suicide Precautions per unit protocol, Encourage participation in unit milieu, Group Therapy, Monitor sleep, Monitor appetite Additional Plan: We will decrease her Zyprexa to 5 in the morning and 10 at night given her significant sedation. I had arty decreased her Neurontin to 300 3 times a day and stopped Subutex completely. Tomorrow we will try to increase her Lamictal. Encourage group attendance. Risks, benefits, side effects, alternatives discussed w/pt: Yes (See attending attestation note for adjustment in medications) Patient agreeable to treatment: Yes Consult Discharge Plan - Plan Referrals: Belinda Ames [facility] [place] - 01/18/19 3:00 pm (You have an appointment with Dr. Calderon for medication management 01/18/19. ) Psychiatry Exam - Constitutional Vitals: Temp Pulse Resp BP Pulse Ox 97.1 F L 96 14 99/66 97 01/16/19 09:00 01/16/19 09:00 01/16/19 09:00 01/16/19 09:00 01/16/19 09:00 General appearance: disheveled, thin - Musculoskeletal Gait: slow Station: stooped Strength & Tone: mild weakness - Psychiatric Patient Orientation: Yes Person, Yes Time, Yes Place Level of alertness: Sedated Behavior: guarded, withdrawn Psychomotor activity: Slowed Eye Contact: Fleeting Contact Mood Description: Depressed Patient description of mood: "I do not know" Affect description: blunted Speech Volume: Soft/Quiet Speech pattern: slowed Language & Vocabulary: limited Thought Process: Thought Blocking Thought Content: Yes Suicidal ideation, Yes Paranoid delusion Perceptual Disturbances: Yes Auditory hallucinations Attention Span Ability: Unable to Focus, Unable to Sustain Attention Memory Description: Immediate Impaired, Recent Impaired, Remote Impaired Patient Reliability: Questionable Historian Fund of knowledge: Yes average Intelligence Estimate: Average Judgment: Limited Insight: Minimal
[2019-01-16] MEDS: lamoTRIgine 25 MG TABLET PO SCH (20:38)
[2019-01-16] MEDS: Mirtazapine 15 MG TABLET PO SCH (20:39)
[2019-01-17] MEDS: OLANZapine 5 MG TAB.RAPDIS PO SCH (08:40)
[2019-01-17] MEDS: Gabapentin 300 MG CAPSULE PO SCH (08:40)
--- NOTE | 2019-01-17 09:41 | Psychiatry Progress Note ---
Date of Encounter: 01/17/19 Time of Encounter: 07:50 Subjective Interval history: She continues to be very disorganized. This morning she was wandering the halls with a blanket dragging behind her. I had to redirect her several times to put the blanket in her room as it was a false risk for her. She did finally comply but stared past me on several occasions and appeared to be responding to internal stimuli. When I talked with her in my office she kept repeating that she was "worried" but could not tell me exactly what about other then it was "what to do next". However when asked specifically if she was questioning going back to live Tevin or other specific things she said no. I have titrated her down on the Neurontin and a little bit down on the Zyprexa as she was extremely sedated for 2 days. This morning she does look a little more alert and was able to eat some of her breakfast. She needs encouragement to care for ADLs and to eat. Review of Systems Psychiatric: Reports: suicidal ideation (denies today), auditory hallucinations (present), confusion (present), difficulty concentrating Results - Vital Signs Vital Signs: Temp Pulse Resp BP Pulse Ox 97.8 F 81 14 95/65 96 01/17/19 09:00 01/17/19 09:00 01/17/19 09:01/17/19 09:01/17/19 09:00 Assessment and Plan (1) Bipolar 1 disorder Current visit: No Status: Chronic Plan: Continue hospitalization, Close observation, Suicide Precautions per unit protocol, Encourage participation in unit milieu, Group Therapy, Monitor sleep, Monitor appetite Additional Plan: Increase Lamictal to 50 mg by mouth every morning. Further decrease Neurontin to 200 mg by mouth 3 times a day. Encourage group attendance. Risks, benefits, side effects, alternatives discussed w/pt: Yes (See attending attestation note for adjustment in medications) Patient agreeable to treatment: Yes Consult Discharge Plan - Plan Referrals: Belinda Lazcano [Outside] - 01/18/19 3:00 pm (You have an appointment with Dr. Calderon for medication management 01/18/19. ) Psychiatry Exam - Constitutional Vitals: Temp Pulse Resp BP Pulse Ox 97.8 F 81 14 95/65 96 01/17/19 09:00 01/17/19 09:00 01/17/19 09:00 01/17/19 09:00 01/17/19 09:00 General appearance: disheveled, malnourished - Musculoskeletal Gait: slow Station: stooped Strength & Tone: mild weakness - Psychiatric Patient Orientation: Yes Person, Yes Time, Yes Place Level of alertness: Alert Behavior: anxious, guarded, suspicious Psychomotor activity: Slowed Eye Contact: Minimal Contact Mood Description: Anxious Patient description of mood: Worried Affect description: flat, anxious Speech Volume: Soft/Quiet Speech pattern: slowed, impoverished Language & Vocabulary: limited Thought Process: Thought Blocking Thought Content: Yes Suicidal ideation, Yes Preoccupation Perceptual Disturbances: Yes Auditory hallucinations Attention Span Ability: Unable to Focus, Unable to Sustain Attention Memory Description: Immediate Impaired, Recent Impaired, Remote Impaired Patient Reliability: Questionable Historian Fund of knowledge: Yes average Intelligence Estimate: Below Average Judgment: Limited Insight: Minimal
[2019-01-17] MEDS: Gabapentin 100 MG CAPSULE PO SCH ×2 (14:26→20:45)
[2019-01-17] MEDS: OLANZapine 10 MG TAB.RAPDIS PO SCH (20:43)
[2019-01-17] MEDS: hydrOXYzine pamoate 25 MG CAPSULE PO PRN (20:43)
[2019-01-17] MEDS: Mirtazapine 15 MG TABLET PO SCH (20:44)
[2019-01-17] MEDS ORDERED: lamoTRIgine 25 MG TABLET PO SCH (21:00)
[2019-01-18] MEDS: hydrOXYzine pamoate 25 MG CAPSULE PO PRN (00:48)
[2019-01-18] MEDS: OLANZapine 5 MG TAB.RAPDIS PO SCH (09:08)
[2019-01-18] MEDS: Gabapentin 100 MG CAPSULE PO SCH (09:08)
[2019-01-18 09:29] VITALS: BP 115/81
--- NOTE | 2019-01-18 11:19 | Discharge Summary ---
Date of Encounter: 01/18/19 Time of Encounter: 11:10 Diagnosis - Discharge Diagnosis (1) Bipolar 1 disorder Status: Chronic Medications - Discharge Medications Prescriptions: Benztropine Mesylate 0.5 mg PO BID #60 tab Transmission Status: Pending to [id number] lamoTRIgine [Lamictal] 50 mg PO HS #60 tablet Transmission Status: Pending to [id number] Gabapentin [Neurontin] 200 mg PO TID #180 capsule Transmission Status: Pending to [id number] Mirtazapine [Remeron] 7.5 mg PO HS #15 tab Transmission Status: Pending to [id number] OLANZapine [Zyprexa Zydis] 10 mg PO HS #30 tab.rapdis Transmission Status: Pending to [id number] OLANZapine [Zyprexa Zydis] 5 mg PO QAM #30 tab.rapdis Transmission Status: Pending to [id number] Benztropine Mesylate 0.5 mg PO BID #60 tab 01/18/19 [Rx] Gabapentin [Neurontin] 200 mg PO TID #180 capsule 01/18/19 [Rx] Mirtazapine [Remeron] 7.5 mg PO HS #15 tab 01/18/19 [Rx] OLANZapine [Zyprexa Zydis] 5 mg PO QAM #30 tab.rapdis 01/18/19 [Rx] OLANZapine [Zyprexa Zydis] 10 mg PO HS #30 tab.rapdis 01/18/19 [Rx] lamoTRIgine [Lamictal] 50 mg PO HS #60 tablet 01/18/19 [Rx] Allergy/AdvReac Type Severity Reaction Status Date / Time trazodone AdvReac See Verified 03/26/17 09:34 Comments Results Procedures and tests throughout hospitalization: Completed Lab Orders Category Date Time Status Acetaminophen Stat Lab 01/05/19 13:25 Completed Basic Metabolic Panel Stat Lab 01/05/19 13:25 Completed Complete Blood Count [HEME] Stat Lab 01/05/19 13:25 Completed Drug Screen, Urine [UCHEM] Stat Lab 01/05/19 14:43 Completed Ethanol Stat Lab 01/05/19 13:25 Completed Hgb A1C Routine Lab 01/06/19 09:24 Completed Lipid Panel Routine Lab 01/06/19 09:24 Completed Test Result, Urine [URIN] Stat Lab 01/05/19 14:43 Completed Salicylate Stat Lab 01/05/19 13:25 Completed Thyroid Stimulating Hormone Routine Lab 01/06/19 09:24 Completed Treponema Pallidum Ab Routine Lab 01/06/19 09:24 Completed Urinalysis reflex Microscopic [URIN] Stat Lab 01/05/19 14:43 Completed Provider Date of admission: 01/06/19 09:24 Primary care physician: PCP NONE Consults: 01/09/19 18:08 Consult to Pastoral Services [CONS] Routine Comment: Discharging clinician: Geni Reynoso Psychiatry Exam - Constitutional Vitals: Temp Pulse Resp BP Pulse Ox 97.4 F L 77 18 115/81 99 01/18/19 09:00 01/18/19 09:00 01/18/19 09:00 01/18/19 09:00 01/18/19 09:00 General appearance: age & developmentally appropriate, well-groomed, well- nourished - Musculoskeletal Gait: slow Station: relaxed Strength & Tone: normal for patient - Psychiatric Patient Orientation: Yes Person, Yes Time, Yes Place Level of alertness: Alert Behavior: calm, cooperative Psychomotor activity: Slowed Eye Contact: Maintains Eye Contact Mood Description: Depressed Affect description: congruent with mood Speech Volume: Soft/Quiet Speech pattern: limited Language & Vocabulary: consistent with education Thought Process: Thought Blocking Thought Content: No Suicidal ideation, No Homicidal ideation, No Overt delusions Perceptual Disturbances: Yes Reacting to internal stimuli Attention Span Ability: Capable of Focused Attention Memory Description: Grossly Intact Patient Reliability: Questionable Historian Fund of knowledge: Yes abstraction ability Intelligence Estimate: Average Judgment: Limited Insight: Partial Hospital Course Hospital course: Ms. Mack is a 33 year old female who was admitted with a psychotic depression. Client has a long standing history of Bipolar Disorder and her baseline is not good. 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 Client has had a prolonged hospitalization this admission with only minimal improvement. Multiple different meds have been tried. Client has low blood pressure and staff ran into the difficulty of needing to hold meds and back off on doses in order to keep her blood pressure up. Client was cooperative with eating and drinking fluids when encouraged to do so but her blood pressure still ran low. At high dose Zyprexa she was still symptomatic and she was sleeping all of the time so this medication was weaned back and Lamictal was added to help with mood stabilization. Today client seems more alert. She still has some thought blocking but speech is more fluid. There is likely a behavioral component to her presentation as well as client demonstrates fluid speech when talking to "Tevin" on the phone. Client is denying SI, intent, or plan today. States she is comfortable being discharged. She has an outpatient mental health appointment today and she can be discharged straight to this appointment. Client is aware that she can return to the hospital if things do not go well for her and she needs more intensive services. However, suspect she is at her baseline and do not think additional hospital days will be beneficial at this point. Total time spent with client greater than 30 minutes. Patient was educated of her diagnosis and the risks, benefits, and side effects of this treatment and alternative treatment options and was monitored for responsiveness and side effects. Mood, anxiety, sleep, appetite, and interest improved, as did future orientation. Self-harm thoughts subsided, thinking cl eared, psychosis resolved, and mood stabilized. Patient was able to attend both individual and group therapy sessions as well as meeting with the psychiatrist daily and urged to discuss any medication or treatment issues or other concerns. The patient was educated primarily by verbal means about their diagnosis and manifestations in their life. The option for treatment including group and individual therapy programming was offered to the patient in the use of medications with all their potential risks, benefits, and side effects were discussed with the patient at length. The patient was given the opportunity to ask questions and was noted to participate in the treatment in the planning process. The patient felt ready and eager to be discharged from the inpatient psychiatric unit to continue on with treatment as an outpatient. The patient agreed that she is safe for this disposition. The patient was considered to be able to participate in informed consent and decision making with respect to medical, legal, and financial issues of the time of discharge. At the time of discharge the patient adamantly denied any concerns for lethality including suicidal or homicidal thoughts ideations or plans and was future oriented toward ongoing mental health care, medical follow-up and sobriety. - Time Spent with Patient Total time spent providing and/or coordinating discharge services: Greater than 30 minutes Assessment and Plan - Patient/Caregiver Discharge Instructions Activity: resume usual activities as tolerated Diet: regular diet - Follow up Plan Follow up with: Belinda Lazcano [Outside] - 01/18/19 3:00 pm (You have an appointment with Dr. Calderon for medication management 01/18/19. ) Functional capacity at discharge: independent ambulation Overall status at discharge: Stable Disposition: Home, Self-Care Quality - Multiple Antipsychotics Patient discharged on 2 or more antipsychotic medications: No Procedures - Procedures Procedures: Medication Management, Crisis Stabilization, Supportive Therapy, Group Therapy
== END 2019-01-18 14:54 | disposition home or self-care (01) | DRG 753 ==
LOC: EMEROOARM 12:56 → 1ANU 12:56 → SUATTDRO 01-06 09:24
PROVIDERS: ADMIT Psychiatry & Neurology Psychiatry; ATTEND Psychiatry & Neurology Psychiatry

== ENCOUNTER 2019-11-25 12:22 | Inpatient (IN) ==
[2019-11-25 13:06] LABS: Basophils % 0.3 %; Eosinophils # 0.1 K/mcL (0.0-0.6); Hematocrit 39.3 % (35.3-44.9); Hemoglobin 13.3 g/dL (11.5-15.4); Immature Granulocytes % 0.5 % (0-4); Lymphocytes # 1.7 K/mcL (0.6-4.6); Lymphocytes % 21.7 %; Mean Corpuscular HGB Conc 33.8 g/dL (31.6-35.5); Mean Corpuscular Hemoglobin 30.4 pg (28.0-33.3); Mean Corpuscular Volume 89.9 fL (83.0-100.0); Mean Platelet Volume 10.4 fL (9.4-12.4); Monocytes # 0.6 K/mcL (0.0-1.3); Monocytes % 7.8 %; Neutrophils # 5.4 K/mcL (1.6-8.9); Platelet Count 249 K/mcL (140-400); Red Blood Count 4.37 M/mcL (3.82-4.97); Red Cell Distribution Width 12.4 % (11.5-14.5); Segmented Neutrophils % 68.7 %; White Blood Count 7.9 K/mcL (4.3-11.1)
[2019-11-25 13:24] LABS: Acetaminophen < 10 mcg/mL (10-20); BUN/Creatinine Ratio 6 (6-26); Blood Urea Nitrogen 4 mg/dL (6-20); Calcium 9.7 mg/dL (8.6-10.3); Carbon Dioxide 27 mEq/L (23-29); Chloride 102 mEq/L (98-107); Ethanol < 10 mg/dL (Less than 10); Glucose 103 mg/dL (70-105); Osmolality,Calculated 281 (280-300); Potassium 3.3 mEq/L (3.5-5.1); Salicylate < 2.5 mg/dL (15.0-30.0); Sodium 137 mEq/L (136-145); eGFR For African Americans > 60 (> 60); eGFR For Non-African Americans > 60 (> 60)
[2019-11-25 14:31] LABS: Amphetamine Screen,Urine Negative ng/mL (Cutoff=1000); Barbiturate Screen,Urine Negative ng/mL (Cutoff=200); Benzodiazepines Screen,Urine Negative ng/mL (Cutoff=200); Cannabinoid Screen,Urine Negative ng/mL (Cutoff = 50); Cocaine Screen,Urine Negative ng/mL (Cutoff= 300); Opiate Screen,Urine Negative ng/mL (Cutoff=300); Phencyclidine Screen,Urine Negative ng/mL (Cutoff=25)
[2019-11-25 16:09] LABS: Bilirubin,Urine Negative (Negative); Blood,Urine Trace (Negative); Clarity,Urine Turbid (Clear); Color,Urine Yellow (Yellow); Glucose,Urine (UA) Normal (Normal); Ketones,Urine Negative (Negative); Leukocyte Esterase,Urine Negative (Negative); Mucus,Urine Many per lpf (None-Few); Nitrite,Urine Negative (Negative); Protein,Urine 30 mg/dL (Neg-Trace); RBC,Urine 0-3 per hpf (0-3); Specific Gravity,Urine 1.021 (1.010-1.025); Squamous Epithelial Cell,Urine Moderate per hpf (None-Few); Urobilinogen,Urine Normal (Normal); WBC,Urine 15-30 per hpf (0-3)
[2019-11-25] MEDS ORDERED: MOM Conc 10 ML UD.LIQ PO PRN (16:44)
[2019-11-25] MEDS ORDERED: Haloperidol Lactate 5 MG/ML VIAL IM PRN (16:44)
[2019-11-25] MEDS ORDERED: *HR* LORazepam 2 MG/ML VIAL IM PRN (16:44)
[2019-11-25] MEDS ORDERED: Mag Hydrox/Al Hydrox/Simeth 30 ML UDC PO PRN (16:44)
[2019-11-25] MEDS ORDERED: haloperidoL 5 MG TABLET PO ONE (16:46)
[2019-11-25] MEDS: OLANZapine 5 MG TAB.RAPDIS PO SCH (20:26)
[2019-11-25] MEDS: QUEtiapine Fumarate 25 MG TABLET PO PRN (20:26)
[2019-11-25] MEDS: hydrOXYzine pamoate 25 MG CAPSULE PO PRN (20:26)
[2019-11-25] MEDS: Acetaminophen 325 MG TABLET PO PRN (20:27)
[2019-11-25] MEDS: haloperidoL 5 MG TABLET PO PRN (21:00)
[2019-11-25] MEDS: *HR* LORazepam 1 MG TABLET PO PRN (21:00)
[2019-11-26] MEDS: QUEtiapine Fumarate 25 MG TABLET PO PRN (20:05)
[2019-11-26] MEDS: hydrOXYzine pamoate 25 MG CAPSULE PO PRN (20:05)
[2019-11-26] MEDS: OLANZapine 5 MG TAB.RAPDIS PO SCH (20:06)
[2019-11-26] MEDS: Acetaminophen 325 MG TABLET PO PRN (20:06)
[2019-11-27] MEDS: Gabapentin 100 MG CAPSULE PO SCH ×2 (16:07→20:03)
[2019-11-27] MEDS: Nicotine 2 MG GUM BC PRN ×2 (19:01→20:29)
[2019-11-27] MEDS: QUEtiapine Fumarate 25 MG TABLET PO PRN (20:03)
[2019-11-27] MEDS: OLANZapine 5 MG TAB.RAPDIS PO SCH (20:03)
[2019-11-28] MEDS: Gabapentin 100 MG CAPSULE PO SCH ×3 (09:52→20:07)
[2019-11-28] MEDS: Nicotine 2 MG GUM BC PRN ×2 (16:52→18:55)
[2019-11-28] MEDS: QUEtiapine Fumarate 25 MG TABLET PO PRN (20:07)
[2019-11-28] MEDS: OLANZapine 5 MG TAB.RAPDIS PO SCH (20:07)
[2019-11-28] MEDS: hydrOXYzine pamoate 25 MG CAPSULE PO PRN (20:07)
[2019-11-29] MEDS: Gabapentin 100 MG CAPSULE PO SCH ×3 (09:32→19:56)
[2019-11-29] MEDS: OLANZapine 5 MG TAB.RAPDIS PO SCH (19:56)
[2019-11-29] MEDS: Nicotine 2 MG GUM BC PRN (19:56)
[2019-11-29] MEDS: QUEtiapine Fumarate 25 MG TABLET PO PRN (19:57)
[2019-11-30] MEDS: Gabapentin 100 MG CAPSULE PO SCH ×3 (09:30→20:23)
[2019-11-30] MEDS: Nicotine 2 MG GUM BC PRN ×2 (17:14→19:24)
[2019-11-30] MEDS: hydrOXYzine pamoate 25 MG CAPSULE PO PRN (20:23)
[2019-11-30] MEDS: QUEtiapine Fumarate 25 MG TABLET PO PRN (20:23)
[2019-11-30] MEDS: OLANZapine 5 MG TAB.RAPDIS PO SCH (20:23)
[2019-12-01] MEDS: Gabapentin 100 MG CAPSULE PO SCH ×3 (12:01→20:26)
[2019-12-01] MEDS: Nicotine 2 MG GUM BC PRN ×4 (12:01→20:33)
[2019-12-01] MEDS: OLANZapine 5 MG TAB.RAPDIS PO SCH (20:26)
[2019-12-01] MEDS: hydrOXYzine pamoate 25 MG CAPSULE PO PRN (20:26)
[2019-12-01] MEDS: QUEtiapine Fumarate 25 MG TABLET PO PRN (20:26)
[2019-12-02] MEDS: Gabapentin 100 MG CAPSULE PO SCH ×3 (09:15→20:09)
[2019-12-02] MEDS: Nicotine 2 MG GUM BC PRN ×4 (13:44→20:57)
[2019-12-02] MEDS: lamoTRIgine 25 MG TABLET PO SCH ×2 (13:57→20:07)
[2019-12-02] MEDS ORDERED: PALIPERIDONE PALMITATE 117 MG IM ONE (14:30)
[2019-12-02] MEDS: OLANZapine 5 MG TAB.RAPDIS PO SCH (20:05)
[2019-12-02] MEDS: QUEtiapine Fumarate 25 MG TABLET PO PRN (20:06)
[2019-12-02] MEDS: hydrOXYzine pamoate 25 MG CAPSULE PO PRN (20:06)
[2019-12-02] MEDS: *HR* LORazepam 1 MG TABLET PO PRN (22:12)
[2019-12-02] MEDS: haloperidoL 5 MG TABLET PO PRN (22:13)
[2019-12-03] MEDS: Gabapentin 100 MG CAPSULE PO SCH ×3 (10:01→20:18)
[2019-12-03] MEDS ORDERED: PALIPERIDONE PALMITATE 117 MG IM ONE (11:30)
[2019-12-03] MEDS: Acetaminophen 325 MG TABLET PO PRN (18:25)
[2019-12-03] MEDS: Nicotine 2 MG GUM BC PRN ×2 (19:21→21:23)
[2019-12-03] MEDS: QUEtiapine Fumarate 25 MG TABLET PO PRN (20:18)
[2019-12-03] MEDS: lamoTRIgine 25 MG TABLET PO SCH (20:18)
[2019-12-03] MEDS: OLANZapine 5 MG TAB.RAPDIS PO SCH (20:18)
[2019-12-03] MEDS: hydrOXYzine pamoate 25 MG CAPSULE PO PRN (20:18)
[2019-12-03] MEDS: *HR* LORazepam 1 MG TABLET PO PRN (21:22)
[2019-12-03] MEDS: haloperidoL 5 MG TABLET PO PRN (21:22)
[2019-12-04] MEDS: Gabapentin 100 MG CAPSULE PO SCH ×3 (11:34→20:28)
[2019-12-04] MEDS: Nicotine 2 MG GUM BC PRN ×3 (15:57→20:31)
[2019-12-04] MEDS: *HR* LORazepam 1 MG TABLET PO PRN (18:13)
[2019-12-04] MEDS: haloperidoL 5 MG TABLET PO PRN (18:13)
[2019-12-04] MEDS: OLANZapine 5 MG TAB.RAPDIS PO SCH (20:28)
[2019-12-04] MEDS: lamoTRIgine 25 MG TABLET PO SCH (20:28)
[2019-12-04] MEDS: QUEtiapine Fumarate 25 MG TABLET PO PRN (21:27)
[2019-12-04] MEDS: hydrOXYzine pamoate 25 MG CAPSULE PO PRN (21:27)
[2019-12-05] MEDS: Gabapentin 100 MG CAPSULE PO SCH ×3 (10:52→21:01)
[2019-12-05] MEDS: Nicotine 2 MG GUM BC PRN ×3 (16:56→21:02)
[2019-12-05] MEDS: QUEtiapine Fumarate 25 MG TABLET PO PRN (21:01)
[2019-12-05] MEDS: hydrOXYzine pamoate 25 MG CAPSULE PO PRN (21:01)
[2019-12-05] MEDS: OLANZapine 5 MG TAB.RAPDIS PO SCH (21:01)
[2019-12-05] MEDS: lamoTRIgine 25 MG TABLET PO SCH (21:02)
[2019-12-05] MEDS: *HR* LORazepam 1 MG TABLET PO PRN (22:31)
[2019-12-05] MEDS: haloperidoL 5 MG TABLET PO PRN (22:31)
[2019-12-06] MEDS: Gabapentin 100 MG CAPSULE PO SCH ×3 (09:46→20:04)
[2019-12-06] MEDS: Nicotine 2 MG GUM BC PRN ×3 (15:52→20:06)
[2019-12-06] MEDS: OLANZapine 5 MG TAB.RAPDIS PO SCH (20:04)
[2019-12-06] MEDS: hydrOXYzine pamoate 25 MG CAPSULE PO PRN ×2 (20:04→23:08)
[2019-12-06] MEDS: QUEtiapine Fumarate 25 MG TABLET PO PRN ×2 (20:04→21:02)
[2019-12-06] MEDS: lamoTRIgine 25 MG TABLET PO SCH (20:04)
[2019-12-07] MEDS: Gabapentin 100 MG CAPSULE PO SCH ×2 (10:21→20:01)
[2019-12-07] MEDS: Acetaminophen 325 MG TABLET PO PRN ×2 (12:29→20:00)
[2019-12-07] MEDS: Nicotine 2 MG GUM BC PRN ×5 (12:30→22:14)
[2019-12-07] MEDS: QUEtiapine Fumarate 25 MG TABLET PO PRN (19:59)
[2019-12-07] MEDS: lamoTRIgine 25 MG TABLET PO SCH (20:00)
[2019-12-07] MEDS: hydrOXYzine pamoate 25 MG CAPSULE PO PRN (20:00)
[2019-12-07] MEDS ORDERED: OLANZapine 5 MG TAB.RAPDIS PO SCH (21:00)
[2019-12-07] MEDS: haloperidoL 5 MG TABLET PO PRN (22:40)
[2019-12-08] MEDS: Gabapentin 100 MG CAPSULE PO SCH ×2 (08:38→20:34)
[2019-12-08] MEDS: Acetaminophen 325 MG TABLET PO PRN (09:06)
[2019-12-08] MEDS: Nicotine 2 MG GUM BC PRN ×6 (09:26→21:43)
[2019-12-08] MEDS: lamoTRIgine 25 MG TABLET PO SCH (20:33)
[2019-12-08] MEDS: QUEtiapine Fumarate 25 MG TABLET PO PRN (20:34)
[2019-12-08] MEDS: hydrOXYzine pamoate 25 MG CAPSULE PO PRN (20:34)
[2019-12-09] MEDS: haloperidoL 5 MG TABLET PO PRN ×2 (00:07→18:23)
[2019-12-09] MEDS: Gabapentin 100 MG CAPSULE PO SCH ×2 (09:02→20:13)
[2019-12-09] MEDS: Acetaminophen 325 MG TABLET PO PRN ×2 (09:41→21:17)
[2019-12-09] MEDS: Nicotine 2 MG GUM BC PRN ×5 (10:45→20:13)
[2019-12-09] MEDS: hydrOXYzine pamoate 25 MG CAPSULE PO PRN (17:03)
[2019-12-09] MEDS: QUEtiapine Fumarate 25 MG TABLET PO PRN (20:14)
[2019-12-09] MEDS: lamoTRIgine 25 MG TABLET PO SCH (20:14)
[2019-12-10] MEDS: Gabapentin 100 MG CAPSULE PO SCH ×2 (08:24→20:08)
[2019-12-10] MEDS: Acetaminophen 325 MG TABLET PO PRN ×2 (08:25→16:52)
[2019-12-10] MEDS: Nicotine 2 MG GUM BC PRN ×5 (09:26→18:51)
[2019-12-10] MEDS: rOPINIRole 1 MG TABLET PO SCH ×2 (11:15→20:06)
[2019-12-10] MEDS: haloperidoL 5 MG TABLET PO PRN ×2 (15:28→21:58)
[2019-12-10] MEDS: hydrOXYzine pamoate 25 MG CAPSULE PO PRN ×2 (15:28→21:58)
[2019-12-10] MEDS: QUEtiapine Fumarate 25 MG TABLET PO PRN (20:05)
[2019-12-10] MEDS: lamoTRIgine 25 MG TABLET PO SCH (20:06)
[2019-12-11] MEDS: Gabapentin 100 MG CAPSULE PO SCH ×2 (08:23→20:18)
[2019-12-11] MEDS: rOPINIRole 1 MG TABLET PO SCH ×2 (08:23→20:17)
[2019-12-11] MEDS ORDERED: ChlorproMAZINE 25 MG/ML AMPUL IM PRN (09:16)
[2019-12-11] MEDS: Nicotine 2 MG GUM BC PRN ×4 (09:41→17:07)
[2019-12-11] MEDS: chlorproMAZINE 25 MG TABLET PO PRN (10:44)
[2019-12-11] MEDS: Acetaminophen 325 MG TABLET PO PRN (17:07)
[2019-12-11] MEDS: QUEtiapine Fumarate 25 MG TABLET PO PRN (20:17)
[2019-12-11] MEDS: lamoTRIgine 25 MG TABLET PO SCH (20:18)
[2019-12-12] MEDS: rOPINIRole 1 MG TABLET PO SCH ×2 (08:57→20:25)
[2019-12-12] MEDS: Gabapentin 100 MG CAPSULE PO SCH ×2 (08:57→20:25)
[2019-12-12] MEDS: chlorproMAZINE 25 MG TABLET PO PRN ×2 (09:34→17:39)
[2019-12-12] MEDS: Nicotine 2 MG GUM BC PRN ×5 (09:45→20:25)
[2019-12-12] MEDS: lamoTRIgine 25 MG TABLET PO SCH (20:25)
[2019-12-12] MEDS: QUEtiapine Fumarate 25 MG TABLET PO PRN (20:25)
[2019-12-13] MEDS: rOPINIRole 1 MG TABLET PO SCH ×2 (09:18→21:12)
[2019-12-13] MEDS: Gabapentin 100 MG CAPSULE PO SCH ×2 (09:19→21:12)
[2019-12-13] MEDS: Nicotine 2 MG GUM BC PRN ×3 (11:01→21:53)
[2019-12-13] MEDS: chlorproMAZINE 25 MG TABLET PO PRN (17:32)
[2019-12-13] MEDS: QUEtiapine Fumarate 25 MG TABLET PO PRN (21:11)
[2019-12-13] MEDS: lamoTRIgine 25 MG TABLET PO SCH (21:11)
[2019-12-14] MEDS: rOPINIRole 1 MG TABLET PO SCH ×2 (09:21→20:18)
[2019-12-14] MEDS: Gabapentin 100 MG CAPSULE PO SCH ×2 (09:22→20:18)
[2019-12-14] MEDS: Nicotine 2 MG GUM BC PRN ×4 (09:28→19:45)
[2019-12-14] MEDS: lamoTRIgine 25 MG TABLET PO SCH (20:18)
[2019-12-14] MEDS: QUEtiapine Fumarate 25 MG TABLET PO PRN (20:18)
[2019-12-15] MEDS ORDERED: chlorproMAZINE 25 MG TABLET PO PRN (08:51)
[2019-12-15] MEDS: Gabapentin 100 MG CAPSULE PO SCH (08:53)
[2019-12-15] MEDS: rOPINIRole 1 MG TABLET PO SCH (08:53)
[2019-12-15] MEDS: Nicotine 2 MG GUM BC PRN ×4 (08:54→16:33)
[2019-12-15 09:53] VITALS: BP 94/60
[2019-12-15] MEDS ORDERED: chlorproMAZINE 25 MG TABLET PO SCH (13:00)
== END 2019-12-15 17:40 | disposition home or self-care (01) | DRG 753 ==
LOC: EMEROOARM 12:22 → SUATTDRO 16:41 → 1ANU 16:41
PROVIDERS: ADMIT Psychiatry & Neurology Psychiatry; ATTEND Psychiatry & Neurology Psychiatry